=== PATIENT | female | born 1965 | race Caucasian/White ===

== ENCOUNTER 2019-07-31 10:01 | Outpatient (RCR) | payer MEDICARE, MEDICAID, SELFPAY ==
--- NOTE | 2019-08-01 08:09 | ONC FU_ITS ---
Dr. Benavidez Patient Follow-Up Note Patient: Bessy Roy Unit #: [id number]: 1965 Dicatated By: Jeffrey Benavidez M.D.Date of Visit:Jul 31, 2019 Onc Med Follow-up/Prog Note Chief Complaint: Ovarian cancer. History of Present Illness: This is a 54 year-old woman with recurrent ovarian cancer. She had presented in March 2012 with stage IIIC ovarian cancer. She was referred to Dr. Edilson Wahl for [employer] oncology. On 05/17/12 showed underwent exploratory laparotomy. She had bilateral adnexal masses which essentially coalesced to form 1 pelvic tumor which was involving the rectosigmoid colon. There was an omental cake which was densely adherent to the anterior abdominal wall. There were tumor implants ranging from miliary disease up to 2 cm plaques involving the right diaphragm, the peritoneum over Campos pouch and along the right pericolic gutter and similar plaque-type changes along the splenic hilum. The procedure included total abdominal hysterectomy with bilateral salpingo-oophorectomy and en bloc rectosigmoid resection, omentectomy with partial resection of the anterior abdominal wall, splenectomy, bilateral pelvic and periaortic lymph node dissection, appendectomy, liver biopsy, and debulking of right diaphragm and peritoneal implants. The op note indicates a small amount of residual miliary disease present at the end of the procedure. It was estimated to be greater than 99% resected. Pathology showed a high-grade serous carcinoma involving both ovaries, measuring 9 cm on the right and 6 cm on the left. There was involvement in the omentum and multiple serosal surfaces including the appendix, uterus, and colon. There was no diagnostic abnormality in the included portion of rectosigmoid colon and there was no involvement in the skeletal muscle from the abdominal wall. There was involvement in the liver capsule, but not the liver parenchyma. The spleen showed no diagnostic abnormality. There was involvement in 4 of 20 lymph nodes. The ascitic fluid also was positive. Her postoperative course was complicated by development of an abscess in the left lower quadrant, requiring percutaneous drainage and antibiotic therapy. She did have a gradual recovery, and she subsequently was given postoperative chemotherapy with carboplatin/Taxol. During the fifth cycle she had an admission to the hospital with abdominal pain and fever. She was not leukopenic at that time. Abdominal CT scan showed new lymph nodes in the right lower quadrant area and some thickening in the sigmoid colon. Her symptoms improved with empiric antibiotic therapy and as of 11/15/2012 she did complete her sixth cycle of chemotherapy. There were delays during her chemotherapy which were just related to poor compliance. In August 2013 she presented to the emergency room with right lower quadrant abdominal pain. She also reported frequent urination and urgency. She was not having fever, but she had not been feeling good generally for at least a couple of weeks. On evaluation, she did have evidence of urinary tract infection, which has been confirmed with culture. However, it was also noted that her CA 125 level had increased significantly, to 153 units/mL compared to 14.1 U/mL in November 2013. CT abdomen/pelvis showed interval development of a small amount of peritoneal ascites and numerous scattered mesenteric lymph nodes. The appearance was suspicious for metastatic disease. There was, however, no omental caking or GI tract obstruction. At that point she started second line chemotherapy with carboplatin and weekly Taxol in combination with Avastin. As of 02/02/15 she had completed 6 cycles of chemotherapy. She has had significant response by CA 125 level and by followup CT scan. With the fourth cycle of treatment I did opt to change her paclitaxel to a 3-week dosing regimen, as her diabetes was poorly controlled with the extra steroid on the weekly regimen. She did experience an increase in peripheral neuropathy with the 3-week paclitaxel dosing, and I did opt to omit the Taxol with cycles 5 and 6. In February 2015, following completion of 6 cycles of chemotherapy, her treatment was changed to maintenance Avastin. She had continued maintenance Avastin, beginning 03/02/2015. Initially her CA-125 levels remained stable, and she felt much better off the chemotherapy. However, by the end of June her CA-125 level began to increase. As of 08/19/2015 it was back up to 43 U/mL. At that point she restarted chemotherapy with Abraxane/Avastin, and her CA-125 level subsequently declined. She then continued treatment with Abraxane/Avastin, which she tolerates well on a day 1/day 15 schedule. As of 02/03/2016 she completed 6 cycles of treatment. As of December 2015 her CA-125 level had stabilized at 9.9 U/mL. She began her 13th cycle of treatment on 08/24/2016. Restaging CT scans of the chest, abdomen, and pelvis on 09/05/2016 showed non-obstructing right renal calculi and curvilinear mucosal thickening in the right renal pelvis. There was no evidence of neoplastic process in the chest, abdomen, or pelvis. She continued treatment with Abraxane/Avastin, though with some inconsistency, as she typically had not been very compliant with her treatment. Since September 2016 she has basically just been on a monthly treatment schedule. She completed cycle 21 of Abraxane/Avastin on 05/03/2017. Her Avastin had been put on hold as of her cycle 20 treatment on 03/29/2017 due to proteinuria. I had seen her for a follow-up visit on 05/31/2017. At that point her CA-125 level was noted to have increased gradually, up to 14.2 U/mL compared to 9.4 U/mL in September 2016. She continued with cycle 22 of Abraxane. She was able to resume the Avastin. Her CA-125 level continued to increase gradually. Restaging CT scans on 07/12/2017 showed no obvious disease progression. She continued with cycle 24 of Abraxane/Avastin on 08/02/2017. As of her follow-up visit on 08/22/2017 her neuropathy symptoms had worsened significantly, and I did opt to put her treatment on hold. She returned on 09/26/2017 to begin further chemotherapy with carboplatin/gemcitabine on a day 1/day 15 schedule. Her baseline CA-125 level had increased to 15.1 U/mL. She had some fatigue following that treatment. She otherwise seemed to tolerate it pretty well, and she was able to continue treatment on a day 1/day 15 schedule. During her subsequent followup she had not been terribly consistent in keeping her appointments, but that has been a typical pattern for her. However, her CA-125 level had basically remained stable and her restaging CT of the abdomen/pelvis on 05/08/2018 just showed mild progression of soft tissue thickening along the right lateral urinary bladder wall compared to the previous study from October 2017. It had not been present on an earlier study from June 2017. There was no evidence for metastatic disease or ascites in the abdomen/pelvis. She was then referred to Dr. May for urologic care, and she continued chemotherapy with carboplatin/gemcitabine. As of her follow-up visit on 08/08/2018 she completed cycle 10 day 15 carboplatin/gemcitabine. Her CEA 125 level at that point was stable at 15 U/mL. Restaging CT scans of the chest, abdomen, and pelvis showed persistent right lateral bladder wall thickening, unchanged from the April 2018 study. There was no evidence for metastatic disease throughout the chest, abdomen, or pelvis, and there was no evidence of ascites. She continued with cycle 11 of carboplatin/gemcitabine on 08/15/2018. She completed day 15 on 08/29/2018. She remained stable clinically with CA-125 level stable at 14.4 U/mL. Her other medical illnesses include hypertension, type II diabetes, and anxiety/depression. She underwent repair of an incisional hernia which developed subsequent to her abdominal surgery in 2011. She is a nonsmoker. INTERIM HISTORY: In August 2018 she began maintenance therapy with olaparib 300 mg twice a day. As of her follow-up visit on 11/04/2018 she was tolerating the treatment well, and she appeared stable clinically with no evidence of disease progression. As of 12/16/2018 there was a slight increase in her CA-125 level to 21.3 U/mL, but she appeared stable clinically. Restaging CT abdomen/pelvis on 01/16/2019 showed no evidence of disease progression. There was stable appearance to right anterior lower uterine bladder wall thickening. She continued treatment with olaparib 300 mg twice a day. She was seen for a scheduled visit on 04/10/2019. At that time she appeared stable clinically, but there was a significant increase in her CA 125 level to 30.0 U/mL compared to 17.8 U/mL in January. With that change she had restaging CT scans of the chest/abdomen/pelvis on 04/18/2019. It showed new circumferential thickening of the stomach antrum and a small but slightly increase sized gastric lymph node. It was felt to possible represent inflammatory changes from peptic ulcer disease, but very early metastatic disease was not excluded. There was no ascites. There was stable, mild thickening of the right lateral urinary bladder wall. With those findings, I opted to restart her on chemotherapy with carboplatin in combination with liposomal doxorubicin. She began cycle 1 on 05/08/2019. Her baseline CA 125 level was 58.9 U/mL. She tolerated the treatment with acceptable toxicity. She continued with cycle 2 on 06/05/2019 and with cycle 3 on 07/03/2019. At that point the CA 125 level had decreased to 38.9 U/mL. She is seen for a follow-up visit. She has not been feeling is good. She developed left sore throat and cough over the past weekend, for which she was started on amoxicillin. She also had some vomiting. She complains that she developed a rash which started on the bottoms of her feet and extended up both legs. She also reports having bruising around her waistline. Her energy has not been good, and her activity has been limited. ECOG score is 2. She has had some decline in her appetite. She had some fever with her recent illness. She has occasional hot flashes/sweating. Her breathing has been OK. She has not had chest pain. She has had a little bit of nausea and a little bit of heartburn. Bowels have varied between diarrhea and constipation. Bladder function has been OK. She has had a few headaches and a little bit of lightheadedness. She has some stiffness in her hands. She has no numbness/paresthesia or other focal neurologic symptoms. Medications: AmLODIPine Besylate 1 (5 mg) Tablet Oral daily, Amoxicillin 1 Tablet (of 500 mg) Oral b.i.d. for 7 days, CeleXA 1 (40 mg) Tablet Oral daily, Compazine 1 (10 mg) Tablet Oral four times a day PRN, HumuLIN R Injection t.i.d. PRN, Hydrocodone-Acetaminophen 1 (7.5-325 mg) Tablet Oral q 4 hours PRN, Lantus 40 Units (of 100 Units/mL) Subcutaneous at bedtime PRN, Levothyroxine Sodium 1 Tablet (of 125 mcg) Oral daily, Lomotil 1 (2.5-0.025 mg) Tablet Oral q 6 hours PRN, LORazepam 1 Tablet (of 1 mg) Oral four times a day PRN, Magnesium 1 Tablet (of 400 mg) Oral daily, MetFORMIN HCl 1 (500 mg) Tablet Oral b.i.d., Pantoprazole Sodium 1 Tablet (of 40 mg) Tablet, enteric coated Oral daily, Sulfamethoxazole-Trimethoprim 1 Tablet (of 800-160 mg) Oral b.i.d., Voltaren 2 - 4 G (of 1 %) Gel (jelly) Transdermal PRN Allergies: No Known Allergies. Review of Systems: Constitutional - Her energy is low. She does some very light work at home. Her appetite is not very good and her weight is down about 8 pounds. She has had fever, up to around 101. She has hot flashes and sweating. ECOG score is 2, ENMT - She has sinus congestion/drainage. She has sore mouth and sore throat. No difficulty swallowing, Hematologic/Lymphatic - No abnormal bruising or bleeding, Respiratory - No shortness of breath. No cough. No pleuritic pain or hemoptysis, Cardiovascular - No angina pain. No palpitations, Gastrointestinal - She has some nausea with an episode of vomiting. She has had some heartburn and acid reflux. Her bowels fluctuate between diarrhea and constipation. No blood in the stool or black stools, Genitourinary (F) - No dysuria or hematuria. No urinary frequency. No urgency or incontinence, Musculoskeletal - She has some stiffness in her hands, Integumentary - She has a rash on her lower extremities. She has skin discoloration around her abdomen, Neurologic - She has occasional headaches. She occasionally feels light-headed. No numbness/paresthesias or other focal neurologic symptoms, Psychiatric - Her anxiety/depression is adequately managed. No insomnia. Vital Signs: Performed on Jul 31, 2019 10:20 Height - 63.50 in Weight - 200.8 lbs (LOW) BSA - 1.95 sq.m BMI - 35.01 (HIGH) Temperature - 97.5 F (LOW) Pulse - 95 /min Respiration - 20 /min BP - 140/83 mm(hg) O2 Sat - 99 % Pain - 3 Physical Examination: Constitutional - She looks pretty good generally, Eyes - Sclerae nonicteric. Conjunctivae clear, ENMT - There are no lesions noted in the oral cavity, Hematologic/Lymphatic - No cervical, clavicular, or axillary adenopathy, Respiratory - Lungs sound clear, Cardiovascular - Heart rhythm is regular with a mild tachycardia. There is a II/ systolic murmur. There is no gallop or rub noted, Abdomen - Mildly distended and firm. Liver is not enlarged. There is no abdominal mass or ascites noted and there is no inguinal adenopathy, Extremities - No edema. There is mild erythema of the left great toe, and the toenail appears discolored, Integumentary - There is a follicular eruption involving the calves of both legs extending into the popliteal area. There is a narrow band of hyperpigmentation extending around her waistline, Neurologic - No focal neurologic deficits noted. Lab/Imaging: Test performed on Jul 31, 2019 10:37 Creatinine 0.9 mg/dL Cr Clearance (Est) 107.25 mL/min Test performed on Jul 28, 2019 10:52 WBC 6.8 10 3/uL RBC 4.07 10 6/uL HGB 13.1 g/dl HCT 40.0 % MCV 98.4 fl MCH 32.2 pg MCHC 32.7 g/dl RDW 17.8 % Platelet Count 399 10 3/uL MPV 8.4 fl Neutrophils 4.0 10 3/cmm Lymphocytes 1.7 10 3/uL Monocytes 1.0 10 3/uL Neutrophil % 59.3 % Lymphocyte % 25.7 % Monocyte % 15.0 % Test performed on Jul 03, 2019 11:00 Sodium 131 mmol/L Potassium 4.1 mmol/L Chloride 90 mmol/L CO2 25 mmol/L Anion Gap 20.1 BUN 14 mg/dL eGFR 65.2 mL/min Glucose 468 mg/dl Calcium 9.1 mg/dL Protein, Total 6.2 g/dL Albumin 4.5 g/dL Globulin 1.7 gm/dL Bilirubin, Total 0.2 mg/dL ALT (SGPT) 10 U/L AST (SGOT) 14 U/L Alkaline Phosphatase 89 U/L CA-125 38.9 U/mL Test performed on Jun 05, 2019 08:20 Eosinophils 0.0 10 3/uL Basophils 0.1 10 3/uL Eosinophil % 0.5 % Basophils % 1.0 % Test performed on May 22, 2019 09:02 Manual Segs 63.1 % Manual Lymphocytes 2.7 % Manual Monocytes 0.4 % Test performed on Apr 10, 2019 08:10 Polychromasia TRACE [place] Bodies 2+ Ovalocytes TRACE CBC Slide Review SLIDE REVIEW PERFORM Platelets, Giant TRACE Test performed on Feb 19, 2019 08:15 T4, Free 1.36 ng/dL TSH 5.51 uIU/mL Est Avg Glucose (eAG) 266 mg/dL Hemoglobin A1C % 10.9 % Impression: 1. The patient has high-grade serous carcinoma of the ovary, stage IIIC at initial diagnosis. There was a small amount of residual miliary disease present following her initial surgery in April 2012. Her disease was estimated at greater than 99% resected. She was given postoperative chemotherapy with 6 cycles of carboplatin/Taxol, which she completed in October 2012. 2. In August 2014 she had evidence of recurrence by CA [address] scan, and she then initiated second line treatment with carboplatin and weekly Taxol in combination with Avastin. As of February 2015 she had completed 6 cycles of chemotherapy. She had a good response by CEA 125 level and by followup CT scan. With the fourth cycle, I had changed the paclitaxel to 3-week dosing, as her diabetes had been poorly controlled with the extra the steroid required with the weekly dosing. She unfortunately did experience increased neuropathy with the 3-week dosage. With cycles 5 and 6 I did opt to omit the Taxol, and following completion of 6 cycles her treatment was changed to maintenance Avastin. She had significant improvement in her performance status after her treatment was changed to the maintenance Avastin. 3. As of 08/19/2015 she had 2 successive increases in her CA-125 level, and at that point she restarted chemotherapy with Abraxane in combination with Avastin. She has had a very good response by CA-125 level. Beginning with the 5th cycle, her treatment was changed to a day 1/day 15 schedule. Her other medical illnesses include: 4. Hypertension. 5. Type II diabetes. 6. GERD. 7. Anxiety/depression. As of 09/05/[address] scans had shown no evidence of disease progression. At that point she was in her 13th cycle of chemotherapy. She had subsequently continued treatment with Abraxane/Avastin, though not on a consistent schedule. Since October 2016 her treatments have generally been averaging once a month. Her CA-125 level had initially remained stable. As of 03/29/2017 she had completed her 20th cycle treatment. The Avastin was held at that time due to 2+ protein in her urine. On her subsequent 24-hour urine the proteinuria was still in acceptable range to continue treatment with Avastin. She proceeded with her cycle 22 Abraxane on 05/31/2017. She failed to return for her day 15 treatment. She received cycle 23 on 06/28/2017 and with cycle 24 on 08/02/2017. As of her follow-up visit on 08/22/2017 her neuropathy had worsened significantly, and I opted to stop her treatment. On 09/26/2017 she began further chemotherapy with carboplatin/gemcitabine on a day 1/day 15 schedule. Her baseline CA-125 level had increased to 15.1 U/mL. She had no acute toxicity with her day 1 treatment, but her day 8 CBC did show moderately severe neutropenia. She continued with cycle 1 day 15 treatment on 10/10/2017. She was given Neulasta prophylactically. She tolerated the treatment pretty well other than the Neulasta made her feel really awful. She has since then continued treatment on a day 1/day 15 schedule. As of July 2018 she had completed 11 cycles of treatment. She appeared stable clinically, and her restaging CT scans from 08/08/2018 had shown no evidence of disease progression. She had evidence of bladder wall thickening along with symptoms of cystitis, for which she was referred to Dr. May. As of August 2018 she began maintenance therapy with olaparib 300 mg twice a day. During subsequent follow-up she has tolerated the olaparib without significant adverse effects. She has had improvement in her cystitis symptoms, and there has been some improvement in her energy/activity tolerance since stopping the chemotherapy. As of her follow-up visit in November there was some increase in her CA-125 level, and she also had reported pain in her mid to lower abdomen. As of her follow-up visit in December her CA-125 level had remained stable, and her restaging CT abdomen/pelvis showed no obvious disease progression. At her scheduled followup visit on 04/10/2019 there appeared to be no significant change in her clinical status, but there was a significant further increase in the CA-125 level. Her subsequent restaging CT scans showed some new circumferential thickening of the stomach antrum and slight increased size of a gastric lymph node. It is uncertain to what extent those changes may be related to the ovarian cancer. However, in the context of a significantly increasing CA-125 level, it did appear likely that she was showing disease progression, and I did opt to restart her on chemotherapy with carboplatin in combination with liposomal doxorubicin. She began cycle 1 on 05/08/2019. Her baseline CA 125 level was 58.9 U/mL. She tolerated the treatment with acceptable toxicity. She continued with cycle 2 on 06/05/2019 and with cycle 3 on 07/03/2019. At that point the CA 125 level had decreased to 38.9 U/mL. She has had more side effects with her third cycle of treatment, including skin eruption in the lower extremities and hyperpigmentation in the abdominal area. She also has had decline in her performance status. Her CA 125 level appears to have stabilized, and it appears that she is having at best a modest response to the treatment. Plan: I am going to stop her current chemotherapy, as I feel that it is unlikely that she will tolerate a sufficient dosage to have a meaningful clinical response. She will be given a prescription for doxycycline for the skin eruption. I will see her back in 2 weeks. If she is feeling better, I will consider restarting treatment with a gemcitabine based regimen. Signed By: Jeffrey Benavidez M.D. <<Signature on File>>
== END 2019-08-29 23:59 | disposition home or self-care (01) ==
LOC: ONCMED 10:01
PROVIDERS: Family Provider Family Medicine; PCP Family Medicine; Visit Provider Internal Medicine Medical Oncology
DX: C56.2 Malignant neoplasm of left ovary (principal); C56.1 Malignant neoplasm of right ovary; C77.2 Secondary and unspecified malignant neoplasm of intra-abdominal lymph nodes; C78.6 Secondary malignant neoplasm of retroperitoneum and peritoneum; L27.1 Localized skin eruption due to drugs and medicaments taken internally; L81.4 Other melanin hyperpigmentation; T45.1X5A Adverse effect of antineoplastic and immunosuppressive drugs, initial encounter; I10 Essential (primary) hypertension; E11.9 Type 2 diabetes mellitus without complications; Z79.899 Other long term (current) drug therapy; F41.8 Other specified anxiety disorders; Z79.891 Long term (current) use of opiate analgesic; Z79.4 Long term (current) use of insulin; Z90.722 Acquired absence of ovaries, bilateral
CPT/HCPCS: 99214

== ENCOUNTER 2019-08-14 06:32 | Outpatient (RCR) | payer MEDICARE, MEDICAID, SELFPAY ==
[2019-08-14 09:29] LABS: Basophils # 0.1 10^3/uL (0.0-0.1); Basophils % 0.8 %; Eosinophils # 0.1 10^3/uL (0.0-0.8); Eosinophils % 0.4 %; Hematocrit 36.3 % (37.0-47.0); Hemoglobin 11.9 g/dL (11.5-15.3); Lymphocytes % 35.3 %; Mean Corpuscular HGB Conc 32.8 g/dL (30.0-36.0); Mean Corpuscular Hemoglobin 31.4 pg (28.0-34.0); Mean Corpuscular Volume 95.8 fL (81-99); Mean Platelet Volume 9.7 fL (7.4-10.4); Monocytes % 8.8 %; Neutrophils # 6.1 10^3/uL (1.8-7.7); Neutrophils % 54.2 %; Nucleated Red Blood Cells % 0 %; Platelet Count 477 10^3/cmm (130-400); Red Blood Count 3.79 10^6/uL (4.1-5.3); Red Cell Distribution Width 15.4 % (12.1-15.1); White Blood Count 11.2 10^3/uL (4.0-10.0)
[2019-08-14 09:50] LABS: Alanine Aminotransferase 15 U/L (0-33); Albumin Level 4.2 g/dL (3.5-5.2); Alkaline Phosphatase 96 IU/L (35-105); Aspartate Amino Transferase 15 U/L (0-32); Blood Urea Nitrogen 16 mg/dL (6-20); Calcium 9.6 mg/Dl (8.6-10.0); Carbon Dioxide 28 mmol/L (22-29); Chloride 90 mmol/L (98-107); Globulin 2.9 g/dL (1.3-4.6); Glomerular Filtration Rate 74.7 mL/min (90-130); Glucose 275 mg/dL (74-109); Sodium 133 mmol/L (136-145); Total Bilirubin 0.2 mg/dL (0.15-1.2); Total Protein 7.1 g/dL (6.6-8.7)
[2019-08-14 10:06] LABS: Estmated Average Glucose 278; Hemoglobin A1C 11.3 % (4.0-6.0)
--- NOTE | 2019-08-18 11:19 | ONC FU_ITS ---
[facility] Patient Note Patient: Bessy Roy Unit #: [id number]: [id number] Dictated By: Smiley RuizDate of Visit: Aug 14, 2019 Onc MED Follow-Up/Prog Note Chief Complaint: Ovarian cancer. History of Present Illness: Ms Roy is a 54 year-old woman with recurrent ovarian cancer. She had presented in March 2012 with stage IIIC ovarian cancer. She was referred to Dr. Edilson Wahl for CURRICULUM MANAGER oncology. On 05/17/12 showed underwent exploratory laparotomy. She had bilateral adnexal masses which essentially coalesced to form 1 pelvic tumor which was involving the rectosigmoid colon. There was an omental cake which was densely adherent to the anterior abdominal wall. There were tumor implants ranging from miliary disease up to 2 cm plaques involving the right diaphragm, the peritoneum over Campos pouch and along the right pericolic gutter and similar plaque-type changes along the splenic hilum. The procedure included total abdominal hysterectomy with bilateral salpingo-oophorectomy and en bloc rectosigmoid resection, omentectomy with partial resection of the anterior abdominal wall, splenectomy, bilateral pelvic and periaortic lymph node dissection, appendectomy, liver biopsy, and debulking of right diaphragm and peritoneal implants. The op note indicates a small amount of residual miliary disease present at the end of the procedure. It was estimated to be greater than 99% resected. Pathology showed a high-grade serous carcinoma involving both ovaries, measuring 9 cm on the right and 6 cm on the left. There was involvement in the omentum and multiple serosal surfaces including the appendix, uterus, and colon. There was no diagnostic abnormality in the included portion of rectosigmoid colon and there was no involvement in the skeletal muscle from the abdominal wall. There was involvement in the liver capsule, but not the liver parenchyma. The spleen showed no diagnostic abnormality. There was involvement in 4 of 20 lymph nodes. The ascitic fluid also was positive. Her postoperative course was complicated by development of an abscess in the left lower quadrant, requiring percutaneous drainage and antibiotic therapy. She did have a gradual recovery, and she subsequently was given postoperative chemotherapy with carboplatin/Taxol. During the fifth cycle she had an admission to the hospital with abdominal pain and fever. She was not leukopenic at that time. Abdominal CT scan showed new lymph nodes in the right lower quadrant area and some thickening in the sigmoid colon. Her symptoms improved with empiric antibiotic therapy and as of 11/15/2012 she did complete her sixth cycle of chemotherapy. There were delays during her chemotherapy which were just related to poor compliance. In August 2013 she presented to the emergency room with right lower quadrant abdominal pain. She also reported frequent urination and urgency. She was not having fever, but she had not been feeling good generally for at least a couple of weeks. On evaluation, she did have evidence of urinary tract infection, which has been confirmed with culture. However, it was also noted that her CA 125 level had increased significantly, to 153 units/mL compared to 14.1 U/mL in November 2013. CT abdomen/pelvis showed interval development of a small amount of peritoneal ascites and numerous scattered mesenteric lymph nodes. The appearance was suspicious for metastatic disease. There was, however, no omental caking or GI tract obstruction. At that point she started second line chemotherapy with carboplatin and weekly Taxol in combination with Avastin. As of 02/02/15 she had completed 6 cycles of chemotherapy. She has had significant response by CA 125 level and by followup CT scan. With the fourth cycle of treatment Dr Benavidez did opt to change her paclitaxel to a 3-week dosing regimen, as her diabetes was poorly controlled with the extra steroid on the weekly regimen. She did experience an increase in peripheral neuropathy with the 3-week paclitaxel dosing, and it was opted to omit the Taxol with cycles 5 and 6. In February 2015, following completion of 6 cycles of chemotherapy, her treatment was changed to maintenance Avastin. She had continued maintenance Avastin, beginning 03/02/2015. Initially her CA-125 levels remained stable, and she felt much better off the chemotherapy. However, by the end of June her CA-125 level began to increase. As of 08/19/2015 it was back up to 43 U/mL. At that point she restarted chemotherapy with Abraxane/Avastin, and her CA-125 level subsequently declined. She then continued treatment with Abraxane/Avastin, which she tolerates well on a day 1/day 15 schedule. As of 02/03/2016 she completed 6 cycles of treatment. As of December 2015 her CA-125 level had stabilized at 9.9 U/mL. She began her 13th cycle of treatment on 08/24/2016. Restaging CT scans of the chest, abdomen, and pelvis on 09/05/2016 showed non-obstructing right renal calculi and curvilinear mucosal thickening in the right renal pelvis. There was no evidence of neoplastic process in the chest, abdomen, or pelvis. She continued treatment with Abraxane/Avastin, though with some inconsistency, as she typically had not been very compliant with her treatment. Since September 2016 she has basically just been on a monthly treatment schedule. She completed cycle 21 of Abraxane/Avastin on 05/03/2017. Her Avastin had been put on hold as of her cycle 20 treatment on 03/29/[address] Benavidez had seen her for a follow-up visit on 05/31/2017. At that point her CA-125 level was noted to have increased gradually, up to 14.2 U/mL compared to 9.4 U/mL in September 2016. She continued with cycle 22 of Abraxane. She was able to resume the Avastin. Her CA-125 level continued to increase gradually. Restaging CT scans on 07/12/2017 showed no obvious disease progression. She continued with cycle 24 of Abraxane/Avastin on 08/02/2017. As of her follow-up visit on 08/22/2017 her neuropathy symptoms had worsened significantly, and I did opt to put her treatment on hold. She returned on 09/26/2017 to begin further chemotherapy with carboplatin/gemcitabine on a day 1/day 15 schedule. Her baseline CA-125 level had increased to 15.1 U/mL. She had some fatigue following that treatment. She otherwise seemed to tolerate it pretty well, and she was able to continue treatment on a day 1/day 15 schedule. During her subsequent followup she had not been terribly consistent in keeping her appointments, but that has been a typical pattern for her. However, her CA-125 level had basically remained stable and her restaging CT of the abdomen/pelvis on 05/08/2018 just showed mild progression of soft tissue thickening along the right lateral urinary bladder wall compared to the previous study from October 2017. It had not been present on an earlier study from June 2017. There was no evidence for metastatic disease or ascites in the abdomen/pelvis. She was then referred to Dr. May for urologic care, and she continued chemotherapy with carboplatin/gemcitabine. Her other medical illnesses include hypertension, type II diabetes, and anxiety/depression. She underwent repair of an incisional hernia which developed subsequent to her abdominal surgery in 2011. She is a nonsmoker. INTERIM HISTORY: As of her follow-up visit on 08/08/2018 she completed cycle 10 day 15 carboplatin/gemcitabine. Her CEA 125 level at that point was stable at 15 U/mL. Restaging CT scans of the chest, abdomen, and pelvis showed persistent right lateral bladder wall thickening, unchanged from the April 2018 study. There was no evidence for metastatic disease throughout the chest, abdomen, or pelvis, and there was no evidence of ascites. She continued with cycle 11 of carboplatin/gemcitabine on 08/15/2018. She completed day 15 on 08/29/2018. She remained stable clinically with CA-125 level stable at 14.4 U/mL. In August 2018 she began maintenance therapy with olaparib 300 mg twice a day. As of her follow-up visit on 11/04/2018 she was tolerating the treatment well, and she appeared stable clinically with no evidence of disease progression. As of 12/16/2018 there was a slight increase in her CA-125 level to 21.3 U/mL, but she appeared stable clinically. Restaging CT abdomen/pelvis on 01/16/2019 showed no evidence of disease progression. There was stable appearance to right anterior lower uterine bladder wall thickening. She continued treatment with olaparib 300 mg twice a day. She was seen for a scheduled visit on 04/10/2019. At that time she appeared stable clinically, but there was a significant increase in her CA 125 level to 30.0 U/mL compared to 17.8 U/mL in January. With that change she had restaging CT scans of the chest/abdomen/pelvis on 04/18/2019. It showed new circumferential thickening of the stomach antrum and a small but slightly increase sized gastric lymph node. It was felt to possible represent inflammatory changes from peptic ulcer disease, but very early metastatic disease was not excluded. There was no ascites. There was stable, mild thickening of the right lateral urinary bladder wall. With those findings, Dr Benavidez opted to restart her on chemotherapy with carboplatin in combination with liposomal doxorubicin. She began cycle 1 on 05/08/2019. Ms. Cabrera is here today for follow-up. Her chemotherapy with carboplatin and Doxil has been placed on hold as she did have evidence of slight disease progression on a outside CT from 05/01/2019. We have sent off [employer] sequencing attempting to do find new treatment for her. In the meantime she had been recovering from the chemotherapy. She states that she did see Dr. Rocha recently and had a broken toe and lost my toenail . She is tolerating that well. She does have an acid reflux on the Protonix twice daily. She states the heartburn is actually gotten a little bit worse. We will try switching her to Prevacid and see if that is any better. She can do Tums or Rolaids/Pepcid in the interim. We have not been able to send off her [employer] sequencing yet as it is tied up in a lawsuit and waiting for the largest to release that. She is aware this is delaying her care. She has no new concerns. She states she is having some abdominal pain in the left lower quad that comes and goes. She states is not new is been there for some time it just flares now and then for no reason. She denies any fever or chills. She states her bowels and bladder are normal for her. She is had no residual neuropathy. Her ECOG is 2. Past Medical History: Ovarian cancer (Dr. Wahl in [place] performed surgery) in 2011 She has previously been in good health. She has had some depression following the surgery. She has no other medical illnesses. Past Surgical History: Caesarean section Right leg abcess Flu vaccine in 2019 Flu vacc in 2018 - rt deltoid Flucevax in 2017 - left deltoid Pneumovax in 2017 - right deltoid Exploratory lap in 2011 - MEG-BSO,recto-sigmoid resection,omentectomy,splenectomy,bilateral pelvic and periaortic lymph node dissections,appy,liver biopsy, Hysterectomy in 2012 Port placed in 2011 - dr. dela cruz ([facility]) Prior surgeries limited to section in 2001 and a procedure on her right leg for abscess at age 18. EXploratory lap in 2012 resulted in total abdominal hysterectomy with bilateral salpingo-oophorectomy, and en bloc rectosigmoid resctions, omentectomy with partial resection of the anterior abdominal wall, splenectomy, bilateral pelvic and periaortic lymph node dissections, appendectomy, liver biopsy and debulking of right diaphragm and peritoneal implants. Allergies: No Known Allergies. Medications: AmLODIPine Besylate 1 (5 mg) Tablet Oral daily Amoxicillin 1 Tablet (of 500 mg) Oral b.i.d. for 7 days CeleXA 1 (40 mg) Tablet Oral daily Compazine 1 (10 mg) Tablet Oral four times a day PRN HumuLIN R Injection t.i.d. PRN Hydrocodone-Acetaminophen 1 (7.5-325 mg) Tablet Oral q 4 hours PRN Lantus 40 Units (of 100 Units/mL) Subcutaneous at bedtime PRN Levothyroxine Sodium 1 Tablet (of 125 mcg) Oral daily Lomotil 1 (2.5-0.025 mg) Tablet Oral q 6 hours PRN LORazepam 1 Tablet (of 1 mg) Oral four times a day PRN Magnesium 1 Tablet (of 400 mg) Oral daily MetFORMIN HCl 1 (500 mg) Tablet Oral b.i.d. Pantoprazole Sodium 1 Tablet (of 40 mg) Tablet, enteric coated Oral daily Sulfamethoxazole-Trimethoprim 1 Tablet (of 800-160 mg) Oral b.i.d. Voltaren 2 - 4 G (of 1 %) Gel (jelly) Transdermal PRN Family History: Ms. Roy's mother is alive: cancer history consists of Breast cancer while other medical history includes stroke and Alzheimers's disease at age 79. Ms. Roy's father is : cancer history consists of Thyroid Gland cancer while other medical history includes heart disease at age 62 (cause of ). Ms. Roy has 1 brother with an unknown alive status: medical history includes COPD and alcoholism. She has 1 maternal aunt with an unknown alive status: cancer history consists of Breast cancer. Family history significant for father having with heart disease at age 62. He also had thyroid cancer. Her mother is still living at age 79. She has Alzheimer's dementia and a history of strokes. She also has been treated for breast cancer. A maternal aunt also had breast cancer. She has one brother who is 60 years old and has COPD and alcoholism. Social History: Ms. Roy is single and she is a disabled. Ms. Roy has never smoked. She has no history of drinking. Ms. Roy reports the following support systems: lives with spouse, significant other, family, or friends, lives in own house, supportive family/friends willing to assist with needs, and adequate transportation available for expected visits. Her diet consists of regular meals. She indicates her activity level as: daily activities. She was previously and . She is currently unmarried, but she has a significant other. 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 She has never smoked. She has just occasional alcohol use. Review Of Symptoms: Constitutional Denies fevers, chills, night sweats, excessive fatigue or weight loss. Allergic/Immunologic No reactions. Eyes Denies significant visual changes. ENMT Denies sore throat, mouth sores, difficulty or changes in swallowing ability. Sinus drainage/allergies-chronic. Endocrine Hot flashes much better. Hematologic/Lymphatic Denies easy bruising or bleeding. The patient denies any tender or palpable lymph nodes. Breasts no concerns Respiratory Denies dyspnea on exertion, chest pain, cough. Cardiovascular Denies anginal chest pain. Gastrointestinal Denies vomiting. But has had persistent, worsening heartburn, intermittent, chronic diarrhea and constipation-stable and controlled. Had emesis last night with the acid reflux. She states she is taking the Protonix twice daily and still having problems. Genitourinary (F) No hesitancy, incontinence, vaginal bleeding, discharge. UTI symptoms improved currently. Musculoskeletal Denies joint pain or specific bone pain. Integumentary Denies chronic rashes, inflammation. Neurologic Denies headache, blurred vision, and no areas of focal weakness or numbness. Normal gait. No sensory problems. Psychiatric Denies depression, anxiety. Insomnia improved. Vital Signs: Performed on Aug 14, 2019 10:03 Height - 63.50 in Weight - 205.6 lbs (HIGH) BSA - 1.97 sq.m BMI - 35.85 (HIGH) Temperature - 97.7 F (LOW) Pulse - 96 /min Respiration - 16 /min BP - 127/74 mm(hg) O2 Sat - 97 % Pain - 4 Fatigue - 6,1 - No physically strenuous activity, but ambulatory and able to carry out light or sedentary work (e.g. office work, light house work). (ECOG) Physical Examination: Constitutional Alert, oriented, no acute distress. Skin pink, warm and dry. Head Normocephalic; atraumatic. Eyes Conjunctivae and sclerae are clear and without icterus. Pupils are reactive and equal. Neck Supple without masses or thyromegaly. No jugular venous distension. Respiratory Lungs are clear to auscultation without rhonchi or wheezing. Cardiovascular Regular rate and rhythm of heart without murmurs,clicks, gallops or rubs. Chest Chest is symmetric without chest wall deformities. Right venous access device is unremarkable. Abdomen Non-tender, non-distended, no masses noted .Good bowel sounds noted in all quads. No guarding or rebound tenderness. No pulsatile masses. Back/Spine Non-tender to palpation. Extremities No visible deformities, no cyanosis, clubbing or edema. Pulses 4+ and equal bilaterally. Musculoskeletal No tenderness or swelling, normal range of motion without obvious weakness. Integumentary rash on bilateral arms, legs-essentially resolved today. Neurologic No sensory or motor deficits, normal cerebellar function, normal gait. Psychiatric Alert and oriented times three. Coherent speech. Verbalizes understanding of our discussions today. Laboratory:Test performed on Aug 14, 2019 09:53 Glucose 275 mg/dL BUN 16 mg/dL Creatinine 0.8 mg/dL Cr Clearance (Est) 120.66 mL/min Sodium 133 mmol/L Potassium 4.0 mmol/L Chloride 90 mmol/L CO2 28 mmol/L Calcium 9.6 mg/dL Protein, Total 7.1 g/dL Albumin 4.2 g/dL Globulin 2.9 g/dL Bilirubin, Total 0.2 mg/dL Alkaline Phosphatase 96 IU/L AST (SGOT) 15 IU/L ALT (SGPT) 15 IU/L Test performed on Aug 14, 2019 09:41 WBC 11.2 10^9/L RBC 3.79 10^12/L HGB 11.9 g/dL HCT 36.3 % MCV 95.8 fl MCH 31.4 pg MCHC 32.8 g/dL RDW 15.4 % Platelet Count 477 10^9/L MPV 9.7 fL Neutrophils (Gran) 6.1 10^9/L Lymphocytes 4.0 10^9/L Monocytes 1.0 10^9/L Eosinophils 0.1 10^9/L Basophils 0.1 10^9/L Manual Lymphocytes 35.3 % Manual Monocytes 8.8 % Manual Eosinophils 0.4 % Manual Basophils 0.8 % NRBCs 0 /100 WBC Test performed on Aug 14, 2019 09:15 Hemoglobin A1C 11.3 % Test performed on Jul 28, 2019 10:52 Neutrophil % 59.3 % Lymphocyte % 25.7 % Monocyte % 15.0 % Test performed on Jul 03, 2019 11:00 Anion Gap 20.1 eGFR 65.2 mL/min CA-125 38.9 U/mL Test performed on Jun 05, 2019 08:20 Eosinophil % 0.5 % Basophils % 1.0 % Test performed on May 22, 2019 09:02 Manual Segs 63.1 % Test performed on Apr 10, 2019 08:10 Polychromasia TRACE [place] Bodies 2+ Ovalocytes TRACE CBC Slide Review SLIDE REVIEW PERFORM Platelets, Giant TRACE Test performed on Feb 19, 2019 08:15 T4, Free 1.36 ng/dL TSH 5.51 uIU/mL Est Avg Glucose (eAG) 266 mg/dL Impression: 1. The patient has high-grade serous carcinoma of the ovary, stage IIIC at initial diagnosis. There was a small amount of residual miliary disease present following her initial surgery in April 2012. Her disease was estimated at greater than 99% resected. She was given postoperative chemotherapy with 6 cycles of carboplatin/Taxol, which she completed in October 2012. 2. In August 2014 she had evidence of recurrence by CA [address] scan, and she then initiated second line treatment with carboplatin and weekly Taxol in combination with Avastin. As of February 2015 she had completed 6 cycles of chemotherapy. She had a good response by CEA 125 level and by followup CT scan. With the fourth cycle, Dr Benavidez had changed the paclitaxel to 3-week dosing, as her diabetes had been poorly controlled with the extra the steroid required with the weekly dosing. She unfortunately did experience increased neuropathy with the 3-week dosage. With cycles 5 and 6 it was optes to omit the Taxol, and following completion of 6 cycles her treatment was changed to maintenance Avastin. She had significant improvement in her performance status after her treatment was changed to the maintenance Avastin. 3. As of 08/19/2015 she had 2 successive increases in her CA-125 level, and at that point she restarted chemotherapy with Abraxane in combination with Avastin. She has had a very good response by CA-125 level. Beginning with the 5th cycle, her treatment was changed to a day 1/day 15 schedule. Her other medical illnesses include: 4. Hypertension. 5. Type II diabetes. 6. GERD. 7. Anxiety/depression. As of 09/05/[address] scans had shown no evidence of disease progression. At that point she was in her 13th cycle of chemotherapy. She had subsequently continued treatment with Abraxane/Avastin, though not on a consistent schedule. Since October 2016 her treatments have generally been averaging once a month. Her CA-125 level had initially remained stable. As of 03/29/2017 she had completed her 20th cycle treatment. The Avastin was held at that time due to 2+ protein in her urine. On her subsequent 24-hour urine the proteinuria was still in acceptable range to continue treatment with Avastin. She proceeded with her cycle 22 Abraxane on 05/31/2017. She failed to return for her day 15 treatment. She received cycle 23 on 06/28/2017 and with cycle 24 on 08/02/2017. As of her follow-up visit on 08/22/2017 her neuropathy had worsened significantly, and I opted to stop her treatment. On 09/26/2017 she began further chemotherapy with carboplatin/gemcitabine on a day 1/day 15 schedule. Her baseline CA-125 level had increased to 15.1 U/mL. She had no acute toxicity with her day 1 treatment, but her day 8 CBC did show moderately severe neutropenia. She continued with cycle 1 day 15 treatment on 10/10/2017. She was given Neulasta prophylactically. She tolerated the treatment pretty well other than the Neulasta made her feel really awful. She has since then continued treatment on a day 1/day 15 schedule. As of July 2018 she had completed 11 cycles of treatment. She appeared stable clinically, and her restaging CT scans from 08/08/2018 had shown no evidence of disease progression. She had evidence of bladder wall thickening along with symptoms of cystitis, for which she was referred to Dr. May. As of August 2018 she began maintenance therapy with olaparib 300 mg twice a day. During subsequent follow-up she has tolerated the olaparib without significant adverse effects. She has had improvement in her cystitis symptoms, and there has been some improvement in her energy/activity tolerance since stopping the chemotherapy. As of her follow-up visit in November there was some increase in her CA-125 level, and she also had reported pain in her mid to lower abdomen. As of her follow-up visit in December her CA-125 level had remained stable, and her restaging CT abdomen/pelvis showed no obvious disease progression. At her scheduled followup visit on 04/10/2019 there appeared to be no significant change in her clinical status, but there was a significant further increase in the CA-125 level. Her subsequent restaging CT scans showed some new circumferential thickening of the stomach antrum and slight increased size of a gastric lymph node. It is uncertain to what extent those changes may be related to the ovarian cancer. However, in the context of a significantly increasing CA-125 level, it did appear likely that she was showing disease progression, and I did opt to restart her on chemotherapy with carboplatin in combination with liposomal doxorubicin. She began cycle 1 on 05/08/2019. Her baseline CA 125 level was 58.9 U/mL. She tolerated the treatment with acceptable toxicity. She continued with cycle 2 on 06/05/2019 and with cycle 3 on 07/03/2019. At that point the CA 125 level had decreased to 38.9 U/mL. She has had more side effects with her third cycle of treatment, including skin eruption in the lower extremities and hyperpigmentation in the abdominal area. She also has had decline in her performance status. Her CA 125 level appears to have stabilized, and it appears that she is having at best a modest response to the treatment. Dr Benavidez stopped her chemotherapy on 07/31/2019 as it was felt hat it is unlikely that she will tolerate a sufficient dosage to have a meaningful clinical response. She was given a prescription for doxycycline for the skin eruption. Plan: 1. Remain off chemotherapy at present. 2. Restaging imaging with CT of chest/Abdomen/Pelvis with contrast. 3. Annual mammogram due and she wants to do that in August. 4. Awaiting NGS on tumor-Apparently her specimen has to be released by her senior bioinformatics scientist as she does participate in the class action lawsuit against [employer]. She is waiting for a letter from her shank carrier to be able to release the specimen to [facility]. Once we have that we will send the specimen out. If this causes much more delay we may want to do a blood biopsy/liquid biopsy but would prefer the care at this point as it seems to have more information. Bessy is aware that this is part of the delay. 5. We will plan to see her back after we get the [employer] sequencing and her follow-up CTs. She is requested to do them around September 02 or that she will be here to see Dr. Rocha anyway. 6. She is instructed to contact us in the interim should questions or problems arise. Signed By: Smiley Ruiz-, [facility] Jeffrey Benavidez MD <<Signature on File>>
== END 2019-08-29 23:59 | disposition home or self-care (01) ==
LOC: ONCMED 06:32
PROVIDERS: Family Provider Family Medicine; PCP Family Medicine; Visit Provider Nurse Practitioner
DX: C56.1 Malignant neoplasm of right ovary (principal); C56.2 Malignant neoplasm of left ovary; C77.2 Secondary and unspecified malignant neoplasm of intra-abdominal lymph nodes; C78.6 Secondary malignant neoplasm of retroperitoneum and peritoneum; E11.9 Type 2 diabetes mellitus without complications; Z90.710 Acquired absence of both cervix and uterus; I10 Essential (primary) hypertension; F41.8 Other specified anxiety disorders; L08.9 Local infection of the skin and subcutaneous tissue, unspecified; K21.9 Gastro-esophageal reflux disease without esophagitis; Z79.4 Long term (current) use of insulin; Z79.899 Other long term (current) drug therapy; Z92.21 Personal history of antineoplastic chemotherapy
CPT/HCPCS: 36591; 73630; 80053; 83036; 85025; 99214

== ENCOUNTER 2019-09-09 13:10 | Outpatient (CLI) | payer MEDICARE, MEDICAID, SELFPAY ==
--- NOTE | 2019-09-09 13:31 | CT_ITS ---
WS: [id number] CT CHEST, ABDOMEN AND PELVIS WITH CONTRAST HISTORY: OVARIAN CANCER RESTAGING TECHNIQUE: Contiguous 5 mm axial imaging performed through the chest, abdomen and pelvis with IV cont rast, oral contrast has been provided. Coronal and sagittal reformats chest. Coronal and sagittal ref ormats through the abdomen and pelvis. All CT scans at [facility] use at least one of the se dose optimization techniques: automated exposure control; mA and/or kV adjustment per patient size (includes targeted exams where dose is matched to clinical indication); or iterative reconstruction. CONTRAST: Omnipaque 300; 95 mL IV. DLP: 2351.02 mGycm COMPARISON: 05/01/2019 and 04/18/[address]: Benign stable granuloma near the RIGHT middle lobe fissure. There are no suspicious masses or nodules or interval change. Heart size is normal. No pericardial or pleural effusions. Mild thicke gilbert of the esophagus. Small esophageal hiatal hernia. Thoracic aorta and pulmonary artery size is ar e normal. RIGHT subclavian Port-A-Cath. Abdomen CT: Liver is enlarged but similar to prior studies. Long-term stability of a hypodense area s calloping along the RIGHT inferior lobe of the liver. No bile duct dilatation. Spleen is been removed . Gallbladder is slightly contracted. Pancreas and adrenal glands are unchanged. Nonobstructing calci fications lower pole RIGHT kidney. Mild cortical thinning RIGHT kidney with no obstruction. Small ext rarenal pelvis on the LEFT. Again noted is the variable density involving the antrum of the stomach there is an area of stricture with the more proximal dilated. Enlarged lymph nodes at the lesser curvature stomach measures 16 mm. There is an adjacent smaller lymph node posterior to the antrum of the stomach. There are a few magda tional subcentimeter lymph nodes near the antrum of the stomach also. These lymph nodes have increase d in size and number since 04/18/2019. No ascites. Pelvic CT: Mild diffuse fecal retention. No obstructive pattern. There is an additional mesenteric de posit measuring 11 mm in short axis diameter in the central pelvis surrounded by fat. Increased in si ze from 9 mm on the prior study. There are additional smaller subcentimeter mesenteric deposits in th e pelvis which were not present on the prior study. There may be a larger deposit in the LEFT pelvis adjacent to the GI tract. CT/CT chest abd pel w con* IMPRESSION: 1. 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 Suspicious for progression of disease. 2. Soft tissue mass at the antrum of the stomach with slight increase in size and luminal narrowing. 3. No pneumonia. No pulmonary nodules are identified. 4. No metastatic disease to the liver or adrenal glands.
[2019-09-09] MEDS: iohexol 300 mg/mL 50 mL Btl PO (14:36)
[2019-09-09] MEDS: iohexol 300 mg/mL 100 mL Btl IV (15:13)
== END 2019-09-09 13:11 | disposition home or self-care (01) ==
LOC: RADWPI 13:15
PROVIDERS: Family Provider Family Medicine; PCP Family Medicine; Visit Provider Nurse Practitioner
DX: C56.9 Malignant neoplasm of unspecified ovary (principal)
CPT/HCPCS: 71260; 74177; Q9967

== ENCOUNTER 2019-09-09 15:30 | Outpatient (RCR) | payer MEDICARE, MEDICAID, SELFPAY ==
--- NOTE | 2019-09-02 09:03 | MM_ITS ---
WS: [id number] BILATERAL SCREENING DIGITAL MAMMOGRAM WITH CAD HISTORY: SCREENING COMPARISON: 08/15/2018 and 11/09/2016 Bilateral CC and MLO views submitted. Computer aided detection analyzed. Breast composition: The breasts are extremely dense, which lowers the sensitivity of mammography. No suspicious masses, microcalcifications or architectural distortion. Dense asymmetries bilaterally wit h calcifications throughout the breast. No distortion. No new or increasing area of density. MM/[place] [id number] IMPRESSION: BI-RADS: 2-Benign FOLLOW UP: 1 Year Follow-up
== END 2019-09-27 23:59 | disposition home or self-care (01) ==
LOC: RADWPI 15:30
PROVIDERS: Family Provider Family Medicine; PCP Family Medicine; Visit Provider Nurse Practitioner
DX: Z12.31 Encounter for screening mammogram for malignant neoplasm of breast (principal)
CPT/HCPCS: 77067

== ENCOUNTER → 2019-10-14 09:00 | Outpatient (BNVA) | payer MEDICARE, MEDICAID, SELFPAY | PROVIDERS: Family Provider Family Medicine; PCP Family Medicine; Visit Provider Nurse Practitioner | DX: C56.9 Malignant neoplasm of unspecified ovary (principal) | CPT/HCPCS: 80053; 85025 ==

== ENCOUNTER → 2019-10-21 09:13 | Outpatient (BNVA) | payer MEDICARE, MEDICAID, SELFPAY | PROVIDERS: Family Provider Family Medicine; PCP Family Medicine; Visit Provider Nurse Practitioner | DX: C77.2 Secondary and unspecified malignant neoplasm of intra-abdominal lymph nodes (principal) | CPT/HCPCS: 80053; 85025 ==

== ENCOUNTER 2019-10-22 05:43 | Outpatient (RCR) | payer MEDICARE, MEDICAID, SELFPAY ==
[2019-10-08] MEDS: alteplase 1 mg/mL SDV 2 mL 2 MG IV (08:25)
[2019-10-08 08:46] LABS: Basophils # 0.1 10^3/uL (0.0-0.1); Basophils % 0.6 %; Eosinophils # 0.1 10^3/uL (0.0-0.8); Eosinophils % 1.2 %; Hematocrit 38.9 % (37.0-47.0); Hemoglobin 12.4 g/dL (11.5-15.3); Lymphocytes # 3.8 10^3/uL (0.8-4.8); Lymphocytes % 34.7 %; Mean Corpuscular HGB Conc 31.9 g/dL (30.0-36.0); Mean Corpuscular Hemoglobin 29.6 pg (28.0-34.0); Mean Corpuscular Volume 92.8 fL (81-99); Mean Platelet Volume 9.8 fL (7.4-10.4); Monocytes # 0.8 10^3/uL (0.2-0.9); Neutrophils # 6.2 10^3/uL (1.8-7.7); Neutrophils % 56.1 %; Nucleated Red Blood Cells % 0 %; Platelet Count 462 10^3/cmm (130-400); Red Blood Count 4.19 10^6/uL (4.1-5.3)
[2019-10-08 08:58] LABS: Alanine Aminotransferase 10 U/L (0-33); Albumin Level 3.9 g/dL (3.5-5.2); Alkaline Phosphatase 90 IU/L (35-105); Anion Gap 19.1 (5-19); Aspartate Amino Transferase 15 U/L (0-32); Blood Urea Nitrogen 28 mg/dL (6-20); Calcium 9.5 mg/dL (8.5-10.5); Carbon Dioxide 26 mmol/L (22-29); Chloride 90 mmol/L (98-107); Glomerular Filtration Rate 65.2 mL/min (90-130); Glucose 320 mg/dL (65-115); Osmolality Calculated 281 mOsm/kg (285-295); Potassium 4.1 mmol/L (3.5-5.1); Sodium 131 mmol/L (136-145); Total Bilirubin 0.3 mg/dL (0.15-1.2); Total Protein 6.9 g/dL (6.6-8.7)
[2019-10-08 09:21] LABS: CA 125 59.9 U/mL (0-35)
[2019-10-08] MEDS: sodium chloride 0.9% 250 ML 300 ML IV (11:55)
--- NOTE | 2019-10-12 12:29 | ONC FU_ITS ---
[facility] Patient Note Patient: Bessy Roy Unit #: [id number]: 1965 Dictated By: Smiley RuizDate of Visit: Oct 08, 2019 Onc MED Follow-Up/Prog Note Chief Complaint: Ovarian cancer. History of Present Illness: Ms Roy is a 54 year-old woman with recurrent ovarian cancer. She had presented in March 2012 with stage IIIC ovarian cancer. She was referred to Dr. Edilson Wahl for [employer]IST[employer] oncology. On 05/17/12 showed underwent exploratory laparotomy. She had bilateral adnexal masses which essentially coalesced to form 1 pelvic tumor which was involving the rectosigmoid colon. There was an omental cake which was densely adherent to the anterior abdominal wall. There were tumor implants ranging from miliary disease up to 2 cm plaques involving the right diaphragm, the peritoneum over Campos pouch and along the right pericolic gutter and similar plaque-type changes along the splenic hilum. The procedure included total abdominal hysterectomy with bilateral salpingo-oophorectomy and en bloc rectosigmoid resection, omentectomy with partial resection of the anterior abdominal wall, splenectomy, bilateral pelvic and periaortic lymph node dissection, appendectomy, liver biopsy, and debulking of right diaphragm and peritoneal implants. The op note indicates a small amount of residual miliary disease present at the end of the procedure. It was estimated to be greater than 99% resected. Pathology showed a high-grade serous carcinoma involving both ovaries, measuring 9 cm on the right and 6 cm on the left. There was involvement in the omentum and multiple serosal surfaces including the appendix, uterus, and colon. There was no diagnostic abnormality in the included portion of rectosigmoid colon and there was no involvement in the skeletal muscle from the abdominal wall. There was involvement in the liver capsule, but not the liver parenchyma. The spleen showed no diagnostic abnormality. There was involvement in 4 of 20 lymph nodes. The ascitic fluid also was positive. Her postoperative course was complicated by development of an abscess in the left lower quadrant, requiring percutaneous drainage and antibiotic therapy. She did have a gradual recovery, and she subsequently was given postoperative chemotherapy with carboplatin/Taxol. During the fifth cycle she had an admission to the hospital with abdominal pain and fever. She was not leukopenic at that time. Abdominal CT scan showed new lymph nodes in the right lower quadrant area and some thickening in the sigmoid colon. Her symptoms improved with empiric antibiotic therapy and as of 11/15/2012 she did complete her sixth cycle of chemotherapy. There were delays during her chemotherapy which were just related to poor compliance. In August 2013 she presented to the emergency room with right lower quadrant abdominal pain. She also reported frequent urination and urgency. She was not having fever, but she had not been feeling good generally for at least a couple of weeks. On evaluation, she did have evidence of urinary tract infection, which has been confirmed with culture. However, it was also noted that her CA 125 level had increased significantly, to 153 units/mL compared to 14.1 U/mL in November 2013. CT abdomen/pelvis showed interval development of a small amount of peritoneal ascites and numerous scattered mesenteric lymph nodes. The appearance was suspicious for metastatic disease. There was, however, no omental caking or GI tract obstruction. At that point she started second line chemotherapy with carboplatin and weekly Taxol in combination with Avastin. As of 02/02/15 she had completed 6 cycles of chemotherapy. She has had significant response by CA 125 level and by followup CT scan. With the fourth cycle of treatment Dr Benavidez did opt to change her paclitaxel to a 3-week dosing regimen, as her diabetes was poorly controlled with the extra steroid on the weekly regimen. She did experience an increase in peripheral neuropathy with the 3-week paclitaxel dosing, and it was opted to omit the Taxol with cycles 5 and 6. In February 2015, following completion of 6 cycles of chemotherapy, her treatment was changed to maintenance Avastin. She had continued maintenance Avastin, beginning 03/02/2015. Initially her CA-125 levels remained stable, and she felt much better off the chemotherapy. However, by the end of June her CA-125 level began to increase. As of 08/19/2015 it was back up to 43 U/mL. At that point she restarted chemotherapy with Abraxane/Avastin, and her CA-125 level subsequently declined. She then continued treatment with Abraxane/Avastin, which she tolerates well on a day 1/day 15 schedule. As of 02/03/2016 she completed 6 cycles of treatment. As of December 2015 her CA-125 level had stabilized at 9.9 U/mL. She began her 13th cycle of treatment on 08/24/2016. Restaging CT scans of the chest, abdomen, and pelvis on 09/05/2016 showed non-obstructing right renal calculi and curvilinear mucosal thickening in the right renal pelvis. There was no evidence of neoplastic process in the chest, abdomen, or pelvis. She continued treatment with Abraxane/Avastin, though with some inconsistency, as she typically had not been very compliant with her treatment. Since September 2016 she has basically just been on a monthly treatment schedule. She completed cycle 21 of Abraxane/Avastin on 05/03/2017. Her Avastin had been put on hold as of her cycle 20 treatment on 03/29/[address] Benavidez had seen her for a follow-up visit on 05/31/2017. At that point her CA-125 level was noted to have increased gradually, up to 14.2 U/mL compared to 9.4 U/mL in September 2016. She continued with cycle 22 of Abraxane. She was able to resume the Avastin. Her CA-125 level continued to increase gradually. Restaging CT scans on 07/12/2017 showed no obvious disease progression. She continued with cycle 24 of Abraxane/Avastin on 08/02/2017. As of her follow-up visit on 08/22/2017 her neuropathy symptoms had worsened significantly, and Dr Benavidez did opt to put her treatment on hold. She returned on 09/26/2017 to begin further chemotherapy with carboplatin/gemcitabine on a day 1/day 15 schedule. Her baseline CA-125 level had increased to 15.1 U/mL. She had some fatigue following that treatment. She otherwise seemed to tolerate it pretty well, and she was able to continue treatment on a day 1/day 15 schedule. During her subsequent followup she had not been terribly consistent in keeping her appointments, but that has been a typical pattern for her. However, her CA-125 level had basically remained stable and her restaging CT of the abdomen/pelvis on 05/08/2018 just showed mild progression of soft tissue thickening along the right lateral urinary bladder wall compared to the previous study from October 2017. It had not been present on an earlier study from June 2017. There was no evidence for metastatic disease or ascites in the abdomen/pelvis. She was then referred to Dr. May for urologic care, and she continued chemotherapy with carboplatin/gemcitabine. Her other medical illnesses include hypertension, type II diabetes, and anxiety/depression. She underwent repair of an incisional hernia which developed subsequent to her abdominal surgery in 2011. She is a nonsmoker. INTERIM HISTORY: As of her follow-up visit on 08/08/2018 she completed cycle 10 day 15 carboplatin/gemcitabine. Her CEA 125 level at that point was stable at 15 U/mL. Restaging CT scans of the chest, abdomen, and pelvis showed persistent right lateral bladder wall thickening, unchanged from the April 2018 study. There was no evidence for metastatic disease throughout the chest, abdomen, or pelvis, and there was no evidence of ascites. She continued with cycle 11 of carboplatin/gemcitabine on 08/15/2018. She completed day 15 on 08/29/2018. She remained stable clinically with CA-125 level stable at 14.4 U/mL. In August 2018 she began maintenance therapy with olaparib 300 mg twice a day. As of her follow-up visit on 11/04/2018 she was tolerating the treatment well, and she appeared stable clinically with no evidence of disease progression. As of 12/16/2018 there was a slight increase in her CA-125 level to 21.3 U/mL, but she appeared stable clinically. Restaging CT abdomen/pelvis on 01/16/2019 showed no evidence of disease progression. There was stable appearance to right anterior lower uterine bladder wall thickening. She continued treatment with olaparib 300 mg twice a day. She was seen for a scheduled visit on 04/10/2019. At that time she appeared stable clinically, but there was a significant increase in her CA 125 level to 30.0 U/mL compared to 17.8 U/mL in January. With that change she had restaging CT scans of the chest/abdomen/pelvis on 04/18/2019. It showed new circumferential thickening of the stomach antrum and a small but slightly increase sized gastric lymph node. It was felt to possible represent inflammatory changes from peptic ulcer disease, but very early metastatic disease was not excluded. There was no ascites. There was stable, mild thickening of the right lateral urinary bladder wall. With those findings, Dr Benavidez opted to restart her on chemotherapy with carboplatin in combination with liposomal doxorubicin. She began cycle 1 on 05/08/2019. She was here in July 2019 for followup and her chemotherapy with carboplatin and Doxil had been placed on hold as she did have evidence of slight disease progression on a outside CT from 05/01/2019. We did request [employer] sequencing attempting to do find new treatment for her. There was some delay in getting her gene assay done. Her specimen is tied up with a class action lawsuit against [employer]. We eventually had to get the nursing home social worker to release the specimen that was sent to the appropriate lab. Her next gene sequencing reported PD-L1 (SP 142) by IHC was positive at 24.5%; [place] by IHC was positive by 14.1%. BRCA1 BRCA2 were not detected MSI was stable mismatch repair status was proficient. In TRK 1 2 and 3 did not show a fusion. Dr. Benavidez has advised that we could resume chemotherapy she has done well in the past on carboplatin gemcitabine. We have elected to try this again. It will be day 1 and 15 treatment every 28 days. She may require Neulasta support but for now we will watch her counts. She is had extensive chemotherapy in the past. She has no new concerns today. We did review her labs from today as well as her CT of the chest abdomen pelvis from August 09, 2019. It was noted on that exam there are mesenteric deposits throughout the abdomen which have increased in size and number since 05/28/2019. Suspicious for progression of disease . There was a soft tissue mass at the antrum of the stomach with slight increase in size and luminal narrowing; no pneumonia seen. She states overall she feels pretty good. She is tired frequently has to rest often. She does not do her own cooking, her significant other does cook for her. She states she is trying to do better with her diabetic diet but it is very difficult. She states is actually come down over the last 3 to 4 days. But she states she knows she can do better as well. She is somewhat concerned about her blood pressure as the last clinic she was at told her was elevated. So is slightly elevated here but not enough to require any interventions at this time. She denies any mouth sores sore throat or difficulty swallowing. She denies any diarrhea constipation. She states everything is normal for her at this time. She tries remain active around the house but states she does tire easily. She states she recovers well with rest. She has had some slight peripheral neuropathy but is not worsening. Her ECOG is 2. Past Medical History: Ovarian cancer (Dr. Wahl in [place] performed surgery) in 2011 She has previously been in good health. She has had some depression following the surgery. She has no other medical illnesses. Past Surgical History: Caesarean section Right leg abcess Flu vaccine in 2019 Flu vacc in 2017 - rt deltoid Flucevax in 2016 - left deltoid Pneumovax in 2016 - right deltoid Exploratory lap in 2011 - MEG-BSO,recto-sigmoid resection,omentectomy,splenectomy,bilateral pelvic and periaortic lymph node dissections,appy,liver biopsy, Hysterectomy in 2011 Port placed in 2011 - dr. dela cruz ([facility]) Prior surgeries limited to section in 2001 and a procedure on her right leg for abscess at age 18. EXploratory lap in 2011 resulted in total abdominal hysterectomy with bilateral salpingo-oophorectomy, and en bloc rectosigmoid resctions, omentectomy with partial resection of the anterior abdominal wall, splenectomy, bilateral pelvic and periaortic lymph node dissections, appendectomy, liver biopsy and debulking of right diaphragm and peritoneal implants. Allergies: No Known Allergies. Medications: AmLODIPine Besylate 1 (5 mg) Tablet Oral daily CeleXA 1 (40 mg) Tablet Oral daily Compazine 1 (10 mg) Tablet Oral four times a day PRN HumuLIN R Injection t.i.d. PRN Hydrocodone-Acetaminophen 1 (7.5-325 mg) Tablet Oral q 4 hours PRN Lantus 40 Units (of 100 Units/mL) Subcutaneous at bedtime PRN Levothyroxine Sodium 1 Tablet (of 125 mcg) Oral daily Lomotil 1 (2.5-0.025 mg) Tablet Oral q 6 hours PRN LORazepam 1 Tablet (of 1 mg) Oral four times a day PRN Magnesium 1 Tablet (of 400 mg) Oral daily MetFORMIN HCl 1 (500 mg) Tablet Oral b.i.d. Pantoprazole Sodium 1 Tablet (of 40 mg) Tablet, enteric coated Oral daily Sulfamethoxazole-Trimethoprim 1 Tablet (of 800-160 mg) Oral b.i.d. Voltaren 2 - 4 G (of 1 %) Gel (jelly) Transdermal PRN Family History: Ms. Jasons mother is alive: cancer history consists of Breast cancer while other medical history includes stroke and Alzheimers's disease at age 79. Ms. Jasons father is : cancer history consists of Thyroid Gland cancer while other medical history includes heart disease at age 62 (cause of ). Ms. Roy has 1 brother with an unknown alive status: medical history includes COPD and alcoholism. She has 1 maternal aunt with an unknown alive status: cancer history consists of Breast cancer. Family history significant for father having with heart disease at age 62. He also had thyroid cancer. Her mother is still living at age 79. She has Alzheimer's dementia and a history of strokes. She also has been treated for breast cancer. A maternal aunt also had breast cancer. She has one brother who is 60 years old and has COPD and alcoholism. Social History: Ms. Roy is single and she is a disabled. Ms. Roy has never smoked. She has no history of drinking. Ms. Roy reports the following support systems: lives with spouse, significant other, family, or friends, lives in own house, supportive family/friends willing to assist with needs, and adequate transportation available for expected visits. Her diet consists of regular meals. She indicates her activity level as: daily activities. She was previously and . She is currently unmarried, but she has a significant other. 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 She has never smoked. She has just occasional alcohol use. Review Of Symptoms: Constitutional Denies fevers, chills, night sweats, excessive fatigue or weight loss. Allergic/Immunologic No reactions. Eyes Denies significant visual changes. ENMT Denies sore throat, mouth sores, difficulty or changes in swallowing ability. Sinus drainage/allergies-chronic. Endocrine Hot flashes much better. Hematologic/Lymphatic Denies easy bruising or bleeding. The patient denies any tender or palpable lymph nodes. Breasts no concerns Respiratory Denies dyspnea on exertion, chest pain, cough. Cardiovascular Denies anginal chest pain. Gastrointestinal Denies vomiting. But has had persistent, worsening heartburn, intermittent, chronic diarrhea and constipation-stable and controlled. Had emesis last night with the acid reflux. She states she is taking the Protonix twice daily and still having problems. Genitourinary (F) No hesitancy, incontinence, vaginal bleeding, discharge. UTI symptoms improved currently. Musculoskeletal Denies joint pain or specific bone pain. Integumentary Denies chronic rashes, inflammation. Neurologic Denies headache, blurred vision, and no areas of focal weakness or numbness. Normal gait. No sensory problems. Psychiatric Denies depression, anxiety. Insomnia improved. Vital Signs: Performed on Oct 08, 2019 10:46 Height - 63.50 in Weight - 202.8 lbs (LOW) BSA - 1.96 sq.m BMI - 35.36 (HIGH) Temperature - 97.7 F (LOW) Pulse - 92 /min BP - 116/87 mm(hg) O2 Sat - 97 % Pain - 3 Fatigue - 7,2 - Ambulatory/capable of all self-care, unable to perform any work activities. Up and about more than 50% of waking hours. (ECOG) Physical Examination: Constitutional Alert, oriented, no acute distress. Skin pink, warm and dry. Head Normocephalic; atraumatic. Eyes Conjunctivae and sclerae are clear and without icterus. Pupils are reactive and equal. ENMT Sinuses are nontender. No oral exudates, ulcers, masses, thrush or mucositis. Oropharynx clear. Neck Supple without masses or thyromegaly. No jugular venous distension. Respiratory Lungs are clear to auscultation without rhonchi or wheezing. Cardiovascular Regular rate and rhythm of heart without murmurs,clicks, gallops or rubs. Chest Chest is symmetric without chest wall deformities. Right venous access device is unremarkable. Abdomen Non-tender, non-distended, no masses noted .Good bowel sounds noted in all quads. No guarding or rebound tenderness. No pulsatile masses. Back/Spine Non-tender to palpation. Extremities No visible deformities, no cyanosis, clubbing or edema. Pulses 4+ and equal bilaterally. Musculoskeletal No tenderness or swelling, normal range of motion without obvious weakness. Integumentary rash on bilateral arms, legs-essentially resolved today. Neurologic No sensory or motor deficits, normal cerebellar function, normal gait. Psychiatric Alert and oriented times three. Coherent speech. Verbalizes understanding of our discussions today. Laboratory:Test performed on Oct 08, 2019 08:25 Sodium 131 mmol/L Potassium 4.1 mmol/L Chloride 90 mmol/L CO2 26 mmol/L Anion Gap 19.1 BUN 28 mg/dL Creatinine 0.9 mg/dL Cr Clearance (Est) 103.7700 mL/min eGFR 65.2 mL/min Glucose 320 mg/dL Calcium 9.5 mg/dL Protein, Total 6.9 g/dL Albumin 3.9 g/dL Globulin 3.0 g/dL Bilirubin, Total 0.3 mg/dL ALT (SGPT) 10 U/L AST (SGOT) 15 U/L Alkaline Phosphatase 90 IU/L WBC 11.0 10 3/uL RBC 4.19 10 6/uL HGB 12.4 g/dL HCT 38.9 % MCV 92.8 fL MCH 29.6 pg MCHC 31.9 g/dL RDW 14.0 % Platelet Count 462 10 3/cmm MPV 9.8 fL Neutrophils 6.2 10 3/uL Lymphocytes 3.8 10 3/uL Monocytes 0.8 10 3/uL Eosinophils 0.1 10 3/uL Basophils 0.1 10 3/uL Neutrophil % 56.1 % Lymphocyte % 34.7 % Monocyte % 7.0 % Eosinophil % 1.2 % Basophils % 0.6 % CA-125 59.9 U/mL Test performed on Aug 14, 2019 09:41 Manual Lymphocytes 35.3 % Manual Monocytes 8.8 % Manual Eosinophils 0.4 % Manual Basophils 0.8 % NRBCs 0 /100 WBC Test performed on Aug 14, 2019 09:15 Hemoglobin A1C 11.3 % Test performed on May 22, 2019 09:02 Manual Segs 63.1 % Impression: 1. The patient has high-grade serous carcinoma of the ovary, stage IIIC at initial diagnosis. There was a small amount of residual miliary disease present following her initial surgery in April 2012. Her disease was estimated at greater than 99% resected. She was given postoperative chemotherapy with 6 cycles of carboplatin/Taxol, which she completed in October 2012. 2. In August 2014 she had evidence of recurrence by CA [address] scan, and she then initiated second line treatment with carboplatin and weekly Taxol in combination with Avastin. As of February 2015 she had completed 6 cycles of chemotherapy. She had a good response by CEA 125 level and by followup CT scan. With the fourth cycle, Dr Benavidez had changed the paclitaxel to 3-week dosing, as her diabetes had been poorly controlled with the extra the steroid required with the weekly dosing. She unfortunately did experience increased neuropathy with the 3-week dosage. With cycles 5 and 6 it was optes to omit the Taxol, and following completion of 6 cycles her treatment was changed to maintenance Avastin. She had significant improvement in her performance status after her treatment was changed to the maintenance Avastin. 3. As of 08/19/2015 she had 2 successive increases in her CA-125 level, and at that point she restarted chemotherapy with Abraxane in combination with Avastin. She has had a very good response by CA-125 level. Beginning with the 5th cycle, her treatment was changed to a day 1/day 15 schedule. Her other medical illnesses include: 4. Hypertension. 5. Type II diabetes. 6. GERD. 7. Anxiety/depression. As of 09/05/[address] scans had shown no evidence of disease progression. At that point she was in her 13th cycle of chemotherapy. She had subsequently continued treatment with Abraxane/Avastin, though not on a consistent schedule. Since October 2016 her treatments have generally been averaging once a month. Her CA-125 level had initially remained stable. As of 03/29/2017 she had completed her 20th cycle treatment. The Avastin was held at that time due to 2+ protein in her urine. On her subsequent 24-hour urine the proteinuria was still in acceptable range to continue treatment with Avastin. She proceeded with her cycle 22 Abraxane on 05/31/2017. She failed to return for her day 15 treatment. She received cycle 23 on 06/28/2017 and with cycle 24 on 08/02/2017. As of her follow-up visit on 08/22/2017 her neuropathy had worsened significantly, and I opted to stop her treatment. On 09/26/2017 she began further chemotherapy with carboplatin/gemcitabine on a day 1/day 15 schedule. Her baseline CA-125 level had increased to 15.1 U/mL. She had no acute toxicity with her day 1 treatment, but her day 8 CBC did show moderately severe neutropenia. She continued with cycle 1 day 15 treatment on 10/10/2017. She was given Neulasta prophylactically. She tolerated the treatment pretty well other than the Neulasta made her feel really awful. She has since then continued treatment on a day 1/day 15 schedule. As of July 2018 she had completed 11 cycles of treatment. She appeared stable clinically, and her restaging CT scans from 08/08/2018 had shown no evidence of disease progression. She had evidence of bladder wall thickening along with symptoms of cystitis, for which she was referred to Dr. May. As of August 2018 she began maintenance therapy with olaparib 300 mg twice a day. During subsequent follow-up she has tolerated the olaparib without significant adverse effects. She has had improvement in her cystitis symptoms, and there has been some improvement in her energy/activity tolerance since stopping the chemotherapy. As of her follow-up visit in November there was some increase in her CA-125 level, and she also had reported pain in her mid to lower abdomen. As of her follow-up visit in December her CA-125 level had remained stable, and her restaging CT abdomen/pelvis showed no obvious disease progression. At her scheduled followup visit on 04/10/2019 there appeared to be no significant change in her clinical status, but there was a significant further increase in the CA-125 level. Her subsequent restaging CT scans showed some new circumferential thickening of the stomach antrum and slight increased size of a gastric lymph node. It is uncertain to what extent those changes may be related to the ovarian cancer. However, in the context of a significantly increasing CA-125 level, it did appear likely that she was showing disease progression, and Dr Benavidez did opt to restart her on chemotherapy with carboplatin in combination with liposomal doxorubicin. She began cycle 1 on 05/08/2019. Her baseline CA 125 level was 58.9 U/mL. She tolerated the treatment with acceptable toxicity. She continued with cycle 2 on 06/05/2019 and with cycle 3 on 07/03/2019. At that point the CA 125 level had decreased to 38.9 U/mL. She has had more side effects with her third cycle of treatment, including skin eruption in the lower extremities and hyperpigmentation in the abdominal area. She also has had decline in her performance status. Her CA 125 level appears to have stabilized, and it appears that she is having at best a modest response to the treatment. Dr Benavidez stopped her chemotherapy on 07/31/2019 as it was felt that it is unlikely that she will tolerate a sufficient dosage to have a meaningful clinical response. She was given a prescription for doxycycline for the skin eruption. She was seen for a scheduled visit on 04/10/2019. At that time she appeared stable clinically, but there was a significant increase in her CA 125 level to 30.0 U/mL compared to 17.8 U/mL in January. With that change she had restaging CT scans of the chest/abdomen/pelvis on 04/18/2019. It showed new circumferential thickening of the stomach antrum and a small but slightly increase sized gastric lymph node. It was felt to possible represent inflammatory changes from peptic ulcer disease, but very early metastatic disease was not excluded. There was no ascites. There was stable, mild thickening of the right lateral urinary bladder wall. With those findings, Dr Benavidez opted to restart her on chemotherapy with carboplatin in combination with liposomal doxorubicin. She began cycle 1 on 05/08/2019. She was here in July 2019 for followup and her chemotherapy with carboplatin and Doxil had been placed on hold as she did have evidence of slight disease progression on a outside CT from 05/01/2019. We did request [employer] sequencing attempting to do find new treatment for her. There was some delay in getting her gene assay done. Her specimen is tied up with a class action lawsuit against [employer]. We eventually had to get the nursing home social worker to release the specimen that was sent to the appropriate lab. Her next gene sequencing reported PD-L1 (SP 142) by IHC was positive at 24.5%; [place] by IHC was positive by 14.1%. BRCA1 BRCA2 were not detected MSI was stable mismatch repair status was proficient. In TRK 1 2 and 3 did not show a fusion. Dr. Benavidez has advised that we could resume chemotherapy she has done well in the past on carboplatin gemcitabine. We have elected to try this again. It will be day 1 and 15 treatment every 28 days. She may require Neulasta support but for now we will watch her counts. She has had extensive chemotherapy in the past. Plan: 1. Proceed with cycle 1 Carboplatin/gemcitabine. 2. Aggressive antiemetics as she has had treatment related nausea in the past. 3. Refill Compazine so she has it available at home for antiemesis. 4. Plan for CBC, CMP in 1 week which can be done here via her port or per home visit thermal molder. 5. Plan for follow-up here in 2 weeks with CBC CMP and her CA 125. 6. She was instructed to contact us in the interim should questions or problems arise. 7. The patient was informed of chemotherapy plan and specific drugs were discussed. We also discussed how chemotherapy works and identified common side effects including alopecia; myelosuppression-including neutropenia, anemia, thrombocytopenia; peripheral neuropathy; fatigue; nausea; diarrhea; constipation; bleeding or bruising; skin changes; mouth sores; drug hypersensitivity/allergic reactions or anaphylaxis and extravasation. They have also been informed how to contact the clinic with side effects or symptoms, including but not limited to fever greater than 100.4???, chills, sore throat, bleeding or bruising that is not explained or mouth sores, cough, nasal discharge, diarrhea, constipation, nausea and/or vomiting not relieved with medications on hand at home, as well as any other concern or question they may have. Our hours are 8:00 a.m. to 4:30 p.m. on Sunday through and 8-12:00 on Sunday. However, someone is regulatory services consultant 24 hours per day and they have been advised to contact the [facility] at if it is after hours. We have also discussed potential long-term side effects of chemotherapy including secondary cancers, infertility, pulmonary complications, cardiac complications, and again peripheral neuropathy. We have discussed that they certainly need to let us know before taking any antioxidants or herbal or further dietary supplements, as we are unsure of how these agents react with chemotherapy and we request that they avoid these products for now. They were informed that it is okay to take multivitamins at normal doses. They verbally state that they understand to take all medications as directed by their healthcare provider unless otherwise indicated. They also verbalized understanding to leave the pressure dressing on the intravenous administration site for at least two hours after treatment. Instructions for oral care with baking soda and salt water rinses as well as a guide for use of [id number] medication were provided with the treatment plan. They have been given a written patient treatment plan, of which a copy is in the chart, as well as specific drug information. They have no questions and verbalized understanding and are willing to proceed with chemotherapy at this time. The majority of this visit was spent in face to face communication with this patient in regards to the plan of care, side effect identification and management. Signed By: Smiley Ruiz <<Signature on File>>
[2019-10-22] MEDS: alteplase 1 mg/mL SDV 2 mL 2 MG IV (09:35)
[2019-10-22 09:49] LABS: Alanine Aminotransferase 20 U/L (0-33); Albumin Level 3.8 g/dL (3.5-5.2); Alkaline Phosphatase 88 IU/L (35-105); Anion Gap 19.4 (5-19); Aspartate Amino Transferase 23 U/L (0-32); Blood Urea Nitrogen 12 mg/dL (6-20); Calcium 9.6 mg/dL (8.5-10.5); Carbon Dioxide 27 mmol/L (22-29); Chloride 92 mmol/L (98-107); Globulin 2.8 g/dL (1.3-4.6); Glomerular Filtration Rate 74.7 mL/min (90-130); Glucose 318 mg/dL (65-115); Osmolality Calculated 286 mOsm/kg (285-295); Potassium 4.4 mmol/L (3.5-5.1); Sodium 134 mmol/L (136-145); Total Bilirubin 0.2 mg/dL (0.15-1.2); Total Protein 6.6 g/dL (6.6-8.7)
[2019-10-22] MEDS: sodium chloride 0.9% 250 ML 75 ML IV (10:20)
--- NOTE | 2019-10-22 12:01 | ONC FU_ITS ---
Dr. Benavidez Patient Follow-Up Note Patient: Bessy Roy Unit #: [id number]: 1965 Dicatated By: Jeffrey Benavidez M.D.Date of Visit:Oct 22, 2019 Onc Med Follow-up/Prog Note Chief Complaint: Ovarian cancer. History of Present Illness: This is a 54 year-old woman with recurrent ovarian cancer. She had presented in March 2012 with stage IIIC ovarian cancer. She was referred to Dr. Edilson Wahl for [facility]NAGER oncology. On 05/17/12 showed underwent exploratory laparotomy. She had bilateral adnexal masses which essentially coalesced to form 1 pelvic tumor which was involving the rectosigmoid colon. There was an omental cake which was densely adherent to the anterior abdominal wall. There were tumor implants ranging from miliary disease up to 2 cm plaques involving the right diaphragm, the peritoneum over Campos pouch and along the right pericolic gutter and similar plaque-type changes along the splenic hilum. The procedure included total abdominal hysterectomy with bilateral salpingo-oophorectomy and en bloc rectosigmoid resection, omentectomy with partial resection of the anterior abdominal wall, splenectomy, bilateral pelvic and periaortic lymph node dissection, appendectomy, liver biopsy, and debulking of right diaphragm and peritoneal implants. The op note indicates a small amount of residual miliary disease present at the end of the procedure. It was estimated to be greater than 99% resected. Pathology showed a high-grade serous carcinoma involving both ovaries, measuring 9 cm on the right and 6 cm on the left. There was involvement in the omentum and multiple serosal surfaces including the appendix, uterus, and colon. There was no diagnostic abnormality in the included portion of rectosigmoid colon and there was no involvement in the skeletal muscle from the abdominal wall. There was involvement in the liver capsule, but not the liver parenchyma. The spleen showed no diagnostic abnormality. There was involvement in 4 of 20 lymph nodes. The ascitic fluid also was positive. Her postoperative course was complicated by development of an abscess in the left lower quadrant, requiring percutaneous drainage and antibiotic therapy. She did have a gradual recovery, and she subsequently was given postoperative chemotherapy with carboplatin/Taxol. During the fifth cycle she had an admission to the hospital with abdominal pain and fever. She was not leukopenic at that time. Abdominal CT scan showed new lymph nodes in the right lower quadrant area and some thickening in the sigmoid colon. Her symptoms improved with empiric antibiotic therapy and as of 11/15/2012 she did complete her sixth cycle of chemotherapy. There were delays during her chemotherapy which were just related to poor compliance. In August 2013 she presented to the emergency room with right lower quadrant abdominal pain. She also reported frequent urination and urgency. She was not having fever, but she had not been feeling good generally for at least a couple of weeks. On evaluation, she did have evidence of urinary tract infection, which has been confirmed with culture. However, it was also noted that her CA 125 level had increased significantly, to 153 units/mL compared to 14.1 U/mL in November 2013. CT abdomen/pelvis showed interval development of a small amount of peritoneal ascites and numerous scattered mesenteric lymph nodes. The appearance was suspicious for metastatic disease. There was, however, no omental caking or GI tract obstruction. At that point she started second line chemotherapy with carboplatin and weekly Taxol in combination with Avastin. As of 02/02/15 she had completed 6 cycles of chemotherapy. She has had significant response by CA 125 level and by followup CT scan. With the fourth cycle of treatment I did opt to change her paclitaxel to a 3-week dosing regimen, as her diabetes was poorly controlled with the extra steroid on the weekly regimen. She did experience an increase in peripheral neuropathy with the 3-week paclitaxel dosing, and I did opt to omit the Taxol with cycles 5 and 6. In February 2015, following completion of 6 cycles of chemotherapy, her treatment was changed to maintenance Avastin. She had continued maintenance Avastin, beginning 03/02/2015. Initially her CA-125 levels remained stable, and she felt much better off the chemotherapy. However, by the end of June her CA-125 level began to increase. As of 08/19/2015 it was back up to 43 U/mL. At that point she restarted chemotherapy with Abraxane/Avastin, and her CA-125 level subsequently declined. She then continued treatment with Abraxane/Avastin, which she tolerates well on a day 1/day 15 schedule. As of 02/03/2016 she completed 6 cycles of treatment. As of December 2015 her CA-125 level had stabilized at 9.9 U/mL. She began her 13th cycle of treatment on 08/24/2016. Restaging CT scans of the chest, abdomen, and pelvis on 09/05/2016 showed non-obstructing right renal calculi and curvilinear mucosal thickening in the right renal pelvis. There was no evidence of neoplastic process in the chest, abdomen, or pelvis. She continued treatment with Abraxane/Avastin, though with some inconsistency, as she typically had not been very compliant with her treatment. Since September 2016 she has basically just been on a monthly treatment schedule. She completed cycle 21 of Abraxane/Avastin on 05/03/2017. Her Avastin had been put on hold as of her cycle 20 treatment on 03/29/2017 due to proteinuria. I had seen her for a follow-up visit on 05/31/2017. At that point her CA-125 level was noted to have increased gradually, up to 14.2 U/mL compared to 9.4 U/mL in September 2016. She continued with cycle 22 of Abraxane. She was able to resume the Avastin. Her CA-125 level continued to increase gradually. Restaging CT scans on 07/12/2017 showed no obvious disease progression. She continued with cycle 24 of Abraxane/Avastin on 08/02/2017. As of her follow-up visit on 08/22/2017 her neuropathy symptoms had worsened significantly, and I did opt to put her treatment on hold. She returned on 09/26/2017 to begin further chemotherapy with carboplatin/gemcitabine on a day 1/day 15 schedule. Her baseline CA-125 level had increased to 15.1 U/mL. She had some fatigue following that treatment. She otherwise seemed to tolerate it pretty well, and she was able to continue treatment on a day 1/day 15 schedule. During her subsequent followup she had not been terribly consistent in keeping her appointments, but that has been a typical pattern for her. However, her CA-125 level had basically remained stable and her restaging CT of the abdomen/pelvis on 05/08/2018 just showed mild progression of soft tissue thickening along the right lateral urinary bladder wall compared to the previous study from October 2017. It had not been present on an earlier study from June 2017. There was no evidence for metastatic disease or ascites in the abdomen/pelvis. She was then referred to Dr. May for urologic care, and she continued chemotherapy with carboplatin/gemcitabine. As of her follow-up visit on 08/08/2018 she completed cycle 10 day 15 carboplatin/gemcitabine. Her CEA 125 level at that point was stable at 15 U/mL. Restaging CT scans of the chest, abdomen, and pelvis showed persistent right lateral bladder wall thickening, unchanged from the April 2018 study. There was no evidence for metastatic disease throughout the chest, abdomen, or pelvis, and there was no evidence of ascites. She continued with cycle 11 of carboplatin/gemcitabine on 08/15/2018. She completed day 15 on 08/29/2018. She remained stable clinically with CA-125 level stable at 14.4 U/mL. Her other medical illnesses include hypertension, type II diabetes, and anxiety/depression. She underwent repair of an incisional hernia which developed subsequent to her abdominal surgery in 2011. She is a nonsmoker. INTERIM HISTORY: In August 2018 she began maintenance therapy with olaparib 300 mg twice a day. As of her follow-up visit on 11/04/2018 she was tolerating the treatment well, and she appeared stable clinically with no evidence of disease progression. As of 12/16/2018 there was a slight increase in her CA-125 level to 21.3 U/mL, but she appeared stable clinically. Restaging CT abdomen/pelvis on 01/16/2019 showed no evidence of disease progression. There was stable appearance to right anterior lower uterine bladder wall thickening. She continued treatment with olaparib 300 mg twice a day. She was seen for a scheduled visit on 04/10/2019. At that time she appeared stable clinically, but there was a significant increase in her CA 125 level to 30.0 U/mL compared to 17.8 U/mL in January. With that change she had restaging CT scans of the chest/abdomen/pelvis on 04/18/2019. It showed new circumferential thickening of the stomach antrum and a small but slightly increase sized gastric lymph node. It was felt to possible represent inflammatory changes from peptic ulcer disease, but very early metastatic disease was not excluded. There was no ascites. There was stable, mild thickening of the right lateral urinary bladder wall. With those findings, I opted to restart her on chemotherapy with carboplatin in combination with liposomal doxorubicin. She began cycle 1 on 05/08/2019. Her baseline CA 125 level was 58.9 U/mL. She tolerated the treatment with acceptable toxicity. She continued with cycle 2 on 06/05/2019 and with cycle 3 on 07/03/2019. At that point the CA 125 level had decreased slightly, to 38.9 U/mL. She was seen for a follow-up visit on 07/31/2019. At that point she had developed a significant skin eruption as well as other side effects with the chemotherapy. As there has been no further decline in the Ca1 25 level, I opted to stop that treatment. Restaging CT of the abdomen/pelvis on 09/09/2019 showed mesenteric deposits throughout the abdomen and pelvis, increased in size and number compared to the study from April 2019. Also noted was a soft tissue mass at the antrum of the stomach with slight increase in size and luminal narrowing. With those findings, I opted to restart chemotherapy with carboplatin/gemcitabine. She began her 1st cycle on 10/08/2019 on a day 1/day 15 schedule. She is seen for a scheduled visit. She tolerated her day 1 carboplatin/gemcitabine without acute toxicity. She says she has been feeling pretty good. However, she has been having more pain in the lower abdominal area, and it is not being relieved adequately with the hydrocodone/APAP. She has some nausea, but no vomiting. She does have some constipation. She complains that it is sometimes hard for her to catch her breath. She also is having a lot of anxiety. She does get relief with lorazepam, but she generally is taking it just once a day. She says her energy has been pretty good. ECOG score is 1. She does not eat as much. Her weight is up a few pounds. She has not had fever. She does report having a lot of hot flashes and sweating. She had a sore on her tongue, but it is getting better. She does not have cough, and she does not complain of chest pain. She has no complaints. She also has some pain in her lower back and knees, and she has stiffness in her hands. She has had a couple of headaches. She occasionally has lightheadedness. She has a little tingling in her right little toe. She has no other focal neurologic symptoms. Medications: AmLODIPine Besylate 1 (5 mg) Tablet Oral daily, CeleXA 1 (40 mg) Tablet Oral daily, Compazine 1 (10 mg) Tablet Oral four times a day PRN, HumuLIN R Injection t.i.d. PRN, Hydrocodone-Acetaminophen 1 - 2 Tablet (of 7.5-325 mg) Oral q 4 hours PRN, Lantus 40 Units (of 100 Units/mL) Subcutaneous at bedtime PRN, Levothyroxine Sodium 1 Tablet (of 125 mcg) Oral daily, Lomotil 1 (2.5-0.025 mg) Tablet Oral q 6 hours PRN, LORazepam 1 Tablet (of 1 mg) Oral four times a day PRN, Magnesium 1 Tablet (of 400 mg) Oral daily, MetFORMIN HCl 1 (500 mg) Tablet Oral b.i.d., Pantoprazole Sodium 1 Tablet (of 40 mg) Tablet, enteric coated Oral daily, Sulfamethoxazole-Trimethoprim 1 Tablet (of 800-160 mg) Oral b.i.d., Voltaren 2 - 4 G (of 1 %) Gel (jelly) Transdermal PRN Allergies: No Known Allergies. Review of Systems: Constitutional - Her energy level has been pretty good. She is able to do light house work at home. Her appetite is good and weight is up a few pounds. No fever or chills. She is having frequent hot flashes with sweating. ECOG score is 1, ENMT - She has sinus congestion/drainage. She has a sore on her tongue. No sore throat or difficulty swallowing, Hematologic/Lymphatic - No abnormal bruising or bleeding, Respiratory - She has been having shortness of breath. No cough. No pleuritic pain or hemoptysis, Cardiovascular - No angina pain. No palpitations, Gastrointestinal - She has been having pain in the lower abdominal area. She has had nausea, but no vomiting. She has heartburn that is adequately managed with Protonix. No diarrhea. She has had some constipation. No blood in the stool or black stools, Genitourinary (F) - No dysuria or hematuria. No urinary frequency. No urgency or incontinence, Musculoskeletal - She has some stiffness in her hands. She has some pain in her lower back and in her knees, Integumentary - No skin complications, Neurologic - She has had a few headaches. She has occasional lightheadedness. She has numbness in her right little toe, Psychiatric - She is having a lot of anxiety and she has some depression. No insomnia. Vital Signs: Performed on Oct 22, 2019 08:32 Height - 63.50 in Weight - 207.4 lbs (HIGH) BSA - 1.98 sq.m BMI - 36.16 (HIGH) Temperature - 98.0 F (LOW) Pulse - 106 /min (HIGH) Respiration - 20 /min BP - 123/80 mm(hg) O2 Sat - 100 % Pain - 4 Physical Examination: Constitutional - She looks pretty good generally, Eyes - Sclerae nonicteric. Conjunctivae clear, ENMT - There are no lesions noted in the oral cavity, Hematologic/Lymphatic - No cervical, clavicular, or axillary adenopathy, Respiratory - Lungs sound clear, Cardiovascular - Heart rhythm is regular. There is a II/ systolic murmur. There is no gallop or rub noted, Abdomen - Mildly distended and tympanic. There is generalized abdominal tenderness. Liver is not enlarged. There is no abdominal mass or ascites noted and there is no inguinal adenopathy, Extremities - No edema, Integumentary - No skin eruption, Neurologic - No focal neurologic deficits noted. Lab/Imaging: Test performed on Oct 22, 2019 09:28 Sodium 134 mmol/L Potassium 4.4 mmol/L Chloride 92 mmol/L CO2 27 mmol/L Anion Gap 19.4 BUN 12 mg/dL Creatinine 0.8 mg/dL Cr Clearance (Est) 116.7400 mL/min eGFR 74.7 mL/min Glucose 318 mg/dL Calcium 9.6 mg/dL Protein, Total 6.6 g/dL Albumin 3.8 g/dL Globulin 2.8 g/dL Bilirubin, Total 0.2 mg/dL ALT (SGPT) 20 U/L AST (SGOT) 23 U/L Alkaline Phosphatase 88 IU/L Test performed on Oct 22, 2019 08:34 WBC 10.6 10^9/L RBC 3.56 10^12/L HGB 11.3 g/dL HCT 33.0 % MCV 92.6 fl MCH 31.7 pg MCHC 34.2 g/dL RDW 15.2 % Platelet Count 352 10^9/L MPV 8.2 fL Neutrophils (Gran) 62 10^9/L Lymphocytes 3.9 10^9/L Monocytes 0.5 10^9/L Manual Lymphocytes 37.0 % Manual Monocytes 4.9 % Impression: 1. The patient has high-grade serous carcinoma of the ovary, stage IIIC at initial diagnosis. There was a small amount of residual miliary disease present following her initial surgery in April 2012. Her disease was estimated at greater than 99% resected. She was given postoperative chemotherapy with 6 cycles of carboplatin/Taxol, which she completed in October 2012. 2. In August 2014 she had evidence of recurrence by CA [address] scan, and she then initiated second line treatment with carboplatin and weekly Taxol in combination with Avastin. As of February 2015 she had completed 6 cycles of chemotherapy. She had a good response by CEA 125 level and by followup CT scan. With the fourth cycle, I had changed the paclitaxel to 3-week dosing, as her diabetes had been poorly controlled with the extra the steroid required with the weekly dosing. She unfortunately did experience increased neuropathy with the 3-week dosage. With cycles 5 and 6 I did opt to omit the Taxol, and following completion of 6 cycles her treatment was changed to maintenance Avastin. She had significant improvement in her performance status after her treatment was changed to the maintenance Avastin. 3. As of 08/19/2015 she had 2 successive increases in her CA-125 level, and at that point she restarted chemotherapy with Abraxane in combination with Avastin. She has had a very good response by CA-125 level. Beginning with the 5th cycle, her treatment was changed to a day 1/day 15 schedule. Her other medical illnesses include: 4. Hypertension. 5. Type II diabetes. 6. GERD. 7. Anxiety/depression. As of 09/05/[address] scans had shown no evidence of disease progression. At that point she was in her 13th cycle of chemotherapy. She had subsequently continued treatment with Abraxane/Avastin, though not on a consistent schedule. Since October 2016 her treatments have generally been averaging once a month. Her CA-125 level had initially remained stable. As of 03/29/2017 she had completed her 20th cycle treatment. The Avastin was held at that time due to 2+ protein in her urine. On her subsequent 24-hour urine the proteinuria was still in acceptable range to continue treatment with Avastin. She proceeded with her cycle 22 Abraxane on 05/31/2017. She failed to return for her day 15 treatment. She received cycle 23 on 06/28/2017 and with cycle 24 on 08/02/2017. As of her follow-up visit on 08/22/2017 her neuropathy had worsened significantly, and I opted to stop her treatment. On 09/26/2017 she began further chemotherapy with carboplatin/gemcitabine on a day 1/day 15 schedule. Her baseline CA-125 level had increased to 15.1 U/mL. She had no acute toxicity with her day 1 treatment, but her day 8 CBC did show moderately severe neutropenia. She continued with cycle 1 day 15 treatment on 10/10/2017. She was given Neulasta prophylactically. She tolerated the treatment pretty well other than the Neulasta made her feel really awful. She has since then continued treatment on a day 1/day 15 schedule. As of July 2018 she had completed 11 cycles of treatment. She appeared stable clinically, and her restaging CT scans from 08/08/2018 had shown no evidence of disease progression. She had evidence of bladder wall thickening along with symptoms of cystitis, for which she was referred to Dr. May. As of August 2018 she began maintenance therapy with olaparib 300 mg twice a day. During subsequent follow-up she has tolerated the olaparib without significant adverse effects. She has had improvement in her cystitis symptoms, and there has been some improvement in her energy/activity tolerance since stopping the chemotherapy. As of her follow-up visit in November there was some increase in her CA-125 level, and she also had reported pain in her mid to lower abdomen. As of her follow-up visit in December her CA-125 level had remained stable, and her restaging CT abdomen/pelvis showed no obvious disease progression. At her scheduled followup visit on 04/10/2019 there appeared to be no significant change in her clinical status, but there was a significant further increase in the CA-125 level. Her subsequent restaging CT scans showed some new circumferential thickening of the stomach antrum and slight increased size of a gastric lymph node. It is uncertain to what extent those changes may be related to the ovarian cancer. However, in the context of a significantly increasing CA-125 level, it did appear likely that she was showing disease progression, and I did opt to restart her on chemotherapy with carboplatin in combination with liposomal doxorubicin. She began cycle 1 on 05/08/2019. Her baseline CA 125 level was 58.9 U/mL. She tolerated the treatment with acceptable toxicity. She continued with cycle 2 on 06/05/2019 and with cycle 3 on 07/03/2019. At that point the CA 125 level had decreased to 38.9 U/mL. She had significant side effects with her 3rd cycle of treatment, including skin eruption in the lower extremities and hyperpigmentation in the abdominal area. She also has had decline in her performance status. At that point her CA 125 level had stabilized. As it appeared that she was not having any further response, I had recommended that she stop treatment. Her restaging CT scans on 09/09/2019 showed evidence of disease progression with increase in size and number of mesenteric deposits throughout the abdomen and pelvis, including a soft tissue mass at the antrum of the stomach with slight increase in size and luminal narrowing. With limited treatment options available, I opted to have her restart chemotherapy with carboplatin/gemcitabine. She began cycle 1 on 10/08/2019 on a day 1/day 15 schedule. She tolerated the 1st cycle with acceptable toxicity. The main concern is that she is having more pain in the lower abdominal area. At this point it is uncertain to what extent that may be related to disease progression or to constipation. Plan: She will continue with her cycle 1 day 15, carboplatin/gemcitabine. Dosages will remain the same. She returns in 2 weeks. In the meantime, she will start immediate release oxycodone for the pain and she will start senna/docusate on a regular schedule for constipation. She is advised to report to the emergency room if she develops vomiting or other worsening of her GI symptoms. Signed By: Jeffrey Benavidez M.D. <<Signature on File>>
== END 2019-10-28 23:59 | disposition home or self-care (01) ==
LOC: ONCMED 05:43
PROVIDERS: Nurse Practitioner; Family Provider Family Medicine; PCP Family Medicine; Visit Provider Internal Medicine Medical Oncology
DX: Z51.11 Encounter for antineoplastic chemotherapy (principal); C56.1 Malignant neoplasm of right ovary; C56.2 Malignant neoplasm of left ovary; C77.2 Secondary and unspecified malignant neoplasm of intra-abdominal lymph nodes; C78.6 Secondary malignant neoplasm of retroperitoneum and peritoneum; T82.594A Other mechanical complication of infusion catheter, initial encounter; Y80.1 Therapeutic (nonsurgical) and rehabilitative physical medicine devices associated with adverse incidents; E11.42 Type 2 diabetes mellitus with diabetic polyneuropathy; I10 Essential (primary) hypertension; F41.8 Other specified anxiety disorders; Z79.899 Other long term (current) drug therapy; Z79.4 Long term (current) use of insulin; Z79.891 Long term (current) use of opiate analgesic
CPT/HCPCS: 36593; 80053; 85025; 86304; 96367; 96375; 96413; 96417; 99214; J1100; J1453; J2469; J2997; J3490; J7050; J9045; J9201

== ENCOUNTER 2019-11-05 06:58 | Outpatient (RCR) | payer MEDICARE, MEDICAID, SELFPAY ==
[2019-11-05] MEDS: alteplase 1 mg/mL SDV 2 mL 2 MG IV (09:15)
[2019-11-05 09:21] LABS: Basophils # 0.1 10^3/uL (0.0-0.1); Basophils % 0.8 %; Eosinophils # 0.1 10^3/uL (0.0-0.8); Eosinophils % 1.1 %; Hematocrit 33.7 % (37.0-47.0); Hemoglobin 10.7 g/dL (11.5-15.3); Lymphocytes # 3.5 10^3/uL (0.8-4.8); Lymphocytes % 46.4 %; Mean Corpuscular HGB Conc 31.8 g/dL (30.0-36.0); Mean Corpuscular Hemoglobin 29.7 pg (28.0-34.0); Mean Corpuscular Volume 93.6 fL (81-99); Mean Platelet Volume 9.6 fL (7.4-10.4); Monocytes # 0.8 10^3/uL (0.2-0.9); Monocytes % 10.6 %; Nucleated Red Blood Cells # 0.1 /100WBC; Nucleated Red Blood Cells % 0.9 %; Platelet Count 286 10^3/cmm (130-400); Red Cell Distribution Width 15.3 % (12.1-15.1); White Blood Count 7.6 10^3/uL (4.0-10.0)
[2019-11-05 09:27] LABS: Alanine Aminotransferase 18 U/L (0-33); Albumin Level 3.8 g/dL (3.5-5.2); Alkaline Phosphatase 89 IU/L (35-105); Anion Gap 19.1 (5-19); Aspartate Amino Transferase 17 U/L (0-32); Blood Urea Nitrogen 14 mg/dL (6-20); Calcium 9.1 mg/dL (8.5-10.5); Carbon Dioxide 25 mmol/L (22-29); Chloride 95 mmol/L (98-107); Glomerular Filtration Rate 74.7 mL/min (90-130); Glucose 307 mg/dL (65-115); Osmolality Calculated 288 mOsm/kg (285-295); Potassium 4.1 mmol/L (3.5-5.1); Sodium 135 mmol/L (136-145); Total Bilirubin 0.2 mg/dL (0.15-1.2); Total Protein 6.8 g/dL (6.6-8.7)
[2019-11-05 09:37] LABS: CA 125 100.7 U/mL (0-35)
--- NOTE | 2019-11-05 20:16 | ONC FU_ITS ---
Dr. Benavidez Patient Follow-Up Note Patient: Bessy Roy Unit #: [id number]: 1965 Dicatated By: Jeffrey Benavidez M.D.Date of Visit:Nov 05, 2019 Onc Med Follow-up/Prog Note Chief Complaint: Ovarian cancer. History of Present Illness: This is a 54 year-old woman with recurrent ovarian cancer. She had presented in March 2012 with stage IIIC ovarian cancer. She was referred to Dr. Edilson Wahl for [facility] oncology. On 05/17/12 showed underwent exploratory laparotomy. The op note indicated a small amount of residual miliary disease present at the end of the procedure. It was estimated to be greater than 99% resected. Pathology showed a high-grade serous carcinoma involving both ovaries, measuring 9 cm on the right and 6 cm on the left. There was involvement in the omentum and multiple serosal surfaces including the appendix, uterus, and colon. There was no diagnostic abnormality in the included portion of rectosigmoid colon and there was no involvement in the skeletal muscle from the abdominal wall. There was involvement in the liver capsule, but not the liver parenchyma. The spleen showed no diagnostic abnormality. There was involvement in 4 of 20 lymph nodes. The ascitic fluid also was positive. Her postoperative course was complicated by development of an abscess in the left lower quadrant, requiring percutaneous drainage and antibiotic therapy. She did have a gradual recovery, and she subsequently was given postoperative chemotherapy with 6 cycles of carboplatin/Taxol, completed on 11/15/2012. There were delays during her chemotherapy related to poor compliance. In August 2013 she had recurrence and she began second line chemotherapy with carboplatin and weekly Taxol in combination with Avastin . As of 02/02/15 she had completed 6 cycles of chemotherapy. She had significant response by CA 125 level and by followup CT scan. Taxol was omitted with cycles 5 and 6 due to neuropathy. Her treatment was changed to maintenance Avastin. By June her CA-125 level began to increase. As of 08/19/2015 it was back up to 43 U/mL. At that point she restarted chemotherapy with Abraxane/Avastin, and her CA-125 level subsequently declined. She then continued treatment with Abraxane/Avastin, though not on a very consistent schedule due in part to toxicities and in part to compliance issues. As of her follow-up visit on 08/22/2017 her neuropathy symptoms had worsened significantly, and I did opt to put her treatment on hold. She returned on 09/26/2017 to begin further chemotherapy with carboplatin/gemcitabine on a day 1/day 15 schedule. Her baseline CA-125 level had increased to 15.1 U/mL. She had some fatigue following that treatment. She otherwise seemed to tolerate it pretty well, and she was able to continue treatment on a day 1/day 15 schedule. As of July 2018 she had completed 11 cycles of carboplatin/gemcitabine. She remained stable clinically with CA-125 level stable at 14.4 U/mL. In August 2018 she began maintenance therapy with olaparib 300 mg twice a day. At her scheduled visit on 04/10/2019 she appeared stable clinically, but there was a significant increase in her CA 125 level to 30.0 U/mL compared to 17.8 U/mL in January. With that change she had restaging CT scans of the chest/abdomen/pelvis on 04/18/2019. It showed new circumferential thickening of the stomach antrum and a small but slightly increase sized gastric lymph node. It was felt to possible represent inflammatory changes from peptic ulcer disease, but very early metastatic disease was not excluded. There was no ascites. There was stable, mild thickening of the right lateral urinary bladder wall. With those findings, I opted to restart her on chemotherapy with carboplatin in combination with liposomal doxorubicin. She began cycle 1 on 05/08/2019. Her baseline CA 125 level was 58.9 U/mL. She tolerated the treatment with acceptable toxicity. She continued with cycle 2 on 06/05/2019 and with cycle 3 on 07/03/2019. At that point the CA 125 level had decreased just slightly, to 38.9 U/mL. At her followup visit visit on 07/31/2019 she had developed a significant skin eruption as well as other side effects with the chemotherapy. As there has been no further decline in the CA-125 level, I opted to stop that treatment. Restaging CT of the abdomen/pelvis on 09/09/2019 showed mesenteric deposits throughout the abdomen and pelvis, increased in size and number compared to the study from April 2019. Also noted was a soft tissue mass at the antrum of the stomach with slight increase in size and luminal narrowing. With those findings, I opted to restart chemotherapy with carboplatin/gemcitabine. She began her 1st cycle on 10/08/2019 on a day 1/day 15 schedule. Her other medical illnesses include hypertension, type II diabetes, and anxiety/depression. She underwent repair of an incisional hernia which developed subsequent to her abdominal surgery in 2011. She is a nonsmoker. INTERIM HISTORY: She has completed 1 full cycle of treatment with carboplatin/gemcitabine. She has tolerated the chemotherapy pretty well. She says she felt like crap for the first few days after treatment, mainly just being tired and achy. She had a low-grade fever on the third day, but then she woke up feeling much better. Since then her energy and activity tolerance have been variable, but she is able to do light work. ECOG score is 1. Her appetite overall has changed, so that she has not been eating as much. Her weight basically appears stable. She has not had any other fever. She does have hot flashes. She does not complain of shortness of breath. She reports having occasional cough and she occasionally has chest pain. She has a little bit of nausea, which she manages adequately with Compazine. Her bowel function has improved. She continues to have pain in her lower abdominal area. Bladder function has been okay. She complains of being generally achy and she also has some lower back pain. She has occasional headache. She does report having difficulty with balance. She has some burning pain in her feet. Medications: ALPRAZolam 1 Tablet (of 0.5 mg) Oral t.i.d. PRN, AmLODIPine Besylate 1 (5 mg) Tablet Oral daily, CeleXA 1 (40 mg) Tablet Oral daily, Compazine 1 (10 mg) Tablet Oral four times a day PRN, HumuLIN R Injection t.i.d. PRN, Hydrocodone-Acetaminophen 1 - 2 Tablet (of 7.5-325 mg) Oral q 4 hours PRN, Lantus 40 Units (of 100 Units/mL) Subcutaneous at bedtime PRN, Levothyroxine Sodium 1 Tablet (of 125 mcg) Oral daily, Lomotil 1 (2.5-0.025 mg) Tablet Oral q 6 hours PRN, LORazepam 1 Tablet (of 1 mg) Oral four times a day PRN, Magnesium 1 Tablet (of 400 mg) Oral daily, MetFORMIN HCl 1 (500 mg) Tablet Oral b.i.d., oxyCODONE HCl 1 Tablet (of 15 mg) Oral q 4 hours PRN, Pantoprazole Sodium 1 Tablet (of 40 mg) Tablet, enteric coated Oral daily, Sulfamethoxazole-Trimethoprim 1 Tablet (of 800-160 mg) Oral b.i.d., Voltaren 2 - 4 G (of 1 %) Gel (jelly) Transdermal PRN Allergies: No Known Allergies. Review of Systems: Constitutional - Her energy level is up and down. Her appetite has changed. Her weight is up 5 pounds from last visit. No fever, chills, She has hot flashes. No night sweats. ECOG score is 1, ENMT - She has seaonal allergies. No mouth sores. No sore throat or difficulty swallowing, Hematologic/Lymphatic - No abnormal bruising or bleeding, Respiratory - No shortness of breath. She has an intermittent cough related to sinus drainage. No pleuritic pain or hemoptysis, Cardiovascular - No angina pain. No palpitations, Gastrointestinal - She has occasional nausea that is well mangaged with Compazine. No heartburn or acid reflux. No diarrhea or constipation. No blood in the stool or black stools. She continues to have pain in her lower abdomen, Genitourinary (F) - No dysuria or hematuria. No urinary frequency. No urgency or incontinence, Musculoskeletal - She has generalized body aches, Integumentary - No skin complications, Neurologic - She has occasional headaches. She has some balance alteration. She has some burning in her feet, Psychiatric - She has some mild anxiety and depression. No insomnia. Vital Signs: Her weight is 205 pounds. Blood pressure 108/71, pulse 84, respirations 20, temp 98.0 degrees, oxygen saturation 94%. Physical Examination: Constitutional - She looks pretty good generally, Eyes - Sclerae nonicteric. Conjunctivae clear, ENMT - There are no lesions noted in the oral cavity, Hematologic/Lymphatic - No cervical, clavicular, or axillary adenopathy, Respiratory - Lungs sound clear, Cardiovascular - Heart rhythm is regular. There is a II/ systolic murmur. There is no gallop or rub noted, Abdomen - Mildly distended and somwhat firm. Liver is not enlarged. There is no abdominal mass or noted and there is no obvious ascites. There is no inguinal adenopathy, Extremities - Trace edema, Integumentary - No skin eruption, Neurologic - No focal neurologic deficits noted. Lab/Imaging: Test performed on Nov 05, 2019 08:55 Sodium 135 mmol/L Potassium 4.1 mmol/L Chloride 95 mmol/L CO2 25 mmol/L Anion Gap 19.1 BUN 14 mg/dL Creatinine 0.8 mg/dL Cr Clearance (Est) 116.7400 mL/min eGFR 74.7 mL/min Glucose 307 mg/dL Calcium 9.1 mg/dL Protein, Total 6.8 g/dL Albumin 3.8 g/dL Globulin 3.0 g/dL Bilirubin, Total 0.2 mg/dL ALT (SGPT) 18 U/L AST (SGOT) 17 U/L Alkaline Phosphatase 89 IU/L WBC 7.6 10 3/uL RBC 3.60 10 6/uL HGB 10.7 g/dL HCT 33.7 % MCV 93.6 fL MCH 29.7 pg MCHC 31.8 g/dL RDW 15.3 % Platelet Count 286 10 3/cmm MPV 9.6 fL Neutrophils 3.0 10 3/uL Lymphocytes 3.5 10 3/uL Monocytes 0.8 10 3/uL Eosinophils 0.1 10 3/uL Basophils 0.1 10 3/uL Neutrophil % 40.0 % Lymphocyte % 46.4 % Monocyte % 10.6 % Eosinophil % 1.1 % Basophils % 0.8 % CA-125 100.7 U/mL Impression: 1. The patient has high-grade serous carcinoma of the ovary, stage IIIC at initial diagnosis. There was a small amount of residual miliary disease present following her initial surgery in April 2012. Her disease was estimated at greater than 99% resected. She was given postoperative chemotherapy with 6 cycles of carboplatin/Taxol, which she completed in October 2012. 2. In August 2014 she had evidence of recurrence by CA [address] scan, and she then initiated second line treatment with carboplatin and weekly Taxol in combination with Avastin. As of February 2015 she had completed 6 cycles of chemotherapy. 3. Her treatment was changed to maintenance Avastin. 4. As of 08/19/2015 she had 2 successive increases in her CA-125 level, and at that point she restarted chemotherapy with Abraxane in combination with Avastin. She had a very good response by CA-125 level. 5. As of her follow-up visit on 08/22/2017 her neuropathy had worsened significantly, and I opted to stop her treatment. On 09/26/2017 she began further chemotherapy with carboplatin/gemcitabine on a day 1/day 15 schedule. 6. As of July 2018 she had completed 11 cycles of treatment. She appeared stable clinically, and her restaging CT scans from 08/08/2018 had shown no evidence of disease progression. In August 2018 her treatment was changed to maintenance olaparib 300 mg twice daily. Her other medical illnesses include: 7. Hypertension. 8. Type II diabetes. 9. GERD. 10. Anxiety/depression. As of March 2019 there was evidence of disease progression with rising CA-[address] evidence of new circumferential thickening of the stomach antrum and slight increase in size of a gastric lymph node. She then restarted chemotherapy with carboplatin/liposomal doxorubicin. After 3 cycles of treatment, she had developed a significant skin eruption and other side effects. She had only a slight decrease in her CA-125 level. Given the side effects she was experiencing, I recommended that she stop treatment. Her restaging CT scans on 09/09/2019 showed evidence of disease progression with increase in size and number of mesenteric deposits throughout the abdomen and pelvis, including a soft tissue mass at the antrum of the stomach with slight increase in size and luminal narrowing. With limited treatment options available, I opted to have her restart chemotherapy with carboplatin/gemcitabine. She began cycle 1 on 10/08/2019 on a day 1/day 15 schedule. She has now completed 1 cycle of treatment with the carboplatin/gemcitabine. She has tolerated the chemotherapy with acceptable toxicity, and her clinical status appears stable. However, there has been progressive increase in the CA-125 level, so that she clearly is not benefiting with the treatment. Plan: Her chemotherapy will be put on hold while I explore options for further treatment. I will contact Dr. Acuna's office to see whether any clinical trials may be available. Signed By: Jeffrey Benavidez M.D. <<Signature on File>>
== END 2019-11-27 23:59 | disposition home or self-care (01) ==
LOC: ONCMED 06:58
PROVIDERS: Family Provider Family Medicine; PCP Family Medicine; Visit Provider Internal Medicine Medical Oncology
DX: C56.1 Malignant neoplasm of right ovary (principal); C56.2 Malignant neoplasm of left ovary; C77.2 Secondary and unspecified malignant neoplasm of intra-abdominal lymph nodes; E11.42 Type 2 diabetes mellitus with diabetic polyneuropathy; I10 Essential (primary) hypertension; K21.9 Gastro-esophageal reflux disease without esophagitis; T45.1X5A Adverse effect of antineoplastic and immunosuppressive drugs, initial encounter; Z92.21 Personal history of antineoplastic chemotherapy; Z79.899 Other long term (current) drug therapy
CPT/HCPCS: 36415; 36593; 80053; 85025; 86304; 96374; 99214; J2997

== ENCOUNTER → 2019-12-23 09:11 | Outpatient (BNVA) | payer MEDICARE, MEDICAID, SELFPAY | PROVIDERS: PCP Family Medicine; Visit Provider Internal Medicine Medical Oncology | DX: C77.2 Secondary and unspecified malignant neoplasm of intra-abdominal lymph nodes (principal); C56.2 Malignant neoplasm of left ovary; C56.1 Malignant neoplasm of right ovary | CPT/HCPCS: 80053; 85025; 86304 ==

== ENCOUNTER 2019-12-25 06:44 | Outpatient (RCR) | payer MEDICARE, MEDICAID, SELFPAY ==
[2019-12-03 17:35] LABS: Basophils # 0.1 10^3/uL (0.0-0.1); Basophils % 1.2 %; Eosinophils # 0.2 10^3/uL (0.0-0.8); Eosinophils % 2.2 %; Hematocrit 38.9 % (37.0-47.0); Lymphocytes # 2.7 10^3/uL (0.8-4.8); Lymphocytes % 24.6 %; Mean Corpuscular HGB Conc 30.8 g/dL (30.0-36.0); Mean Corpuscular Hemoglobin 29.6 pg (28.0-34.0); Mean Corpuscular Volume 95.8 fL (81-99); Mean Platelet Volume 10.1 fL (7.4-10.4); Monocytes # 0.8 10^3/uL (0.2-0.9); Monocytes % 6.8 %; Neutrophils # 7.1 10^3/uL (1.8-7.7); Neutrophils % 64.5 %; Nucleated Red Blood Cells % 0 %; Platelet Count 411 10^3/cmm (130-400); Red Blood Count 4.06 10^6/uL (4.1-5.3); Red Cell Distribution Width 16.3 % (12.1-15.1)
[2019-12-03 20:11] LABS: Alanine Aminotransferase 9 U/L (0-33); Alkaline Phosphatase 78 IU/L (35-105); Aspartate Amino Transferase 14 U/L (0-32); Blood Urea Nitrogen 15 mg/dL (6-20); Calcium 9.2 mg/dL (8.5-10.5); Carbon Dioxide 29 mmol/L (22-29); Chloride 93 mmol/L (98-107); Globulin 3.2 g/dL (1.3-4.6); Glomerular Filtration Rate 65.2 mL/min (90-130); Glucose 245 mg/dL (65-115); Osmolality Calculated 290 mOsm/kg (285-295); Sodium 138 mmol/L (136-145); Thyroid Stimulating Hormone 1.45 uIU/mL (0.27-4.20); Total Bilirubin 0.2 mg/dL (0.15-1.2); Total Protein 7.2 g/dL (6.6-8.7)
[2019-12-04] MEDS: sodium chloride 0.9% 250 ML 75 ML IV (13:00)
[2019-12-04 13:42] LABS: Estmated Average Glucose 295; Hemoglobin A1C 11.9 % (4.0-6.0)
--- NOTE | 2019-12-07 13:32 | ONC FU_ITS ---
Dr. Benavidez Patient Follow-Up Note Patient: Bessy Roy Unit #: [id number]: 1965 Dicatated By: Jeffrey Benavidez M.D.Date of Visit:December 04, 2019 Onc Med Follow-up/Prog Note Chief Complaint: Ovarian cancer. History of Present Illness: This is a 54 year-old woman with recurrent ovarian cancer. She had presented in March 2012 with stage IIIC ovarian cancer. She was referred to Dr. Edilson Wahl for DISPOSITION CLERK oncology. On 05/17/12 showed underwent exploratory laparotomy. The op note indicated a small amount of residual miliary disease present at the end of the procedure. It was estimated to be greater than 99% resected. Pathology showed a high-grade serous carcinoma involving both ovaries, measuring 9 cm on the right and 6 cm on the left. There was involvement in the omentum and multiple serosal surfaces including the appendix, uterus, and colon. There was no diagnostic abnormality in the included portion of rectosigmoid colon and there was no involvement in the skeletal muscle from the abdominal wall. There was involvement in the liver capsule, but not the liver parenchyma. The spleen showed no diagnostic abnormality. There was involvement in 4 of 20 lymph nodes. The ascitic fluid also was positive. Her postoperative course was complicated by development of an abscess in the left lower quadrant, requiring percutaneous drainage and antibiotic therapy. She did have a gradual recovery, and she subsequently was given postoperative chemotherapy with 6 cycles of carboplatin/Taxol, completed on 11/15/2012. There were delays during her chemotherapy related to poor compliance. In August 2013 she had recurrence and she began second line chemotherapy with carboplatin and weekly Taxol in combination with Avastin . As of 02/02/15 she had completed 6 cycles of chemotherapy. She had significant response by CA 125 level and by followup CT scan. Taxol was omitted with cycles 5 and 6 due to neuropathy. Her treatment was changed to maintenance Avastin. By June her CA-125 level began to increase. As of 08/19/2015 it was back up to 43 U/mL. At that point she restarted chemotherapy with Abraxane/Avastin, and her CA-125 level subsequently declined. She then continued treatment with Abraxane/Avastin, though not on a very consistent schedule due in part to toxicities and in part to compliance issues. As of her follow-up visit on 08/22/2017 her neuropathy symptoms had worsened significantly, and I did opt to put her treatment on hold. She returned on 09/26/2017 to begin further chemotherapy with carboplatin/gemcitabine on a day 1/day 15 schedule. Her baseline CA-125 level had increased to 15.1 U/mL. She had some fatigue following that treatment. She otherwise seemed to tolerate it pretty well, and she was able to continue treatment on a day 1/day 15 schedule. As of July 2018 she had completed 11 cycles of carboplatin/gemcitabine. She remained stable clinically with CA-125 level stable at 14.4 U/mL. In August 2018 she began maintenance therapy with olaparib 300 mg twice a day. At her scheduled visit on 04/10/2019 she appeared stable clinically, but there was a significant increase in her CA 125 level to 30.0 U/mL compared to 17.8 U/mL in January. With that change she had restaging CT scans of the chest/abdomen/pelvis on 04/18/2019. It showed new circumferential thickening of the stomach antrum and a small but slightly increase sized gastric lymph node. It was felt to possible represent inflammatory changes from peptic ulcer disease, but very early metastatic disease was not excluded. There was no ascites. There was stable, mild thickening of the right lateral urinary bladder wall. With those findings, I opted to restart her on chemotherapy with carboplatin in combination with liposomal doxorubicin. She began cycle 1 on 05/08/2019. Her baseline CA 125 level was 58.9 U/mL. She tolerated the treatment with acceptable toxicity. She continued with cycle 2 on 06/05/2019 and with cycle 3 on 07/03/2019. At that point the CA 125 level had decreased just slightly, to 38.9 U/mL. At her followup visit visit on 07/31/2019 she had developed a significant skin eruption as well as other side effects with the chemotherapy. As there has been no further decline in the CA-125 level, I opted to stop that treatment. Restaging CT of the abdomen/pelvis on 09/09/2019 showed mesenteric deposits throughout the abdomen and pelvis, increased in size and number compared to the study from April 2019. Also noted was a soft tissue mass at the antrum of the stomach with slight increase in size and luminal narrowing. With those findings, I opted to restart chemotherapy with carboplatin/gemcitabine. She began her 1st cycle on 10/08/2019 on a day 1/day 15 schedule. Her other medical illnesses include hypertension, type II diabetes, and anxiety/depression. She underwent repair of an incisional hernia which developed subsequent to her abdominal surgery in 2011. She is a nonsmoker. INTERIM HISTORY: She completed 1 full cycle of treatment with carboplatin/gemcitabine. At her follow-up visit on 11/05/2019 her CA 125 level had increased significantly, to 100.7 U/mL and I opted not to attempt any further treatment with that regimen. After conferring with Dr. Acuna, she was offered the option of a trial of therapy with pembrolizumab in combination with bevacizumab. She is feeling okay. She does have fatigue, but she is able to do light work. Her appetite comes and goes. She has not had fever or night sweats. She says she does get hot flashes. She has been having more abdominal pain for couple of weeks, but that seems to have eased up now. She says her nerves have been bad. She has occasional cough, which she attributes to allergies. She does not complain of shortness of breath. She occasionally has chest pain. She has ongoing problems with constipation, but her bowel function has been better with senna. She has no complaints. She has some lower back pain and she also has pain in her knees, but that is not new. She has numbness/tingling in her feet and toes. She is sometimes off balance. Medications: ALPRAZolam 1 Tablet (of 0.5 mg) Oral t.i.d. PRN, AmLODIPine Besylate 1 (5 mg) Tablet Oral daily, CeleXA 1 (40 mg) Tablet Oral daily, Compazine 1 (10 mg) Tablet Oral four times a day PRN, HumuLIN R Injection t.i.d. PRN, Hydrocodone-Acetaminophen 1 - 2 Tablet (of 7.5-325 mg) Oral q 4 hours PRN, Lantus 40 Units (of 100 Units/mL) Subcutaneous at bedtime PRN, Levothyroxine Sodium 1 Tablet (of 125 mcg) Oral daily, Lomotil 1 (2.5-0.025 mg) Tablet Oral q 6 hours PRN, LORazepam 1 Tablet (of 1 mg) Oral four times a day PRN, Magnesium 1 Tablet (of 400 mg) Oral daily, MetFORMIN HCl 1 (500 mg) Tablet Oral b.i.d., oxyCODONE HCl 1 Tablet (of 15 mg) Oral q 4 hours PRN, Pantoprazole Sodium 1 Tablet (of 40 mg) Tablet, enteric coated Oral daily, Sulfamethoxazole-Trimethoprim 1 Tablet (of 800-160 mg) Oral b.i.d., Voltaren 2 - 4 G (of 1 %) Gel (jelly) Transdermal PRN Allergies: Morphine Sulfate Review of Systems: Constitutional - She is feeling good. Her energy level is good. She is doing light work in and around the house. Her appetite varies day to day. Her weight is stable. No fever or chills. She has hot flashes. No night sweats. ECOG score is 1, ENMT - No sinus congestion/drainage. No mouth sores. No sore throat or difficulty swallowing, Hematologic/Lymphatic - No abnormal bruising or bleeding, Respiratory - No shortness of breath. No cough. No pleuritic pain or hemoptysis, Cardiovascular - No angina pain. No palpitations, Gastrointestinal - No nausea or vomiting. Her heartburn is well managed with Protonix. No diarrhea. Her constipation is well managed with talking the Senna-S daily. No blood in the stool or black stools, Genitourinary (F) - No dysuria or hematuria. No urinary frequency. No urgency or incontinence, Musculoskeletal - She is having some pain in her lower back and in her knees, Integumentary - No skin complications, Neurologic - She has occasional headaches. She gets an occasional off balance sensation. She has some neuropathy in her feet, Psychiatric - She has been having increased anxiety but it is well managed with lorazepam. No depression. No insomnia. Vital Signs: Performed on December 04, 2019 11:56 Height - 63.50 in Weight - 203.0 lbs (LOW) BSA - 1.96 sq.m BMI - 35.40 (HIGH) Temperature - 98.3 F (LOW) Pulse - 95 /min Respiration - 24 /min BP - 126/77 mm(hg) O2 Sat - 98 % Pain - 0 Physical Examination: Constitutional - She looks pretty good generally, Eyes - Sclerae nonicteric. Conjunctivae clear, ENMT - There are no lesions noted in the oral cavity, Hematologic/Lymphatic - No cervical, clavicular, or axillary adenopathy, Respiratory - Lungs sound clear, Cardiovascular - Heart rhythm is regular. There is a II/ systolic murmur. There is no gallop or rub noted, Abdomen - Mildly distended. There is mild abdominal tenderness. Liver is not enlarged. There is no abdominal mass or noted and there is no obvious ascites. There is no inguinal adenopathy, Extremities - No edema, Integumentary - No skin eruption, Neurologic - No focal neurologic deficits noted. Lab/Imaging: Test performed on December 03, 2019 07:25 Sodium 138 mmol/L TSH 1.45 uIU/mL Potassium 5.0 mmol/L Chloride 93 mmol/L CO2 29 mmol/L Anion Gap 21.0 BUN 15 mg/dL Creatinine 0.9 mg/dL Cr Clearance (Est) 103.88 mL/min eGFR 65.2 mL/min Glucose 245 mg/dL Calcium 9.2 mg/dL Protein, Total 7.2 g/dL Albumin 4.0 g/dL Globulin 3.2 g/dL Bilirubin, Total 0.2 mg/dL ALT (SGPT) 9 U/L AST (SGOT) 14 U/L Alkaline Phosphatase 78 IU/L Hemoglobin A1C % 11.9 % WBC 11.0 10 3/uL RBC 4.06 10 6/uL HGB 12.0 g/dL HCT 38.9 % MCV 95.8 fL MCH 29.6 pg MCHC 30.8 g/dL RDW 16.3 % Platelet Count 411 10 3/cmm MPV 10.1 fL Neutrophils 7.1 10 3/uL Lymphocytes 2.7 10 3/uL Monocytes 0.8 10 3/uL Eosinophils 0.2 10 3/uL Basophils 0.1 10 3/uL Neutrophil % 64.5 % Lymphocyte % 24.6 % Monocyte % 6.8 % Eosinophil % 2.2 % Basophils % 1.2 % CA-125 47.0 U/mL Impression: 1. The patient has high-grade serous carcinoma of the ovary, stage IIIC at initial diagnosis. There was a small amount of residual miliary disease present following her initial surgery in April 2012. Her disease was estimated at greater than 99% resected. She was given postoperative chemotherapy with 6 cycles of carboplatin/Taxol, which she completed in October 2012. 2. In August 2014 she had evidence of recurrence by CA [address] scan, and she then initiated second line treatment with carboplatin and weekly Taxol in combination with Avastin. As of February 2015 she had completed 6 cycles of chemotherapy. 3. Her treatment was changed to maintenance Avastin. 4. As of 08/19/2015 she had 2 successive increases in her CA-125 level, and at that point she restarted chemotherapy with Abraxane in combination with Avastin. She had a very good response by CA-125 level. 5. As of her follow-up visit on 08/22/2017 her neuropathy had worsened significantly, and I opted to stop her treatment. On 09/26/2017 she began further chemotherapy with carboplatin/gemcitabine on a day 1/day 15 schedule. 6. As of July 2018 she had completed 11 cycles of treatment. She appeared stable clinically, and her restaging CT scans from 08/08/2018 had shown no evidence of disease progression. In August 2018 her treatment was changed to maintenance olaparib 300 mg twice daily. Her other medical illnesses include: 7. Hypertension. 8. Type II diabetes. 9. GERD. 10. Anxiety/depression. As of March 2019 there was evidence of disease progression with rising CA-[address] evidence of new circumferential thickening of the stomach antrum and slight increase in size of a gastric lymph node. She then restarted chemotherapy with carboplatin/liposomal doxorubicin. After 3 cycles of treatment, she had developed a significant skin eruption and other side effects. She had only a slight decrease in her CA-125 level. Given the side effects she was experiencing, I recommended that she stop treatment. Her restaging CT scans on 09/09/2019 showed evidence of disease progression with increase in size and number of mesenteric deposits throughout the abdomen and pelvis, including a soft tissue mass at the antrum of the stomach with slight increase in size and luminal narrowing. With limited treatment options available, I opted to have her restart chemotherapy with carboplatin/gemcitabine. She began cycle 1 on 10/08/2019 on a day 1/day 15 schedule. She has now completed 1 cycle of treatment with the carboplatin/gemcitabine. She has tolerated the chemotherapy with acceptable toxicity, and her clinical status appears stable. However, there was a progressive increase in the CA-125 level, so that she clearly was not benefiting with the treatment. Plan: She will now begin a trial of therapy with pembrolizumab in combination with bevacizumab. This will be administered at a 3-week dosing interval. Signed By: Jeffrey Benavidez M.D. <<Signature on File>>
[2019-12-25] MEDS: sodium chloride 0.9% 250 ML 75 ML IV (09:50)
--- NOTE | 2019-12-25 09:53 | ONC FU_ITS ---
[facility] Patient Note Patient: Bessy Roy Unit #: [id number]: [id number] Dictated By: Smiley RuizDate of Visit: December 25, 2019 Onc MED Follow-Up/Prog Note Chief Complaint: Ovarian cancer. History of Present Illness: Ms Roy is a 54 year-old woman with recurrent ovarian cancer. She had presented in March 2012 with stage IIIC ovarian cancer. She was referred to Dr. Edilson Wahl for [facility] [facility] oncology. On 05/17/12 showed underwent exploratory laparotomy. The op note indicated a small amount of residual miliary disease present at the end of the procedure. It was estimated to be greater than 99% resected. Pathology showed a high-grade serous carcinoma involving both ovaries, measuring 9 cm on the right and 6 cm on the left. There was involvement in the omentum and multiple serosal surfaces including the appendix, uterus, and colon. There was no diagnostic abnormality in the included portion of rectosigmoid colon and there was no involvement in the skeletal muscle from the abdominal wall. There was involvement in the liver capsule, but not the liver parenchyma. The spleen showed no diagnostic abnormality. There was involvement in 4 of 20 lymph nodes. The ascitic fluid also was positive. Her postoperative course was complicated by development of an abscess in the left lower quadrant, requiring percutaneous drainage and antibiotic therapy. She did have a gradual recovery, and she subsequently was given postoperative chemotherapy with 6 cycles of carboplatin/Taxol, completed on 11/15/2012. There were delays during her chemotherapy related to poor compliance. In August 2013 she had recurrence and she began second line chemotherapy with carboplatin and weekly Taxol in combination with Avastin . As of 02/02/15 she had completed 6 cycles of chemotherapy. She had significant response by CA 125 level and by followup CT scan. Taxol was omitted with cycles 5 and 6 due to neuropathy. Her treatment was changed to maintenance Avastin. By June her CA-125 level began to increase. As of 08/19/2015 it was back up to 43 U/mL. At that point she restarted chemotherapy with Abraxane/Avastin, and her CA-125 level subsequently declined. She then continued treatment with Abraxane/Avastin, though not on a very consistent schedule due in part to toxicities and in part to compliance issues. As of her follow-up visit on 08/22/2017 her neuropathy symptoms had worsened significantly, and I did opt to put her treatment on hold. She returned on 09/26/2017 to begin further chemotherapy with carboplatin/gemcitabine on a day 1/day 15 schedule. Her baseline CA-125 level had increased to 15.1 U/mL. She had some fatigue following that treatment. She otherwise seemed to tolerate it pretty well, and she was able to continue treatment on a day 1/day 15 schedule. As of July 2018 she had completed 11 cycles of carboplatin/gemcitabine. She remained stable clinically with CA-125 level stable at 14.4 U/mL. In August 2018 she began maintenance therapy with olaparib 300 mg twice a day. At her scheduled visit on 04/10/2019 she appeared stable clinically, but there was a significant increase in her CA 125 level to 30.0 U/mL compared to 17.8 U/mL in January. With that change she had restaging CT scans of the chest/abdomen/pelvis on 04/18/2019. It showed new circumferential thickening of the stomach antrum and a small but slightly increase sized gastric lymph node. It was felt to possible represent inflammatory changes from peptic ulcer disease, but very early metastatic disease was not excluded. There was no ascites. There was stable, mild thickening of the right lateral urinary bladder wall. With those findings, it was opted to restart her on chemotherapy with carboplatin in combination with liposomal doxorubicin. She began cycle 1 on 05/08/2019. Her baseline CA 125 level was 58.9 U/mL. She tolerated the treatment with acceptable toxicity. She continued with cycle 2 on 06/05/2019 and with cycle 3 on 07/03/2019. At that point the CA 125 level had decreased just slightly, to 38.9 U/mL. At her followup visit visit on 07/31/2019 she had developed a significant skin eruption as well as other side effects with the chemotherapy. As there has been no further decline in the CA-125 level, Dr Benavidez opted to stop that treatment. Restaging CT of the abdomen/pelvis on 09/09/2019 showed mesenteric deposits throughout the abdomen and pelvis, increased in size and number compared to the study from April 2019. Also noted was a soft tissue mass at the antrum of the stomach with slight increase in size and luminal narrowing. With those findings, it was opted to restart chemotherapy with carboplatin/gemcitabine. She began her 1st cycle on 10/08/2019 on a day 1/day 15 schedule. Her other medical illnesses include hypertension, type II diabetes, and anxiety/depression. She underwent repair of an incisional hernia which developed subsequent to her abdominal surgery in 2011. She is a nonsmoker. INTERIM HISTORY: She completed 1 full cycle of treatment with carboplatin/gemcitabine. At her follow-up visit on 11/05/2019 her CA 125 level had increased significantly, to 100.7 U/mL and Dr Benavidez opted not to attempt any further treatment with that regimen. After conferring with Dr. Acuna, she was offered the option of a trial of therapy with pembrolizumab in combination with bevacizumab. Ms. Cabrera is here today for follow-up. She has tolerated her first cycle of Avastin Keytruda extremely well. She states she did have a little diarrhea but no abdominal cramping. She was able to control her diarrhea with [id number] antidiarrheal medicines. She denies any new shortness of breath or orthopnea. She is had no cough. She denies any fever or chills. She states her appetite is good. Her energy is fair. She states overall she feels really good. She has had no UTI symptoms. She is had no vaginal discharge or bleeding. She denies any pain today. We did discuss her elevated glucose from her labs on the but she states that she has not been watching her diet very closely and could watch my diet better . She has had some additional stress due to the COVID-19 just worried about the economy and life in general . She states that that stress is resolved and she is just going with the flow . Her ECOG is 1. Past Medical History: Ovarian cancer (Dr. Wahl in [place] performed surgery) in 2012 She has previously been in good health. She has had some depression following the surgery. She has no other medical illnesses. Past Surgical History: Caesarean section Right leg abcess Flu vaccine in 2019 Flu vacc in 2018 - rt deltoid Flucevax in 2017 - left deltoid Pneumovax in 2017 - right deltoid Exploratory lap in 2011 - MEG-BSO,recto-sigmoid resection,omentectomy,splenectomy,bilateral pelvic and periaortic lymph node dissections,appy,liver biopsy, Hysterectomy in 2011 Port placed in 2011 - dr. dela cruz ([facility]) Prior surgeries limited to section in 2001 and a procedure on her right leg for abscess at age 18. EXploratory lap in 2011 resulted in total abdominal hysterectomy with bilateral salpingo-oophorectomy, and en bloc rectosigmoid resctions, omentectomy with partial resection of the anterior abdominal wall, splenectomy, bilateral pelvic and periaortic lymph node dissections, appendectomy, liver biopsy and debulking of right diaphragm and peritoneal implants. Allergies: Morphine Sulfate Medications: ALPRAZolam 1 Tablet (of 0.5 mg) Oral t.i.d. PRN AmLODIPine Besylate 1 (5 mg) Tablet Oral daily CeleXA 1 (40 mg) Tablet Oral daily Compazine 1 (10 mg) Tablet Oral four times a day PRN HumuLIN R Injection t.i.d. PRN Hydrocodone-Acetaminophen 1 - 2 Tablet (of 7.5-325 mg) Oral q 4 hours PRN Lantus 40 Units (of 100 Units/mL) Subcutaneous at bedtime PRN Levothyroxine Sodium 1 Tablet (of 125 mcg) Oral daily Lomotil 1 (2.5-0.025 mg) Tablet Oral q 6 hours PRN Magnesium 1 Tablet (of 400 mg) Oral daily MetFORMIN HCl 1 (500 mg) Tablet Oral b.i.d. oxyCODONE HCl 1 Tablet (of 15 mg) Oral q 4 hours PRN Pantoprazole Sodium 1 Tablet (of 40 mg) Tablet, enteric coated Oral daily Sulfamethoxazole-Trimethoprim 1 Tablet (of 800-160 mg) Oral b.i.d. Voltaren 2 - 4 G (of 1 %) Gel (jelly) Transdermal PRN Family History: Ms. Roy's mother is alive: cancer history consists of Breast cancer while other medical history includes stroke and Alzheimers's disease at age 79. Ms. Roy's father is : cancer history consists of Thyroid Gland cancer while other medical history includes heart disease at age 62 (cause of ). Ms. Roy has 1 brother with an unknown alive status: medical history includes COPD and alcoholism. She has 1 maternal aunt with an unknown alive status: cancer history consists of Breast cancer. Family history significant for father having with heart disease at age 62. He also had thyroid cancer. Her mother is still living at age 79. She has Alzheimer's dementia and a history of strokes. She also has been treated for breast cancer. A maternal aunt also had breast cancer. She has one brother who is 60 years old and has COPD and alcoholism. Social History: Ms. Roy is single and she is a disabled. Ms. Roy has never smoked. She has no history of drinking. Ms. Roy reports the following support systems: lives with spouse, significant other, family, or friends, lives in own house, supportive family/friends willing to assist with needs, and adequate transportation available for expected visits. Her diet consists of regular meals. She indicates her activity level as: daily activities. She was previously and . She is currently unmarried, but she has a significant other. She is a [employer] and works in a [employer]. She has never smoked. Review Of Symptoms: Constitutional Denies fevers, chills, night sweats, excessive fatigue or weight loss. Allergic/Immunologic No reactions. Eyes Denies significant visual changes. ENMT Denies sore throat, mouth sores, difficulty or changes in swallowing ability. Sinus drainage/allergies-chronic. Endocrine Sugar still up and down... could do alot better with diet Hematologic/Lymphatic Denies easy bruising or bleeding. The patient denies any tender or palpable lymph nodes. Breasts no concerns Respiratory Denies dyspnea on exertion, chest pain, cough. Cardiovascular Denies anginal chest pain. Gastrointestinal Denies nausea, vomiting, diarrhea, GI bleeding, or constipation. Denies change in bowel habits and/or stool color, no heartburn or early satiety. Genitourinary (F) No hesitancy, incontinence, vaginal bleeding, discharge. UTI symptoms improved currently. Musculoskeletal Denies joint pain or specific bone pain. Integumentary Denies chronic rashes, inflammation. Neurologic Denies headache, blurred vision, and no areas of focal weakness or numbness. Normal gait. No sensory problems. Psychiatric Denies depression, anxiety. Vital Signs: Performed on December 25, 2019 09:08 Height - 63.50 in Weight - 200.2 lbs (LOW) BSA - 1.95 sq.m BMI - 34.91 (HIGH) Temperature - 97.3 F (LOW) Pulse - 89 /min Respiration - 18 /min BP - 146/95 mm(hg) (HIGH) O2 Sat - 97 % Pain - 0,1 - No physically strenuous activity, but ambulatory and able to carry out light or sedentary work (e.g. office work, light house work). (ECOG) Physical Examination: Constitutional Alert, oriented, no acute distress. Skin pink, warm and dry. Head Normocephalic; atraumatic. Eyes Conjunctivae and sclerae are clear and without icterus. Pupils are reactive and equal. ENMT Sinuses are nontender. No oral exudates, ulcers, masses, thrush or mucositis. Oropharynx clear. Poor dentation noted. Neck Supple without masses or thyromegaly. No jugular venous distension. Hematologic/Lymphatic No petechiae or purpura. No tender or palpable lymph nodes in the cervical, supraclavicular. Respiratory Lungs are clear to auscultation without rhonchi or wheezing. Cardiovascular Regular rate and rhythm of heart without murmurs,clicks, gallops or rubs. Abdomen Non-tender, non-distended, no masses noted .Good bowel sounds noted in all quads. No guarding or rebound tenderness. No pulsatile masses. Back/Spine Non-tender to palpation. Extremities No visible deformities, no cyanosis, clubbing or edema. Musculoskeletal No tenderness or swelling, normal range of motion without obvious weakness. Integumentary No rashes or lesions. Neurologic No sensory or motor deficits, normal cerebellar function, normal gait. Psychiatric Alert and oriented times three. Coherent speech. Verbalizes understanding of our discussions today. Laboratory:Test performed on December 23, 2019 09:10 Sodium 134 mmol/L Potassium 4.4 mmol/L Chloride 91 mmol/L CO2 25 mmol/L Anion Gap 22.4 BUN 17 mg/dL Creatinine 1.0 mg/dL Cr Clearance (Est) 93.49 mL/min eGFR 57.8 mL/min Glucose 263 mg/dL Calcium 10.5 mg/dL Protein, Total 7.4 g/dL Albumin 4.3 g/dL Globulin 3.1 g/dL Bilirubin, Total 0.2 mg/dL ALT (SGPT) 10 Units/L AST (SGOT) 13 Units/L Alkaline Phosphatase 86 IU/L WBC 10.3 10^3/uL RBC 4.69 10^6/uL HGB 13.4 g/dL HCT 41.2 % MCV 87.8 fl MCH 28.5 pg MCHC 32.2 g/dL RDW 16.6 % Platelet Count 470 10^3/uL MPV 7.7 fl Test performed on December 23, 2019 08:38 Neutrophils (Gran) 5.6 10^9/L Lymphocytes 4.0 10^9/L Monocytes 0.7 10^9/L Manual Lymphocytes 38.8 % Manual Monocytes 7.0 % CA 125 36.1 Units/mL Impression: 1. The patient has high-grade serous carcinoma of the ovary, stage IIIC at initial diagnosis. There was a small amount of residual miliary disease present following her initial surgery in April 2012. Her disease was estimated at greater than 99% resected. She was given postoperative chemotherapy with 6 cycles of carboplatin/Taxol, which she completed in October 2012. 2. In August 2014 she had evidence of recurrence by CA [address] scan, and she then initiated second line treatment with carboplatin and weekly Taxol in combination with Avastin. As of February 2015 she had completed 6 cycles of chemotherapy. 3. Her treatment was changed to maintenance Avastin. 4. As of 08/19/2015 she had 2 successive increases in her CA-125 level, and at that point she restarted chemotherapy with Abraxane in combination with Avastin. She had a very good response by CA-125 level. 5. As of her follow-up visit on 08/22/2017 her neuropathy had worsened significantly, and it was opted to stop her treatment. On 09/26/2017 she began further chemotherapy with carboplatin/gemcitabine on a day 1/day 15 schedule. 6. As of July 2018 she had completed 11 cycles of treatment. She appeared stable clinically, and her restaging CT scans from 08/08/2018 had shown no evidence of disease progression. In August 2018 her treatment was changed to maintenance olaparib 300 mg twice daily. Her other medical illnesses include: 7. Hypertension. 8. Type II diabetes. 9. GERD. 10. Anxiety/depression. As of March 2019 there was evidence of disease progression with rising CA-[address] evidence of new circumferential thickening of the stomach antrum and slight increase in size of a gastric lymph node. She then restarted chemotherapy with carboplatin/liposomal doxorubicin. After 3 cycles of treatment, she had developed a significant skin eruption and other side effects. She had only a slight decrease in her CA-125 level. Given the side effects she was experiencing, Dr Benavidez recommended that she stop treatment. Her restaging CT scans on 09/09/2019 showed evidence of disease progression with increase in size and number of mesenteric deposits throughout the abdomen and pelvis, including a soft tissue mass at the antrum of the stomach with slight increase in size and luminal narrowing. With limited treatment options available, it was opted to have her restart chemotherapy with carboplatin/gemcitabine. She began cycle 1 on 10/08/2019 on a day 1/day 15 schedule. She has now completed 1 cycle of treatment with the carboplatin/gemcitabine. She has tolerated the chemotherapy with acceptable toxicity, and her clinical status appears stable. However, there was a progressive increase in the CA-125 level, so that she clearly was not benefiting with the treatment. Ms Roy was offered a trial of pembrolizumab in combination with bevacizumab. She began her first cycle on December 04, 2019. She has tolerated it well thus far. Plan: 1. Proceed with cycle pembrolizumab in combination with bevacizumab. 2. Continue same premeds as this working well for her. 3. Labs from December 23, 2019 were reviewed in detail and discussed with Ms. Roy and a copy was given to her. WBC 10.3, hemoglobin 13.4, platelets 470,000 ANC is 5600. Creatinine is 1.0 random glucose was 263 LFTs were normal and her potassium was normal at 4.4. Her Ca1 25 was 36.1 today compared to 47 at her last visit. 4. She did have bilateral mammogram screening in August 2019. It was reported as BI RADS 2-benign recheck in 1 year. 5. We will plan to see her back in 3 weeks for cycle 3 pembrolizumab and bevacizumab. 6. She is instructed to call us if she has trouble with the diarrhea is not controlled with what she is doing at home. We did discuss side effects of the immunotherapy including pneumonitis, colitis, nephritis, skin reactions and joint/muscle pain. She denies any of these symptoms. 7. Ms. Roy was instructed to contact us in the interim should questions or problems arise. Signed By: Smiley Ruiz-, [facility] Jeffrey Benavidez MD <<Signature on File>>
[2019-12-25] MEDS: alteplase 1 mg/mL SDV 2 mL 2 MG INTRACATH (10:04)
== END 2019-12-28 23:59 | disposition home or self-care (01) ==
LOC: ONCMED 06:44
PROVIDERS: Internal Medicine Medical Oncology; PCP Family Medicine; Visit Provider Nurse Practitioner
DX: Z51.12 Encounter for antineoplastic immunotherapy (principal); Z51.11 Encounter for antineoplastic chemotherapy; C56.1 Malignant neoplasm of right ovary; C56.2 Malignant neoplasm of left ovary; C77.2 Secondary and unspecified malignant neoplasm of intra-abdominal lymph nodes; E11.9 Type 2 diabetes mellitus without complications; I10 Essential (primary) hypertension; K21.9 Gastro-esophageal reflux disease without esophagitis; F41.9 Anxiety disorder, unspecified; F32.9 Major depressive disorder, single episode, unspecified; Z79.818 Long term (current) use of other agents affecting estrogen receptors and estrogen levels; Z79.899 Other long term (current) drug therapy
CPT/HCPCS: 36593; 80053; 83036; 84443; 85025; 86304; 96375; 96413; 96415; 96417; 99214; J2997; J7050; J9035; J9271

== ENCOUNTER → 2020-01-12 14:00 | Outpatient (BNVA) | payer MEDICARE, MEDICAID, SELFPAY | PROVIDERS: PCP Family Medicine; Visit Provider Internal Medicine Medical Oncology | DX: C77.2 Secondary and unspecified malignant neoplasm of intra-abdominal lymph nodes (principal); Z79.899 Other long term (current) drug therapy | CPT/HCPCS: 80053; 84443; 85025 ==

== ENCOUNTER → 2020-01-13 14:00 | Outpatient (BNVA) | payer MEDICARE, MEDICAID, SELFPAY | PROVIDERS: PCP Family Medicine; Visit Provider Internal Medicine Medical Oncology | DX: C77.2 Secondary and unspecified malignant neoplasm of intra-abdominal lymph nodes (principal); C56.2 Malignant neoplasm of left ovary; C56.1 Malignant neoplasm of right ovary | CPT/HCPCS: 86304 ==

== ENCOUNTER 2020-01-15 07:18 | Outpatient (RCR) | payer MEDICARE, MEDICAID, SELFPAY ==
[2020-01-15] MEDS: alteplase 1 mg/mL SDV 2 mL 2 MG INTRACATH (10:15)
[2020-01-15] MEDS: sodium chloride 0.9% (100 ml) 100 ML 45 ML (10:35)
--- NOTE | 2020-01-18 15:09 | ONC FU_ITS ---
Dr. Benavidez Patient Follow-Up Note Patient: Bessy Roy Unit #: [id number]: 1965 Dicatated By: Jeffrey Benavidez M.D.Date of Visit:Jan 15, 2020 Onc Med Follow-up/Prog Note Chief Complaint: Ovarian cancer. History of Present Illness: This is a 54 year-old woman with recurrent ovarian cancer. She had presented in March 2012 with stage IIIC ovarian cancer. She was referred to Dr. Edilson Wahl for [facility] oncology. On 05/17/12 showed underwent exploratory laparotomy. The op note indicated a small amount of residual miliary disease present at the end of the procedure. It was estimated to be greater than 99% resected. Pathology showed a high-grade serous carcinoma involving both ovaries, measuring 9 cm on the right and 6 cm on the left. There was involvement in the omentum and multiple serosal surfaces including the appendix, uterus, and colon. There was no diagnostic abnormality in the included portion of rectosigmoid colon and there was no involvement in the skeletal muscle from the abdominal wall. There was involvement in the liver capsule, but not the liver parenchyma. The spleen showed no diagnostic abnormality. There was involvement in 4 of 20 lymph nodes. The ascitic fluid also was positive. Her postoperative course was complicated by development of an abscess in the left lower quadrant, requiring percutaneous drainage and antibiotic therapy. She did have a gradual recovery, and she subsequently was given postoperative chemotherapy with 6 cycles of carboplatin/Taxol, completed on 11/15/2012. There were delays during her chemotherapy related to poor compliance. In August 2013 she had recurrence and she began second line chemotherapy with carboplatin and weekly Taxol in combination with Avastin . As of 02/02/15 she had completed 6 cycles of chemotherapy. She had significant response by CA 125 level and by followup CT scan. Taxol was omitted with cycles 5 and 6 due to neuropathy. Her treatment was changed to maintenance Avastin. By June her CA-125 level began to increase. As of 08/19/2015 it was back up to 43 U/mL. At that point she restarted chemotherapy with Abraxane/Avastin, and her CA-125 level subsequently declined. She then continued treatment with Abraxane/Avastin, though not on a very consistent schedule due in part to toxicities and in part to compliance issues. As of her follow-up visit on 08/22/2017 her neuropathy symptoms had worsened significantly, and I did opt to put her treatment on hold. She returned on 09/26/2017 to begin further chemotherapy with carboplatin/gemcitabine on a day 1/day 15 schedule. Her baseline CA-125 level had increased to 15.1 U/mL. She had some fatigue following that treatment. She otherwise seemed to tolerate it pretty well, and she was able to continue treatment on a day 1/day 15 schedule. As of July 2018 she had completed 11 cycles of carboplatin/gemcitabine. She remained stable clinically with CA-125 level stable at 14.4 U/mL. In August 2018 she began maintenance therapy with olaparib 300 mg twice a day. At her scheduled visit on 04/10/2019 she appeared stable clinically, but there was a significant increase in her CA 125 level to 30.0 U/mL compared to 17.8 U/mL in January. With that change she had restaging CT scans of the chest/abdomen/pelvis on 04/18/2019. It showed new circumferential thickening of the stomach antrum and a small but slightly increase sized gastric lymph node. It was felt to possible represent inflammatory changes from peptic ulcer disease, but very early metastatic disease was not excluded. There was no ascites. There was stable, mild thickening of the right lateral urinary bladder wall. With those findings, I opted to restart her on chemotherapy with carboplatin in combination with liposomal doxorubicin. She began cycle 1 on 05/08/2019. Her baseline CA 125 level was 58.9 U/mL. She tolerated the treatment with acceptable toxicity. She continued with cycle 2 on 06/05/2019 and with cycle 3 on 07/03/2019. At that point the CA 125 level had decreased just slightly, to 38.9 U/mL. At her followup visit visit on 07/31/2019 she had developed a significant skin eruption as well as other side effects with the chemotherapy. As there has been no further decline in the CA-125 level, I opted to stop that treatment. Restaging CT of the abdomen/pelvis on 09/09/2019 showed mesenteric deposits throughout the abdomen and pelvis, increased in size and number compared to the study from April 2019. Also noted was a soft tissue mass at the antrum of the stomach with slight increase in size and luminal narrowing. With those findings, I opted to restart chemotherapy with carboplatin/gemcitabine. She began her 1st cycle on 10/08/2019 on a day 1/day 15 schedule. Her other medical illnesses include hypertension, type II diabetes, and anxiety/depression. She underwent repair of an incisional hernia which developed subsequent to her abdominal surgery in 2011. She is a nonsmoker. INTERIM HISTORY: She has completed 1 full cycle of treatment with carboplatin/gemcitabine. She tolerated the chemotherapy pretty well, but after 1 cycle there was a significant increase in the CA-125 level. With that finding, she then began a trial of salvage therapy with pembrolizumab in combination with bevacizumab. She began cycle 1 on 12/04/2019. She tolerated it without any adverse effects. She is seen for a follow-up visit. Since she has been off the chemotherapy there has been improvement in her energy and activity tolerance. Her ECOG score is 1. Her appetite has not been as good lately. She has not had fever or night sweats. She does complain that she is cold a lot. She has had no mouth sores. She has had no shortness of breath or cough. She has a little bit of chest pain. She has had only a little bit of abdominal pain lately. Her bowel function has been better. She has no complaints. She does complain of having increased pain in her legs and feet for the first 5 days after her treatment, and she also reports having significant problems with her balance. She has had occasional sharp pain in her left ear. She developed a severe headache after she took oxycodone. Medications: ALPRAZolam 1 Tablet (of 0.5 mg) Oral t.i.d. PRN, AmLODIPine Besylate 1 (5 mg) Tablet Oral daily, CeleXA 1 (40 mg) Tablet Oral daily, Compazine 1 (10 mg) Tablet Oral four times a day PRN, HumuLIN R Injection t.i.d. PRN, Hydrocodone-Acetaminophen 1 - 2 Tablet (of 7.5-325 mg) Oral q 4 hours PRN, Lantus 40 Units (of 100 Units/mL) Subcutaneous at bedtime PRN, Levothyroxine Sodium 1 Tablet (of 125 mcg) Oral daily, Lomotil 1 (2.5-0.025 mg) Tablet Oral q 6 hours PRN, Magnesium 1 Tablet (of 400 mg) Oral daily, MetFORMIN HCl 1 (500 mg) Tablet Oral b.i.d., oxyCODONE HCl 1 Tablet (of 15 mg) Oral q 4 hours PRN, Pantoprazole Sodium 1 Tablet (of 40 mg) Tablet, enteric coated Oral daily, Voltaren 2 - 4 G (of 1 %) Gel (jelly) Transdermal PRN Allergies: Morphine Sulfate Review of Systems: Constitutional - She is feeling pretty good. Her energy is better. She has been doing alot of outside work. Her appetite has decreased. Her weight is up a few pounds. No fevers. She has been having chills. No night sweats or hot flashes. ECOG score is 1, ENMT - She has noticed a decrease in her hearing and she occasionally has sharp pain in her left ear. No sinus congestion/drainage. No mouth sores. No sore throat or difficulty swallowing, Hematologic/Lymphatic - No abnormal bruising or bleeding, Respiratory - No shortness of breath. No cough. No pleuritic pain or hemoptysis, Cardiovascular - Shes had some mild chest pain. No palpitations, Gastrointestinal - No nausea or vomiting. No heartburn or acid reflux. No diarrhea or constipation. No blood in the stool or black stools. She has some mild epigastric pain, Genitourinary (F) - No dysuria or hematuria. No urinary frequency. No urgency or incontinence, Musculoskeletal - No joint or bone pain, Integumentary - No skin complications, Neurologic - No headache. She is have trouble with balance. She has pain in her legs and feet which gets worse for about 5 days after her treatment. No other focal neurologic symptoms, Psychiatric - She has anxiety/depression. It is adequately managed. She is sleeping okay with trazodone. Vital Signs: Performed on Jan 15, 2020 09:19 Height - 63.50 in Weight - 202.2 lbs (HIGH) BSA - 1.95 sq.m BMI - 35.26 (HIGH) Temperature - 97.6 F (LOW) Pulse - 82 /min Respiration - 20 /min BP - 136/90 mm(hg) O2 Sat - 98 % Pain - 0 Physical Examination: Constitutional - She looks pretty good generally, Eyes - Sclerae nonicteric. Conjunctivae clear, ENMT - There are no lesions noted in the oral cavity. TMs appear unremarkable, Hematologic/Lymphatic - No cervical, clavicular, or axillary adenopathy, Respiratory - Lungs sound clear, Cardiovascular - Heart rhythm is regular. There is a II/ systolic murmur. There is no gallop or rub noted, Abdomen - Mildly distended but soft. Liver is not enlarged. There is no abdominal mass or noted and there is no obvious ascites. There is no inguinal adenopathy, Extremities - Slight edema, Integumentary - No skin eruption, Neurologic - No focal neurologic deficits noted. Lab/Imaging: Test performed on Jan 12, 2020 13:02 WBC 10.7 10^9/L RBC 4.69 10^12/L HGB 13.2 g/dL HCT 41.2 % MCV 87.8 fl MCH 28.1 pg MCHC 32.0 g/dL RDW 16.6 % Platelet Count 644 10^9/L MPV 7.6 fL Neutrophils (Gran) 6.3 10^9/L Lymphocytes 3.6 10^9/L Monocytes 0.7 10^9/L Manual Lymphocytes 33.8 % Manual Monocytes 6.9 % Test performed on December 23, 2019 09:10 Sodium 134 mmol/L Potassium 4.4 mmol/L Chloride 91 mmol/L CO2 25 mmol/L Anion Gap 22.4 BUN 17 mg/dL Creatinine 1.0 mg/dL Cr Clearance (Est) 93.49 mL/min eGFR 57.8 mL/min Glucose 263 mg/dL Calcium 10.5 mg/dL Protein, Total 7.4 g/dL Albumin 4.3 g/dL Globulin 3.1 g/dL Bilirubin, Total 0.2 mg/dL ALT (SGPT) 10 Units/L AST (SGOT) 13 Units/L Alkaline Phosphatase 86 IU/L Impression: 1. The patient has high-grade serous carcinoma of the ovary, stage IIIC at initial diagnosis. There was a small amount of residual miliary disease present following her initial surgery in April 2012. Her disease was estimated at greater than 99% resected. She was given postoperative chemotherapy with 6 cycles of carboplatin/Taxol, which she completed in October 2012. 2. In August 2014 she had evidence of recurrence by CA [address] scan, and she then initiated second line treatment with carboplatin and weekly Taxol in combination with Avastin. As of February 2015 she had completed 6 cycles of chemotherapy. 3. Her treatment was changed to maintenance Avastin. 4. As of 08/19/2015 she had 2 successive increases in her CA-125 level, and at that point she restarted chemotherapy with Abraxane in combination with Avastin. She had a very good response by CA-125 level. 5. As of her follow-up visit on 08/22/2017 her neuropathy had worsened significantly, and I opted to stop her treatment. On 09/26/2017 she began further chemotherapy with carboplatin/gemcitabine on a day 1/day 15 schedule. 6. As of July 2018 she had completed 11 cycles of treatment. She appeared stable clinically, and her restaging CT scans from 08/08/2018 had shown no evidence of disease progression. In August 2018 her treatment was changed to maintenance olaparib 300 mg twice daily. Her other medical illnesses include: 7. Hypertension. 8. Type II diabetes. 9. GERD. 10. Anxiety/depression. As of March 2019 there was evidence of disease progression with rising CA-[address] evidence of new circumferential thickening of the stomach antrum and slight increase in size of a gastric lymph node. She then restarted chemotherapy with carboplatin/liposomal doxorubicin. After 3 cycles of treatment, she had developed a significant skin eruption and other side effects. She had only a slight decrease in her CA-125 level. Given the side effects she was experiencing, I recommended that she stop treatment. Her restaging CT scans on 09/09/2019 showed evidence of disease progression with increase in size and number of mesenteric deposits throughout the abdomen and pelvis, including a soft tissue mass at the antrum of the stomach with slight increase in size and luminal narrowing. With limited treatment options available, I opted to have her restart chemotherapy with carboplatin/gemcitabine. She began cycle 1 on 10/08/2019 on a day 1/day 15 schedule. She has now completed 1 cycle of treatment with the carboplatin/gemcitabine. She has tolerated the chemotherapy with acceptable toxicity, and her clinical status appears stable. However, there was a progressive increase in the CA-125 level, so that she clearly was not benefiting with the treatment. As of 12/04/2019 she began a trial of salvage therapy with pembrolizumab in combination with bevacizumab. She has completed 2 cycles of treatment, administered at 3-week intervals. She has had some complaints of surgery with the treatment, including pain in her legs and feet, which are not typical or expected with this treatment. She otherwise appears to be doing well clinically. Plan: She will continue with cycle 3 of pembrolizumab in combination with bevacizumab. The dosages will remain the same. She returns in 3 weeks. In the meantime, she will start lisinopril 5 mg daily for the hypertension. Signed By: Jeffrey Benavidez M.D. <<Signature on File>>
== END 2020-01-27 23:59 | disposition home or self-care (01) ==
LOC: ONCMED 07:18
PROVIDERS: PCP Family Medicine; Visit Provider Internal Medicine Medical Oncology
DX: Z51.12 Encounter for antineoplastic immunotherapy (principal); Z51.11 Encounter for antineoplastic chemotherapy; C56.1 Malignant neoplasm of right ovary; C56.2 Malignant neoplasm of left ovary; C77.2 Secondary and unspecified malignant neoplasm of intra-abdominal lymph nodes; E11.9 Type 2 diabetes mellitus without complications; I10 Essential (primary) hypertension; K21.9 Gastro-esophageal reflux disease without esophagitis; F41.9 Anxiety disorder, unspecified; F32.9 Major depressive disorder, single episode, unspecified; Z79.899 Other long term (current) drug therapy
CPT/HCPCS: 36593; 96375; 96413; 96417; 99214; J2997; J7050; J9035; J9271

== ENCOUNTER → 2020-02-24 09:00 | Outpatient (BNVA) | payer MEDICARE, MEDICAID, SELFPAY | PROVIDERS: PCP Family Medicine; Visit Provider Nurse Practitioner Family | DX: E10.65 Type 1 diabetes mellitus with hyperglycemia (principal); F33.1 Major depressive disorder, recurrent, moderate; I10 Essential (primary) hypertension; Z76.89 Persons encountering health services in other specified circumstances; C56.1 Malignant neoplasm of right ovary; C56.2 Malignant neoplasm of left ovary; C77.2 Secondary and unspecified malignant neoplasm of intra-abdominal lymph nodes | CPT/HCPCS: 80053; 83036; 84439; 84443; 85025; 86304 ==

== ENCOUNTER 2020-02-26 06:01 | Outpatient (RCR) | payer MEDICARE, MEDICAID, SELFPAY ==
[2020-02-05] MEDS: sodium chloride 0.9% 250 ML 50 ML IV (09:40)
--- NOTE | 2020-03-01 21:53 | ONC FU_ITS ---
[facility] Patient Note Patient: Bessy Roy Unit #: [id number]: 1965 Dictated By: Smiley RuizDate of Visit: Feb 26, 2020 Onc MED Follow-Up/Prog Note Chief Complaint: Ovarian cancer. History of Present Illness: Ms Roy is a 54 year-old woman with recurrent ovarian cancer. She had presented in March 2012 with stage IIIC ovarian cancer. She was referred to Dr. Edilson Wahl for [employer] oncology. On 05/17/12 showed underwent exploratory laparotomy. The op note indicated a small amount of residual miliary disease present at the end of the procedure. It was estimated to be greater than 99% resected. Pathology showed a high-grade serous carcinoma involving both ovaries, measuring 9 cm on the right and 6 cm on the left. There was involvement in the omentum and multiple serosal surfaces including the appendix, uterus, and colon. There was no diagnostic abnormality in the included portion of rectosigmoid colon and there was no involvement in the skeletal muscle from the abdominal wall. There was involvement in the liver capsule, but not the liver parenchyma. The spleen showed no diagnostic abnormality. There was involvement in 4 of 20 lymph nodes. The ascitic fluid also was positive. Her postoperative course was complicated by development of an abscess in the left lower quadrant, requiring percutaneous drainage and antibiotic therapy. She did have a gradual recovery, and she subsequently was given postoperative chemotherapy with 6 cycles of carboplatin/Taxol, completed on 11/15/2012. There were delays during her chemotherapy related to poor compliance. In August 2013 she had recurrence and she began second line chemotherapy with carboplatin and weekly Taxol in combination with Avastin . As of 02/02/15 she had completed 6 cycles of chemotherapy. She had significant response by CA 125 level and by followup CT scan. Taxol was omitted with cycles 5 and 6 due to neuropathy. Her treatment was changed to maintenance Avastin. By June her CA-125 level began to increase. As of 08/19/2015 it was back up to 43 U/mL. At that point she restarted chemotherapy with Abraxane/Avastin, and her CA-125 level subsequently declined. She then continued treatment with Abraxane/Avastin, though not on a very consistent schedule due in part to toxicities and in part to compliance issues. As of her follow-up visit on 08/22/2017 her neuropathy symptoms had worsened significantly, and Dr Benavidez did opt to put her treatment on hold. She returned on 09/26/2017 to begin further chemotherapy with carboplatin/gemcitabine on a day 1/day 15 schedule. Her baseline CA-125 level had increased to 15.1 U/mL. She had some fatigue following that treatment. She otherwise seemed to tolerate it pretty well, and she was able to continue treatment on a day 1/day 15 schedule. As of July 2018 she had completed 11 cycles of carboplatin/gemcitabine. She remained stable clinically with CA-125 level stable at 14.4 U/mL. In August 2018 she began maintenance therapy with olaparib 300 mg twice a day. At her scheduled visit on 04/10/2019 she appeared stable clinically, but there was a significant increase in her CA 125 level to 30.0 U/mL compared to 17.8 U/mL in January. With that change she had restaging CT scans of the chest/abdomen/pelvis on 04/18/2019. It showed new circumferential thickening of the stomach antrum and a small but slightly increase sized gastric lymph node. It was felt to possible represent inflammatory changes from peptic ulcer disease, but very early metastatic disease was not excluded. There was no ascites. There was stable, mild thickening of the right lateral urinary bladder wall. With those findings, it was opted to restart her on chemotherapy with carboplatin in combination with liposomal doxorubicin. She began cycle 1 on 05/08/2019. Her baseline CA 125 level was 58.9 U/mL. She tolerated the treatment with acceptable toxicity. She continued with cycle 2 on 06/05/2019 and with cycle 3 on 07/03/2019. At that point the CA 125 level had decreased just slightly, to 38.9 U/mL. At her followup visit visit on 07/31/2019 she had developed a significant skin eruption as well as other side effects with the chemotherapy. As there has been no further decline in the CA-125 level, Dr Benavidez opted to stop that treatment. Restaging CT of the abdomen/pelvis on 09/09/2019 showed mesenteric deposits throughout the abdomen and pelvis, increased in size and number compared to the study from April 2019. Also noted was a soft tissue mass at the antrum of the stomach with slight increase in size and luminal narrowing. With those findings, it was opted to restart chemotherapy with carboplatin/gemcitabine. She began her 1st cycle on 10/08/2019 on a day 1/day 15 schedule. Her other medical illnesses include hypertension, type II diabetes, and anxiety/depression. She underwent repair of an incisional hernia which developed subsequent to her abdominal surgery in 2011. She is a nonsmoker. INTERIM HISTORY: She has completed 1 full cycle of treatment with carboplatin/gemcitabine. She tolerated the chemotherapy pretty well, but after 1 cycle there was a significant increase in the CA-125 level. With that finding, she then began a trial of salvage therapy with pembrolizumab in combination with bevacizumab. She began cycle 1 on 12/04/2019. She tolerated it without any adverse effects. She has completed 3 full cycles of Pembrolizumab in combination with bevacizumab. The bevacizumab was held on her last treatment on February 05, 2020 due to perpherial edema and persistent hypertension. She was also having burning and swelling in her feet. She had also been having severe headache. Ms Roy is here today for followup. She states overall she is feeling much better. She states that the burning in her feet and swelling is much better off the Avastin. It is noted that she is been off the Norvasc for about 6 weeks also. She states that she feels good. She states she really does feel better off the bevacizumab/Avastin. She has been started on metformin 1000 mg twice daily and states her blood sugars have been doing well. Reports her blood pressures are running a little bit better at home they are little higher here in the clinic today which is been her normal. She states that been running in the mid 80s at home as the high but for the most part of been in the lower 80s and even in the 70s some. She states that headaches are better as well. She denies any new concerns. She states she feels good. She states she does not have any shortness of breath orthopnea. She has had no fever or chills. She denies any mouth sores, sore throat or difficulty swallowing. She denies any diarrhea or constipation. She has had no increase in any muscle or joint pain. She denies any lower extremity edema. Her ECOG is 1. Past Medical History: Ovarian cancer (Dr. Wahl in [place] performed surgery) in 2011 She has previously been in good health. She has had some depression following the surgery. She has no other medical illnesses. Past Surgical History: Caesarean section Right leg abcess Flu vaccine in 2019 Flu vacc in 2018 - rt deltoid Flucevax in 2016 - left deltoid Pneumovax in 2016 - right deltoid Exploratory lap in 2011 - MEG-BSO,recto-sigmoid resection,omentectomy,splenectomy,bilateral pelvic and periaortic lymph node dissections,appy,liver biopsy, Hysterectomy in 2011 Port placed in 2011 - dr. dela cruz ([facility]) Prior surgeries limited to section in 2001 and a procedure on her right leg for abscess at age 18. EXploratory lap in 2011 resulted in total abdominal hysterectomy with bilateral salpingo-oophorectomy, and en bloc rectosigmoid resctions, omentectomy with partial resection of the anterior abdominal wall, splenectomy, bilateral pelvic and periaortic lymph node dissections, appendectomy, liver biopsy and debulking of right diaphragm and peritoneal implants. Allergies: Morphine Sulfate Medications: ALPRAZolam 1 Tablet (of 0.5 mg) Oral t.i.d. PRN AmLODIPine Besylate 1 (5 mg) Tablet Oral daily CeleXA 1 (40 mg) Tablet Oral daily Compazine 1 (10 mg) Tablet Oral four times a day PRN HumuLIN R Injection t.i.d. PRN Hydrocodone-Acetaminophen 1 - 2 Tablet (of 7.5-325 mg) Oral q 4 hours PRN Lantus 40 Units (of 100 Units/mL) Subcutaneous at bedtime PRN Levothyroxine Sodium 1 Tablet (of 125 mcg) Oral daily Lomotil 1 (2.5-0.025 mg) Tablet Oral q 6 hours PRN Magnesium 1 Tablet (of 400 mg) Oral daily MetFORMIN HCl 2 Tablet (of 500 mg) Oral b.i.d. Metoprolol Tartrate 1 Tablet (of 25 mg) Oral daily oxyCODONE HCl 1 Tablet (of 15 mg) Oral q 4 hours PRN Pantoprazole Sodium 1 Tablet (of 40 mg) Tablet, enteric coated Oral daily Voltaren 2 - 4 G (of 1 %) Gel (jelly) Transdermal PRN Family History: Ms. Roy's mother is alive: cancer history consists of Breast cancer while other medical history includes stroke and Alzheimers's disease at age 79. Ms. Jasons father is : cancer history consists of Thyroid Gland cancer while other medical history includes heart disease at age 62 (cause of ). Ms. Roy has 1 brother with an unknown alive status: medical history includes COPD and alcoholism. She has 1 maternal aunt with an unknown alive status: cancer history consists of Breast cancer. Family history significant for father having with heart disease at age 62. He also had thyroid cancer. Her mother is still living at age 79. She has Alzheimer's dementia and a history of strokes. She also has been treated for breast cancer. A maternal aunt also had breast cancer. She has one brother who is 60 years old and has COPD and alcoholism. Social History: Ms. Roy is single and she is a disabled. Ms. Roy has never smoked. She has no history of drinking. Ms. Roy reports the following support systems: lives with spouse, significant other, family, or friends, lives in own house, supportive family/friends willing to assist with needs, and adequate transportation available for expected visits. Her diet consists of regular meals. She indicates her activity level as: daily activities. She was previously and . She is currently unmarried, but she has a significant other. 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 She has never smoked. Review Of Symptoms: Constitutional Denies fevers, chills, night sweats, excessive fatigue or weight loss. Allergic/Immunologic No reactions. Eyes Denies significant visual changes. ENMT Denies sore throat, mouth sores, difficulty or changes in swallowing ability. Sinus drainage/allergies-chronic. Endocrine Recent increase in metformin to thousand twice daily which is tolerating well and her blood sugars have improved. Hematologic/Lymphatic Denies easy bruising or bleeding. The patient denies any tender or palpable lymph nodes. Breasts no concerns Respiratory Denies dyspnea on exertion, chest pain, cough. Cardiovascular Denies anginal chest pain. Gastrointestinal Denies nausea, vomiting, diarrhea, GI bleeding, or constipation. Denies change in bowel habits and/or stool color, no heartburn or early satiety. Genitourinary (F) No hesitancy, incontinence, vaginal bleeding, discharge. UTI symptoms improved currently. Musculoskeletal Denies joint pain or specific bone pain. Integumentary Denies chronic rashes, inflammation. Neurologic Denies headache, blurred vision, and no areas of focal weakness or numbness. Normal gait. No sensory problems. Psychiatric Denies depression, anxiety. Vital Signs: Performed on Feb 26, 2020 09:05 Height - 63.50 in Weight - 200.0 lbs (LOW) BSA - 1.94 sq.m BMI - 34.87 (HIGH) Temperature - 97.5 F (LOW) Pulse - 63 /min Respiration - 22 /min BP - 143/75 mm(hg) (HIGH) O2 Sat - 97 % Pain - 1,1 - No physically strenuous activity, but ambulatory and able to carry out light or sedentary work (e.g. office work, light house work). (ECOG) Physical Examination: Constitutional Alert, oriented, no acute distress. Skin pink, warm and dry. Head Normocephalic; atraumatic. Eyes Conjunctivae and sclerae are clear and without icterus. Pupils are reactive and equal. Neck Supple without masses or thyromegaly. No jugular venous distension. Hematologic/Lymphatic No petechiae or purpura. No tender or palpable lymph nodes in the cervical, supraclavicular. Respiratory Lungs are clear to auscultation without rhonchi or wheezing. Cardiovascular Regular rate and rhythm of heart without murmurs,clicks, gallops or rubs. Chest Chest is symmetric without chest wall deformities. Right venous access device is unremarkable. Back/Spine Non-tender to palpation. Extremities No visible deformities, no cyanosis, clubbing or edema. Musculoskeletal No tenderness or swelling, normal range of motion without obvious weakness. Integumentary No rashes or lesions. Neurologic No sensory or motor deficits, normal cerebellar function, normal gait. Psychiatric Alert and oriented times three. Coherent speech. Verbalizes understanding of our discussions today. Laboratory:Test performed on Feb 24, 2020 09:12 WBC 10.0 10^9/L RBC 4.94 10^12/L HGB 14.0 g/dL HCT 43.1 % MCV 87.3 fl MCH 28.4 pg MCHC 32.5 g/dL RDW 15.9 % Platelet Count 435 10^9/L MPV 7.9 fL Neutrophils (Gran) 5.5 10^9/L Lymphocytes 3.7 10^9/L Monocytes 0.8 10^9/L Manual Lymphocytes 55.1 % Manual Monocytes 37.4 % Manual Eosinophils 7.5 % Impression: 1. The patient has high-grade serous carcinoma of the ovary, stage IIIC at initial diagnosis. There was a small amount of residual miliary disease present following her initial surgery in April 2012. Her disease was estimated at greater than 99% resected. She was given postoperative chemotherapy with 6 cycles of carboplatin/Taxol, which she completed in October 2012. 2. In August 2014 she had evidence of recurrence by CA [address] scan, and she then initiated second line treatment with carboplatin and weekly Taxol in combination with Avastin. As of February 2015 she had completed 6 cycles of chemotherapy. 3. Her treatment was changed to maintenance Avastin. 4. As of 08/19/2015 she had 2 successive increases in her CA-125 level, and at that point she restarted chemotherapy with Abraxane in combination with Avastin. She had a very good response by CA-125 level. 5. As of her follow-up visit on 08/22/2017 her neuropathy had worsened significantly, and it was opted to stop her treatment. On 09/26/2017 she began further chemotherapy with carboplatin/gemcitabine on a day 1/day 15 schedule. 6. As of July 2018 she had completed 11 cycles of treatment. She appeared stable clinically, and her restaging CT scans from 08/08/2018 had shown no evidence of disease progression. In August 2018 her treatment was changed to maintenance olaparib 300 mg twice daily. Her other medical illnesses include: 7. Hypertension. 8. Type II diabetes. 9. GERD. 10. Anxiety/depression. As of March 2019 there was evidence of disease progression with rising CA-[address] evidence of new circumferential thickening of the stomach antrum and slight increase in size of a gastric lymph node. She then restarted chemotherapy with carboplatin/liposomal doxorubicin. After 3 cycles of treatment, she had developed a significant skin eruption and other side effects. She had only a slight decrease in her CA-125 level. Given the side effects she was experiencing, Dr Benavidez recommended that she stop treatment. Her restaging CT scans on 09/09/2019 showed evidence of disease progression with increase in size and number of mesenteric deposits throughout the abdomen and pelvis, including a soft tissue mass at the antrum of the stomach with slight increase in size and luminal narrowing. With limited treatment options available, it was opted to have her restart chemotherapy with carboplatin/gemcitabine. She began cycle 1 on 10/08/2019 on a day 1/day 15 schedule. She completed 1 cycle of treatment with the carboplatin/gemcitabine. Sh tolerated the chemotherapy with acceptable toxicity, and her clinical status appears stable. However, there was a progressive increase in the CA-125 level, so that she clearly was not benefiting with the treatment. As of 12/04/2019 she began a trial of salvage therapy with pembrolizumab in combination with bevacizumab. She has completed 2 cycles of treatment, administered at 3-week intervals. She has had some complaints of swelling with the treatment, including pain in her legs and feet, which are not typical or expected with this treatment. She otherwise appears to be doing well clinically. She also had diastolic hypertension with readings in the 90's. Her bevacizumab was placed on hold with her fourth cycle and she proceeded with Keytruda only. She was given a change in her antihypertensives and is here today for follow-up. Her diastolic blood pressure has improved. And she states she feels much better off the Avastin. The swelling has greatly improved???it has resolved. It should also be noted that she stopped Norvasc approximately 6 weeks ago by her report. Plan: 1. Proceed with pembrolizumab today we will continue to hold the Avastin as she does feel significantly better off of it. Her diastolic blood pressure is improved at 75 today. 2. Labs from 02/24/2020 were reviewed in detail and discussed with Ms. Cabrera and a copy was given to her. Her random glucose was 158 which is significantly lower than normal for her. White count was 10.0, hemoglobin 14.0, platelets 435,000 ANC is 5500. Her potassium was 4.3 creatinine 0.9 LFTs were normal TSH was 5.41. Her CA-125 is 51.2 from 02/24/2020. Her blood pressure was reported at 143/75. She states she is taking metformin 1 g twice daily and her sugars have responded well to this. 3. She reports her blood pressure medicine is metoprolol 25 mg twice daily. She remains off the Norvasc and has been off for at least 6 weeks per her report. She remains on lisinopril 5 mg daily. 4. TSH is 5.41. Her current dose of Synthroid is 125 mcg daily by our chart and her report. We will plan to increase her Synthroid to 150 mcg request with daily and plan to recheck her thyroid profile in about 6 weeks. 5. We will plan to have her return in 3 weeks for Keytruda without labs that we will have her return in 6 weeks with CBC CMP TSH and Ca1 25 I have also requested CT of the chest with contrast CT of the abdomen pelvis with contrast for restaging and compared to August 2019 scans. With the follow-up scans hopefully this will help us determine whether she can stay on single agent can treat her or we need to resume the Avastin. A lot of the decision most likely depend on her performance status once this is a salvage treatment plan. 6. Ms. Roy was instructed to contact us in the interim should questions or problems arise. Signed By: Say RuizNMagui <<Signature on File>>
== END 2020-02-27 23:59 | disposition home or self-care (01) ==
LOC: ONCMED 06:01
PROVIDERS: PCP Family Medicine; Visit Provider Nurse Practitioner
DX: Z51.12 Encounter for antineoplastic immunotherapy (principal); C56.2 Malignant neoplasm of left ovary; C56.1 Malignant neoplasm of right ovary; C77.2 Secondary and unspecified malignant neoplasm of intra-abdominal lymph nodes; I10 Essential (primary) hypertension; E11.9 Type 2 diabetes mellitus without complications; F41.8 Other specified anxiety disorders; Z90.81 Acquired absence of spleen; Z79.891 Long term (current) use of opiate analgesic; Z79.4 Long term (current) use of insulin; Z79.899 Other long term (current) drug therapy; Z92.21 Personal history of antineoplastic chemotherapy
CPT/HCPCS: 96413; 99214; J7050; J9271

== ENCOUNTER 2020-03-18 05:55 | Outpatient (RCR) | payer MEDICARE, MEDICAID, SELFPAY ==
[2020-03-18] MEDS: alteplase 1 mg/mL SDV 2 mL 2 MG INTRACATH (08:50)
[2020-03-18] MEDS: sodium chloride 0.9% 250 ML 75 ML IV (09:25)
== END 2020-03-29 23:59 | disposition home or self-care (01) ==
LOC: ONCMED 05:55
PROVIDERS: PCP Family Medicine; Visit Provider Nurse Practitioner
DX: Z51.12 Encounter for antineoplastic immunotherapy (principal); C56.1 Malignant neoplasm of right ovary; C56.2 Malignant neoplasm of left ovary; C77.2 Secondary and unspecified malignant neoplasm of intra-abdominal lymph nodes; I10 Essential (primary) hypertension; E11.9 Type 2 diabetes mellitus without complications; K21.9 Gastro-esophageal reflux disease without esophagitis; F41.9 Anxiety disorder, unspecified; F32.9 Major depressive disorder, single episode, unspecified; Z79.899 Other long term (current) drug therapy
CPT/HCPCS: 36593; 96375; 96413; J2997; J7050; J9271

== ENCOUNTER → 2020-04-06 13:22 | Outpatient (BNVA) | payer MEDICARE, MEDICAID, SELFPAY | PROVIDERS: PCP Family Medicine; Visit Provider Internal Medicine Medical Oncology | DX: C77.2 Secondary and unspecified malignant neoplasm of intra-abdominal lymph nodes (principal); C56.2 Malignant neoplasm of left ovary; C56.1 Malignant neoplasm of right ovary; Z45.2 Encounter for adjustment and management of vascular access device; E11.49 Type 2 diabetes mellitus with other diabetic neurological complication | CPT/HCPCS: 36415; 80053; 84443; 85025; 86304 ==

== ENCOUNTER 2020-04-15 05:36 | Outpatient (RCR) | payer MEDICARE, MEDICAID, SELFPAY ==
--- NOTE | 2020-04-07 10:00 | CT_ITS ---
WS: [id number] CT CHEST, ABDOMEN AND PELVIS WITH CONTRAST HISTORY: OVARIAN CANCER RESTAGING TECHNIQUE: Contiguous 5 mm axial imaging performed through the chest, abdomen and pelvis with IV cont rast, oral contrast has been provided. Coronal and sagittal reformats chest. Coronal and sagittal ref ormats through the abdomen and pelvis. All CT scans at [facility] use at least one of the se dose optimization techniques: automated exposure control; mA and/or kV adjustment per patient size (includes targeted exams where dose is matched to clinical indication); or iterative reconstruction. CONTRAST: Omnipaque 300; 95 mL IV. DLP: 2371.51 mGycm COMPARISON: 09/09/2019 and 05/01/[address]: No pulmonary nodules. Benign granuloma RIGHT middle lobe. No pleural effusion. There is mil d pleural thickening and pleural fat in the posterior LEFT upper thorax which is stable. Mild atheros clerosis aorta. Normal size pulmonary artery. No mediastinal or hilar adenopathy. RIGHT subclavian Po rt-A-Cath with tip in the distal SVC. There is dense fibroglandular tissue within each breast as seen on prior exams. Heart size is normal. Small hiatal hernia. Abdomen CT: Liver is enlarged hepatic steatosis. There is a rounded area of decreased attenuation daren ng the falciform ligament measuring 1.9 cm. Stable since 04/18/2019. Due to stability this may be hepa tic steatosis. The scalloping along the inferior margin the RIGHT lobe of liver is stable. Gallbladde r pancreas are negative. Prior splenectomy. Nonobstructing calcifications lower pole RIGHT kidney. Th ere are a few small hypodensities scattered within each kidney. No solid mass. No adrenal mass. Mesenteric deposits described on the prior examination are again identified. The largest deposit jimenez uring 1.9 cm along the lesser curvature the stomach has slightly increased in size from 1.6 cm. These metastatic deposits have been present on multiple several prior examinations but continues to slowly increase in size. There are additional smaller celiac axis lymph nodes that were not seen on prior s tudies. Soft tissue involvement of the stomach antrum is unchanged. Focal area of tethering in the central mesentery with adjacent lymph nodes. Additional mesenteric dep osits and tethering in the mid pelvis. There is soft tissue thickening involving the small bowel and the colon in the RIGHT abdomen. Highly suspicious for metastatic deposits. There are numerous small l ymph nodes also evident. At this time there is no obstruction. There is additional thickening along the omentum of the anterior abdominal wall contiguous with the m etastatic deposits along the serosal surface of the small bowel and colon. Pelvic CT: Minimally distended urinary bladder. No free fluid in the pelvis. Rectosigmoid sutures wit h no adjacent soft tissue. CT/CT chest abd pel w con* IMPRESSION: 1. Continued progression of metastatic implants within the abdomen and pelvis since 09/09/2019. Mesenteric metastatic deposits have increased in size and numb er and there is additional central mesenteric and pelvic mesenteric stranding a nd highly suspicious for mesenteric deposits involving the small bowel and colo n in the RIGHT lower quadrant. No obstruction of the GI tract. 2. Suspect omental metastatic involvement. 3. No ascites. 4. Indeterminate but stable 1.9 cm low-attenuation area in the falciform ligam ent. Stable metastatic deposit versus hepatic steatosis. 5. No pulmonary metastasis.
[2020-04-07] MEDS: iohexol 300 mg/mL 50 mL Btl PO (10:13)
[2020-04-07] MEDS: iohexol 300 mg/mL 100 mL Btl IV (11:22)
--- NOTE | 2020-04-12 11:43 | ONC FU_ITS ---
Dr. Benavidez Patient Follow-Up Note Patient: Bessy Roy Unit #: [id number]: 1965 Dicatated By: Jeffrey Benavidez M.D.Date of Visit:Apr 08, 2020 Onc Med Follow-up/Prog Note Chief Complaint: Ovarian cancer. History of Present Illness: This is a 55 year-old woman with recurrent ovarian cancer. She had presented in March 2012 with stage IIIC ovarian cancer. She was referred to Dr. Edilson Wahl for [employer] oncology. On 05/17/12 showed underwent exploratory laparotomy. The op note indicated a small amount of residual miliary disease present at the end of the procedure. It was estimated to be greater than 99% resected. Pathology showed a high-grade serous carcinoma involving both ovaries, measuring 9 cm on the right and 6 cm on the left. There was involvement in the omentum and multiple serosal surfaces including the appendix, uterus, and colon. There was no diagnostic abnormality in the included portion of rectosigmoid colon and there was no involvement in the skeletal muscle from the abdominal wall. There was involvement in the liver capsule, but not the liver parenchyma. The spleen showed no diagnostic abnormality. There was involvement in 4 of 20 lymph nodes. The ascitic fluid also was positive. Her postoperative course was complicated by development of an abscess in the left lower quadrant, requiring percutaneous drainage and antibiotic therapy. She did have a gradual recovery, and she subsequently was given postoperative chemotherapy with 6 cycles of carboplatin/Taxol, completed on 11/15/2012. There were delays during her chemotherapy related to poor compliance. In August 2013 she had recurrence and she began second line chemotherapy with carboplatin and weekly Taxol in combination with Avastin . As of 02/02/15 she had completed 6 cycles of chemotherapy. She had significant response by CA 125 level and by followup CT scan. Taxol was omitted with cycles 5 and 6 due to neuropathy. Her treatment was changed to maintenance Avastin. By June her CA-125 level began to increase. As of 08/19/2015 it was back up to 43 U/mL. At that point she restarted chemotherapy with Abraxane/Avastin, and her CA-125 level subsequently declined. She then continued treatment with Abraxane/Avastin, though not on a very consistent schedule due in part to toxicities and in part to compliance issues. As of her follow-up visit on 08/22/2017 her neuropathy symptoms had worsened significantly, and I did opt to put her treatment on hold. She returned on 09/26/2017 to begin further chemotherapy with carboplatin/gemcitabine on a day 1/day 15 schedule. Her baseline CA-125 level had increased to 15.1 U/mL. She had some fatigue following that treatment. She otherwise seemed to tolerate it pretty well, and she was able to continue treatment on a day 1/day 15 schedule. As of July 2018 she had completed 11 cycles of carboplatin/gemcitabine. She remained stable clinically with CA-125 level stable at 14.4 U/mL. In August 2018 she began maintenance therapy with olaparib 300 mg twice a day. At her scheduled visit on 04/10/2019 she appeared stable clinically, but there was a significant increase in her CA 125 level to 30.0 U/mL compared to 17.8 U/mL in January. With that change she had restaging CT scans of the chest/abdomen/pelvis on 04/18/2019. It showed new circumferential thickening of the stomach antrum and a small but slightly increase sized gastric lymph node. It was felt to possible represent inflammatory changes from peptic ulcer disease, but very early metastatic disease was not excluded. There was no ascites. There was stable, mild thickening of the right lateral urinary bladder wall. With those findings, I opted to restart her on chemotherapy with carboplatin in combination with liposomal doxorubicin. She began cycle 1 on 05/08/2019. Her baseline CA 125 level was 58.9 U/mL. She tolerated the treatment with acceptable toxicity. She continued with cycle 2 on 06/05/2019 and with cycle 3 on 07/03/2019. At that point the CA 125 level had decreased just slightly, to 38.9 U/mL. At her followup visit visit on 07/31/2019 she had developed a significant skin eruption as well as other side effects with the chemotherapy. As there has been no further decline in the CA-125 level, I opted to stop that treatment. Restaging CT of the abdomen/pelvis on 09/09/2019 showed mesenteric deposits throughout the abdomen and pelvis, increased in size and number compared to the study from April 2019. Also noted was a soft tissue mass at the antrum of the stomach with slight increase in size and luminal narrowing. With those findings, I opted to restart chemotherapy with carboplatin/gemcitabine. She began her 1st cycle on 10/08/2019 on a day 1/day 15 schedule. Her other medical illnesses include hypertension, type II diabetes, and anxiety/depression. She underwent repair of an incisional hernia which developed subsequent to her abdominal surgery in 2011. She is a nonsmoker. INTERIM HISTORY: She completed 1 full cycle of treatment with carboplatin/gemcitabine. She tolerated the chemotherapy pretty well, but after 1 cycle there was a significant increase in the CA-125 level. With that finding, she then began a trial of salvage therapy with pembrolizumab in combination with bevacizumab. She began cycle 1 on 12/04/2019. She tolerated it without any adverse effects. She continued with cycle 2 on 12/25/2019 and with cycle 3 on 01/15/2020. As of cycle 4 the bevacizumab was put on hold due to hypertension, but she did continue the pembrolizumab at 3-week intervals. Restaging CT scans of the chest, abdomen, and pelvis on 04/07/2020 showed continued progression of metastatic implants within the abdomen and pelvis compared to the August 2019 CT. There was increase in both size and number of mesenteric metastatic deposits and additional central mesenteric and pelvic mesenteric stranding which was highly suspicious for metastatic deposits involving the small bowel and colon in the right lower quadrant. There is no evidence of GI obstruction. There was suspected omental metastatic involvement. There was no ascites. There was no evidence of pulmonary metastatic disease. She is seen for a follow-up visit. She is still feeling pretty good generally. She is up and around at home and doing light work. She says her appetite has changed a lot, but she is eating. Her weight is up a few pounds. She does not have fever or night sweats, but she does report having chills. She does not complain of shortness of breath or cough. She occasionally has chest pain. She has nausea occasionally. She continues to have some heartburn despite taking lansoprazole daily. She has constipation, but bowel function has been adequate with senna/docusate. She has no complaints. She does have back pain and she also has pain in her knees. She occasionally has headache. She has had occasional episodes of lightheadedness or dizziness. She has neuropathy in her feet. Medications: ALPRAZolam 1 Tablet (of 0.5 mg) Oral t.i.d. PRN, AmLODIPine Besylate 1 (5 mg) Tablet Oral daily, CeleXA 1 (40 mg) Tablet Oral daily, Compazine 1 (10 mg) Tablet Oral four times a day PRN, HumuLIN R Injection t.i.d. PRN, Hydrocodone-Acetaminophen 1 - 2 Tablet (of 7.5-325 mg) Oral q 4 hours PRN, Lantus 40 Units (of 100 Units/mL) Subcutaneous at bedtime PRN, Levothyroxine Sodium 1 Tablet (of 125 mcg) Oral daily, Magnesium 1 Tablet (of 400 mg) Oral daily, MetFORMIN HCl 2 Tablet (of 500 mg) Oral b.i.d., Metoprolol Tartrate 1 Tablet (of 25 mg) Oral daily, oxyCODONE HCl 1 Tablet (of 15 mg) Oral q 4 hours PRN, Pantoprazole Sodium 1 Tablet (of 40 mg) Tablet, enteric coated Oral daily, Voltaren 2 - 4 G (of 1 %) Gel (jelly) Transdermal PRN Allergies: Morphine Sulfate Review of Systems: Constitutional - She has been feeling pretty good. She is up and around at home and doing light work. She feels like her appetite has changed, but she is able to eat and her weight is up 5 pounds from last visit. No fever, night sweats, or hot flashes. ECOG score is 1, ENMT - No sinus congestion/drainage. No mouth sores. No sore throat or difficulty swallowing, Hematologic/Lymphatic - No abnormal bruising or bleeding, Respiratory - No shortness of breath. No cough. No pleuritic pain or hemoptysis, Cardiovascular - No angina pain. No palpitations, Gastrointestinal - No nausea or vomiting. She is still having some heartburn despite taking lansoprazole daily. No diarrhea. She has been taking Senna-S for constipation but has been out for a few days. No blood in the stool or black stools. She has some pain in the mid abdominal area, Genitourinary (F) - No dysuria or hematuria. No urinary frequency. No urgency or incontinence, Musculoskeletal - She has pain in her lower back and knees, Integumentary - No skin complications, Neurologic - She has occasional headache. She has a recent episodes of room spinning dizziness. She has neuropathy in her feet. No other focal neurologic symptoms, Psychiatric - She has been having more anxiety. She has depression. She is sleeping well with trazodone. Vital Signs: Performed on Apr 08, 2020 09:05 Height - 63.50 in Weight - 205.2 lbs (HIGH) BSA - 1.97 sq.m BMI - 35.78 (HIGH) Temperature - 98.6 F Pulse - 68 /min Respiration - 18 /min BP - 148/98 mm(hg) (HIGH) O2 Sat - 98 % Pain - 3 Physical Examination: Constitutional - She still looks pretty good generally, Eyes - Sclerae nonicteric. Conjunctivae clear, ENMT - No lesions noted in the oral cavity, Hematologic/Lymphatic - No cervical, clavicular, or axillary adenopathy, Respiratory - Lungs sound clear, Cardiovascular - Heart rhythm is regular. There is a II/ systolic murmur. There is no gallop or rub noted, Abdomen - Moderately distended and somewhat firm. There is mild abdominal tenderness. Liver is not enlarged. There is no abdominal mass or noted and there is no obvious ascites. There is no inguinal adenopathy, Extremities - Slight edema, Integumentary - No skin eruption, Neurologic - No focal neurologic deficits noted. Lab/Imaging: CBC shows hemoglobin 12.7 g, white blood cell count 10,800, and platelet count 413,000. Comprehensive metabolic profile is unremarkable except for elevated nonfasting blood sugar. The CA-125 level has increased to 102.3 U/mL. Impression: 1. The patient with high-grade serous carcinoma of the ovary, stage IIIC at initial diagnosis. There was a small amount of residual miliary disease present following her initial surgery in April 2012. Her disease was estimated at greater than 99% resected. She was given postoperative chemotherapy with 6 cycles of carboplatin/Taxol, which she completed in October 2012. 2. In August 2014 she had evidence of recurrence by CA [address] scan, and she then initiated second line treatment with carboplatin and weekly Taxol in combination with Avastin. As of February 2015 she had completed 6 cycles of chemotherapy. 3. Her treatment was changed to maintenance Avastin. 4. As of 08/19/2015 she had 2 successive increases in her CA-125 level, and at that point she restarted chemotherapy with Abraxane in combination with Avastin. She had a very good response by CA-125 level. 5. As of her follow-up visit on 08/22/2017 her neuropathy had worsened significantly, and I opted to stop her treatment. On 09/26/2017 she began further chemotherapy with carboplatin/gemcitabine on a day 1/day 15 schedule. 6. As of July 2018 she had completed 11 cycles of treatment. She appeared stable clinically, and her restaging CT scans from 08/08/2018 had shown no evidence of disease progression. In August 2018 her treatment was changed to maintenance olaparib 300 mg twice daily. Her other medical illnesses include: 7. Hypertension. 8. Type II diabetes. 9. GERD. 10. Anxiety/depression. As of March 2019 there was evidence of disease progression with rising CA-[address] evidence of new circumferential thickening of the stomach antrum and slight increase in size of a gastric lymph node. She then restarted chemotherapy with carboplatin/liposomal doxorubicin. After 3 cycles of treatment, she had developed a significant skin eruption and other side effects. She had only a slight decrease in her CA-125 level. Given the side effects she was experiencing, I recommended that she stop treatment. Her restaging CT scans on 09/09/2019 showed evidence of disease progression with increase in size and number of mesenteric deposits throughout the abdomen and pelvis, including a soft tissue mass at the antrum of the stomach with slight increase in size and luminal narrowing. With limited treatment options available, I opted to have her restart chemotherapy with carboplatin/gemcitabine. She began cycle 1 on 10/08/2019 on a day 1/day 15 schedule. She has now completed 1 cycle of treatment with the carboplatin/gemcitabine. She has tolerated the chemotherapy with acceptable toxicity, and her clinical status appears stable. However, there was a progressive increase in the CA-125 level, so that she clearly was not benefiting with the treatment. As of 12/04/2019 she began a trial of salvage therapy with pembrolizumab in combination with bevacizumab. She initially tolerated the treatment well, but beginning with the fourth cycle the bevacizumab was put on hold due to hypertension. She continued pembrolizumab by 3-week intervals. She has now completed 6 cycles of treatment. She is still doing pretty well clinically, but there has been further increase in her CA-125 level as well as evidence of disease progression by restaging CT scans. Plan: With clear evidence of disease progression, she will have to stop her current regimen. She is highly motivated to continue some form of therapy. In reviewing her record, it does appear that her previous Abraxane treatment was put on hold more because of neuropathy then disease progression, and one option now is to restart the Abraxane in combination with the pembrolizumab. The other option would be to try another salvage chemotherapy, the best choices for which would be vinorelbine, pemetrexed, or capecitabine. I will first try the Abraxane/pembrolizumab combination on a 3-week dosing schedule pending verification of insurance coverage or availability of the medications. Signed By: Jeffrey Benavidez M.D. <<Signature on File>>
[2020-04-15] MEDS: alteplase 1 mg/mL SDV 2 mL 2 MG INTRACATH (08:50)
[2020-04-15 09:06] LABS: Basophils # 0.1 10^3/uL (0.0-0.1); Eosinophils # 0.3 10^3/uL (0.0-0.8); Hematocrit 40.5 % (37.0-47.0); Hemoglobin 12.8 g/dL (11.5-15.3); Lymphocytes # 2.7 10^3/uL (0.8-4.8); Lymphocytes % 23.7 %; Mean Corpuscular HGB Conc 31.6 g/dL (30.0-36.0); Mean Corpuscular Hemoglobin 28.4 pg (28.0-34.0); Mean Corpuscular Volume 89.8 fL (81-99); Mean Platelet Volume 9.8 fL (7.4-10.4); Monocytes # 0.8 10^3/uL (0.2-0.9); Neutrophils # 7.35 10^3/uL (1.8-7.7); Neutrophils % 64.8 %; Nucleated Red Blood Cells % 0.2 %; Platelet Count 457 10^3/cmm (130-400); Red Blood Count 4.51 10^6/uL (4.1-5.3); Red Cell Distribution Width 14.8 % (12.1-15.1); White Blood Count 11.3 10^3/uL (4.0-10.0)
[2020-04-15 09:21] LABS: Alanine Aminotransferase 15 U/L (0-33); Albumin Level 3.8 g/dL (3.5-5.2); Alkaline Phosphatase 69 IU/L (35-105); Aspartate Amino Transferase 25 U/L (0-32); Blood Urea Nitrogen 16 mg/dL (6-20); Calcium 8.5 mg/dL (8.5-10.5); Carbon Dioxide 28 mmol/L (22-29); Chloride 93 mmol/L (98-107); Glucose 205 mg/dL (65-115); Osmolality Calculated 283 mOsm/kg (285-295); Sodium 133 mmol/L (136-145); Total Bilirubin 0.2 mg/dL (0.15-1.2); Total Protein 6.8 g/dL (6.6-8.7)
[2020-04-15 09:23] LABS: Anion Gap 16.7 (5-19); Potassium 4.7 mmol/L (3.5-5.1)
[2020-04-15] MEDS: sodium chloride 0.9% 250 ML 75 ML IV (11:15)
--- NOTE | 2020-04-26 19:20 | ONC FU_ITS ---
[facility] Patient Note Patient: Bessy Roy Unit #: [id number]: [id number] Dictated By: Smiley RuizDate of Visit: Apr 15, 2020 Onc MED Follow-Up/Prog Note Chief Complaint: Ovarian cancer. History of Present Illness: Ms Roy is a 55 year-old woman with recurrent ovarian cancer. She had presented in March 2012 with stage IIIC ovarian cancer. She was referred to Dr. Edilson Wahl for [employer] oncology. On 05/17/12 showed underwent exploratory laparotomy. The op note indicated a small amount of residual miliary disease present at the end of the procedure. It was estimated to be greater than 99% resected. Pathology showed a high-grade serous carcinoma involving both ovaries, measuring 9 cm on the right and 6 cm on the left. There was involvement in the omentum and multiple serosal surfaces including the appendix, uterus, and colon. There was no diagnostic abnormality in the included portion of rectosigmoid colon and there was no involvement in the skeletal muscle from the abdominal wall. There was involvement in the liver capsule, but not the liver parenchyma. The spleen showed no diagnostic abnormality. There was involvement in 4 of 20 lymph nodes. The ascitic fluid also was positive. Her postoperative course was complicated by development of an abscess in the left lower quadrant, requiring percutaneous drainage and antibiotic therapy. She did have a gradual recovery, and she subsequently was given postoperative chemotherapy with 6 cycles of carboplatin/Taxol, completed on 11/15/2012. There were delays during her chemotherapy related to poor compliance. In August 2013 she had recurrence and she began second line chemotherapy with carboplatin and weekly Taxol in combination with Avastin . As of 02/02/15 she had completed 6 cycles of chemotherapy. She had significant response by CA 125 level and by followup CT scan. Taxol was omitted with cycles 5 and 6 due to neuropathy. Her treatment was changed to maintenance Avastin. By June her CA-125 level began to increase. As of 08/19/2015 it was back up to 43 U/mL. At that point she restarted chemotherapy with Abraxane/Avastin, and her CA-125 level subsequently declined. She then continued treatment with Abraxane/Avastin, though not on a very consistent schedule due in part to toxicities and in part to compliance issues. As of her follow-up visit on 08/22/2017 her neuropathy symptoms had worsened significantly, and it was opted to put her treatment on hold. She returned on 09/26/2017 to begin further chemotherapy with carboplatin/gemcitabine on a day 1/day 15 schedule. Her baseline CA-125 level had increased to 15.1 U/mL. She had some fatigue following that treatment. She otherwise seemed to tolerate it pretty well, and she was able to continue treatment on a day 1/day 15 schedule. As of July 2018 she had completed 11 cycles of carboplatin/gemcitabine. She remained stable clinically with CA-125 level stable at 14.4 U/mL. In August 2018 she began maintenance therapy with olaparib 300 mg twice a day. At her scheduled visit on 04/10/2019 she appeared stable clinically, but there was a significant increase in her CA 125 level to 30.0 U/mL compared to 17.8 U/mL in January. With that change she had restaging CT scans of the chest/abdomen/pelvis on 04/18/2019. It showed new circumferential thickening of the stomach antrum and a small but slightly increase sized gastric lymph node. It was felt to possible represent inflammatory changes from peptic ulcer disease, but very early metastatic disease was not excluded. There was no ascites. There was stable, mild thickening of the right lateral urinary bladder wall. With those findings, Dr Benavidez opted to restart her on chemotherapy with carboplatin in combination with liposomal doxorubicin. She began cycle 1 on 05/08/2019. Her baseline CA 125 level was 58.9 U/mL. She tolerated the treatment with acceptable toxicity. She continued with cycle 2 on 06/05/2019 and with cycle 3 on 07/03/2019. At that point the CA 125 level had decreased just slightly, to 38.9 U/mL. At her followup visit visit on 07/31/2019 she had developed a significant skin eruption as well as other side effects with the chemotherapy. As there has been no further decline in the CA-125 level, Dr Benavidez opted to stop that treatment. Restaging CT of the abdomen/pelvis on 09/09/2019 showed mesenteric deposits throughout the abdomen and pelvis, increased in size and number compared to the study from April 2019. Also noted was a soft tissue mass at the antrum of the stomach with slight increase in size and luminal narrowing. With those findings, it was opted to restart chemotherapy with carboplatin/gemcitabine. She began her 1st cycle on 10/08/2019 on a day 1/day 15 schedule. Her other medical illnesses include hypertension, type II diabetes, and anxiety/depression. She underwent repair of an incisional hernia which developed subsequent to her abdominal surgery in 2011. She is a nonsmoker. INTERIM HISTORY: She completed 1 full cycle of treatment with carboplatin/gemcitabine. She tolerated the chemotherapy pretty well, but after 1 cycle there was a significant increase in the CA-125 level. With that finding, she then began a trial of salvage therapy with pembrolizumab in combination with bevacizumab. She began cycle 1 on 12/04/2019. She tolerated it without any adverse effects. She continued with cycle 2 on 12/25/2019 and with cycle 3 on 01/15/2020. As of cycle 4 the bevacizumab was put on hold due to hypertension, but she did continue the pembrolizumab at 3-week intervals. Restaging CT scans of the chest, abdomen, and pelvis on 04/07/2020 showed continued progression of metastatic implants within the abdomen and pelvis compared to the August 2019 CT. There was increase in both size and number of mesenteric metastatic deposits and additional central mesenteric and pelvic mesenteric stranding which was highly suspicious for metastatic deposits involving the small bowel and colon in the right lower quadrant. There is no evidence of GI obstruction. There was suspected omental metastatic involvement. There was no ascites. There was no evidence of pulmonary metastatic disease. With the evidence of disease progression is recommended that she pursue treatment with Abraxane and pembrolizumab. She is here today for her first cycle. She denies any new concerns. She continues to have some intermittent abdominal pain but states is no worse than what it has been. She denies any fever or chills. She denies any symptoms of infection for at least the last 72 hours. She has had no known exposure or any COVID symptoms. She denies any COVID testing. She states her bowels and bladder are normal for her. She denies any new pain. Her ECOG is 1. Past Medical History: Ovarian cancer (Dr. Wahl in [place] performed surgery) in 2011 She has previously been in good health. She has had some depression following the surgery. She has no other medical illnesses. Past Surgical History: Caesarean section Right leg abcess Flu vaccine in 2019 Flu vacc in 2018 - rt deltoid Flucevax in 2016 - left deltoid Pneumovax in 2016 - right deltoid Exploratory lap in 2011 - MEG-BSO,recto-sigmoid resection,omentectomy,splenectomy,bilateral pelvic and periaortic lymph node dissections,appy,liver biopsy, Hysterectomy in 2011 Port placed in 2011 - [facility] Prior surgeries limited to section in 2001 and a procedure on her right leg for abscess at age 18. EXploratory lap in 2011 resulted in total abdominal hysterectomy with bilateral salpingo-oophorectomy, and en bloc rectosigmoid resctions, omentectomy with partial resection of the anterior abdominal wall, splenectomy, bilateral pelvic and periaortic lymph node dissections, appendectomy, liver biopsy and debulking of right diaphragm and peritoneal implants. Allergies: Morphine Sulfate Medications: ALPRAZolam 1 Tablet (of 0.5 mg) Oral t.i.d. PRN AmLODIPine Besylate 1 (5 mg) Tablet Oral daily CeleXA 1 (40 mg) Tablet Oral daily Compazine 1 (10 mg) Tablet Oral four times a day PRN HumuLIN R Injection t.i.d. PRN Hydrocodone-Acetaminophen 1 - 2 Tablet (of 7.5-325 mg) Oral q 4 hours PRN Lantus 40 Units (of 100 Units/mL) Subcutaneous at bedtime PRN Levothyroxine Sodium 1 Tablet (of 125 mcg) Oral daily Magnesium 1 Tablet (of 400 mg) Oral daily MetFORMIN HCl 2 Tablet (of 500 mg) Oral b.i.d. Metoprolol Tartrate 1 Tablet (of 25 mg) Oral daily oxyCODONE HCl 1 Tablet (of 15 mg) Oral q 4 hours PRN Pantoprazole Sodium 1 Tablet (of 40 mg) Tablet, enteric coated Oral daily Voltaren 2 - 4 G (of 1 %) Gel (jelly) Transdermal PRN Family History: Ms. Roy's mother is alive: cancer history consists of Breast cancer while other medical history includes stroke and Alzheimers's disease at age 79. Ms. Roy's father is : cancer history consists of Thyroid Gland cancer while other medical history includes heart disease at age 62 (cause of ). Ms. Roy has 1 brother with an unknown alive status: medical history includes COPD and alcoholism. She has 1 maternal aunt with an unknown alive status: cancer history consists of Breast cancer. Family history significant for father having with heart disease at age 62. He also had thyroid cancer. Her mother is still living at age 79. She has Alzheimer's dementia and a history of strokes. She also has been treated for breast cancer. A maternal aunt also had breast cancer. She has one brother who is 60 years old and has COPD and alcoholism. Social History: Ms. Roy is single and she is a disabled. Ms. Roy has never smoked. She has no history of drinking. Ms. Roy reports the following support systems: lives with spouse, significant other, family, or friends, lives in own house, supportive family/friends willing to assist with needs, and adequate transportation available for expected visits. Her diet consists of regular meals. She indicates her activity level as: daily activities. She was previously and . She is currently unmarried, but she has a significant other. 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 She has never smoked. Review Of Symptoms: Constitutional Denies fevers, chills, night sweats, excessive fatigue or weight loss. Allergic/Immunologic No reactions. Eyes Denies significant visual changes. ENMT Denies sore throat, mouth sores, difficulty or changes in swallowing ability. Sinus drainage/allergies-chronic. Endocrine Recent increase in metformin to thousand twice daily which is tolerating well and her blood sugars have improved. Hematologic/Lymphatic Denies easy bruising or bleeding. The patient denies any tender or palpable lymph nodes. Breasts no concerns Respiratory Denies dyspnea on exertion, chest pain, cough. Cardiovascular Denies anginal chest pain. Gastrointestinal Denies nausea, vomiting, diarrhea, GI bleeding, or constipation. Denies change in bowel habits and/or stool color, no heartburn or early satiety. Genitourinary (F) No hesitancy, incontinence, vaginal bleeding, discharge. UTI symptoms improved currently. Musculoskeletal Denies joint pain or specific bone pain. Integumentary Denies chronic rashes, inflammation. Neurologic Denies headache, blurred vision, and no areas of focal weakness or numbness. Normal gait. No sensory problems. Psychiatric Denies depression, anxiety. Vital Signs: Performed on Apr 15, 2020 13:00 Height - 63.50 in Temperature - 97.5 F (LOW) Pulse - 77 /min Respiration - 18 /min BP - 150/89 mm(hg) (HIGH) O2 Sat - 95 % (LOW) Pain - 0 Fatigue - 0 Performed on Apr 15, 2020 10:53 Height - 63.50 in Weight - 206.2 lbs (HIGH) BSA - 1.97 sq.m BMI - 35.95 (HIGH) Temperature - 96.8 F (LOW) Pulse - 84 /min Respiration - 16 /min BP - 157/89 mm(hg) (HIGH) O2 Sat - 96 % Pain - 0,1 - No physically strenuous activity, but ambulatory and able to carry out light or sedentary work (e.g. office work, light house work). (ECOG) Physical Examination: Constitutional Alert, oriented, no acute distress. Skin pink, warm and dry. Head Normocephalic; atraumatic. Eyes Conjunctivae and sclerae are clear and without icterus. Pupils are reactive and equal. ENMT Sinuses are nontender. No oral exudates, ulcers, masses, thrush or mucositis. Oropharynx clear. Poor dentation noted. Neck Supple without masses or thyromegaly. No jugular venous distension. Hematologic/Lymphatic No petechiae or purpura. No tender or palpable lymph nodes in the cervical, supraclavicular. Respiratory Lungs are clear to auscultation without rhonchi or wheezing. Cardiovascular Regular rate and rhythm of heart without murmurs,clicks, gallops or rubs. Chest Chest is symmetric without chest wall deformities. Right venous access device is unremarkable. Abdomen Non-tender, non-distended, no masses noted .Good bowel sounds noted in all quads. No guarding or rebound tenderness. No pulsatile masses. Back/Spine Non-tender to palpation. Extremities No visible deformities, no cyanosis, clubbing or edema. Musculoskeletal No tenderness or swelling, normal range of motion without obvious weakness. Integumentary No rashes or lesions. Neurologic No sensory or motor deficits, normal cerebellar function, normal gait. Psychiatric Alert and oriented times three. Coherent speech. Verbalizes understanding of our discussions today. Laboratory:Test performed on Apr 15, 2020 08:46 Sodium 133 mmol/L Potassium 4.7 mmol/L Chloride 93 mmol/L CO2 28 mmol/L Anion Gap 16.7 BUN 16 mg/dL Creatinine 0.9 mg/dL Cr Clearance (Est) 103.7800 mL/min eGFR 65.0 mL/min Glucose 205 mg/dL Osmolality - Calculated 283 mOsm/kg Calcium 8.5 mg/dL Protein, Total 6.8 g/dL Albumin 3.8 g/dL Globulin 3.0 g/dL Bilirubin, Total 0.2 mg/dL ALT (SGPT) 15 U/L AST (SGOT) 25 U/L Alkaline Phosphatase 69 IU/L WBC 11.3 10 3/uL RBC 4.51 10 6/uL HGB 12.8 g/dL HCT 40.5 % MCV 89.8 fL MCH 28.4 pg MCHC 31.6 g/dL RDW 14.8 % Platelet Count 457 10 3/cmm MPV 9.8 fL Neutrophils 7.35 10 3/uL Lymphocytes 2.7 10 3/uL Monocytes 0.8 10 3/uL Eosinophils 0.3 10 3/uL Basophils 0.1 10 3/uL Neutrophil % 64.8 % Lymphocyte % 23.7 % Monocyte % 7.0 % Eosinophil % 3.0 % Basophils % 1.0 % NRBC % 0.2 % Test performed on Feb 24, 2020 09:12 Manual Lymphocytes 55.1 % Manual Monocytes 37.4 % Manual Eosinophils 7.5 % Test performed on December 23, 2019 08:38 CA 125 36.1 Units/mL Test performed on December 03, 2019 07:25 TSH 1.45 uIU/mL Hemoglobin A1C % 11.9 % Impression: 1. The patient with high-grade serous carcinoma of the ovary, stage IIIC at initial diagnosis. There was a small amount of residual miliary disease present following her initial surgery in April 2012. Her disease was estimated at greater than 99% resected. She was given postoperative chemotherapy with 6 cycles of carboplatin/Taxol, which she completed in October 2012. 2. In August 2014 she had evidence of recurrence by CA [address] scan, and she then initiated second line treatment with carboplatin and weekly Taxol in combination with Avastin. As of February 2015 she had completed 6 cycles of chemotherapy. 3. Her treatment was changed to maintenance Avastin. 4. As of 08/19/2015 she had 2 successive increases in her CA-125 level, and at that point she restarted chemotherapy with Abraxane in combination with Avastin. She had a very good response by CA-125 level. 5. As of her follow-up visit on 08/22/2017 her neuropathy had worsened significantly, and it was opted to stop her treatment. On 09/26/2017 she began further chemotherapy with carboplatin/gemcitabine on a day 1/day 15 schedule. 6. As of July 2018 she had completed 11 cycles of treatment. She appeared stable clinically, and her restaging CT scans from 08/08/2018 had shown no evidence of disease progression. In August 2018 her treatment was changed to maintenance olaparib 300 mg twice daily. Her other medical illnesses include: 7. Hypertension. 8. Type II diabetes. 9. GERD. 10. Anxiety/depression. As of March 2019 there was evidence of disease progression with rising CA-[address] evidence of new circumferential thickening of the stomach antrum and slight increase in size of a gastric lymph node. She then restarted chemotherapy with carboplatin/liposomal doxorubicin. After 3 cycles of treatment, she had developed a significant skin eruption and other side effects. She had only a slight decrease in her CA-125 level. Given the side effects she was experiencing, Dr Benavidez recommended that she stop treatment. Her restaging CT scans on 09/09/2019 showed evidence of disease progression with increase in size and number of mesenteric deposits throughout the abdomen and pelvis, including a soft tissue mass at the antrum of the stomach with slight increase in size and luminal narrowing. With limited treatment options available, Dr Benavidez opted to have her restart chemotherapy with carboplatin/gemcitabine. She began cycle 1 on 10/08/2019 on a day 1/day 15 schedule. She has now completed 1 cycle of treatment with the carboplatin/gemcitabine. She has tolerated the chemotherapy with acceptable toxicity, and her clinical status appears stable. However, there was a progressive increase in the CA-125 level, so that she clearly was not benefiting with the treatment. As of 12/04/2019 she began a trial of salvage therapy with pembrolizumab in combination with bevacizumab. She initially tolerated the treatment well, but beginning with the fourth cycle the bevacizumab was put on hold due to hypertension. She continued pembrolizumab by 3-week intervals. She has now completed 6 cycles of treatment. She is still doing pretty well clinically, but there has been further increase in her CA-125 level as well as evidence of disease progression by restaging CT scans. With clear evidence of disease progression, she was advised to stop her current regimen. She is highly motivated to continue some form of therapy. In reviewing her record, it does appear that her previous Abraxane treatment was put on hold more because of neuropathy then disease progression, and one option now is to restart the Abraxane in combination with the pembrolizumab. The other option would be to try another salvage chemotherapy, the best choices for which would be vinorelbine, pemetrexed, or capecitabine. The current recommendation is to try the Abraxane/pembrolizumab combination on a 3-week dosing schedule. Plan: 1. Proceed with cycle 1 Abraxane/pembrolizumab. 2. She may use Compazine and Ativan as needed at home for antiemetics. 3. Labs from today were reviewed in detail and discussed with Ms. Cabrera and a copy was given to her. WBC 11.3, hemoglobin 12.8, platelets 4 and 57,000 creatinine 0.9 LFTs are normal random glucose is improved at 205. 4. We will plan to see her back in 3 weeks with CBC CMP, TSH and CEA 125. 5. We did review side effects of the Abraxane to include low blood counts, neuropathy, nausea, fatigue, amongst others. 6. Specific side effects of immunotherapy discussed included but not limited to: ??? pneumonitis: new or worsening cough; chest pain; and shortness of breath. ??? Colitis: diarrhea or more bowel movements than usual; blood in stools or dark, tarry, sticky stools; and severe stomach area (abdomen) pain or tenderness. ??? hepatitis: jaundice; severe nausea or vomiting; pain on the right side of the abdomen; drowsiness; dark urine; bleeding or bruise more easily than normal. ??? nephritis and kidney failure: including decrease in the amount of urine; hematuria; lower extremity edema; and loss of appetite. ??? thyroid and pituitary changes that may include: headaches that will not go away or unusual headaches; extreme tiredness, weight gain or weight loss; changes in mood or behavior, such as decreased sex drive, irritability, or forgetfulness; dizziness or fainting; hair loss; feeling cold; constipation; and voice gets deeper. ???rash; changes in eyesight; severe or persistent muscle or joint pains; and severe muscle weakness. The majority of this visit was time spent face to face in review of plan of care, side effect identification and where to call for questions or concerns. 7. Ms Roy was encouraged to call us in the interim if questions or problems arise. Signed By: Smiley Ruiz-, AOCNP Jeffrey Benavidez MD <<Signature on File>>
== END 2020-04-28 23:59 | disposition home or self-care (01) ==
LOC: ONCMED 05:36
PROVIDERS: PCP Family Medicine; Visit Provider Nurse Practitioner
DX: Z51.12 Encounter for antineoplastic immunotherapy (principal); C56.1 Malignant neoplasm of right ovary; C56.2 Malignant neoplasm of left ovary; C77.2 Secondary and unspecified malignant neoplasm of intra-abdominal lymph nodes; R97.0 Elevated carcinoembryonic antigen [CEA]; G62.0 Drug-induced polyneuropathy; T45.1X5D Adverse effect of antineoplastic and immunosuppressive drugs, subsequent encounter; I10 Essential (primary) hypertension; E11.9 Type 2 diabetes mellitus without complications; K21.9 Gastro-esophageal reflux disease without esophagitis; F41.8 Other specified anxiety disorders; Z79.899 Other long term (current) drug therapy
CPT/HCPCS: 36593; 71260; 74177; 80053; 85025; 96367; 96375; 96413; 96417; 99214; J1100; J2469; J2997; J3490; J7050; J9264; J9271; Q9967

== ENCOUNTER 2020-04-21 07:29 | Inpatient (IN) | payer MEDICARE, MEDICAID, SELFPAY ==
[2020-04-21] VITALS (9 sets, daily range): BP systolic 113–165; BP diastolic 63–87; PULSE 74–125; RESP 16–18; TEMP 36.6–37.9; O2SAT 95–99; BMI 35.3
--- NOTE | 2020-04-21 07:49 | W.ED.FEMALGU ---
Documented by User: BRYON Mccullough 04/21/20 14:51 HPI - Female Genitourinary General: Chief complaint: Urogenital-Female Stated complaint: ABDOMEN PAIN, BACK PAIN Time Seen by Provider: 04/21/20 07:39 History of Present Illness: HPI Narrative: Patient currently being treated for ovarian stomach cancer. She has had a hysterectomy. Patient started with symptoms last night with the bilateral flank pain increased urinary frequency oliguria fever and nauseated. Patient denies any COVID symptoms. Patient says her sugar has been running high it has been 2 or 3 days since she is checked it. Last chemo was on MD elicited complaint: dysuria and flank pain Pertinent past history: other (Ovarian and stomach cancer) Onset (ago): hour(s) Severity: similar to previous episodes Severity scale (1-10): 3 Quality of pain: aching Consistency: constant Vaginal discharge: none Vaginal bleeding: none Urinary symptoms: Flank Pain, Foul Smelling Urine, Frequency and Urgency Exacerbating factors: none Relieving factors: none Associated symptoms: Reports fevers/chills and nausea; Deny headache(s) Treatment prior to arrival: none Sexual activity: No Patient : No Review of Systems Const: Denies: fever(s), chills or body aches Eyes: Denies: change in vision or blurry vision ENMT: Denies: throat pain or nasal congestion Card: Denies: chest pain or dyspnea on exertion Resp: Denies: dyspnea, productive cough or non-productive cough GI: Reports: nausea : Reports: flank pain, urinary frequency and urinary urgency Musc: Denies: extremity pain Skin/Breast: Denies: rash Neuro: Denies: headache(s) Psych: Denies: anxiety or depression Miguel/Lymph: Denies: easy bruising PFSH ED PFSH: Medical History (Updated 04/24/20 @ 17:26 by Giorgi Zhang DO) Anxiety Diabetes mellitus Diabetes mellitus type 2, insulin dependent GERD (gastroesophageal reflux disease) History of drainage of abscess history of intra-abdominal abscess requiring drainage Hypertension Ovarian cancer Surgical History (Updated 04/21/20 @ 11:52 by Franchesca Gilbert DO) History of section, low transverse History of hysterectomy History of incisional hernia repair Hx of exploratory laparotomy Family History (Updated 04/21/20 @ 11:31 by Franchesca Gilbert DO) Mother Cancer Breast Cancer Father Cancer Thyroid cancer Other CAD (coronary artery disease) Dementia Diabetes Hyperlipidemia Hypertension Stroke Denies family history of Clotting disorder Psychiatric illness Chronic kidney disease (CKD) Suicide Anesthesia complication Bleeding disorder Family history of premature coronary artery disease Lung disease Social History Smoking and tobacco status: never smoked Second hand smoke exposure: No Smoking risk assessment/counseling performed?: Yes Alcohol intake: never Desire information about alcohol rehabilitation?: No Counseling given: No Desire information about substance/drug rehabilitation?: No Counseling given: No Physical Exam Const: COMMON NORMALS: no acute distress, average body habitus and patient oriented x3 HENMT: COMMON NORMALS: normocephalic HEAD & SCALP: normal to inspection and normocephalic FACE & SINUS: normal facial exam Eye: COMMON NORMALS: conjunctivae normal GENERAL EYE: appearance normal, both eyes and all related structures CONJUNCTIVA: Yes conjunctivae normal Neck/C-Spine: COMMON NORMALS: no JVD Chest: COMMONS NORMALS: normal inspection of the chest Resp: COMMON NORMALS: normal respiratory effort and clear to auscultation bilaterally AUSCULTATION: clear to auscultation bilaterally Cardio: COMMON NORMALS: no JVD, regular rate and regular rhythm RATE: regular rate RHYTHM: regular rhythm GI: COMMON NORMALS: Normal to inspection, nondistended, normoactive bowel sounds present Extremity: COMMON NORMALS: normal to inspection and full ROM Neuro: COMMON NORMALS: patient oriented x3 Course Vital Signs: Vital signs: Vital Signs Temperature 98.4 F 04/23/20 11:23 Pulse Rate 67 04/23/20 11:50 Respiratory Rate 18 04/23/20 11:23 Blood Pressure 130/80 04/23/20 11:23 Pulse Oximetry 95 04/23/20 11:50 MDM - Female Lab Data: Labs: Lab Results 04/21/20 04/21/20 04/21/20 Range/Units 07:40 08:15 08:15 WBC 5.3 (4.0-10.0) 10^3/ uL RBC 4.61 (4.1-5.3) 10^6/u L Hgb 13.2 (11.5-15.3) g/dL Hct 40.5 (37.0-47.0) % MCV 87.9 (81-99) fL MCH 28.6 (28.0-34.0) pg MCHC 32.6 (30.0-36.0) g/dL RDW 15.2 H (12.1-15.1) % Plt Count 444 H (130-400) 10^3/c mm MPV 11.0 H (7.4-10.4) fL Lymph % (Auto) Not Reportable [place] % (Auto) Not Reportable Lymph # (Auto) Not Reportable [place] # (Auto) Not Reportable Total Counted 100 (0-100) Absolute Neutrophi ls 3.6 (1.4-6.5) 10^3/c mm Segmented Neutroph ils 21 % Abs Segm Neuts (Ma n) 1.1 L (1.6-7.1) 10/cmm Band Neutrophils 47.0 % Abs Band Neuts (Ma n) 2.5 H (0.0-1.2) 10^3/c mm Lymphocytes (Manua l) 29 % Monocytes (Manual) 1.0 % Absolute Monocytes 0.1 (0.1-0.6) 10^3/c mm Metamyelocytes 2.0 % Nucleated RBCs 2.0 H (0-1) /100WBC Platelet Estimate Normal (Normal) Giant Platelets Trace Sodium 131 L (136-145) mmol/L Potassium 4.3 (3.5-5.1) mmol/L Chloride 89 L (98-107) mmol/L Carbon Dioxide 26 (22-29) mmol/L Anion Gap 20.3 H (5-19) BUN 27 H (6-20) mg/dL Creatinine 1.1 H (0.5-0.9) mg/dL GFR Calculation 51.6 L (90-130) mL/min Glucose 319 H (65-115) mg/dL Estimat Average Gl ucose Hemoglobin A1c (4.0-6.0) % Calculated Osmolal ity 289 (285-295) mOsm/k g Lactate (0.5-2.2) mmol/L Calcium 7.4 L (8.5-10.5) mg/dL Total Bilirubin 0.7 (0.15-1.2) mg/dL AST 12 (0-32) U/L ALT 21 (0-33) U/L Alkaline Phosphata se 60 (35-105) IU/L Total Protein 7.1 (6.6-8.7) g/dL Albumin 4.0 (3.5-5.2) g/dL Globulin 3.1 (1.3-4.6) g/dL TSH (0.27-4.20) uIU/ mL Urine Color Yellow (Yellow) Urine Appearance Clear (CLEAR) Urine pH 5.0 (5-7) Ur Specific Gravit y 1.020 (1.005-1.030) Urine Protein Neg (Negative) Urine Glucose (UA) 4+ H (Normal) Urine Ketones 1+ H (Negative) Urine Blood Neg (Negative) Urine Nitrate Negative (Negative) Urine Bilirubin 1+ H (Negative) Urine Urobilinogen Norm (Negative) mg/dL Ur Leukocyte Itzel ase Negative (Negative) SARS-CoV-2 Ag (Rap id) (Negative) 04/21/20 04/21/20 04/21/20 Range/Units 08:15 08:15 08:15 WBC (4.0-10.0) 10^3/ uL RBC (4.1-5.3) 10^6/u L Hgb (11.5-15.3) g/dL Hct (37.0-47.0) % MCV (81-99) fL MCH (28.0-34.0) pg MCHC (30.0-36.0) g/dL RDW (12.1-15.1) % Plt Count (130-400) 10^3/c mm MPV (7.4-10.4) fL Lymph % (Auto) [place] % (Auto) Lymph # (Auto) [place] # (Auto) Total Counted (0-100) Absolute Neutrophi ls (1.4-6.5) 10^3/c mm Segmented Neutroph ils % Abs Segm Neuts (Ma n) (1.6-7.1) 10/cmm Band Neutrophils % Abs Band Neuts (Ma n) (0.0-1.2) 10^3/c mm Lymphocytes (Manua l) % Monocytes (Manual) % Absolute Monocytes (0.1-0.6) 10^3/c mm Metamyelocytes % Nucleated RBCs (0-1) /100WBC Platelet Estimate (Normal) Giant Platelets Sodium (136-145) mmol/L Potassium (3.5-5.1) mmol/L Chloride (98-107) mmol/L Carbon Dioxide (22-29) mmol/L Anion Gap (5-19) BUN (6-20) mg/dL Creatinine (0.5-0.9) mg/dL GFR Calculation (90-130) mL/min Glucose (65-115) mg/dL Estimat Average Gl ucose 246 Hemoglobin A1c 10.2 H (4.0-6.0) % Calculated Osmolal ity (285-295) mOsm/k g Lactate 3.7 H (0.5-2.2) mmol/L Calcium (8.5-10.5) mg/dL Total Bilirubin (0.15-1.2) mg/dL AST (0-32) U/L ALT (0-33) U/L Alkaline Phosphata se (35-105) IU/L Total Protein (6.6-8.7) g/dL Albumin (3.5-5.2) g/dL Globulin (1.3-4.6) g/dL TSH 2.38 (0.27-4.20) uIU/ mL Urine Color (Yellow) Urine Appearance (CLEAR) Urine pH (5-7) Ur Specific Gravit y (1.005-1.030) Urine Protein (Negative) Urine Glucose (UA) (Normal) Urine Ketones (Negative) Urine Blood (Negative) Urine Nitrate (Negative) Urine Bilirubin (Negative) Urine Urobilinogen (Negative) mg/dL Ur Leukocyte Itzel ase (Negative) SARS-CoV-2 Ag (Rap id) (Negative) 04/21/20 Range/Units 09:26 WBC (4.0-10.0) 10^3/ uL RBC (4.1-5.3) 10^6/u L Hgb (11.5-15.3) g/dL Hct (37.0-47.0) % MCV (81-99) fL MCH (28.0-34.0) pg MCHC (30.0-36.0) g/dL RDW (12.1-15.1) % Plt Count (130-400) 10^3/c mm MPV (7.4-10.4) fL Lymph % (Auto) [place] % (Auto) Lymph # (Auto) [place] # (Auto) Total Counted (0-100) Absolute Neutrophi ls (1.4-6.5) 10^3/c mm Segmented Neutroph ils % Abs Segm Neuts (Ma n) (1.6-7.1) 10/cmm Band Neutrophils % Abs Band Neuts (Ma n) (0.0-1.2) 10^3/c mm Lymphocytes (Manua l) % Monocytes (Manual) % Absolute Monocytes (0.1-0.6) 10^3/c mm Metamyelocytes % Nucleated RBCs (0-1) /100WBC Platelet Estimate (Normal) Giant Platelets Sodium (136-145) mmol/L Potassium (3.5-5.1) mmol/L Chloride (98-107) mmol/L Carbon Dioxide (22-29) mmol/L Anion Gap (5-19) BUN (6-20) mg/dL Creatinine (0.5-0.9) mg/dL GFR Calculation (90-130) mL/min Glucose (65-115) mg/dL Estimat Average Gl ucose Hemoglobin A1c (4.0-6.0) % Calculated Osmolal ity (285-295) mOsm/k g Lactate (0.5-2.2) mmol/L Calcium (8.5-10.5) mg/dL Total Bilirubin (0.15-1.2) mg/dL AST (0-32) U/L ALT (0-33) U/L Alkaline Phosphata se (35-105) IU/L Total Protein (6.6-8.7) g/dL Albumin (3.5-5.2) g/dL Globulin (1.3-4.6) g/dL TSH (0.27-4.20) uIU/ mL Urine Color (Yellow) Urine Appearance (CLEAR) Urine pH (5-7) Ur Specific Gravit y (1.005-1.030) Urine Protein (Negative) Urine Glucose (UA) (Normal) Urine Ketones (Negative) Urine Blood (Negative) Urine Nitrate (Negative) Urine Bilirubin (Negative) Urine Urobilinogen (Negative) mg/dL Ur Leukocyte Itzel ase (Negative) SARS-CoV-2 Ag (Rap id) Negative (Negative) EKG Data: EKG 1: EKG Data: 04/21/20 EKG interpretation time: 09:08 Interpretation: Patient with ventricularly 110 bpm NM interval 150 ms QRS duration 95 ms EKG shows sinus tach possible left atrial enlargement borderline left axis deviation nonspecific T wave abnormality Discharge Plan Discharge Patient Disposition: Admitted As Inpatient Admit Provider: Franchesca Gilbert Clinical Impression: Ovarian cancer, Diabetes mellitus type 2, insulin dependent, Hypertension Condition: Stable Discharge Diet: Diabetic Discharge Activity: Increase activity as tolerated Interventions: ED Discharge Assessment Last Done: 04/21/20 11:22 ED Charges Last Done: 04/21/20 11:22 Discharge Date/Time: 04/21/20 11:37 Sign Out Sign Out Data: Patient Sign Out occurred on 04/21/20 at 10:13. Patient's care was discussed, and care was transferred from to Giorgi Zhang DO. Coding Level of Care Code ED Aircraft Layout Worker for Chg Fwd Exam Comprehensive Documented by User: Giorgi Zhang DO 04/24/20 17:26 HPI - Female Genitourinary General: Chief complaint: Urogenital-Female Stated complaint: ABDOMEN PAIN, BACK PAIN Time Seen by Provider: 04/21/20 07:39 [facility] ED PFSH: Medical History (Updated 04/24/20 @ 17:26 by Giorgi Zhang DO) Anxiety Diabetes mellitus Diabetes mellitus type 2, insulin dependent GERD (gastroesophageal reflux disease) History of drainage of abscess history of intra-abdominal abscess requiring drainage Hypertension Ovarian cancer Surgical History (Updated 04/21/20 @ 11:52 by Franchesca Gilbert DO) History of section, low transverse History of hysterectomy History of incisional hernia repair Hx of exploratory laparotomy Family History (Updated 04/21/20 @ 11:31 by Franchesca Gilbert DO) Mother Cancer Breast Cancer Father Cancer Thyroid cancer Other CAD (coronary artery disease) Dementia Diabetes Hyperlipidemia Hypertension Stroke Denies family history of Clotting disorder Psychiatric illness Chronic kidney disease (CKD) Suicide Anesthesia complication Bleeding disorder Family history of premature coronary artery disease Lung disease Social History Smoking and tobacco status: never smoked Second hand smoke exposure: No Smoking risk assessment/counseling performed?: Yes Alcohol intake: never Desire information about alcohol rehabilitation?: No Counseling given: No Desire information about substance/drug rehabilitation?: No Counseling given: No Course Vital Signs: Vital signs: Vital Signs Temperature 98.4 F 04/23/20 11:23 Pulse Rate 67 04/23/20 11:50 Respiratory Rate 18 04/23/20 11:23 Blood Pressure 130/80 04/23/20 11:23 Pulse Oximetry 95 04/23/20 11:50 MDM - Female MDM Narrative: Medical decision making narrative: Fever of unknown origin with patient currently immunosuppressed due to chemotherapy. She has been cultured will start on Vanco and Zosyn discussed with Dr. Gilbert her COVID swab is negative she also has some mild renal insufficiency. Her absolute neutrophil count is normal but she does have bandemia. Lab Data: Labs: Lab Results 04/21/20 04/21/20 04/21/20 Range/Units 07:40 08:15 08:15 WBC 5.3 (4.0-10.0) 10^3/ uL RBC 4.61 (4.1-5.3) 10^6/u L Hgb 13.2 (11.5-15.3) g/dL Hct 40.5 (37.0-47.0) % MCV 87.9 (81-99) fL MCH 28.6 (28.0-34.0) pg MCHC 32.6 (30.0-36.0) g/dL RDW 15.2 H (12.1-15.1) % Plt Count 444 H (130-400) 10^3/c mm MPV 11.0 H (7.4-10.4) fL Lymph % (Auto) Not Reportable [place] % (Auto) Not Reportable Lymph # (Auto) Not Reportable [place] # (Auto) Not Reportable Total Counted 100 (0-100) Absolute Neutrophi ls 3.6 (1.4-6.5) 10^3/c mm Segmented Neutroph ils 21 % Abs Segm Neuts (Ma n) 1.1 L (1.6-7.1) 10/cmm Band Neutrophils 47.0 % Abs Band Neuts (Ma n) 2.5 H (0.0-1.2) 10^3/c mm Lymphocytes (Manua l) 29 % Monocytes (Manual) 1.0 % Absolute Monocytes 0.1 (0.1-0.6) 10^3/c mm Metamyelocytes 2.0 % Nucleated RBCs 2.0 H (0-1) /100WBC Platelet Estimate Normal (Normal) Giant Platelets Trace Sodium 131 L (136-145) mmol/L Potassium 4.3 (3.5-5.1) mmol/L Chloride 89 L (98-107) mmol/L Carbon Dioxide 26 (22-29) mmol/L Anion Gap 20.3 H (5-19) BUN 27 H (6-20) mg/dL Creatinine 1.1 H (0.5-0.9) mg/dL GFR Calculation 51.6 L (90-130) mL/min Glucose 319 H (65-115) mg/dL Estimat Average Gl ucose Hemoglobin A1c (4.0-6.0) % Calculated Osmolal ity 289 (285-295) mOsm/k g Lactate (0.5-2.2) mmol/L Calcium 7.4 L (8.5-10.5) mg/dL Total Bilirubin 0.7 (0.15-1.2) mg/dL AST 12 (0-32) U/L ALT 21 (0-33) U/L Alkaline Phosphata se 60 (35-105) IU/L Total Protein 7.1 (6.6-8.7) g/dL Albumin 4.0 (3.5-5.2) g/dL Globulin 3.1 (1.3-4.6) g/dL TSH (0.27-4.20) uIU/ mL Urine Color Yellow (Yellow) Urine Appearance Clear (CLEAR) Urine pH 5.0 (5-7) Ur Specific Gravit y 1.020 (1.005-1.030) Urine Protein Neg (Negative) Urine Glucose (UA) 4+ H (Normal) Urine Ketones 1+ H (Negative) Urine Blood Neg (Negative) Urine Nitrate Negative (Negative) Urine Bilirubin 1+ H (Negative) Urine Urobilinogen Norm (Negative) mg/dL Ur Leukocyte Itzel ase Negative (Negative) SARS-CoV-2 Ag (Rap id) (Negative) 04/21/20 04/21/20 04/21/20 Range/Units 08:15 08:15 08:15 WBC (4.0-10.0) 10^3/ uL RBC (4.1-5.3) 10^6/u L Hgb (11.5-15.3) g/dL Hct (37.0-47.0) % MCV (81-99) fL MCH (28.0-34.0) pg MCHC (30.0-36.0) g/dL RDW (12.1-15.1) % Plt Count (130-400) 10^3/c mm MPV (7.4-10.4) fL Lymph % (Auto) [place] % (Auto) Lymph # (Auto) [place] # (Auto) Total Counted (0-100) Absolute Neutrophi ls (1.4-6.5) 10^3/c mm Segmented Neutroph ils % Abs Segm Neuts (Ma n) (1.6-7.1) 10/cmm Band Neutrophils % Abs Band Neuts (Ma n) (0.0-1.2) 10^3/c mm Lymphocytes (Manua l) % Monocytes (Manual) % Absolute Monocytes (0.1-0.6) 10^3/c mm Metamyelocytes % Nucleated RBCs (0-1) /100WBC Platelet Estimate (Normal) Giant Platelets Sodium (136-145) mmol/L Potassium (3.5-5.1) mmol/L Chloride (98-107) mmol/L Carbon Dioxide (22-29) mmol/L Anion Gap (5-19) BUN (6-20) mg/dL Creatinine (0.5-0.9) mg/dL GFR Calculation (90-130) mL/min Glucose (65-115) mg/dL Estimat Average Gl ucose 246 Hemoglobin A1c 10.2 H (4.0-6.0) % Calculated Osmolal ity (285-295) mOsm/k g Lactate 3.7 H (0.5-2.2) mmol/L Calcium (8.5-10.5) mg/dL Total Bilirubin (0.15-1.2) mg/dL AST (0-32) U/L ALT (0-33) U/L Alkaline Phosphata se (35-105) IU/L Total Protein (6.6-8.7) g/dL Albumin (3.5-5.2) g/dL Globulin (1.3-4.6) g/dL TSH 2.38 (0.27-4.20) uIU/ mL Urine Color (Yellow) Urine Appearance (CLEAR) Urine pH (5-7) Ur Specific Gravit y (1.005-1.030) Urine Protein (Negative) Urine Glucose (UA) (Normal) Urine Ketones (Negative) Urine Blood (Negative) Urine Nitrate (Negative) Urine Bilirubin (Negative) Urine Urobilinogen (Negative) mg/dL Ur Leukocyte Itzel ase (Negative) SARS-CoV-2 Ag (Rap id) (Negative) 04/21/20 Range/Units 09:26 WBC (4.0-10.0) 10^3/ uL RBC (4.1-5.3) 10^6/u L Hgb (11.5-15.3) g/dL Hct (37.0-47.0) % MCV (81-99) fL MCH (28.0-34.0) pg MCHC (30.0-36.0) g/dL RDW (12.1-15.1) % Plt Count (130-400) 10^3/c mm MPV (7.4-10.4) fL Lymph % (Auto) [place] % (Auto) Lymph # (Auto) [place] # (Auto) Total Counted (0-100) Absolute Neutrophi ls (1.4-6.5) 10^3/c mm Segmented Neutroph ils % Abs Segm Neuts (Ma n) (1.6-7.1) 10/cmm Band Neutrophils % Abs Band Neuts (Ma n) (0.0-1.2) 10^3/c mm Lymphocytes (Manua l) % Monocytes (Manual) % Absolute Monocytes (0.1-0.6) 10^3/c mm Metamyelocytes % Nucleated RBCs (0-1) /100WBC Platelet Estimate (Normal) Giant Platelets Sodium (136-145) mmol/L Potassium (3.5-5.1) mmol/L Chloride (98-107) mmol/L Carbon Dioxide (22-29) mmol/L Anion Gap (5-19) BUN (6-20) mg/dL Creatinine (0.5-0.9) mg/dL GFR Calculation (90-130) mL/min Glucose (65-115) mg/dL Estimat Average Gl ucose Hemoglobin A1c (4.0-6.0) % Calculated Osmolal ity (285-295) mOsm/k g Lactate (0.5-2.2) mmol/L Calcium (8.5-10.5) mg/dL Total Bilirubin (0.15-1.2) mg/dL AST (0-32) U/L ALT (0-33) U/L Alkaline Phosphata se (35-105) IU/L Total Protein (6.6-8.7) g/dL Albumin (3.5-5.2) g/dL Globulin (1.3-4.6) g/dL TSH (0.27-4.20) uIU/ mL Urine Color (Yellow) Urine Appearance (CLEAR) Urine pH (5-7) Ur Specific Gravit y (1.005-1.030) Urine Protein (Negative) Urine Glucose (UA) (Normal) Urine Ketones (Negative) Urine Blood (Negative) Urine Nitrate (Negative) Urine Bilirubin (Negative) Urine Urobilinogen (Negative) mg/dL Ur Leukocyte Itzel ase (Negative) SARS-CoV-2 Ag (Rap id) Negative (Negative) Discharge Plan Discharge Patient Disposition: Admitted As Inpatient Admit Provider: Franchesca Gilbert Clinical Impression: Ovarian cancer, Diabetes mellitus type 2, insulin dependent, Hypertension Condition: Stable Discharge Diet: Diabetic Discharge Activity: Increase activity as tolerated Interventions: ED Discharge Assessment Last Done: 04/21/20 11:22 ED Charges Last Done: 04/21/20 11:22 Discharge Date/Time: 04/21/20 11:37 Sign Out Sign Out Data: Patient Sign Out occurred on 04/21/20 at 10:13. Patient's care was discussed, and care was transferred from to Giorgi Zhang DO. Coding Level of Care Code ED Aircraft Layout Worker for Sharyn Fwd Exam Comprehensive
[2020-04-21] MEDS: cefTRIAXone 1,000 MG in sodium chloride 0.9% (plus) 50 ML 100 MG IV (08:06)
[2020-04-21] MEDS: ondansetron 2 mg/ML SDV 2 mL 4 MG IVP (08:06)
[2020-04-21] MEDS: sodium chloride 0.9% 1,000 ML 999 ML IV (08:07)
[2020-04-21 08:24] LABS: Hematocrit 40.5 % (37.0-47.0); Hemoglobin 13.2 g/dL (11.5-15.3); Mean Corpuscular HGB Conc 32.6 g/dL (30.0-36.0); Mean Corpuscular Hemoglobin 28.6 pg (28.0-34.0); Mean Corpuscular Volume 87.9 fL (81-99); Platelet Count 444 10^3/cmm (130-400); Red Blood Count 4.61 10^6/uL (4.1-5.3); Red Cell Distribution Width 15.2 % (12.1-15.1); White Blood Count 5.3 10^3/uL (4.0-10.0)
[2020-04-21 08:30] LABS: Add Urine Microscopic? NO
[2020-04-21 08:37] LABS: Bilirubin Urine 1+ (Negative); Blood Urine Neg (Negative); Glucose Urine UA 4+ (Normal); Ketones Urine 1+ (Negative); Leukocyte Esterase Urine Negative (Negative); Nitrate Urine Negative (Negative); Protein Urine Neg (Negative); Urine Appearance Clear (CLEAR); Urine Color Yellow (Yellow); Urobilinogen Urine Norm (Negative)
[2020-04-21 08:39] LABS: Lactate (Lactic Acid level) 3.7 mmol/L (0.5-2.2)
[2020-04-21 08:40] LABS: Alanine Aminotransferase 21 U/L (0-33); Alkaline Phosphatase 60 IU/L (35-105); Anion Gap 20.3 (5-19); Aspartate Amino Transferase 12 U/L (0-32); Blood Urea Nitrogen 27 mg/dL (6-20); Calcium 7.4 mg/dL (8.5-10.5); Carbon Dioxide 26 mmol/L (22-29); Chloride 89 mmol/L (98-107); Globulin 3.1 g/dL (1.3-4.6); Glomerular Filtration Rate 51.6 mL/min (90-130); Glucose 319 mg/dL (65-115); Osmolality Calculated 289 mOsm/kg (285-295); Potassium 4.3 mmol/L (3.5-5.1); Sodium 131 mmol/L (136-145); Total Bilirubin 0.7 mg/dL (0.15-1.2); Total Protein 7.1 g/dL (6.6-8.7)
--- NOTE | 2020-04-21 08:53 | ECG_ITS ---
[facility] Test Date: 2020-04-21 Pat Name: Bessy Roy Department: Room: Gender: Female Visiting Nurse: : 1965 Requested By: Duane Brito Order Number: [id number] Shani MD: Caitlyn Oliver M.D. Measurements Intervals [place] Rate: 110 P: 38 LA: 150 QRS: -24 QRSD: 95 T: -27 QT: 331 QTc: 449 Interpretive Statements SINUS TACHYCARDIA POSSIBLE LEFT ATRIAL ENLARGEMENT [-0.1mV P WAVE IN V1/V2] BORDERLINE LEFT AXIS DEVIATION [QRS AXIS < -20] NONSPECIFIC T-WAVE ABNORMALITY Compared to ECG 05/01/2019 13:54:16 T-wave abnormality now present Electronically Signed On 04-21-2020 13:54:09 CDT by Caitlyn Oliver M.D. [id number] f
--- NOTE | 2020-04-21 08:53 | XRR_ITS ---
PROCEDURE INFORMATION: Exam: XR Chest, 1 View Exam date and time: 04/21/2020 9:08 AM Age: 55 years old Clinical indication: Fever; Prior surgery; Surgery type: Port TECHNIQUE: Imaging protocol: XR of the chest Views: 1 view. COMPARISON: CT chest abd pel w con* 04/07/2020 11:19 AM FINDINGS: Tubes, catheters and devices: Right subclavian port present with the catheter tip in the superior vena cava. Lungs: No focal peripheral lung consolidation, air bronchogram formation, or silhouette sign. Calcified right mid lung zone pulmonary granuloma. Pleural space: No pleural effusion or pneumothorax. Heart/Mediastinum: The cardiac silhouette is not enlarged. The mediastinal contours are normal. Bones/joints: There are multilevel bridging osteophytes in the spine. XR/XR chest 1V portable [id number] IMPRESSION: No pneumonia.
[2020-04-21 08:55] LABS: Slide Review Slide Review Perform
[2020-04-21 08:57] LABS: Absolute Segmented Neutrophil 1.1 10/cmm (1.6-7.1); Band Neutrophils Absolute 2.5 10^3/cmm (0.0-1.2); Lymphocytes 29 %; Monocytes Absolute 0.1 10^3/cmm (0.1-0.6); Segmented Neutrophils 21 %; Total Cells Counted 100 (0-100)
[2020-04-21 08:58] LABS: Absolute Neutrophil 3.6 10^3/cmm (1.4-6.5); Giant Platelets Trace; Platelet Estimate Normal (Normal)
[2020-04-21] MEDS: acetaminophen 500 mg Tablet 1000 MG PO (09:17)
[2020-04-21] MEDS: vancomycin 1,000 MG in sodium chloride 0.9% 250 ML 250 MG IV (09:18)
[2020-04-21] MEDS: piperacillin-tazobactam 3.375 GM in sodium chloride 0.9% (plus) 50 ML IV ×2 (09:18→15:48)
[2020-04-21 10:03] LABS: SARS Covid-2 Antigen Negative (Negative)
--- NOTE | 2020-04-21 10:32 | CT_ITS ---
WS: [id number] CT ABDOMEN PELVIS TECHNIQUE: Contrast-enhanced CT of the abdomen and pelvis with coronal and sagittal reformatted image s. CLINICAL INFORMATION: abd pain COMPARISON: Multiple prior CTs including April 07, 2020, September 09, 2019, May 01, 2019. DLP: 1038.[address] scans at [facility] use at least one of these dose optimization techniques: automat ed exposure control; mA and/or kV adjustment per patient size (includes targeted exams where dose is matched to clinical indication); or iterative reconstruction. FINDINGS: Prior postoperative changes hysterectomy. Diffuse fatty infiltration the liver. Normal portal vein an d splenic vein. Hepatomegaly. Fluid distended gallbladder. 2.0 cm low-attenuation lesion left hepatic lobe near the falciform ligament is unchanged. Metastatic implant at the lesser curvature the stomac h measuring 1.8 cm unchanged. Multiple metastatic implants involving the omentum and central mesenter y. Diffuse thickening and enhancement involving the omentum consistent with peritoneal carcinomatosis. T ethering in the central mesentery with metastatic deposits and prominent lymph nodes. This is similar to the prior examination. Omental and serosal metastatic deposits along the right lower quadrant abo ut the cecum and ascending colon unchanged in appearance. A few air-fluid levels in the small bowel in the midabdomen with slightly distended small bowel measu ring 2.8 cm. This appears progressed since April 07, 2020. Persistent air within the colon. Findi ngs likely due to mild partial small bowel obstruction. Postoperative changes involving the rectosigm oid. Fluid within the colon. No free air. Prior splenectomy. Stable soft tissue metastatic deposit involving the antrum of the stomach. Measuri ng 2.0 cm. No evidence of gastric outlet obstruction. Adrenal glands are normal. No hydronephrosis. Fatty atrophy of the pancreas. Lung bases are well aera michael. Normal caliber abdominal aorta. Prominent lymph nodes along the celiac axis and zohreh hepatis. CT/CT abdomen pelvis w con* [id number] IMPRESSION: 1. Peritoneal carcinomatosis with numerous metastatic deposits and omental cak ing. This is unchanged in appearance from the recent examination. 2. Mild small bowel dilatation in the mid abdomen with air-fluid levels. Persi stent air within the colon. Findings likely due to mild developing partial smal l bowel obstruction. 3. Stable metastatic deposits in the mid mesentery with central tethering maritza lar to the prior examination. 4. Stable metastatic nodes in the right lower quadrant about the cecum. 5. Prior hysterectomy and splenectomy. 6. Rectosigmoid anastomosis. 7. Stable low-attenuation lesion at the falciform ligament measuring 2.0 CM.
[2020-04-21] MEDS: iohexol 300 mg/mL 100 mL Btl IV (10:55)
--- NOTE | 2020-04-21 11:23 | PM.HP ---
Providers/Chief Complaint Admitting Physician: Franchesca Gilbert DO Primary Care Provider: Mainor Lieberman DO Chief Complaint: ABDOMEN PAIN, BACK PAIN History of Present Illness Bessy Roy is a 55 year old female with ovarian cancer currently undergoing chemotherapy that presented to the emergency department not feeling well. She stated that she had a new chemotherapy on of last week not been feeling well since that time. Initially had lots of nausea and vomiting but reported that that resolved. Now she is having lower abdominal pain. Her biggest concern is that last night she began having generalized malaise and fatigue and had a temperature at home of 101.2 ?F. She was brought into the ER for further evaluation and treatment. She reports that she has had some loose stools today, on well water but nobody else at home is been sick. She reports pain in the lower abdomen worse on the right. Patient denies any cough or sputum production, no hemoptysis, no chest pain or shortness of breath. She did report an increased frequency of urination and some lower back pain, no hematuria, no pain with urination. Review of Systems Const: Reports: fever(s); Denies: chills Eyes: Denies: change in vision ENMT: Denies: nasal congestion Card: Denies: chest pain, palpitations or edema Resp: Denies: dyspnea, productive cough or hemoptysis GI: Reports: abdominal pain; Denies: nausea, vomiting, diarrhea, constipation, hematochezia or melena : Denies: dysuria or hematuria Musc: Denies: extremity pain or muscle cramps Skin/Breast: Denies: rash or new lesions Neuro: Denies: headache(s) or dizziness Psych: Denies: anxiety or depression Endo: Denies: polyuria or hot flashes Miguel/Lymph: Denies: easy bruising or easy bleeding Medications/Allergies Home Medications Medication Instructions Recorded Confirmed Last Taken Type insulin lispro 100 unit/mL 5 unit SUBCUT TID PRN 08/14/19 04/21/20 Unknown History subcutaneous solution mupirocin 2 % topical ointment 1 applic TOPICAL BID #30 gm 08/14/19 04/21/20 Unknown Rx alprazolam 0.5 mg tablet 0.5 mg PO QID PRN 02/12/20 04/21/20 04/20/20 History citalopram 40 mg tablet 40 mg PO DAILY 02/12/20 04/21/20 04/20/20 History lansoprazole 30 mg capsule,delayed 30 mg PO DAILY 02/12/20 04/21/20 04/20/20 History release metformin 500 mg tablet 1,000 mg PO DAILY tab 02/12/20 04/21/20 04/20/20 History metoprolol tartrate 25 mg tablet 25 mg PO BID 02/12/20 04/21/20 04/20/20 History pantoprazole 40 mg tablet,delayed 40 mg PO DAILY 02/12/20 04/21/20 04/20/20 History release prochlorperazine maleate 10 mg 10 mg PO Q4H PRN tab 02/12/20 04/21/20 Unknown History tablet sennosides 8.6 mg-docusate sodium 2 tab-cap PO DAILY tab 02/12/20 04/21/20 04/20/20 History 50 mg tablet trazodone 50 mg tablet 50 mg PO BEDTIME 02/12/20 04/21/20 04/20/20 History hydromorphone [Dilaudid] 2 mg PO Q6H PRN 04/21/20 04/21/20 04/20/20 History levothyroxine 150 mcg PO DAILY 04/21/20 04/21/20 04/20/20 History Allergies Allergy/AdvReac Type Severity Reaction Status Date / Time morphine Allergy Unknown Verified 02/12/20 13:32 PFSH Acute PFSH: Medical History (Updated 04/21/20 @ 11:34 by Franchesca Gilbert DO) Anxiety Diabetes mellitus Diabetes mellitus type 2, insulin dependent GERD (gastroesophageal reflux disease) History of drainage of abscess history of intra-abdominal abscess requiring drainage Hypertension Ovarian cancer Surgical History (Updated 04/21/20 @ 11:52 by Franchesca Gilbert DO) History of section, low transverse History of hysterectomy History of incisional hernia repair Hx of exploratory laparotomy Family History (Updated 04/21/20 @ 11:31 by Franchesca Gilbert DO) Mother Cancer Breast Cancer Father Cancer Thyroid cancer Other CAD (coronary artery disease) Dementia Diabetes Hyperlipidemia Hypertension Stroke Denies family history of Clotting disorder Psychiatric illness Chronic kidney disease (CKD) Suicide Anesthesia complication Bleeding disorder Family history of premature coronary artery disease Lung disease Social History (Reviewed 02/12/20 @ 13:40 by LUPILLO Sinha Smoking and tobacco status: never smoked Second hand smoke exposure: No Smoking risk assessment/counseling performed?: Yes Alcohol intake: never Desire information about alcohol rehabilitation?: No Counseling given: No Desire information about substance/drug rehabilitation?: No Counseling given: No Vitals/I&O/Wt Last Vital Signs Temp 100.2 F H 04/21/20 07:33 Pulse 106 H 04/21/20 10:14 Resp 18 04/21/20 10:14 BP 140/84 04/21/20 10:14 Pulse Ox 96 04/21/20 10:14 Weight last 48 hrs Weight 93.44 kg Physical Exam Const: COMMON NORMALS: patient oriented x3 and alert GENERAL APPEARANCE: cooperative ORIENTATION/CONSCIOUSNESS: Yes awake, Yes oriented to person, Yes oriented to place and Yes oriented to time HENMT: COMMON NORMALS: normocephalic and atraumatic HEAD & SCALP: normocephalic and atraumatic Eye: COMMON NORMALS: Equal, round and reactive pupils present PUPIL: Yes Equal, round and reactive pupils present Neck/C-Spine: COMMON NORMALS: supple GENERAL: Yes normal visual inspection Resp: COMMON NORMALS: normal respiratory effort and clear to auscultation bilaterally EFFORT & INSPECTION: Yes able to speak in complete sentences AUSCULTATION: clear to auscultation bilaterally, no rhonchi and no wheezes Cardio: COMMON NORMALS: regular rate, regular rhythm and No murmurs present (Cardio) RATE: regular rate RHYTHM: regular rhythm GI: COMMON NORMALS: Soft to palpation PALPATION: Yes Soft to palpation OTHER: tender to palpation in the R lower quadrant, normal bowel sounds, mild tenderness to palpation in the L LQ : COMMON NORMALS: Yes no CVA tenderness BLADDER/KIDNEY EXAM: Yes no CVA tenderness Back/Pelvis: COMMON NORMALS: no CVA tenderness Extremity: COMMON NORMALS: no clubbing, cyanosis or edema and no calf tenderness Neuro: COMMON NORMALS: patient oriented x3, CN's II-XII intact bilaterally, moves all extremities and no focal motor deficits SENSORIUM/ORIENTATION: Yes alert, Yes oriented to person, Yes oriented to place and Yes oriented to time SPEECH: speech normal Psych: COMMON NORMALS: mental status grossly normal and cooperative Skin: COMMON NORMALS: no rashes or lesions noted GENERAL SKIN EXAM: no rashes or lesions noted Data : 04/21/20 08:15 04/21/20 08:15 Micro: Microbiology 04/21/20 08:51 Blood Culture - Preliminary Blood SPECIMEN COLLECTED 04/21/20 08:15 Blood Culture - Preliminary Blood SPECIMEN COLLECTED CXR: I personally reviewed and interpreted this imaging study as follows: Radiologist's impression: FINDINGS: Tubes, catheters and devices: Right subclavian port present with the catheter tip in the superior vena cava. Lungs: No focal peripheral lung consolidation, air bronchogram formation, or silhouette sign. Calcified right mid lung zone pulmonary granuloma. Pleural space: No pleural effusion or pneumothorax. Heart/Mediastinum: The cardiac silhouette is not enlarged. The mediastinal contours are normal. Bones/joints: There are multilevel bridging osteophytes in the spine. XR/XR chest 1V portable [id number] IMPRESSION: No pneumonia. A&P Assessment and plan (1) Fever: Fever of unknown origin Patient reports some abdominal pain in the R LQ UA without evidence of cystitis, CXR without concern for pneumonia and she denies any respiratory symptoms Will further evaluate with CT Abdomen and pelvis recently started on new chemo agent on , will discuss with her oncologist Blood cultures ordered, she was started on broad spectrum antibiotics in the ED No ends, no concern for meningitis, therefore will hold off on lumbar puncture. Status: Acute (2) Ovarian cancer: Followed closely by Dr. Benavidez, will make him aware of admission Repeat CT scan of the abdomen and pelvis ordered for further evaluation, her recent CT scan from April 07, 2020 showed progression of metastatic disease Status: Acute (3) Hypertension: Continue on home metoprolol Status: Acute (4) Diabetes mellitus type 2, insulin dependent: Hold metformin due to contrast Continue with moderate dose sliding scale insulin as needed We will check hemoglobin A1c as blood sugars are significantly elevated in the ED. Status: Acute Additional A&P Information Acute kidney injury: Appears to be prerenal, will give gentle IV fluids and continue with close monitoring Pseudohyponatremia: Corrects to 135 with glucose Hyperglycemia in the setting of known diabetes, will check hemoglobin A1c DVT prophylaxis: Lovenox Diet: Clear liquids CODE STATUS: Do Not Resuscitate/DNI, this was discussed with patient on admission Attestations Medical Necessity Statement*: Patient requires inpatient admission due to concern for metastatic cancer, abdominal pain, fever and immunocompromise state Coding Level of Care Code Acute School Manager for Chg Fwd Exam Comprehensive Diagnoses Fever R50.9 Ovarian cancer C56.9 Hypertension I10 Diabetes mellitus type 2, insulin dependent E11.9; Z79.4
[2020-04-21 12:34] LABS: Estmated Average Glucose 246; Hemoglobin A1C 10.2 % (4.0-6.0)
[2020-04-21 13:57] LABS: Thyroid Stimulating Hormone 2.38 uIU/mL (0.27-4.20)
[2020-04-21] MEDS: sodium chloride 0.9% 1,000 ML 50 ML IV (15:48)
[2020-04-21] MEDS: enoxaparin 40 mg/0.4 mL Syringe SUBCUT (15:49)
[2020-04-21] MEDS: levothyroxine 150 mcg Tablet PO (15:49)
--- NOTE | 2020-04-21 15:57 | PC.NURSE ---
rcvd verbal order from Dr Gilbert for cl liq diet and stop Const Carb diet.
[2020-04-21] MEDS: metoprolol tartrate 25 mg Tablet PO (18:17)
--- NOTE | 2020-04-21 18:24 | PC.NURSE ---
sent stool sample to lab for processing
[2020-04-21 22:01] LABS: Glucose Point of Care 170 mg/dL (70-110)
[2020-04-21] MEDS: trazodone 50 mg Tablet PO (22:59)
[2020-04-21] MEDS: insulin glargine 100 units/1 mL 10 UNIT SUBCUT (22:59)
[2020-04-22] VITALS: BP 111/72; PULSE 87; RESP 18; TEMP 37.4; O2SAT 95
[2020-04-22] MEDS: piperacillin-tazobactam 3.375 GM in sodium chloride 0.9% (plus) 50 ML IV ×3 (01:17→16:01)
[2020-04-22] MEDS: acetaminophen 325 mg Tablet 650 MG PO (01:34)
[2020-04-22 04:00] VITALS: BP 131/85; PULSE 95; RESP 18; TEMP 37; O2SAT 93
[2020-04-22 06:02] LABS: Basophils # 0.1 10^3/uL (0.0-0.1); Basophils % 0.9 %; Eosinophils # 0.3 10^3/uL (0.0-0.8); Eosinophils % 5.8 %; Hemoglobin 11.5 g/dL (11.5-15.3); Lymphocytes # 2.3 10^3/uL (0.8-4.8); Mean Corpuscular HGB Conc 31.9 g/dL (30.0-36.0); Mean Corpuscular Hemoglobin 28.3 pg (28.0-34.0); Mean Corpuscular Volume 88.7 fL (81-99); Mean Platelet Volume 11.3 fL (7.4-10.4); Monocytes # 0.2 10^3/uL (0.2-0.9); Neutrophils # 2.72 10^3/uL (1.8-7.7); Neutrophils % 47.9 %; Nucleated Red Blood Cells % 0.4 %; Platelet Count 435 10^3/cmm (130-400); Red Blood Count 4.06 10^6/uL (4.1-5.3); Red Cell Distribution Width 15.5 % (12.1-15.1); White Blood Count 5.7 10^3/uL (4.0-10.0)
[2020-04-22 06:30] LABS: Alanine Aminotransferase 13 U/L (0-33); Albumin Level 3.6 g/dL (3.5-5.2); Alkaline Phosphatase 55 IU/L (35-105); Anion Gap 15.4 (5-19); Aspartate Amino Transferase 11 U/L (0-32); Blood Urea Nitrogen 11 mg/dL (6-20); Calcium 7.6 mg/dL (8.5-10.5); Carbon Dioxide 28 mmol/L (22-29); Chloride 101 mmol/L (98-107); Globulin 2.8 g/dL (1.3-4.6); Glomerular Filtration Rate 57.6 mL/min (90-130); Glucose 126 mg/dL (65-115); Osmolality Calculated 293 mOsm/kg (285-295); Potassium 3.4 mmol/L (3.5-5.1); Sodium 141 mmol/L (136-145); Total Bilirubin 0.5 mg/dL (0.15-1.2); Total Protein 6.4 g/dL (6.6-8.7)
[2020-04-22 07:39] LABS: Glucose Point of Care 136 mg/dL (70-110)
[2020-04-22 07:58] VITALS: BP 122/85; PULSE 82; RESP 16; TEMP 36.8; O2SAT 97
[2020-04-22] MEDS: pantoprazole DR 40 mg Tablet PO (08:44)
[2020-04-22] MEDS: citalopram 20 mg Tablet 40 MG PO (08:44)
[2020-04-22] MEDS: metoprolol tartrate 25 mg Tablet PO ×2 (08:44→18:26)
[2020-04-22] MEDS: levothyroxine 150 mcg Tablet PO (08:44)
[2020-04-22] MEDS: sodium chloride 0.9% 1,000 ML 50 ML IV (10:41)
--- NOTE | 2020-04-22 10:58 | PC.CHAP ---
Pastoral Care Encounter/Spiritual Assessment Type of Contact [] Declined network project manager visit [] Patient/Family/Request visit [] Outpatient visit [] Follow-up visit [] Physician referral [] Code/Alert [] Routine visit [] Staff referral [] Actively dying [] Patient sleeping [] Family support [] [] Out of room [] Palliative care [] [] Receiving care in room [] Pre-surgical visit [] Trauma [] Long length of stay [] ICU visit [x] Other: In isolation Relational/Emotional Strength [] Patient feels connected with others/family/visitors/staff [] Distress [] Loneliness/isolation [] Abandonment Spirituality of Patient [] Person of Shayna [] Attends Scientology of their Shayna [] Believes in Prayer [] Reads Bible or Yazdanism materials [] There are Spiritual issues to be addressed Asbestos Cement Sheet Supervisor Interventions [] Prayer [] Active listening [] Non-anxious presence [] Spiritual/emotional support [] Crisis/trauma care [] Spiritual counseling [] Bereavement support [] Provided bereavement packet [] Provided Bible/devotional materials [] Provided toy/stuffed animal, coloring book to patient or family member [] Provided Communion [] Anointing/[place] [] Salvation [] Completed spiritual assessment [] Other: Impact on Illness or Injury [] Angry [] Fearful [] Anxious [] Often cries [] Exhaustion [] Unable to work [] Unable to attend orthodox [] Unable to walk/stand [] Unable to read [] Unable to drive [] Unable to eat/drink [] Unable to sleep [] Unable to be with family [] Patient intubated [] Other: Summary In isolation Time spent with patient 5 mins
--- NOTE | 2020-04-22 10:59 | PM.PN ---
Subjective Subjective: Interval history: Patient awake in bed at time of exam. She reported that her abdomen is feeling somewhat better today. She denied any chest pain or shortness of breath. Discussed with her again CT findings, she questioned if her cancer was getting worse then verbalized that she was unable to tolerate the chemotherapy last week and stated that she is not certain if she wants to continue with chemotherapy at this time. Vitals/I&O/Wt Last Vital Signs Temp 98.2 F 04/22/20 07:58 Pulse 82 04/22/20 07:58 Resp 16 04/22/20 07:58 BP 122/85 04/22/20 07:58 Pulse Ox 97 04/22/20 07:58 04/21/20 04/22/20 04/22/20 22:59 06:59 14:59 Intake Total 530 / 530 50 / 580 1544.167 / 1544.167 Balance 530 / 530 50 / 580 1544.167 / 1544.167 Weight last 48 hrs Weight 93.44 kg Physical Exam Const: COMMON NORMALS: patient oriented x3 and alert GENERAL APPEARANCE: cooperative ORIENTATION/CONSCIOUSNESS: Yes awake, Yes oriented to person, Yes oriented to place and Yes oriented to time HENMT: COMMON NORMALS: normocephalic and atraumatic HEAD & SCALP: normocephalic and atraumatic Eye: COMMON NORMALS: Equal, round and reactive pupils present PUPIL: Yes Equal, round and reactive pupils present Neck/C-Spine: COMMON NORMALS: supple GENERAL: Yes normal visual inspection Resp: COMMON NORMALS: normal respiratory effort and clear to auscultation bilaterally EFFORT & INSPECTION: Yes able to speak in complete sentences AUSCULTATION: clear to auscultation bilaterally, no rhonchi and no wheezes Cardio: COMMON NORMALS: regular rate, regular rhythm and No murmurs present (Cardio) RATE: regular rate RHYTHM: regular rhythm GI: COMMON NORMALS: Soft to palpation PALPATION: Yes Soft to palpation OTHER: Improved tenderness to palpation in the right lower quadrant, mild tenderness, no guarding or rigidity, normal bowel sounds Extremity: COMMON NORMALS: no clubbing, cyanosis or edema and no calf tenderness Neuro: COMMON NORMALS: patient oriented x3, CN's II-XII intact bilaterally, moves all extremities and no focal motor deficits SENSORIUM/ORIENTATION: Yes alert, Yes oriented to person, Yes oriented to place and Yes oriented to time SPEECH: speech normal Psych: COMMON NORMALS: mental status grossly normal and cooperative Skin: COMMON NORMALS: no rashes or lesions noted GENERAL SKIN EXAM: no rashes or lesions noted Data : 04/22/20 04:53 04/22/20 04:53 Micro: Microbiology 04/21/20 08:51 Blood Culture - Preliminary Blood NEGATIVE TO DATE 04/21/20 08:15 Blood Culture - Preliminary Blood NEGATIVE TO DATE 04/21/20 18:25 Stool Lactoferrin - Final Stool C.difficile Toxin B Gene (PCR) - Final Occult Blood (FIT) - Final CT Abd/Pel: I personally reviewed and interpreted this imaging study as follows: Radiologist's impression: IMPRESSION: 1. Peritoneal carcinomatosis with numerous metastatic deposits and omental caking. This is unchanged in appearance from the recent examination. 2. Mild small bowel dilatation in the mid abdomen with air-fluid levels. Persistent air within the colon. Findings likely due to mild developing partial small bowel obstruction. 3. Stable metastatic deposits in the mid mesentery with central tethering similar to the prior examination. 4. Stable metastatic nodes in the right lower quadrant about the cecum. 5. Prior hysterectomy and splenectomy. 6. Rectosigmoid anastomosis. 7. Stable low-attenuation lesion at the falciform ligament measuring 2.0 CM. A&P Assessment and plan (1) Fever: Fever of unknown origin Presented with abdominal pain therefore repeat CT scan the abdomen and pelvis was performed which showed peritoneal carcinomatosis with numerous metastatic deposits and omental caking. Unchanged from previous CT scan in the beginning of this month. Did show some mild small bowel dilatation with concern for partial small bowel obstruction. Continue on broad-spectrum antibiotics C. difficile toxin is negative, further stool studies pending Blood cultures ordered and remain pending due to patient have a Port-A-Cath in place Patient has been afebrile and reports that she is feeling much better today Status: Acute (2) Ovarian cancer: Followed closely by Dr. Benavidez, will make him aware of admission Repeat CT scan of the abdomen and pelvis ordered for further evaluation, her recent CT scan from April 07, 2020 showed progression of metastatic disease, findings as noted above Status: Acute (3) Hypertension: Continue on home metoprolol Status: Acute (4) Diabetes mellitus type 2, insulin dependent: Hold home metformin due to patient receiving contrast yesterday Hemoglobin A1c greater than 10, started on Lantus 10 units at bedtime, continue with sliding scale insulin as needed Status: Acute Additional A&P Information Acute kidney injury: Improving with IV fluids Pseudohyponatremia: Improved Hyperglycemia in the setting of known diabetes, will check hemoglobin A1c, plan as above Abdominal pain and diarrhea secondary to above. Patient reports significant improvement of symptoms today. Will increase diet to bland diet, she is reporting flatus. We will follow-up with further stool studies Immunocompromise state on chemotherapy, last infusion of chemo was on of last week, continue on isolation precautions DVT prophylaxis: Lovenox Diet: [place] diet CODE STATUS: Do Not Resuscitate/DNI, this was discussed with patient on admission Attestations Medical Necessity Statement*: Patient requires hospitalization due to metastatic ovarian cancer with abdominal pain with concern for partial small bowel obstruction and fever on chemotherapy. Coding Level of Care Code Acute Utility Bill Complaints Investigator for Sharyn Melendez Diagnoses Fever R50.9 Ovarian cancer C56.9 Hypertension I10 Diabetes mellitus type 2, insulin dependent E11.9; Z79.4
[2020-04-22 11:30] VITALS: BP 138/94; PULSE 79; RESP 16; TEMP 37.2; O2SAT 96
[2020-04-22 11:56] LABS: Glucose Point of Care 177 mg/dL (70-110)
[2020-04-22 16:00] VITALS: BP 134/74; PULSE 74; RESP 22; TEMP 37.3; O2SAT 95
[2020-04-22] MEDS: enoxaparin 40 mg/0.4 mL Syringe SUBCUT (16:01)
[2020-04-22 18:38] LABS: Glucose Point of Care 194 mg/dL (70-110)
[2020-04-22 20:00] VITALS: BP 125/77; PULSE 73; RESP 18; TEMP 37.1; O2SAT 98
[2020-04-22] MEDS: trazodone 50 mg Tablet PO (22:10)
[2020-04-22] MEDS: insulin glargine 100 units/1 mL 10 UNIT SUBCUT (22:40)
[2020-04-23] VITALS (7 sets, daily range): BP systolic 126–161; BP diastolic 80–94; PULSE 61–86; RESP 16–18; TEMP 36.7–36.9; O2SAT 95–99
[2020-04-23] MEDS: piperacillin-tazobactam 3.375 GM in sodium chloride 0.9% (plus) 50 ML IV ×2 (00:49→07:52)
[2020-04-23] MEDS: ALPRAZolam 0.5 mg Tablet PO (03:11)
[2020-04-23 06:04] LABS: Basophils # 0.1 10^3/uL (0.0-0.1); Basophils % 0.9 %; Eosinophils # 0.2 10^3/uL (0.0-0.8); Eosinophils % 3.5 %; Hematocrit 33.5 % (37.0-47.0); Hemoglobin 10.7 g/dL (11.5-15.3); Lymphocytes # 2.9 10^3/uL (0.8-4.8); Lymphocytes % 43.7 %; Mean Corpuscular HGB Conc 31.9 g/dL (30.0-36.0); Mean Corpuscular Hemoglobin 28.5 pg (28.0-34.0); Mean Corpuscular Volume 89.3 fL (81-99); Mean Platelet Volume 11.1 fL (7.4-10.4); Monocytes # 0.5 10^3/uL (0.2-0.9); Monocytes % 7.5 %; Neutrophils # 2.87 10^3/uL (1.8-7.7); Neutrophils % 43.8 %; Nucleated Red Blood Cells # 0.1 /100WBC; Nucleated Red Blood Cells % 0.9 %; Platelet Count 465 10^3/cmm (130-400); Red Blood Count 3.75 10^6/uL (4.1-5.3); Red Cell Distribution Width 15.7 % (12.1-15.1); White Blood Count 6.6 10^3/uL (4.0-10.0)
[2020-04-23 06:33] LABS: Alanine Aminotransferase 12 U/L (0-33); Albumin Level 3.4 g/dL (3.5-5.2); Alkaline Phosphatase 47 IU/L (35-105); Anion Gap 14.3 (5-19); Aspartate Amino Transferase 13 U/L (0-32); Blood Urea Nitrogen 9 mg/dL (6-20); Calcium 7.4 mg/dL (8.5-10.5); Carbon Dioxide 26 mmol/L (22-29); Chloride 102 mmol/L (98-107); Globulin 2.8 g/dL (1.3-4.6); Glomerular Filtration Rate 57.6 mL/min (90-130); Glucose 192 mg/dL (65-115); Osmolality Calculated 292 mOsm/kg (285-295); Potassium 3.3 mmol/L (3.5-5.1); Sodium 139 mmol/L (136-145); Total Bilirubin 0.2 mg/dL (0.15-1.2); Total Protein 6.2 g/dL (6.6-8.7)
[2020-04-23] MEDS: sodium chloride 0.9% 1,000 ML 50 ML IV (07:59)
[2020-04-23] MEDS: potassium chloride ER 10 mEq Tablet 40 MEQ PO (07:59)
[2020-04-23] MEDS: metoprolol tartrate 25 mg Tablet PO (08:00)
[2020-04-23] MEDS: levothyroxine 150 mcg Tablet PO (08:00)
[2020-04-23] MEDS: citalopram 20 mg Tablet 40 MG PO (08:00)
[2020-04-23] MEDS: pantoprazole DR 40 mg Tablet PO (08:00)
--- NOTE | 2020-04-23 10:16 | P.DS_ITS ---
Discharge Providers Date of Admission: 04/21/20 10:14 Date of Discharge: April 23, 2020 Attending Provider at Admission: Franchesca Gilbert DO Attending Provider at Discharge: Franchesca Gilbert DO Primary Care Provider: Mainor Lieberman DO Diagnoses at Discharge Discharge Diagnosis (1) Fever: Status: Acute (2) Ovarian cancer: Status: Acute (3) Hypertension: Status: Acute (4) Diabetes mellitus type 2, insulin dependent: Status: Acute Reason for Visit Reason for Visit: ABDOMEN PAIN, BACK PAIN Hospital Course Hospital Course: Patient was seen and evaluated in the emergency department admitted to concern for patient being on chemotherapy with fever. Patient was noted to have increasing abdominal pain therefore repeat CT scan was performed showed omental caking and increased in metastatic spread of ovarian cancer. Patient was also noted to have a partial small bowel obstruction. She was kept n.p.o. for a period of time then gradually increase to clear liquid diet. Her abdominal pain continued to improve. She was placed on broad-spectrum antibiotics with blood cultures ordered due to concern for her being immunocompromised with fever and recent chemotherapy last week. Her neutrophil count remained stable. Patient continued to improve diarrhea was monitored and stool studies were checked. Patient C. difficile and other stool studies were negative. She did have positive occult blood on stool check however no evidence of any GI bleed and her hemoglobin remained stable. Patient's abdominal pain resolved and she was able to have 2 formed bowel movements on date of discharge. Patient was afebrile for 48 hours and had negative blood cultures x48 hours. Discussed with her plan for close follow-up with oncology office, she reported that she was feeling well and back to her baseline and wanting to go home. Plan for discharge to home with oral antibiotics and close oncology follow-up, p atient verbalized understanding and agreed with plan. Physical Exam Const: COMMON NORMALS: patient oriented x3 and alert GENERAL APPEARANCE: cooperative ORIENTATION/CONSCIOUSNESS: Yes awake, Yes oriented to person, Yes oriented to place and Yes oriented to time HENMT: COMMON NORMALS: normocephalic and atraumatic HEAD & SCALP: normocephalic and atraumatic Eye: COMMON NORMALS: Equal, round and reactive pupils present PUPIL: Yes Equal, round and reactive pupils present Neck/C-Spine: COMMON NORMALS: supple GENERAL: Yes normal visual inspection Resp: COMMON NORMALS: normal respiratory effort and clear to auscultation bilaterally EFFORT & INSPECTION: Yes able to speak in complete sentences AUSCULTATION: clear to auscultation bilaterally, no rhonchi and no wheezes Cardio: COMMON NORMALS: regular rate, regular rhythm and No murmurs present (Cardio) RATE: regular rate RHYTHM: regular rhythm GI: COMMON NORMALS: Soft to palpation PALPATION: Yes Soft to palpation OTHER: Normal bowel sounds, no tenderness to palpation, no guarding or rigidity Extremity: COMMON NORMALS: no clubbing, cyanosis or edema and no calf tenderness Neuro: COMMON NORMALS: patient oriented x3, CN's II-XII intact bilaterally, moves all extremities and no focal motor deficits SENSORIUM/ORIENTATION: Yes alert, Yes oriented to person, Yes oriented to place and Yes oriented to time SPEECH: speech normal Psych: COMMON NORMALS: mental status grossly normal and cooperative Skin: COMMON NORMALS: no rashes or lesions noted GENERAL SKIN EXAM: no rashes or lesions noted Discharge Data Data Completed and Pending: Completed Studies During Hospitalization Category Date Time Status CT abdomen pelvis w con* [id number] Stat Cat Scan 04/21/20 10:32 Completed XR chest 1V zohreh ble [id number] Stat Exams 04/21/20 08:53 Completed Pending at discharge Category Date Time Status Blood Culture Sta t Lab 04/21/20 08:51 Results Complete Blood Co unt w/Auto AM LABS Lab 04/24/20 04:00 Ordered Comprehensive Met abolic Panel AM LA BS Lab 04/24/20 04:00 Ordered Vancomycin Trough Timed Lab 04/23/20 09:53 Received Labs from last 24 hours 04/23/20 04/23/20 04/23/20 09:53 04:25 04:25 WBC 6.6 RBC 3.75 L Hgb 10.7 L Hct 33.5 L MCV 89.3 MCH 28.5 MCHC 31.9 RDW 15.7 H Plt Count 465 H MPV 11.1 H Neut % (Auto) 43.8 Lymph % (Auto) 43.7 [place] % (Auto) 7.5 Eos % (Auto) 3.5 Baso % (Auto) 0.9 Neut # (Auto) 2.87 Lymph # (Auto) 2.9 [place] # (Auto) 0.5 Eos # (Auto) 0.2 Baso # (Auto) 0.1 Nucleated RBC % (a uto) 0.9 Nucleated RBCs # 0.1 Sodium 139 Potassium 3.3 L Chloride 102 Carbon Dioxide 26 Anion Gap 14.3 BUN 9 Creatinine 1.0 H GFR Calculation 57.6 L Glucose 192 H POC Glucose Calculated Osmolal ity 292 Calcium 7.4 L Total Bilirubin 0.2 AST 13 ALT 12 Alkaline Phosphata se 47 Total Protein 6.2 L Albumin 3.4 L Globulin 2.8 Vancomycin Trough Pending 04/22/20 04/22/20 16:20 11:28 WBC RBC Hgb Hct MCV MCH MCHC RDW Plt Count MPV Neut % (Auto) Lymph % (Auto) [place] % (Auto) Eos % (Auto) Baso % (Auto) Neut # (Auto) Lymph # (Auto) [place] # (Auto) Eos # (Auto) Baso # (Auto) Nucleated RBC % (a uto) Nucleated RBCs # Sodium Potassium Chloride Carbon Dioxide Anion Gap BUN Creatinine GFR Calculation Glucose POC Glucose 194 177 Calculated Osmolal ity Calcium Total Bilirubin AST ALT Alkaline Phosphata se Total Protein Albumin Globulin Vancomycin Trough Vitals: Last Vital Signs Temp 98.0 F 04/23/20 07:34 Pulse 81 04/23/20 07:34 Resp 18 04/23/20 07:34 BP 161/94 04/23/20 07:34 Pulse Ox 97 04/23/20 07:34 Discharge Plan Discharge Patient Disposition: Home Condition: Stable Prescriptions: New amoxicillin-pot clavulanate [Augmentin] 500-125 mg tablet 1 tab PO Q8H 5 Days Qty: 15 RF: 0 ciprofloxacin HCl 500 mg tablet 500 mg PO BID 5 Days Qty: 10 RF: 0 Continued insulin lispro [Humalog U-100 Insulin] 100 unit/mL solution 5 unit SUBCUT TID PRN (Reason: blood sugar) RF: 0 mupirocin 2 % ointment 1 applic TOPICAL BID Qty: 30 RF: 0 metoprolol tartrate 25 mg tablet 25 mg PO BID RF: 0 citalopram 40 mg tablet 40 mg PO DAILY RF: 0 pantoprazole 40 mg tablet,delayed release (DR/EC) 40 mg PO DAILY RF: 0 prochlorperazine maleate 10 mg tablet 10 mg PO Q4H PRN (Reason: Nausea) RF: 0 alprazolam 0.5 mg tablet 0.5 mg PO QID PRN (Reason: Anxiety) RF: 0 lansoprazole 30 mg capsule,delayed release(DR/EC) 30 mg PO DAILY RF: 0 sennosides-docusate sodium [Senna with Docusate Sodium] 8.6-50 mg tablet 2 tab-cap PO DAILY RF: 0 trazodone 50 mg tablet 50 mg PO BEDTIME RF: 0 metformin 500 mg tablet 1,000 mg PO DAILY RF: 0 Dilaudid 2 mg Tablet 2 mg PO Q6H PRN (Reason: Pain) RF: 0 levothyroxine 150 mcg Tablet 150 mcg PO DAILY RF: 0 Discharge Orders: Discharge Order (Routine); Ordered 04/23/20 Ordered By: Franchesca Gilbert Referrals: Jeffrey Benavidez MD [Hospitalist] - 4-7 days Discharge Diet: Diabetic Discharge Activity: Increase activity as tolerated Activity Restrictions/Additional Instructions: Plan for follow-up with oncology early next week, continue with further discussions with Dr. Benavidez about future plans for chemotherapy. Discharge to home with ciprofloxacin and Augmentin for 5 days. For any return of abdominal pain or fever call your physician or present to the ED. Increase diet as tolerated, continue with a low-fat bland diet, carbohydrate consistent. Please continue to monitor your blood sugars and present a blood sugar log to your provider for further adjustment of insulin as indicated Discharge Attestations Time Spent in Discharge Care*: greater than 30 min Specific Discharge Activities: Specific discharge activities: educating patient, discussing with geriatric case manager/social workers/dc planners and documenting/other paperwork Quality Metrics Clinical Quality Measures During this hospital stay, did patient experience: None Coding Level of Care Code Acute Magician/Illusionist for g Fwd Diagnoses Fever R50.9 Ovarian cancer C56.9 Hypertension I10 Diabetes mellitus type 2, insulin dependent E11.9; Z79.4
[2020-04-23 10:21] LABS: Vancomycin Trough 11.4 ug/mL (10-15)
[2020-04-23 10:58] LABS: Glucose Point of Care 247 mg/dL (70-110)
== END 2020-04-23 11:48 | disposition home or self-care (01) | DRG 389 ==
LOC: ER 10:13 → MEDSURG 11:09
PROVIDERS: Family Medicine; Nurse Practitioner Family; Admitting Provider Family Medicine; PCP Family Medicine; Visit Provider Family Medicine
DX: K56.600 Partial intestinal obstruction, unspecified as to cause (principal); C56.9 Malignant neoplasm of unspecified ovary; C78.6 Secondary malignant neoplasm of retroperitoneum and peritoneum; E87.1 Hypo-osmolality and hyponatremia; R50.9 Fever, unspecified; Z79.899 Other long term (current) drug therapy; F41.9 Anxiety disorder, unspecified; E11.9 Type 2 diabetes mellitus without complications; Z79.4 Long term (current) use of insulin; K21.9 Gastro-esophageal reflux disease without esophagitis; I10 Essential (primary) hypertension; Z95.828 Presence of other vascular implants and grafts; Z66 Do not resuscitate; D89.9 Disorder involving the immune mechanism, unspecified
CPT/HCPCS: 12345; 36415; 36416; 71045; 74177; 80053; 80202; 81003; 82274; 82962; 83036; 83605; 83630; 84443; 85007; 85025; 87040; 87426; 87493; 87506; 93005; 96372; 96375; 99283; J0696; J1650; J1815; J2405; J2543; J3370; J7030; J7050; Q9967

== ENCOUNTER → 2020-04-28 09:04 | Outpatient (BNVA) | payer MEDICARE, MEDICAID, SELFPAY | PROVIDERS: PCP Family Medicine; Visit Provider Nurse Practitioner Family | DX: C56.9 Malignant neoplasm of unspecified ovary (principal) | CPT/HCPCS: 36415; 80053; 85025; 86304 ==

== ENCOUNTER → 2020-05-05 08:37 | Outpatient (BNVA) | payer MEDICARE, MEDICAID, SELFPAY | PROVIDERS: PCP Family Medicine; Visit Provider Dermatology | DX: C77.2 Secondary and unspecified malignant neoplasm of intra-abdominal lymph nodes (principal); C56.2 Malignant neoplasm of left ovary; C56.1 Malignant neoplasm of right ovary; Z45.2 Encounter for adjustment and management of vascular access device; E11.9 Type 2 diabetes mellitus without complications | CPT/HCPCS: 80053; 85025; 86304 ==

== ENCOUNTER 2020-05-06 12:58 | Outpatient (RCR) | payer MEDICARE, MEDICAID, SELFPAY ==
[2020-05-06] MEDS: sodium chloride 0.9% 250 ML 75 ML IV (10:05)
--- NOTE | 2020-05-11 18:07 | ONC FU_ITS ---
[facility] Patient Note Patient: Bessy Roy Unit #: [id number]: [id number] Dictated By: Smiley RuizDate of Visit: May 06, 2020 Onc MED Follow-Up/Prog Note Chief Complaint: Ovarian cancer. History of Present Illness: Ms Roy is a 55 year-old woman with recurrent ovarian cancer. She had presented in March 2012 with stage IIIC ovarian cancer. She was referred to Dr. Edilson Wahl for [employer] oncology. On 05/17/12 showed underwent exploratory laparotomy. The op note indicated a small amount of residual miliary disease present at the end of the procedure. It was estimated to be greater than 99% resected. Pathology showed a high-grade serous carcinoma involving both ovaries, measuring 9 cm on the right and 6 cm on the left. There was involvement in the omentum and multiple serosal surfaces including the appendix, uterus, and colon. There was no diagnostic abnormality in the included portion of rectosigmoid colon and there was no involvement in the skeletal muscle from the abdominal wall. There was involvement in the liver capsule, but not the liver parenchyma. The spleen showed no diagnostic abnormality. There was involvement in 4 of 20 lymph nodes. The ascitic fluid also was positive. Her postoperative course was complicated by development of an abscess in the left lower quadrant, requiring percutaneous drainage and antibiotic therapy. She did have a gradual recovery, and she subsequently was given postoperative chemotherapy with 6 cycles of carboplatin/Taxol, completed on 11/15/2012. There were delays during her chemotherapy related to poor compliance. In August 2013 she had recurrence and she began second line chemotherapy with carboplatin and weekly Taxol in combination with Avastin . As of 02/02/15 she had completed 6 cycles of chemotherapy. She had significant response by CA 125 level and by followup CT scan. Taxol was omitted with cycles 5 and 6 due to neuropathy. Her treatment was changed to maintenance Avastin. By June her CA-125 level began to increase. As of 08/19/2015 it was back up to 43 U/mL. At that point she restarted chemotherapy with Abraxane/Avastin, and her CA-125 level subsequently declined. She then continued treatment with Abraxane/Avastin, though not on a very consistent schedule due in part to toxicities and in part to compliance issues. As of her follow-up visit on 08/22/2017 her neuropathy symptoms had worsened significantly, and it was opted to put her treatment on hold. She returned on 09/26/2017 to begin further chemotherapy with carboplatin/gemcitabine on a day 1/day 15 schedule. Her baseline CA-125 level had increased to 15.1 U/mL. She had some fatigue following that treatment. She otherwise seemed to tolerate it pretty well, and she was able to continue treatment on a day 1/day 15 schedule. As of July 2018 she had completed 11 cycles of carboplatin/gemcitabine. She remained stable clinically with CA-125 level stable at 14.4 U/mL. In August 2018 she began maintenance therapy with olaparib 300 mg twice a day. At her scheduled visit on 04/10/2019 she appeared stable clinically, but there was a significant increase in her CA 125 level to 30.0 U/mL compared to 17.8 U/mL in January. With that change she had restaging CT scans of the chest/abdomen/pelvis on 04/18/2019. It showed new circumferential thickening of the stomach antrum and a small but slightly increase sized gastric lymph node. It was felt to possible represent inflammatory changes from peptic ulcer disease, but very early metastatic disease was not excluded. There was no ascites. There was stable, mild thickening of the right lateral urinary bladder wall. With those findings, Dr Benavidez opted to restart her on chemotherapy with carboplatin in combination with liposomal doxorubicin. She began cycle 1 on 05/08/2019. Her baseline CA 125 level was 58.9 U/mL. She tolerated the treatment with acceptable toxicity. She continued with cycle 2 on 06/05/2019 and with cycle 3 on 07/03/2019. At that point the CA 125 level had decreased just slightly, to 38.9 U/mL. At her followup visit visit on 07/31/2019 she had developed a significant skin eruption as well as other side effects with the chemotherapy. As there has been no further decline in the CA-125 level, Dr Benavidez opted to stop that treatment. Restaging CT of the abdomen/pelvis on 09/09/2019 showed mesenteric deposits throughout the abdomen and pelvis, increased in size and number compared to the study from April 2019. Also noted was a soft tissue mass at the antrum of the stomach with slight increase in size and luminal narrowing. With those findings, it was opted to restart chemotherapy with carboplatin/gemcitabine. She began her 1st cycle on 10/08/2019 on a day 1/day 15 schedule. Her other medical illnesses include hypertension, type II diabetes, and anxiety/depression. She underwent repair of an incisional hernia which developed subsequent to her abdominal surgery in 2011. She is a nonsmoker. INTERIM HISTORY: She completed 1 full cycle of treatment with carboplatin/gemcitabine. She tolerated the chemotherapy pretty well, but after 1 cycle there was a significant increase in the CA-125 level. With that finding, she then began a trial of salvage therapy with pembrolizumab in combination with bevacizumab. She began cycle 1 on 12/04/2019. She tolerated it without any adverse effects. She continued with cycle 2 on 12/25/2019 and with cycle 3 on 01/15/2020. As of cycle 4 the bevacizumab was put on hold due to hypertension, but she did continue the pembrolizumab at 3-week intervals. Restaging CT scans of the chest, abdomen, and pelvis on 04/07/2020 showed continued progression of metastatic implants within the abdomen and pelvis compared to the August 2019 CT. There was increase in both size and number of mesenteric metastatic deposits and additional central mesenteric and pelvic mesenteric stranding which was highly suspicious for metastatic deposits involving the small bowel and colon in the right lower quadrant. There is no evidence of GI obstruction. There was suspected omental metastatic involvement. There was no ascites. There was no evidence of pulmonary metastatic disease. With the evidence of disease progression is recommended that she pursue treatment with Abraxane and pembrolizumab. She began her first cycle on 04/15/2020. She was admitted to [facility] with fever abdominal pain and back pain on 04/21/2020. She had repeat CTA scan of the abdomen which showed omental caking and increased metastatic spread of ovarian cancer. She is also noted to have partial small bowel obstruction. She was kept n.p.o. and gradually increased to a clear liquid diet. Her abdominal pain continued to improve. She was placed on Maria Isabel Bactrim antibiotics with blood cultures ordered due to concern of being immunocompromised with fever and recurrent chemotherapy. Her neutrophil count remained stable. She did have diarrhea and stools were negative for C. difficile. She did have positive occult blood on stool check however no evidence of GI bleeding and hemoglobin remained stable. Her abdominal pain resolved and she was able to have 2 formed bowel movements on the date of discharge and she was febrile for 48 hours with negative blood cultures for 48 hours. She presents today for follow-up. She is due for cycle 2 Abraxane pembrolizumab. She states she is feeling better. She is had no recurrent fever. She is had no recurrent abdominal pain but states her stools have been black. She denies taking any iron supplements. She states she did have little nausea after last treatment prior to her hospitalization but has had none since her discharge. It is noted that her right arm is significantly swollen compared to the left. She denies any pain or discomfort per se other than it feels a little tight. She states that she had not noticed this prior to her visit today. She denies any new shortness of breath or orthopnea. She has had no changes around her right-sided venous access device. She denies any new concerns. She denies any fever or chills. She denies any symptoms of infection for at least the last 72 hours. She has had no known exposure or any COVID symptoms. She denies any COVID testing. She states her bowels and bladder are normal for her. She denies any new pain. Her ECOG is 1. Past Medical History: Ovarian cancer (Dr. Wahl in [place] performed surgery) in 2011 She has previously been in good health. She has had some depression following the surgery. She has no other medical illnesses. Past Surgical History: Caesarean section Right leg abcess Flu vaccine in 2019 Flu vacc in 2018 - rt deltoid Flucevax in 2016 - left deltoid Pneumovax in 2016 - right deltoid Exploratory lap in 2011 - MEG-BSO,recto-sigmoid resection,omentectomy,splenectomy,bilateral pelvic and periaortic lymph node dissections,appy,liver biopsy, Hysterectomy in 2011 Port placed in 2011 - dr. dela cruz ([facility]) Prior surgeries limited to section in 2002 and a procedure on her right leg for abscess at age 18. EXploratory lap in 2012 resulted in total abdominal hysterectomy with bilateral salpingo-oophorectomy, and en bloc rectosigmoid resctions, omentectomy with partial resection of the anterior abdominal wall, splenectomy, bilateral pelvic and periaortic lymph node dissections, appendectomy, liver biopsy and debulking of right diaphragm and peritoneal implants. Allergies: Morphine Sulfate Medications: ALPRAZolam 1 Tablet (of 0.5 mg) Oral t.i.d. PRN AmLODIPine Besylate 1 (5 mg) Tablet Oral daily CeleXA 1 (40 mg) Tablet Oral daily Compazine 1 (10 mg) Tablet Oral four times a day PRN HumuLIN R Injection t.i.d. PRN Hydrocodone-Acetaminophen 1 - 2 Tablet (of 7.5-325 mg) Oral q 4 hours PRN Lantus 40 Units (of 100 Units/mL) Subcutaneous at bedtime PRN Levothyroxine Sodium 1 Tablet (of 125 mcg) Oral daily Magnesium 1 Tablet (of 400 mg) Oral daily MetFORMIN HCl 2 Tablet (of 500 mg) Oral b.i.d. Metoprolol Tartrate 1 Tablet (of 25 mg) Oral daily oxyCODONE HCl 1 Tablet (of 15 mg) Oral q 4 hours PRN Pantoprazole Sodium 1 Tablet (of 40 mg) Tablet, enteric coated Oral daily Voltaren 2 - 4 G (of 1 %) Gel (jelly) Transdermal PRN Family History: Ms. Roy's mother is alive: cancer history consists of Breast cancer while other medical history includes stroke and Alzheimers's disease at age 79. Ms. Roy's father is : cancer history consists of Thyroid Gland cancer while other medical history includes heart disease at age 62 (cause of ). Ms. Roy has 1 brother with an unknown alive status: medical history includes COPD and alcoholism. She has 1 maternal aunt with an unknown alive status: cancer history consists of Breast cancer. Family history significant for father having with heart disease at age 62. He also had thyroid cancer. Her mother is still living at age 79. She has Alzheimer's dementia and a history of strokes. She also has been treated for breast cancer. A maternal aunt also had breast cancer. She has one brother who is 60 years old and has COPD and alcoholism. Social History: Ms. Roy is single and she is a disabled. Ms. Roy has never smoked. She has no history of drinking. Ms. Roy reports the following support systems: lives with spouse, significant other, family, or friends, lives in own house, supportive family/friends willing to assist with needs, and adequate transportation available for expected visits. Her diet consists of regular meals. She indicates her activity level as: daily activities. She was previously and . She is currently unmarried, but she has a significant other. 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 She has never smoked. Review Of Symptoms: Constitutional Denies fevers, chills, night sweats, excessive fatigue or weight loss. Allergic/Immunologic No reactions. Eyes Denies significant visual changes. ENMT Denies sore throat, mouth sores, difficulty or changes in swallowing ability. Sinus drainage/allergies-chronic. Endocrine Recent increase in metformin to thousand twice daily which is tolerating well and her blood sugars have improved. Hematologic/Lymphatic Denies easy bruising or bleeding. The patient denies any tender or palpable lymph nodes. Respiratory Denies dyspnea on exertion, chest pain, cough. Cardiovascular Denies anginal chest pain. Gastrointestinal Denies nausea, vomiting, diarrhea, GI bleeding, or constipation. Denies change in bowel habits and/or stool color, no heartburn or early satiety. Nausea after cycle 1-resolved currently. Genitourinary (F) No hesitancy, incontinence, vaginal bleeding, discharge. UTI symptoms improved currently. Musculoskeletal Denies joint pain or specific bone pain. Integumentary Denies chronic rashes, inflammation. Neurologic Denies headache, blurred vision, and no areas of focal weakness or numbness. Normal gait. No sensory problems. Psychiatric Denies depression, anxiety. Vital Signs: Performed on May 06, 2020 08:34 Height - 63.50 in Weight - 201.6 lbs (LOW) BSA - 1.95 sq.m BMI - 35.15 (HIGH) Temperature - 96.3 F (LOW) Pulse - 72 /min Respiration - 16 /min BP - 149/88 mm(hg) (HIGH) O2 Sat - 98 % Pain - 4,1 - No physically strenuous activity, but ambulatory and able to carry out light or sedentary work (e.g. office work, light house work). (ECOG) Physical Examination: Constitutional Alert, oriented, no acute distress. Skin pink, warm and dry. Head Normocephalic; atraumatic. Eyes Conjunctivae and sclerae are clear and without icterus. Pupils are reactive and equal. Neck Supple without masses or thyromegaly. No jugular venous distension. Hematologic/Lymphatic No petechiae or purpura. No tender or palpable lymph nodes in the cervical, supraclavicular. Respiratory Lungs are clear to auscultation without rhonchi or wheezing. Cardiovascular Regular rate and rhythm of heart without murmurs,clicks, gallops or rubs. Chest Chest is symmetric without chest wall deformities. Right venous access device is unremarkable. Abdomen Non-tender, non-distended, no masses noted .Good bowel sounds noted in all quads. No guarding or rebound tenderness. No pulsatile masses. Back/Spine Non-tender to palpation. Extremities No visible deformities, no cyanosis, clubbing or edema. Musculoskeletal No tenderness or swelling, normal range of motion without obvious weakness. Integumentary No rashes or lesions. Neurologic No sensory or motor deficits, normal cerebellar function, normal gait. Psychiatric Alert and oriented times three. Coherent speech. Verbalizes understanding of our discussions today. Laboratory:Test performed on Apr 15, 2020 08:46 Sodium 133 mmol/L Potassium 4.7 mmol/L Chloride 93 mmol/L CO2 28 mmol/L Anion Gap 16.7 BUN 16 mg/dL Creatinine 0.9 mg/dL Cr Clearance (Est) 103.7800 mL/min eGFR 65.0 mL/min Glucose 205 mg/dL Osmolality - Calculated 283 mOsm/kg Calcium 8.5 mg/dL Protein, Total 6.8 g/dL Albumin 3.8 g/dL Globulin 3.0 g/dL Bilirubin, Total 0.2 mg/dL ALT (SGPT) 15 U/L AST (SGOT) 25 U/L Alkaline Phosphatase 69 IU/L WBC 11.3 10 3/uL RBC 4.51 10 6/uL HGB 12.8 g/dL HCT 40.5 % MCV 89.8 fL MCH 28.4 pg MCHC 31.6 g/dL RDW 14.8 % Platelet Count 457 10 3/cmm MPV 9.8 fL Neutrophils 7.35 10 3/uL Lymphocytes 2.7 10 3/uL Monocytes 0.8 10 3/uL Eosinophils 0.3 10 3/uL Basophils 0.1 10 3/uL Neutrophil % 64.8 % Lymphocyte % 23.7 % Monocyte % 7.0 % Eosinophil % 3.0 % Basophils % 1.0 % NRBC % 0.2 % Impression: 1. The patient with high-grade serous carcinoma of the ovary, stage IIIC at initial diagnosis. There was a small amount of residual miliary disease present following her initial surgery in April 2012. Her disease was estimated at greater than 99% resected. She was given postoperative chemotherapy with 6 cycles of carboplatin/Taxol, which she completed in October 2012. 2. In August 2014 she had evidence of recurrence by CA [address] scan, and she then initiated second line treatment with carboplatin and weekly Taxol in combination with Avastin. As of February 2015 she had completed 6 cycles of chemotherapy. 3. Her treatment was changed to maintenance Avastin. 4. As of 08/19/2015 she had 2 successive increases in her CA-125 level, and at that point she restarted chemotherapy with Abraxane in combination with Avastin. She had a very good response by CA-125 level. 5. As of her follow-up visit on 08/22/2017 her neuropathy had worsened significantly, and it was opted to stop her treatment. On 09/26/2017 she began further chemotherapy with carboplatin/gemcitabine on a day 1/day 15 schedule. 6. As of July 2018 she had completed 11 cycles of treatment. She appeared stable clinically, and her restaging CT scans from 08/08/2018 had shown no evidence of disease progression. In August 2018 her treatment was changed to maintenance olaparib 300 mg twice daily. Her other medical illnesses include: 7. Hypertension. 8. Type II diabetes. 9. GERD. 10. Anxiety/depression. As of March 2019 there was evidence of disease progression with rising CA-[address] evidence of new circumferential thickening of the stomach antrum and slight increase in size of a gastric lymph node. She then restarted chemotherapy with carboplatin/liposomal doxorubicin. After 3 cycles of treatment, she had developed a significant skin eruption and other side effects. She had only a slight decrease in her CA-125 level. Given the side effects she was experiencing, Dr Benavidez recommended that she stop treatment. Her restaging CT scans on 09/09/2019 showed evidence of disease progression with increase in size and number of mesenteric deposits throughout the abdomen and pelvis, including a soft tissue mass at the antrum of the stomach with slight increase in size and luminal narrowing. With limited treatment options available, Dr Benavidez opted to have her restart chemotherapy with carboplatin/gemcitabine. She began cycle 1 on 10/08/2019 on a day 1/day 15 schedule. She has now completed 1 cycle of treatment with the carboplatin/gemcitabine. She has tolerated the chemotherapy with acceptable toxicity, and her clinical status appears stable. However, there was a progressive increase in the CA-125 level, so that she clearly was not benefiting with the treatment. As of 12/04/2019 she began a trial of salvage therapy with pembrolizumab in combination with bevacizumab. She initially tolerated the treatment well, but beginning with the fourth cycle the bevacizumab was put on hold due to hypertension. She continued pembrolizumab by 3-week intervals. She has now completed 6 cycles of treatment. She is still doing pretty well clinically, but there has been further increase in her CA-125 level as well as evidence of disease progression by restaging CT scans. With clear evidence of disease progression, she was advised to stop her current regimen. She is highly motivated to continue some form of therapy. In reviewing her record, it does appear that her previous Abraxane treatment was put on hold more because of neuropathy then disease progression, and one option now is to restart the Abraxane in combination with the pembrolizumab. The other option would be to try another salvage chemotherapy, the best choices for which would be vinorelbine, pemetrexed, or capecitabine. The current recommendation is to try the Abraxane/pembrolizumab combination on a 3-week dosing schedule. She began her first cycle on 04/15/2020. Plan: 1. Proceed with cycle 2 Abraxane/pembrolizumab. Dose reduce Abraxane due to fever and decreased performance status after cycle 1. 2. She may use Compazine and Ativan as needed at home for antiemetics. Will add Emend and dexamethasone taper to treatment regimen today for chemo induced nausea after cycle 1. 3. Labs from 05/05/2020 were reviewed in detail and discussed with Ms. Cabrera and a copy was given to her. WBC 12.1, hemoglobin 12.6, platelets 621,000 creatinine 0.9 LFTs are normal random glucose is improved at 208. CA 125 = 82.8. 4. We will plan to see her back in 3 weeks with CBC CMP, TSH and CEA 125. 5. We did review side effects of the Abraxane to include low blood counts, neuropathy, nausea, fatigue, amongst others. 6. Specific side effects of immunotherapy discussed included but not limited to: ??? pneumonitis: new or worsening cough; chest pain; and shortness of breath. ??? Colitis: diarrhea or more bowel movements than usual; blood in stools or dark, tarry, sticky stools; and severe stomach area (abdomen) pain or tenderness. ??? hepatitis: jaundice; severe nausea or vomiting; pain on the right side of the abdomen; drowsiness; dark urine; bleeding or bruise more easily than normal. ??? nephritis and kidney failure: including decrease in the amount of urine; hematuria; lower extremity edema; and loss of appetite. ??? thyroid and pituitary changes that may include: headaches that will not go away or unusual headaches; extreme tiredness, weight gain or weight loss; changes in mood or behavior, such as decreased sex drive, irritability, or forgetfulness; dizziness or fainting; hair loss; feeling cold; constipation; and voice gets deeper. ???rash; changes in eyesight; severe or persistent muscle or joint pains; and severe muscle weakness. The majority of this visit was time spent face to face in review of plan of care, side effect identification and where to call for questions or concerns. 7. Ms Roy was encouraged to call us in the interim if questions or problems arise. Signed By: Smiley Ruiz-, CNP Jeffrey Benavdiez MD <<Signature on File>>
--- NOTE | 2020-05-11 18:22 | ONC FU_ITS ---
[facility] Patient Note Patient: Bessy Roy Unit #: [id number]: [id number] Dictated By: Sneha YepezDate of Visit: May 06, 2020 Onc MED Follow-Up/Prog Note ADDENDUM A venous Doppler was ordered on Ms. Cabrera's right upper extremity. She was found to have clot reported in the internal jugular. Her port was not utilized today for chemotherapy. She was placed on Eliquis starter pack which starts with 2 mg twice daily for 7 days then 5 mg twice daily. She is advised to watch for further swelling, shortness of breath or adverse reactions from the Eliquis including rash, nausea vomiting, bruising, shortness of breath amongst others. She was encouraged to call us if any questions or problems arise. She has been given referral to [facility] surgical services for possible removal of the port along with a consultation for possible colonoscopy for dark stools. Pamella Jay, NUCLEAR WASTE PROCESS OPERATOR-BC, AOCNP <<Signature on File>>
== END 2020-05-26 07:30 | disposition home or self-care (01) ==
LOC: ONCMED 12:58
PROVIDERS: PCP Family Medicine; Visit Provider Nurse Practitioner
DX: Z51.12 Encounter for antineoplastic immunotherapy (principal); Z51.11 Encounter for antineoplastic chemotherapy; C56.1 Malignant neoplasm of right ovary; C56.2 Malignant neoplasm of left ovary; C77.2 Secondary and unspecified malignant neoplasm of intra-abdominal lymph nodes; I10 Essential (primary) hypertension; E11.9 Type 2 diabetes mellitus without complications; K21.9 Gastro-esophageal reflux disease without esophagitis; F41.9 Anxiety disorder, unspecified; F32.9 Major depressive disorder, single episode, unspecified; Z79.899 Other long term (current) drug therapy
CPT/HCPCS: 93971; 96367; 96413; 96417; 99214; J1100; J1453; J2469; J3490; J7050; J9264; J9271

== ENCOUNTER → 2020-05-12 09:00 | Outpatient (BNVA) | payer MEDICARE, MEDICAID, SELFPAY | PROVIDERS: PCP Family Medicine; Visit Provider Nurse Practitioner | DX: C56.9 Malignant neoplasm of unspecified ovary (principal) | CPT/HCPCS: 80053; 85025 ==

== ENCOUNTER → 2020-05-19 09:34 | Outpatient (BNVA) | payer MEDICARE, MEDICAID, SELFPAY | PROVIDERS: PCP Family Medicine; Visit Provider Nurse Practitioner | DX: C56.1 Malignant neoplasm of right ovary (principal); Z45.2 Encounter for adjustment and management of vascular access device; E11.9 Type 2 diabetes mellitus without complications; C77.2 Secondary and unspecified malignant neoplasm of intra-abdominal lymph nodes; C56.2 Malignant neoplasm of left ovary | CPT/HCPCS: 80053; 85025 ==

== ENCOUNTER → 2020-05-22 14:32 | Outpatient (BNVA) | payer MEDICARE, MEDICAID, SELFPAY | PROVIDERS: PCP Family Medicine; Visit Provider Surgery | DX: Z11.59 Encounter for screening for other viral diseases (principal) | CPT/HCPCS: 87635 ==

== ENCOUNTER → 2020-05-25 09:00 | Outpatient (BNVA) | payer MEDICARE, MEDICAID, SELFPAY | PROVIDERS: PCP Family Medicine; Visit Provider Nurse Practitioner | DX: C77.2 Secondary and unspecified malignant neoplasm of intra-abdominal lymph nodes (principal) | CPT/HCPCS: 80053; 85025 ==

== ENCOUNTER 2020-05-26 08:00 | Day surgery (SDC) | payer MEDICARE, MEDICAID, SELFPAY ==
[2020-05-25 09:15] VITALS: BMI 34.3
[2020-05-26 08:19] VITALS: BP 157/108; PULSE 85; RESP 18; TEMP 36.3; O2SAT 96
[2020-05-26 08:33] LABS: Glucose Point of Care 190 mg/dL (70-110)
[2020-05-26] MEDS: sodium chloride 0.9% 1,000 ML 30 ML IV (08:50)
--- NOTE | 2020-05-26 08:54 | P.HPUD_ITS ---
Surgery/Procedure H&P Update DATE OF PROCEDURE: May 26, 2020 DATE H&P PERFORMED: 05/13/20 H&P UPDATE INFORMATION: I have reviewed H&P completed within last 30 days, I have examined patient prior to procedure and Changes to prior documentation as noted here CHANGES TO PREVIOUS DOCUMENTATION: Further evaluating the patient and looking into different reports of imaging studies as the patient does have DVT of the right IJ, will plan to explant the right upper chest Port-A-Cath today and will hold off on placement of a new port with the concern passing the wires on a recent diagnosis of DVT can dislodge an underlying clot and cause PE. Did discuss in length and in depth with the patient and her spouse and I did offer them different options understanding the potential risk if we get to put a new port today. And both agreed to hold off on any port placement today we will just proceed with explantation of the right upper chest Port-A-Cath. With the plan to repeat images in 2 weeks to reevaluate the patient with the plan to plac e a new port down the road. PREOP DIAGNOSIS: Ovarian cancer PRIMARY INDICATION FOR PROCEDURE: The same PLANNED PROCEDURE: Operation Date: 05/26/20 09:30 Proposed Procedures p Portacath Removal [id number] C56.9(Not Applicable) - Alex Degroot MD
--- NOTE | 2020-05-26 10:26 | ANES.PREANE2 ---
Pre-Anesthetic Assessment Pre-Anesthetic Assessment: Height/Weight: Height 1.63 m Weight 90.718 kg Temp Pulse Resp BP Pulse Ox 97.4 F L 85 18 157/108 96 05/26/20 08:19 05/26/20 08:19 05/26/20 08:19 05/26/20 08:19 05/26/20 08:19 Preop Diagnosis: Ovarian cancer Proposed Procedure: Operation Date: 05/26/20 09:30 Proposed Procedures p Portacath Removal [id number] C56.9(Not Applicable) - Alex Degroot MD Last intake: Intake Last Liquid Date 05/25/20 Last Liquid Time 23:30 Last Solid Date 05/25/20 Last Solid Time 20:30 Social: Social History: No alcohol and No tobacco Exam: Pre-Anes Outpt Exam: alert, oriented x 3, clear to auscultation bilaterally and regular rate & rhythm Airway: MP: 2 Dentition: Loose Additional comments: bottom front tooth extremely loose Pulmonary: Pulmonary: None reported CV/HEM: CV/HEM: HTN Hepatic: Hepatic: None reported GI: GI: GERD Comments: occasional reflux none today Metabolic: Metabolic: DM, Morbid obesity and Thyroid Musc/skel: Musc/skel: None reported Neuropsych: Neuropsych: Anxiety and Depression Anesthetic Plan: ASA status: 3 Anesthesia: Anesthesia Evaluation and MAC Risk of > 500 ml blood loss (7ml/kg in children): No Meds/Allergies Current Medications: Current Medications Generic Name Dose Route Start Last Admin Trade Name Freq PRN Reason Stop Dose Admin Sodium Chloride 1,000 mls @ 30 ml s/hr 05/26/20 08:00 05/26/20 08:50 Sodium Chloride 0.9% IV 05/27/20 07:59 30 mls/hr .Q24H ALISIA Administration PFSH Anesthesia PFSH: Medical History Anxiety Diabetes mellitus Diabetes mellitus type 2, insulin dependent GERD (gastroesophageal reflux disease) History of drainage of abscess history of intra-abdominal abscess requiring drainage Hypertension Ovarian cancer Surgical History History of section, low transverse History of hysterectomy History of incisional hernia repair Hx of exploratory laparotomy Family History Mother Cancer Breast Cancer Father Cancer Thyroid cancer Other CAD (coronary artery disease) Dementia Diabetes Hyperlipidemia Hypertension Stroke Denies family history of Clotting disorder Psychiatric illness Chronic kidney disease (CKD) Suicide Anesthesia complication Bleeding disorder Family history of premature coronary artery disease Lung disease Social History Smoking and tobacco status: never smoked Second hand smoke exposure: No Smoking risk assessment/counseling performed?: Yes Alcohol intake: never Desire information about alcohol rehabilitation?: No Counseling given: No Desire information about substance/drug rehabilitation?: No Counseling given: No Marital status: Single Current occupational status: disabled History of recent travel: No Data Anesthesia Other Labs: Laboratory Results - last 48 hr 05/26/20 08:29 POC Glucose 190 Cardiac Studies: No Data to Display
[2020-05-26] MEDS: lidocaine 2% INJ 20 mL INJECTION (11:02)
--- NOTE | 2020-05-26 11:23 | PM.OP ---
Operative Report Date of procedure: May 26, 2020 Pre-op Diagnosis: Ovarian cancer with right upper chest Port-A-Cath in place Post-op diagnosis: other (The same and the tip of the catheter fibrosed and scarred down under the right clavicle) Procedure Done: Explantation of right upper Port-A-Cath with residual catheter distal port in place Specimens removed/disposition: Swabs for cultures and sensitivity Part of the catheter was sent for cultures and sensitivities Remaining of the port and the catheter was sent for gross pathology Surgeon: Alex Degroot Molecular Biology Director: client technologies analyst Charbel Anesthesia: MAC (weight loss physician Jennifer) Estimated blood loss (mL): 10 Condition: stable Disposition: same day Brief History: This is a pleasant 55 years old female patient had a Port-A-Cath placed a while ago at an outside facility and patient later on developed DVT of the right IJ vein, patient is well-known with ovarian malignancy that is requiring further chemotherapy. Was referred to me for further evaluation for explantation of right upper chest Port-A-Cath and placement of a new 1. Patient is currently on Eliquis for DVT. . Plan of care; After thorough history physical examination and reviewing the chart, I counseled the patient for Port-A-Cath explantation and placement, indications, risks including pneumothorax and injury of major vascular structures, benefits,indications and alternatives were all discussed with the patient, patient understands and is interested to proceed. Prior to surgery I did rehabilitation services counselor the patient and her spouse for potential explantation without placing anyone at this point due to the underlying DVT and potential migration of recently diagnosed clot. Patient and her spouse agreed to proceed only today with explantation and defer in 2 weeks with repeated images for further evaluation for potential placement of new port. Rationale was carefully and clearly discussed with the patient.Appropriate informed consent have been reviewed and signed. Procedure: Patient was identified in the holding area and the right upper chest was marked by me in the presence of female biztalk developer nursing staff and patient was then taken to the operative room and placed in supine position IV propofol was given by the anesthesia provider ,both arms were tucked,Time-out was done verifying the patient's name/date of /planned procedure and destination after the procedure, all were in agreement.SCDs confirmed to be functioning, preoperative antibiotics administered per protocol, and beta girma protocol was confirmed, appropriate positioning of the patient was done by me. Prep and drape of the upper chest was done under the usual sterile technique,injection of lidocaine 2% at the site of the planned incision started by an transverse incision including the previous scar of the Port-A-Cath placement of the right upper chest, the port was then explanted after dissection from the surrounding pseudocapsule and adhesions, at this point the catheter was dissected all the way to the insertion site underneath the right clavicle yet the distal part of the catheter was scarred down and further dissection did not facilitate removal of that part of the catheter. I decided at this point to apply multiple medium size clips to secure the catheter in place x4 and a figure of 8 Prolene 3/0 x2 to encircle the catheter to the bed of the wound.The remaining of the proximal part of the catheter and the port were removed, the tip of the catheter was sent for cultures and sensitivities and the port was sent for gross pathology. Swabs were obtained from the wound bed as well. Copious and thorough irrigation was done using warm saline to the wound bed and appropriate hemostasis was achieved. Closure in layers using 2-0 Vicryl followed by 3-0 Vicryl then 4-0 Monocryl and then surgical glue followed by pressure dressing. Patient tolerated the procedure well and was taken to the recovery area in stable condition. I was present for the whole entire procedure Postoperative chest x-ray was done showed no pneumothorax and the distal part of the catheter stays in place.
--- NOTE | 2020-05-26 11:28 | XR_ITS ---
WS: [id number] Exam: XR chest 1V portable [id number] Date/Time of Exam: 05/26/2020 11:28 AM Reason For Exam: Status post explantation of right upper chest Port-A-Cath distal part of the cathete r remains in place Comparison 04/21/2020. The lungs are clear and fully expanded. Normal cardiomediastinal structures and regional bony element s. A right subclavian port catheter is noted and appears to end in the midportion of the SVC. XR/XR chest 1V portable [id number] IMPRESSION: 1. Right subclavian catheter in place as noted above. 2. The chest is otherwise unremarkable.
[2020-05-26 11:35] VITALS: BP 147/98; PULSE 82; RESP 15; TEMP 36.3; O2SAT 93
[2020-05-26 12:05] VITALS: BP 135/91; PULSE 85; RESP 18; O2SAT 94
[2020-05-26] MEDS: HYDROcodone-acetaminophen 5-325 mg Tablet 1 TAB PO (12:15)
--- NOTE | 2020-05-26 12:25 | ANE.PACU2 ---
Inpatient post-anesthesia follow up: Airway intact: Yes Vital signs: Temperature 97.3 F Pulse Rate 85 Respiratory Rate 18 Blood Pressure 135/91 Pulse Oximetry 94 Oxygen Delivery Me thod Room Air Oxygen Flow Rate Fraction of Inspir ed Oxygen Hydration adequate: Yes Nausea and vomiting: No Pain level: 1 Mental status: Baseline
== END 2020-05-26 12:19 | disposition home or self-care (01) ==
PROVIDERS: PCP Family Medicine; Visit Provider Surgery
PROC: (CPT 36589; principal; 2020-05-26 09:30)
DX: Z45.2 Encounter for adjustment and management of vascular access device (principal); C56.9 Malignant neoplasm of unspecified ovary; I10 Essential (primary) hypertension; K21.9 Gastro-esophageal reflux disease without esophagitis; E11.9 Type 2 diabetes mellitus without complications; E66.01 Morbid (severe) obesity due to excess calories; Z68.34 Body mass index [BMI] 34.0-34.9, adult; Z79.4 Long term (current) use of insulin
CPT/HCPCS: 36590; 12345; 36416; 71045; 82962; 87070; 87075; 87205; 88300; 96365; J0131; J0690; J2250; J2405; J2704; J3010; J7030

== ENCOUNTER 2020-05-27 05:46 | Outpatient (RCR) | payer MEDICARE, MEDICAID, SELFPAY | END 2020-05-29 23:59 | disposition home or self-care (01) | LOC: ONCMED 05:46 | PROVIDERS: PCP Family Medicine; Visit Provider Internal Medicine Medical Oncology | DX: Z53.9 Procedure and treatment not carried out, unspecified reason (principal) ==

== ENCOUNTER → 2020-05-28 09:33 | Outpatient (BNVA) | payer MEDICARE, MEDICAID, SELFPAY | PROVIDERS: PCP Family Medicine; Visit Provider Nurse Practitioner | DX: C56.1 Malignant neoplasm of right ovary (principal); C77.2 Secondary and unspecified malignant neoplasm of intra-abdominal lymph nodes | CPT/HCPCS: 36415; 80053; 85025; 86304 ==

== ENCOUNTER 2020-05-31 05:59 | Outpatient (RCR) | payer MEDICARE, MEDICAID, SELFPAY ==
--- NOTE | 2020-05-31 09:14 | ONC FU_ITS ---
Dr. Benavidez Patient Follow-Up Note Patient: Bessy Roy Unit #: [id number]: 1965 Dicatated By: Jeffrey Benavidez M.D.Date of Visit:May 31, 2020 Onc Med Follow-up/Prog Note Chief Complaint: Ovarian cancer. History of Present Illness: This is a 55 year-old woman with recurrent ovarian cancer. She had presented in March 2012 with stage IIIC ovarian cancer. She was referred to Dr. Edilson Wahl for ROOMS DIRECTOR oncology. On 05/17/12 showed underwent exploratory laparotomy. The op note indicated a small amount of residual miliary disease present at the end of the procedure. It was estimated to be greater than 99% resected. Pathology showed a high-grade serous carcinoma involving both ovaries, measuring 9 cm on the right and 6 cm on the left. There was involvement in the omentum and multiple serosal surfaces including the appendix, uterus, and colon. There was no diagnostic abnormality in the included portion of rectosigmoid colon and there was no involvement in the skeletal muscle from the abdominal wall. There was involvement in the liver capsule, but not the liver parenchyma. The spleen showed no diagnostic abnormality. There was involvement in 4 of 20 lymph nodes. The ascitic fluid also was positive. Her postoperative course was complicated by development of an abscess in the left lower quadrant, requiring percutaneous drainage and antibiotic therapy. She did have a gradual recovery, and she subsequently was given postoperative chemotherapy with 6 cycles of carboplatin/Taxol, completed on 11/15/2012. There were delays during her chemotherapy related to poor compliance. In August 2013 she had recurrence and she began second line chemotherapy with carboplatin and weekly Taxol in combination with Avastin . As of 02/02/15 she had completed 6 cycles of chemotherapy. She had significant response by CA 125 level and by followup CT scan. Taxol was omitted with cycles 5 and 6 due to neuropathy. Her treatment was changed to maintenance Avastin. By June her CA-125 level began to increase. As of 08/19/2015 it was back up to 43 U/mL. At that point she restarted chemotherapy with Abraxane/Avastin, and her CA-125 level subsequently declined. She then continued treatment with Abraxane/Avastin, though not on a very consistent schedule due in part to toxicities and in part to compliance issues. As of her follow-up visit on 08/22/2017 her neuropathy symptoms had worsened significantly, and I did opt to put her treatment on hold. She returned on 09/26/2017 to begin further chemotherapy with carboplatin/gemcitabine on a day 1/day 15 schedule. Her baseline CA-125 level had increased to 15.1 U/mL. She had some fatigue following that treatment. She otherwise seemed to tolerate it pretty well, and she was able to continue treatment on a day 1/day 15 schedule. As of July 2018 she had completed 11 cycles of carboplatin/gemcitabine. She remained stable clinically with CA-125 level stable at 14.4 U/mL. In August 2018 she began maintenance therapy with olaparib 300 mg twice a day. At her scheduled visit on 04/10/2019 she appeared stable clinically, but there was a significant increase in her CA 125 level to 30.0 U/mL compared to 17.8 U/mL in January. With that change she had restaging CT scans of the chest/abdomen/pelvis on 04/18/2019. It showed new circumferential thickening of the stomach antrum and a small but slightly increase sized gastric lymph node. It was felt to possible represent inflammatory changes from peptic ulcer disease, but very early metastatic disease was not excluded. There was no ascites. There was stable, mild thickening of the right lateral urinary bladder wall. With those findings, I opted to restart her on chemotherapy with carboplatin in combination with liposomal doxorubicin. She began cycle 1 on 05/08/2019. Her baseline CA 125 level was 58.9 U/mL. She tolerated the treatment with acceptable toxicity. She continued with cycle 2 on 06/05/2019 and with cycle 3 on 07/03/2019. At that point the CA 125 level had decreased just slightly, to 38.9 U/mL. At her followup visit visit on 07/31/2019 she had developed a significant skin eruption as well as other side effects with the chemotherapy. As there has been no further decline in the CA-125 level, I opted to stop that treatment. Restaging CT of the abdomen/pelvis on 09/09/2019 showed mesenteric deposits throughout the abdomen and pelvis, increased in size and number compared to the study from April 2019. Also noted was a soft tissue mass at the antrum of the stomach with slight increase in size and luminal narrowing. With those findings, I opted to restart chemotherapy with carboplatin/gemcitabine. She began her 1st cycle on 10/08/2019 on a day 1/day 15 schedule. Her other medical illnesses include hypertension, type II diabetes, and anxiety/depression. She underwent repair of an incisional hernia which developed subsequent to her abdominal surgery in 2011. She is a nonsmoker. INTERIM HISTORY: She completed 1 full cycle of treatment with carboplatin/gemcitabine. She tolerated the chemotherapy pretty well, but after 1 cycle there was a significant increase in the CA-125 level. With that finding, she then began a trial of salvage therapy with pembrolizumab in combination with bevacizumab. She began cycle 1 on 12/04/2019. She tolerated it without any adverse effects. She continued with cycle 2 on 12/25/2019 and with cycle 3 on 01/15/2020. As of cycle 4 the bevacizumab was put on hold due to hypertension, but she did continue the pembrolizumab at 3-week intervals. Restaging CT scans of the chest, abdomen, and pelvis on 04/07/2020 showed continued progression of metastatic implants within the abdomen and pelvis compared to the August 2019 CT. There was increase in both size and number of mesenteric metastatic deposits and additional central mesenteric and pelvic mesenteric stranding which was highly suspicious for metastatic deposits involving the small bowel and colon in the right lower quadrant. There is no evidence of GI obstruction. There was suspected omental metastatic involvement. There was no ascites. There was no evidence of pulmonary metastatic disease. With those findings, she was given the option to go back on treatment with Abraxane in combination with pembrolizumab, as she was very motivated to continue with some form of treatment. She began cycle 1 on 04/15/2020. She tolerated it well, she continue with cycle 2 on 05/06/2020. 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 She began anticoagulation with apixaban. On 05/26/2020 she underwent removal of the Port-A-Cath. Her further treatment thus far has remained on hold. She is seen for a follow-up visit. She says she has not felt good for least a month or more. Her energy is not been good, though she is still able to do light work. ECOG score is 1. Appetite also has been poor, but her weight is stable. She has been having intermittent fever, as high as 103 degrees. She has had no fever, though, for the past 2 weeks. She still has some sweating. She reports having a sore in the roof of the mouth and a fever blister. She has no shortness of breath, cough, or chest pain. She has a little bit of nausea. She has constipation, but her bowel function has been pretty good with senna. She still has pain in the lower abdominal area. She has no complaints. She has no significant joint or bone pain. She has been having headaches and she also has dizziness. She has no numbness/paresthesia or other focal neurologic symptoms. Medications: ALPRAZolam 1 Tablet (of 0.5 mg) Oral t.i.d. PRN, AmLODIPine Besylate 1 (5 mg) Tablet Oral daily, CeleXA 1 (40 mg) Tablet Oral daily, Compazine 1 (10 mg) Tablet Oral four times a day PRN, Eliquis 1 Tablet (of 5 mg) Oral b.i.d., HumuLIN R Injection t.i.d. PRN, Hydrocodone-Acetaminophen 1 - 2 Tablet (of 7.5-325 mg) Oral q 4 hours PRN, Lantus 40 Units (of 100 Units/mL) Subcutaneous at bedtime PRN, Levothyroxine Sodium 1 Tablet (of 125 mcg) Oral daily, Magnesium 1 Tablet (of 400 mg) Oral daily, MetFORMIN HCl 2 Tablet (of 500 mg) Oral b.i.d., Metoprolol Tartrate 1 Tablet (of 25 mg) Oral daily, oxyCODONE HCl 1 Tablet (of 15 mg) Oral q 4 hours PRN, Pantoprazole Sodium 1 Tablet (of 40 mg) Tablet, enteric coated Oral daily, Voltaren 2 - 4 G (of 1 %) Gel (jelly) Transdermal PRN Allergies: Morphine Sulfate Review of Systems: Constitutional - She has not been feeling good for over a month. Her energy is poor. Her appetite is poor but her weight is stable. She recently ran fevers, as high as 103, but was relieved with Tylenol. She has not had fever in the last 2 weeks, she still has some sweating. ECOG score is 1, ENMT - No sinus congestion/drainage. She has a sore in her mouth and a fever blister. No sore throat or difficulty swallowing, Hematologic/Lymphatic - She bruises easily, Respiratory - No shortness of breath. No cough. No pleuritic pain or hemoptysis, Cardiovascular - No angina pain. No palpitations, Gastrointestinal - She has nausea. No vomiting. No heartburn or acid reflux. No diarrhea or constipation. No blood in the stool or black stools. She continues to have lower abdominal pain, Genitourinary (F) - No dysuria or hematuria. No urinary frequency. No urgency or incontinence, Musculoskeletal - No joint or bone pain, Integumentary - She has a dressing to her port removal site, Neurologic - She has headaches and she has dizziness. No numbness or tingling. No other focal neurologic symptoms, Psychiatric - Her anxiety and depression have worsened. She has been sleeping better. Vital Signs: Performed on May 31, 2020 08:40 Height - 63.50 in Weight - 202 lbs (LOW) BSA - 1.95 sq.m BMI - 35.22 (HIGH) Temperature - 97.6 F (LOW) Pulse - 78 /min Respiration - 16 /min BP - 176/90 mm(hg) (HIGH) O2 Sat - 96 % Pain - 4 Physical Examination: Constitutional - She still looks pretty good generally, Eyes - Sclerae nonicteric. Conjunctivae clear, ENMT - No lesions noted in the oral cavity, Hematologic/Lymphatic - No cervical, clavicular, or axillary adenopathy, Respiratory - Lungs sound clear, Cardiovascular - Heart rhythm is regular. There is a II/ systolic murmur. There is no gallop or rub noted, Abdomen - Mildly distended and firm. There is mild abdominal tenderness. Liver is not enlarged. There is no abdominal mass or noted and there is no obvious ascites. There is no inguinal adenopathy, Extremities - Slight edema, Integumentary - No skin eruption, Neurologic - No focal neurologic deficits noted. Lab/Imaging: CBC shows hemoglobin 11.3 g, white blood cell count 9600, and platelet count 584,000. Comprehensive metabolic profile is unremarkable. There has been some decline in her CA-125 level, now to 73.8 U/mL. Impression: 1. The patient with high-grade serous carcinoma of the ovary, stage IIIC at initial diagnosis. There was a small amount of residual miliary disease present following her initial surgery in April 2012. Her disease was estimated at greater than 99% resected. She was given postoperative chemotherapy with 6 cycles of carboplatin/Taxol, which she completed in October 2012. 2. In August 2014 she had evidence of recurrence by CA [address] scan, and she then initiated second line treatment with carboplatin and weekly Taxol in combination with Avastin. As of February 2015 she had completed 6 cycles of chemotherapy. 3. Her treatment was changed to maintenance Avastin. 4. As of 08/19/2015 she had 2 successive increases in her CA-125 level, and at that point she restarted chemotherapy with Abraxane in combination with Avastin. She had a very good response by CA-125 level. 5. As of her follow-up visit on 08/22/2017 her neuropathy had worsened significantly, and I opted to stop her treatment. On 09/26/2017 she began further chemotherapy with carboplatin/gemcitabine on a day 1/day 15 schedule. 6. As of July 2018 she had completed 11 cycles of treatment. She appeared stable clinically, and her restaging CT scans from 08/08/2018 had shown no evidence of disease progression. In August 2018 her treatment was changed to maintenance olaparib 300 mg twice daily. Her other medical illnesses include: 7. Hypertension. 8. Type II diabetes. 9. GERD. 10. Anxiety/depression. As of March 2019 there was evidence of disease progression with rising CA-[address] evidence of new circumferential thickening of the stomach antrum and slight increase in size of a gastric lymph node. She then restarted chemotherapy with carboplatin/liposomal doxorubicin. After 3 cycles of treatment, she had developed a significant skin eruption and other side effects. She had only a slight decrease in her CA-125 level. Given the side effects she was experiencing, I recommended that she stop treatment. Her restaging CT scans on 09/09/2019 showed evidence of disease progression with increase in size and number of mesenteric deposits throughout the abdomen and pelvis, including a soft tissue mass at the antrum of the stomach with slight increase in size and luminal narrowing. With limited treatment options available, I opted to have her restart chemotherapy with carboplatin/gemcitabine. She began cycle 1 on 10/08/2019 on a day 1/day 15 schedule. She has now completed 1 cycle of treatment with the carboplatin/gemcitabine. She has tolerated the chemotherapy with acceptable toxicity, and her clinical status appears stable. However, there was a progressive increase in the CA-125 level, so that she clearly was not benefiting with the treatment. As of 12/04/2019 she began a trial of salvage therapy with pembrolizumab in combination with bevacizumab. She initially tolerated the treatment well, but beginning with the fourth cycle the bevacizumab was put on hold due to hypertension. She continued pembrolizumab by 3-week intervals. Following completion of 6 cycles of treatment there was further increase in her CA-125 level as well as evidence of disease progression by restaging CT scans. She has began further treatment with Abraxane a combination with pembrolizumab, cycle 1 on 04/15/2020. She tolerated it well and continued with cycle 2 on 05/06/2020. Her further treatment has been on hold due to Port-A-Cath related right internal jugular vein thrombosis, for which she began anticoagulation with apixaban and subsequently underwent removal of the Port-A-Cath. Plan: She will continue treatment with Abraxane/pembrolizumab, but her cycle 3 will be deferred until she has a new Port-A-Cath in place. This will be scheduled with Dr. Degroot. In the meantime, she will be given a prescription for Magic mouthwash for acyclovir for 5 days. Signed By: Jeffrey Benavidez M.D. <<Signature on File>>
== END 2020-06-15 11:00 | disposition home or self-care (01) ==
LOC: ONCMED 05:59
PROVIDERS: PCP Family Medicine; Visit Provider Internal Medicine Medical Oncology
DX: C56.1 Malignant neoplasm of right ovary (principal); C56.2 Malignant neoplasm of left ovary; C77.2 Secondary and unspecified malignant neoplasm of intra-abdominal lymph nodes; I10 Essential (primary) hypertension; E11.9 Type 2 diabetes mellitus without complications; K21.9 Gastro-esophageal reflux disease without esophagitis; F41.9 Anxiety disorder, unspecified; F32.9 Major depressive disorder, single episode, unspecified; Z92.21 Personal history of antineoplastic chemotherapy; Z79.899 Other long term (current) drug therapy
CPT/HCPCS: 99214

== ENCOUNTER → 2020-06-11 08:27 | Outpatient (BNVA) | payer MEDICARE, MEDICAID, SELFPAY | PROVIDERS: PCP Family Medicine; Visit Provider Nurse Practitioner Family | DX: C56.9 Malignant neoplasm of unspecified ovary (principal) | CPT/HCPCS: 87635 ==

== ENCOUNTER 2020-06-15 09:47 | Day surgery (SDC) | payer MEDICARE, MEDICAID, SELFPAY ==
[2020-06-14 14:10] VITALS: BMI 34.5
--- NOTE | 2020-06-15 | SCC_ITS ---
Procedure Done: Left internal jugular vein Port-A-Cath placement under ultrasound and fluoroscopic guidance. Interpretation of imaging studies was done by me through the whole entire procedure 51.9 seconds of fluoroscopic guidance, for a cumulative dose of 7.79 mGy, was provided to Dr. Degroot by the radiology department. C-arm images of the chest were saved for the patient's permanent record. [facility] CENTERPao
--- NOTE | 2020-06-15 09:58 | SC_ITS ---
WS: [id number] C-ARM RADIOGRAPHS CHEST; 4 IMAGES HISTORY: Port-A-Cath placement COMPARISON: None available. Port-A-Cath placement with intraoperative imaging. Tip of the Port-A-Cath appears to be within the di stal SVC. SC/C-arm FL for CVA [id number] IMPRESSION: Intraoperative imaging during Port-A-Cath placement.
[2020-06-15 10:15] VITALS: BP 149/90; PULSE 73; RESP 18; TEMP 36.5; O2SAT 99
[2020-06-15 10:41] LABS: Glucose Point of Care 138 mg/dL (70-110)
--- NOTE | 2020-06-15 10:53 | ANES.PREANE2 ---
Pre-Anesthetic Assessment Pre-Anesthetic Assessment: Height/Weight: Height 1.6 m Weight 88.451 kg Temp Pulse Resp BP Pulse Ox 97.7 F 73 18 149/90 99 06/15/20 10:15 06/15/20 10:15 06/15/20 10:15 06/15/20 10:15 06/15/20 10:15 Preop Diagnosis: Ovarian cancer Proposed Procedure: Operation Date: 06/15/20 11:55 Proposed Procedures p Portacath Placement 46586 C56.9(Not Applicable) - Alex Degroot MD s Portacath Removal(Not Applicable) - Alex Degroot MD Familial anesthetic complications: None Was Beta Elham taken within 24 hours: Yes Last intake: Intake Last Liquid Date 06/15/20 Last Liquid Time 08:00 Last Solid Date 06/14/20 Last Solid Time 20:00 Social: Social History: No alcohol and No tobacco Exam: Pre-Anes Outpt Exam: alert, oriented x 3, clear to auscultation bilaterally and regular rate & rhythm Airway: Cervical ROM: WNL MP: 3 Dentition: Chipped, Loose and Other (missing, poor dentition) CV/HEM: CV/HEM: DVT (in arms (off eliquis since sunday)) GI: GI: GERD Metabolic: Metabolic: DM and Morbid obesity Musc/skel: Comments: ovarian ca Anesthetic Plan: ASA status: 4 Anesthesia: MAC Risk of > 500 ml blood loss (7ml/kg in children): No PFSH Anesthesia PFSH: Medical History Anxiety Diabetes mellitus Diabetes mellitus type 2, insulin dependent GERD (gastroesophageal reflux disease) History of drainage of abscess history of intra-abdominal abscess requiring drainage Hypertension Ovarian cancer Surgical History History of section, low transverse History of hysterectomy History of incisional hernia repair Hx of exploratory laparotomy Family History Mother Cancer Breast Cancer Father Cancer Thyroid cancer Other CAD (coronary artery disease) Dementia Diabetes Hyperlipidemia Hypertension Stroke Denies family history of Clotting disorder Psychiatric illness Chronic kidney disease (CKD) Suicide Anesthesia complication Bleeding disorder Family history of premature coronary artery disease Lung disease Social History Smoking and tobacco status: never smoked Second hand smoke exposure: No Smoking risk assessment/counseling performed?: Yes Alcohol intake: never Desire information about alcohol rehabilitation?: No Counseling given: No Desire information about substance/drug rehabilitation?: No Counseling given: No Marital status: Single Current occupational status: disabled History of recent travel: No Data Anesthesia Other Labs: Laboratory Results - last 48 hr 06/15/20 10:39 POC Glucose 138 Cardiac Studies: No Data to Display
[2020-06-15] MEDS: sodium chloride 0.9% 1,000 ML 30 ML IV (10:59)
--- NOTE | 2020-06-15 11:22 | W.PM.OPSUD ---
Surgery/Procedure H&P Update DATE OF PROCEDURE: June 15, 2020 DATE H&P PERFORMED: 06/07/20 H&P UPDATE INFORMATION: I have reviewed H&P completed within last 30 days, I have examined patient prior to procedure and No changes to prior documentation PREOP DIAGNOSIS: Ovarian cancer PRIMARY INDICATION FOR PROCEDURE: The same PLANNED PROCEDURE: Operation Date: 06/15/20 11:55 Proposed Procedures p Portacath Placement 50472 C56.9(Not Applicable) - Alex Degroot MD s Portacath Removal(Not Applicable) - Alex Degroot MD
[2020-06-15] MEDS: heparin, porcine 1,000 unit/mL INJ 10 mL 10000 UNIT INJECTION (13:09)
[2020-06-15] MEDS: lidocaine 2% INJ 20 mL INJECTION (13:30)
--- NOTE | 2020-06-15 13:44 | P.OP_ITS ---
Operative Report Date of procedure: June 15, 2020 Pre-op Diagnosis: Ovarian cancer Post-op diagnosis: same Procedure Done: Left internal jugular vein Port-A-Cath placement under ultrasound and fluoroscopic guidance. Interpretation of imaging studies was done by me through the whole entire procedure Implants: Left internal jugular vein PowerPort placement Surgeon: Alex Degroot Rubber Goods Assembler: structured cabling technician Tiera Circulating nurse Ronda Anesthesia: MAC (Sourav Lovelace) Estimated blood loss (mL): 10 Condition: stable Disposition: same day Brief History: This is a pleasant 55 years old female patient with history of ovarian cancer requiring Port-A-Cath placement. Plan of care; After thorough history physical examination and reviewing the chart, I counseled the patient for Port-A-Cath placement, indications, risks including pneumothorax and injury of major vascular structures, benefits,indications and alternatives were all discussed with the patient, patient understands and is interested to proceed. Rationale was carefully and clearly discussed with the patient.Appropriate informed consent have been reviewed and signed. Procedure: Patient was identified in the holding area and taken to the operative room and placed in supine position IV propofol was given by the anesthesia provider ,both arms were tucked,Time-out was done verifying the patient's name/date of /planned procedure and destination after the procedure, all were in agreement. SCDs confirmed to be functioning, preoperative antibiotics adminis tered per protocol, and beta girma protocol was confirmed, appropriate positioning of the patient was done by me. Medications were reviewed to assess for anticoagulant usage. Risks and benefits and prevention of central line associated blood stream infection (CLABSI) were discussed with the patient/CPOA, and a consent was obtained. Monitors were in place and monitored throughout the procedure. All necessary supplies were available prior to start. Hand hygiene was completed prior to starting. Maximum barrier technique was utilized including a sterile gown, sterile gloves with a hat and mask. Site was was prepped with [chlorhexidine] and a full body drape was placed. 5 mL of 2% lidocaine was injected into the skin with a 25 gauge needle. Prep& drape was done under the usual sterile technique, lidocaine 2% was injected at the site of the stick, started by left subclavian vein but arterial blood was retrieved another attempt was done in the venous blood was retrieved but the guidewire wound passed with ease so I decided at this point to abort and repeated my attention to the left internal jugular vein under ultrasound guidance,a stick that retrieved venous blood was obtained from the first stick under ultrasound guidance and there was no evidence of intraluminal thrombosis, interpretation was done by me through the whole entire procedure, a guidewire was then threaded and under the guidance of fluoroscopy position was confirmed to be in the IVC and my interpretation, there was no PVC changes, at that point the guidewire was secured to the drapes with a hemostat and the needle was taken out. Attention was then deviated towards creation of a pocket for the port were lidocaine 2% was injected using an 15 blade knife skin incision was created at the right upper Chest ,dissection using the Bovie to create a pocket for the PowerPort to be accommodated, hemostasis was secured, after the port being appropriately flushed it was inserted into the pocket and a tunneler was used to accommodate the catheter of the port cath to be delivered through the incision first created at the site of the stick, and then I was able to retrieve the catheter at the index site of the stick. At that point under fluoroscopy an estimated length was measured for the catheter and was cut at the designed level, followed by that a dilator with the sheath introduced onto the guidewire the dilator and the wire were retrieved and the catheter of the port was introduced via the sheath where it was peeled off and the catheter maintained to be in the SVC that was confirmed with fluorosc opy, and the fluoroscopy interpretation was done by me throughout the entire procedure. Multiple flushes of the port was done by diluted heparin and I was able to retrieve without difficulty venous blood as well as appropriate flushing was achieved. The port was kept in its pocket,3-0 Vicryl deep subdermal interrupted sutures, skin was then closed by 4-0 Monocryl as subcuticular closure. The stick site was closed by 4-0 Monocryl and surgical glue was used followed by dressing. Patient tolerated the procedure well was taken to the recovery area Count was correct at the end of the procedure I was present for the whole entire procedure Postoperative chest x-ray showed the catheter in good position without complications.
[2020-06-15 13:49] VITALS: BP 142/96; PULSE 78; RESP 18; TEMP 36.2; O2SAT 95
--- NOTE | 2020-06-15 13:50 | XRR_ITS ---
PROCEDURE INFORMATION: Exam: XR Chest, 1 View Exam date and time: 06/15/2020 2:02 PM Age: 55 years old Clinical indication: Device placement; Other: Left internal jugular vein powerport placement; Additional info: Status post left internal jugular vein powerport placement TECHNIQUE: Imaging protocol: XR of the chest Views: 1 view. COMPARISON: CR XR chest 1V portable [id number] 05/26/2020 11:43 AM FINDINGS: Tubes, catheters and devices: There is a left IJ catheter whose tip is in the superior vena cava. There is a right subclavian catheter as before. Lungs: Unremarkable. No consolidation. Pleural space: Unremarkable. No pleural effusion. No pneumothorax. Heart/Mediastinum: Unremarkable. No cardiomegaly. Bones/joints: Unremarkable. XR/XR chest 1V portable [id number] IMPRESSION: There is a left IJ catheter whose tip is in the superior vena cava.
[2020-06-15 14:13] VITALS: BP 143/96; PULSE 75; RESP 18; O2SAT 99
--- NOTE | 2020-06-15 14:34 | ANE.PACU2 ---
Inpatient post-anesthesia follow up: Airway intact: Yes Vital signs: Temperature 97.2 F Pulse Rate 75 Respiratory Rate 18 Blood Pressure 143/96 Pulse Oximetry 99 Oxygen Delivery Me thod Room Air Oxygen Flow Rate Fraction of Inspir ed Oxygen Hydration adequate: Yes Nausea and vomiting: No Pain level: 2 Mental status: Baseline
== END 2020-06-15 14:40 | disposition home or self-care (01) ==
PROVIDERS: PCP Family Medicine; Visit Provider Surgery
PROC: (CPT 36561; principal; 2020-06-15 11:55)
DX: C56.9 Malignant neoplasm of unspecified ovary (principal); F41.9 Anxiety disorder, unspecified; E11.9 Type 2 diabetes mellitus without complications; K21.9 Gastro-esophageal reflux disease without esophagitis; I10 Essential (primary) hypertension; Z80.3 Family history of malignant neoplasm of breast; Z80.8 Family history of malignant neoplasm of other organs or systems; Z82.49 Family history of ischemic heart disease and other diseases of the circulatory system; Z83.3 Family history of diabetes mellitus; Z79.4 Long term (current) use of insulin
CPT/HCPCS: 36561; 12345; 36416; 71045; 76000; 77001; 82962; C1788; J0690; J1644; J2250; J2704; J3010; J7030

== ENCOUNTER 2020-06-28 10:35 | Outpatient (CLI) | payer MEDICARE, MEDICAID, SELFPAY ==
--- NOTE | 2020-06-28 11:00 | USCV_ITS ---
Bessy Roy Age: 55 Gender: F : 1965 Exam Date: 06/28/2020 10:58 Ordering Phys: Alex Degroot MD Technologist: Jose Rafael Miller Exam Location: [facility] [place]_ Indication: acute embolism and thrombus PROCEDURES: Venous duplex imaging was performed in only the right upper extremity. The following venous structures were evaluated: internal jugular vein, subclavian vein, axillary vein, and brachial veins. In addition, the basilic vein, cephalic vein, radial vein, and ulnar vein. Serial compression, augmentation maneuvers, and spectral Doppler flow evaluation were performed. FINDINGS: There appears to be residual thrombus in the innominate (jugular dump site) and the distal jugal vein. All other veins examined appear free of thrombus at this time. CONCLUSIONS Residual thrombus in the innominate and distal jugular vein. Remainder of RUE veins are patent. Ketan Cerda MD (Electronically Signed) Final Date: 28 June 2020 17:36 S
== END 2020-06-28 10:36 | disposition home or self-care (01) ==
LOC: RAD 10:43
PROVIDERS: PCP Family Medicine; Visit Provider Surgery
DX: I82.621 Acute embolism and thrombosis of deep veins of right upper extremity (principal); I82.C11 Acute embolism and thrombosis of right internal jugular vein
CPT/HCPCS: 93971

== ENCOUNTER → 2020-07-06 09:07 | Outpatient (BNVA) | payer MEDICARE, MEDICAID, SELFPAY | PROVIDERS: PCP Family Medicine; Visit Provider Nurse Practitioner | DX: C56.9 Malignant neoplasm of unspecified ovary (principal) | CPT/HCPCS: 36415; 80053; 85025 ==

== ENCOUNTER → 2020-07-19 08:42 | Outpatient (BNVA) | payer MEDICARE, MEDICAID, SELFPAY | PROVIDERS: PCP Family Medicine; Visit Provider Internal Medicine Medical Oncology | DX: C77.2 Secondary and unspecified malignant neoplasm of intra-abdominal lymph nodes (principal) | CPT/HCPCS: 80053; 85025 ==

== ENCOUNTER 2020-07-20 05:41 | Outpatient (RCR) | payer MEDICARE, MEDICAID, SELFPAY ==
[2020-06-29] MEDS: sodium chloride 0.9% 250 ML 75 ML IV (09:40)
[2020-06-29] MEDS: palonosetron 0.25 mg/5 mL SDV IV (09:43)
[2020-06-29] MEDS: famotidine 20 mg/2 mL INJ IVP (09:45)
--- NOTE | 2020-06-29 09:48 | ONC FU_ITS ---
[facility] Patient Note Patient: Bessy Roy Unit #: [id number]: 1965 Dictated By: Smiley RuizDate of Visit: Jun 29, 2020 Onc MED Follow-Up/Prog Note Chief Complaint: Ovarian cancer. History of Present Illness: Ms Roy is a 55 year-old woman with recurrent ovarian cancer. She had presented in March 2012 with stage IIIC ovarian cancer. She was referred to Dr. Edilson Wahl for [employer] oncology. On 05/17/12 showed underwent exploratory laparotomy. The op note indicated a small amount of residual miliary disease present at the end of the procedure. It was estimated to be greater than 99% resected. Pathology showed a high-grade serous carcinoma involving both ovaries, measuring 9 cm on the right and 6 cm on the left. There was involvement in the omentum and multiple serosal surfaces including the appendix, uterus, and colon. There was no diagnostic abnormality in the included portion of rectosigmoid colon and there was no involvement in the skeletal muscle from the abdominal wall. There was involvement in the liver capsule, but not the liver parenchyma. The spleen showed no diagnostic abnormality. There was involvement in 4 of 20 lymph nodes. The ascitic fluid also was positive. Her postoperative course was complicated by development of an abscess in the left lower quadrant, requiring percutaneous drainage and antibiotic therapy. She did have a gradual recovery, and she subsequently was given postoperative chemotherapy with 6 cycles of carboplatin/Taxol, completed on 11/15/2012. There were delays during her chemotherapy related to poor compliance. In August 2013 she had recurrence and she began second line chemotherapy with carboplatin and weekly Taxol in combination with Avastin . As of 02/02/15 she had completed 6 cycles of chemotherapy. She had significant response by CA 125 level and by followup CT scan. Taxol was omitted with cycles 5 and 6 due to neuropathy. Her treatment was changed to maintenance Avastin. By June her CA-125 level began to increase. As of 08/19/2015 it was back up to 43 U/mL. At that point she restarted chemotherapy with Abraxane/Avastin, and her CA-125 level subsequently declined. She then continued treatment with Abraxane/Avastin, though not on a very consistent schedule due in part to toxicities and in part to compliance issues. As of her follow-up visit on 08/22/2017 her neuropathy symptoms had worsened significantly, and it was opted to put her treatment on hold. She returned on 09/26/2017 to begin further chemotherapy with carboplatin/gemcitabine on a day 1/day 15 schedule. Her baseline CA-125 level had increased to 15.1 U/mL. She had some fatigue following that treatment. She otherwise seemed to tolerate it pretty well, and she was able to continue treatment on a day 1/day 15 schedule. As of July 2018 she had completed 11 cycles of carboplatin/gemcitabine. She remained stable clinically with CA-125 level stable at 14.4 U/mL. In August 2018 she began maintenance therapy with olaparib 300 mg twice a day. At her scheduled visit on 04/10/2019 she appeared stable clinically, but there was a significant increase in her CA 125 level to 30.0 U/mL compared to 17.8 U/mL in January. With that change she had restaging CT scans of the chest/abdomen/pelvis on 04/18/2019. It showed new circumferential thickening of the stomach antrum and a small but slightly increase sized gastric lymph node. It was felt to possible represent inflammatory changes from peptic ulcer disease, but very early metastatic disease was not excluded. There was no ascites. There was stable, mild thickening of the right lateral urinary bladder wall. With those findings, Dr Benavidez opted to restart her on chemotherapy with carboplatin in combination with liposomal doxorubicin. She began cycle 1 on 05/08/2019. Her baseline CA 125 level was 58.9 U/mL. She tolerated the treatment with acceptable toxicity. She continued with cycle 2 on 06/05/2019 and with cycle 3 on 07/03/2019. At that point the CA 125 level had decreased just slightly, to 38.9 U/mL. At her followup visit visit on 07/31/2019 she had developed a significant skin eruption as well as other side effects with the chemotherapy. As there has been no further decline in the CA-125 level, I opted to stop that treatment. Restaging CT of the abdomen/pelvis on 09/09/2019 showed mesenteric deposits throughout the abdomen and pelvis, increased in size and number compared to the study from April 2019. Also noted was a soft tissue mass at the antrum of the stomach with slight increase in size and luminal narrowing. With those findings, it was opted to restart chemotherapy with carboplatin/gemcitabine. She began her 1st cycle on 10/08/2019 on a day 1/day 15 schedule. Her other medical illnesses include hypertension, type II diabetes, and anxiety/depression. She underwent repair of an incisional hernia which developed subsequent to her abdominal surgery in 2011. She is a nonsmoker. INTERIM HISTORY: She completed 1 full cycle of treatment with carboplatin/gemcitabine. She tolerated the chemotherapy pretty well, but after 1 cycle there was a significant increase in the CA-125 level. With that finding, she then began a trial of salvage therapy with pembrolizumab in combination with bevacizumab. She began cycle 1 on 12/04/2019. She tolerated it without any adverse effects. She continued with cycle 2 on 12/25/2019 and with cycle 3 on 01/15/2020. As of cycle 4 the bevacizumab was put on hold due to hypertension, but she did continue the pembrolizumab at 3-week intervals. Restaging CT scans of the chest, abdomen, and pelvis on 04/07/2020 showed continued progression of metastatic implants within the abdomen and pelvis compared to the August 2019 CT. There was increase in both size and number of mesenteric metastatic deposits and additional central mesenteric and pelvic mesenteric stranding which was highly suspicious for metastatic deposits involving the small bowel and colon in the right lower quadrant. There is no evidence of GI obstruction. There was suspected omental metastatic involvement. There was no ascites. There was no evidence of pulmonary metastatic disease. With those findings, she was given the option to go back on treatment with Abraxane in combination with pembrolizumab, as she was very motivated to continue with some form of treatment. She began cycle 1 on 04/15/2020. She tolerated it well, she continue with cycle 2 on 05/06/2020. 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 She began anticoagulation with apixaban. On 05/26/2020 she underwent removal of the Port-A-Cath. Her further treatment thus far has remained on hold. Her treatment has been delayed due to poor performance status and she had thrombus with her Port-A-Cath. It was removed. She did have recent replacement of the Port-A-Cath on the other side by Dr. Epstein. Ms. vasquez is here today for follow-up. She is due to resume her Abraxane Keytruda. She states overall she is feeling okay . She states she was sick over just queasy and yet. She is had more abdominal pain which she states is a lower abdomen. Her's CA 125 is also elevated to 153.4 it was 82.8 on May 05, 2020. We discussed that she really needs to resume treatment. She is in agreement. She denies any fever or chills. She states her mouth has healed. She denies nausea or vomiting. She states her bowels are normal for her. She denies any new neuropathy. Her performance status is marginal she is able to take care of her ADLs without assistance. She states that she does have to rest frequently but recovers well. She has no new concerns today. Her ECOG is 1. Past Medical History: Ovarian cancer (Dr. Wahl in [place] performed surgery) in 2011 She has previously been in good health. She has had some depression following the surgery. She has no other medical illnesses. Past Surgical History: Caesarean section Portacatheter placement PORTHACATHER PLACEMENT DR. LARRY Right leg abcess Portacatheter removal in 2019 Flu vaccine in 2019 Flu vacc in 2018 - rt deltoid Flucevax in 2017 - left deltoid Pneumovax in 2017 - right deltoid Exploratory lap in 2011 - MEG-BSO,recto-sigmoid resection,omentectomy,splenectomy,bilateral pelvic and periaortic lymph node dissections,appy,liver biopsy, Hysterectomy in 2012 Port placed in 2011 - dr. dela cruz ([facility]) Prior surgeries limited to section in 2001 and a procedure on her right leg for abscess at age 18. EXploratory lap in 2011 resulted in total abdominal hysterectomy with bilateral salpingo-oophorectomy, and en bloc rectosigmoid resctions, omentectomy with partial resection of the anterior abdominal wall, splenectomy, bilateral pelvic and periaortic lymph node dissections, appendectomy, liver biopsy and debulking of right diaphragm and peritoneal implants. Allergies: Morphine Sulfate Medications: ALPRAZolam 1 Tablet (of 0.5 mg) Oral t.i.d. PRN AmLODIPine Besylate 1 (5 mg) Tablet Oral daily CeleXA 1 (40 mg) Tablet Oral daily Compazine 1 (10 mg) Tablet Oral four times a day PRN Eliquis 1 Tablet (of 5 mg) Oral b.i.d. HumuLIN R Injection t.i.d. PRN Hydrocodone-Acetaminophen 1 - 2 Tablet (of 7.5-325 mg) Oral q 4 hours PRN Lantus 40 Units (of 100 Units/mL) Subcutaneous at bedtime PRN Levothyroxine Sodium 1 Tablet (of 125 mcg) Oral daily Magnesium 1 Tablet (of 400 mg) Oral daily MetFORMIN HCl 2 Tablet (of 500 mg) Oral b.i.d. Metoprolol Tartrate 1 Tablet (of 25 mg) Oral daily oxyCODONE HCl 1 Tablet (of 15 mg) Oral q 4 hours PRN Pantoprazole Sodium 1 Tablet (of 40 mg) Tablet, enteric coated Oral daily Voltaren 2 - 4 G (of 1 %) Gel (jelly) Transdermal PRN Family History: Ms. Roy's mother is alive: cancer history consists of Breast cancer while other medical history includes stroke and Alzheimers's disease at age 79. Ms. Jasons father is : cancer history consists of Thyroid Gland cancer while other medical history includes heart disease at age 62 (cause of ). Ms. Roy has 1 brother with an unknown alive status: medical history includes COPD and alcoholism. She has 1 maternal aunt with an unknown alive status: cancer history consists of Breast cancer. Family history significant for father having with heart disease at age 62. He also had thyroid cancer. Her mother is still living at age 79. She has Alzheimer's dementia and a history of strokes. She also has been treated for breast cancer. A maternal aunt also had breast cancer. She has one brother who is 60 years old and has COPD and alcoholism. Social History: Ms. Roy is single and she is a disabled. Ms. Roy has never smoked. She has no history of drinking. Ms. Roy reports the following support systems: lives with spouse, significant other, family, or friends, lives in own house, supportive family/friends willing to assist with needs, and adequate transportation available for expected visits. Her diet consists of regular meals. She indicates her activity level as: daily activities. She was previously and . She is currently unmarried, but she has a significant other. 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 She has never smoked. Review Of Symptoms: Constitutional Denies fevers, chills, night sweats, excessive fatigue or weight loss. Allergic/Immunologic No reactions. Eyes Denies significant visual changes. ENMT Denies sore throat, mouth sores, difficulty or changes in swallowing ability. Sinus drainage/allergies-chronic. Hematologic/Lymphatic Denies easy bruising or bleeding. The patient denies any tender or palpable lymph nodes. Breasts no concerns Respiratory Denies dyspnea on exertion, chest pain, cough. Cardiovascular Denies anginal chest pain. Gastrointestinal Denies current nausea, vomiting, diarrhea, GI bleeding, or constipation. Denies change in bowel habits and/or stool color, no heartburn or early satiety. Genitourinary (F) No hesitancy, incontinence, vaginal bleeding, discharge. UTI symptoms improved currently. Musculoskeletal Denies joint pain or specific bone pain. Integumentary Denies chronic rashes, inflammation. Neurologic Denies headache, blurred vision, and no areas of focal weakness or numbness. Normal gait. No sensory problems. Psychiatric Denies depression, anxiety. Vital Signs: Performed on Jun 29, 2020 09:01 Height - 63.50 in Weight - 202.0 lbs BSA - 1.95 sq.m BMI - 35.22 (HIGH) Temperature - 98.5 F Pulse - 75 /min Respiration - 24 /min BP - 149/83 mm(hg) (HIGH) O2 Sat - 97 % Pain - 4,1 - No physically strenuous activity, but ambulatory and able to carry out light or sedentary work (e.g. office work, light house work). (ECOG) Physical Examination: Constitutional Alert, oriented, no acute distress. Skin pink, warm and dry. Head Normocephalic; atraumatic. Eyes Conjunctivae and sclerae are clear and without icterus. Pupils are reactive and equal. Neck Supple without masses or thyromegaly. No jugular venous distension. left internal jugular port insertion site has healed well. Hematologic/Lymphatic No petechiae or purpura. No tender or palpable lymph nodes in the cervical, supraclavicular. Respiratory Lungs are clear to auscultation without rhonchi or wheezing. Cardiovascular Regular rate and rhythm of heart without murmurs,clicks, gallops or rubs. Chest Chest is symmetric without chest wall deformities. Right venous access device removal site is unremarkable. Left port insertion site has healed well. Abdomen Non-tender, non-distended, no masses noted .Good bowel sounds noted in all quads. No guarding or rebound tenderness. No pulsatile masses. Back/Spine Non-tender to palpation. Extremities No visible deformities, no cyanosis, clubbing or edema. Musculoskeletal No tenderness or swelling, normal range of motion without obvious weakness. Integumentary No rashes or lesions. Neurologic No sensory or motor deficits, normal cerebellar function, normal gait. Psychiatric Alert and oriented times three. Coherent speech. Verbalizes understanding of our discussions today. Laboratory:Test performed on May 12, 2020 09:03 Glucose 193 mg/dL BUN 21 mg/dL Creatinine 0.8 mg/dL Cr Clearance (Est) 116.75 mL/min Sodium 136 mmol/L Potassium 4.5 mmol/L Chloride 92 mmol/L CO2 28 mmol/L Calcium 9.2 mg/dL Protein, Total 5.9 g/dL Albumin 4.0 g/dL Globulin 1.9 g/dL Bilirubin, Total 0.3 mg/dL Alkaline Phosphatase 56 IU/L AST (SGOT) 9 IU/L ALT (SGPT) 8 IU/L WBC 9.1 10^9/L RBC 4.44 10^12/L HGB 12.4 g/dL HCT 38.5 % MCV 86.7 fl MCH 27.9 pg MCHC 32.1 g/dL RDW 16.5 % Platelet Count 432 10^9/L MPV 8.8 fL Neutrophils (Gran) 6.1 10^9/L Lymphocytes 2.8 10^9/L Monocytes 0.3 10^9/L Manual Lymphocytes 30.6 % Manual Monocytes 2.9 % Test performed on May 05, 2020 08:57 CA 125 82.8 Units/mL Test performed on Apr 15, 2020 08:46 Anion Gap 16.7 eGFR 65.0 mL/min Osmolality - Calculated 283 mOsm/kg Eosinophils 0.3 10 3/uL Basophils 0.1 10 3/uL Neutrophil % 64.8 % Lymphocyte % 23.7 % Monocyte % 7.0 % Eosinophil % 3.0 % Basophils % 1.0 % NRBC % 0.2 % Test performed on Apr 06, 2020 12:49 TSH 3.99 uU/mL Test performed on Feb 24, 2020 09:12 Manual Eosinophils 7.5 % Impression: 1. The patient with high-grade serous carcinoma of the ovary, stage IIIC at initial diagnosis. There was a small amount of residual miliary disease present following her initial surgery in April 2012. Her disease was estimated at greater than 99% resected. She was given postoperative chemotherapy with 6 cycles of carboplatin/Taxol, which she completed in October 2012. 2. In August 2014 she had evidence of recurrence by CA [address] scan, and she then initiated second line treatment with carboplatin and weekly Taxol in combination with Avastin. As of February 2015 she had completed 6 cycles of chemotherapy. 3. Her treatment was changed to maintenance Avastin. 4. As of 08/19/2015 she had 2 successive increases in her CA-125 level, and at that point she restarted chemotherapy with Abraxane in combination with Avastin. She had a very good response by CA-125 level. 5. As of her follow-up visit on 08/22/2017 her neuropathy had worsened significantly, and I opted to stop her treatment. On 09/26/2017 she began further chemotherapy with carboplatin/gemcitabine on a day 1/day 15 schedule. 6. As of July 2018 she had completed 11 cycles of treatment. She appeared stable clinically, and her restaging CT scans from 08/08/2018 had shown no evidence of disease progression. In August 2018 her treatment was changed to maintenance olaparib 300 mg twice daily. Her other medical illnesses include: 7. Hypertension. 8. Type II diabetes. 9. GERD. 10. Anxiety/depression. As of March 2019 there was evidence of disease progression with rising CA-[address] evidence of new circumferential thickening of the stomach antrum and slight increase in size of a gastric lymph node. She then restarted chemotherapy with carboplatin/liposomal doxorubicin. After 3 cycles of treatment, she had developed a significant skin eruption and other side effects. She had only a slight decrease in her CA-125 level. Given the side effects she was experiencing, I recommended that she stop treatment. Her restaging CT scans on 09/09/2019 showed evidence of disease progression with increase in size and number of mesenteric deposits throughout the abdomen and pelvis, including a soft tissue mass at the antrum of the stomach with slight increase in size and luminal narrowing. With limited treatment options available, I opted to have her restart chemotherapy with carboplatin/gemcitabine. She began cycle 1 on 10/08/2019 on a day 1/day 15 schedule. She has now completed 1 cycle of treatment with the carboplatin/gemcitabine. She has tolerated the chemotherapy with acceptable toxicity, and her clinical status appears stable. However, there was a progressive increase in the CA-125 level, so that she clearly was not benefiting with the treatment. As of 12/04/2019 she began a trial of salvage therapy with pembrolizumab in combination with bevacizumab. She initially tolerated the treatment well, but beginning with the fourth cycle the bevacizumab was put on hold due to hypertension. She continued pembrolizumab by 3-week intervals. Following completion of 6 cycles of treatment there was further increase in her CA-125 level as well as evidence of disease progression by restaging CT scans. She has began further treatment with Abraxane a combination with pembrolizumab, cycle 1 on 04/15/2020. She tolerated it well and continued with cycle 2 on 05/06/2020. Her further treatment has been on hold due to Port-A-Cath related right internal jugular vein thrombosis, for which she began anticoagulation with apixaban and subsequently underwent removal of the Port-A-Cath. She did have replacement Port-A-Cath per Dr Larry on 06/15/2020. Plan: 1. resume Abraxane Keytruda. She will proceed with her third cycle today. Her last treatment was May 06, 2020. 2. We will add Emend to cycle 3 as she did have significant nausea with cycle 1 but was improved dramatically by adding Emend with cycle 2. She was encouraged to take her antiemetics at home as needed as well. 3. Labs from June 28, 2020 were reviewed in detail and discussed with Cabrera and a copy was given to her. WBC 10.3, hemoglobin 10.9, platelets 516,000 ANC is 6400. Potassium 4.1 random glucose 125 creatinine 1.1 LFTs are normal. Her CA 125 was 153.4. 4. We will plan to go to weekly interim counts as she was doing the Abraxane. 5. We will plan to see her back in 3 weeks with CBC CMP TSH and follow-up for cycle 4 Abraxane Keytruda. 6. We will send a prescription for EMLA cream for port numbing prior to access. 7. Ms. Roy was encouraged to contact us in interim should questions or problems arise. Signed By: Smiley Ruiz-, [facility] Jeffrey Benavidez MD <<Signature on File>>
[2020-07-20] MEDS: famotidine 20 mg/2 mL INJ IVP (11:35)
[2020-07-20] MEDS: ondansetron 2 mg/ML SDV 2 mL 8 MG IV (11:42)
[2020-07-20 11:45] VITALS: RESP 18; O2SAT 96
[2020-07-20] MEDS: HYDROmorphone 1 mg/mL INJ 1 mL IVP (11:45)
[2020-07-20] MEDS: sodium chloride 0.9% 1,000 ML 999 ML IV (11:50)
--- NOTE | 2020-07-20 13:30 | XR_ITS ---
WS: [id number] ABDOMEN 1 VIEW(S) HISTORY: ABDOMINAL PAIN/CONSTIPATION/OVARIAN CA/NAUSEA VOMITING COMPARISON: 11/12/2017 Mild distention of the colon. There is fecal material and air. Constipation. Numerous calcifications are present in the RIGHT abdomen measuring up to 9.9 mm. These may be associa michael with the kidney. Prior cholecystectomy. No osteoblastic or osteolytic disease. XR/XR KUB [id number] IMPRESSION: Constipation and mild colon distention. Calcifications in the RIGHT abdomen are probably within the kidney.
--- NOTE | 2020-07-25 20:18 | ONC FU_ITS ---
[facility] Patient Note Patient: Bessy Roy Unit #: [id number]: 1965 Dictated By: Smiley RuizDate of Visit: Jul 20, 2020 Onc MED Follow-Up/Prog Note Chief Complaint: Ovarian cancer. History of Present Illness: Ms Roy is a 55 year-old woman with recurrent ovarian cancer. She had presented in March 2012 with stage IIIC ovarian cancer. She was referred to Dr. Edilson Wahl for [employer] oncology. On 05/17/12 showed underwent exploratory laparotomy. The op note indicated a small amount of residual miliary disease present at the end of the procedure. It was estimated to be greater than 99% resected. Pathology showed a high-grade serous carcinoma involving both ovaries, measuring 9 cm on the right and 6 cm on the left. There was involvement in the omentum and multiple serosal surfaces including the appendix, uterus, and colon. There was no diagnostic abnormality in the included portion of rectosigmoid colon and there was no involvement in the skeletal muscle from the abdominal wall. There was involvement in the liver capsule, but not the liver parenchyma. The spleen showed no diagnostic abnormality. There was involvement in 4 of 20 lymph nodes. The ascitic fluid also was positive. Her postoperative course was complicated by development of an abscess in the left lower quadrant, requiring percutaneous drainage and antibiotic therapy. She did have a gradual recovery, and she subsequently was given postoperative chemotherapy with 6 cycles of carboplatin/Taxol, completed on 11/15/2012. There were delays during her chemotherapy related to poor compliance. In August 2013 she had recurrence and she began second line chemotherapy with carboplatin and weekly Taxol in combination with Avastin . As of 02/02/15 she had completed 6 cycles of chemotherapy. She had significant response by CA 125 level and by followup CT scan. Taxol was omitted with cycles 5 and 6 due to neuropathy. Her treatment was changed to maintenance Avastin. By June her CA-125 level began to increase. As of 08/19/2015 it was back up to 43 U/mL. At that point she restarted chemotherapy with Abraxane/Avastin, and her CA-125 level subsequently declined. She then continued treatment with Abraxane/Avastin, though not on a very consistent schedule due in part to toxicities and in part to compliance issues. As of her follow-up visit on 08/22/2017 her neuropathy symptoms had worsened significantly, and it was opted to put her treatment on hold. She returned on 09/26/2017 to begin further chemotherapy with carboplatin/gemcitabine on a day 1/day 15 schedule. Her baseline CA-125 level had increased to 15.1 U/mL. She had some fatigue following that treatment. She otherwise seemed to tolerate it pretty well, and she was able to continue treatment on a day 1/day 15 schedule. As of July 2018 she had completed 11 cycles of carboplatin/gemcitabine. She remained stable clinically with CA-125 level stable at 14.4 U/mL. In August 2018 she began maintenance therapy with olaparib 300 mg twice a day. At her scheduled visit on 04/10/2019 she appeared stable clinically, but there was a significant increase in her CA 125 level to 30.0 U/mL compared to 17.8 U/mL in January. With that change she had restaging CT scans of the chest/abdomen/pelvis on 04/18/2019. It showed new circumferential thickening of the stomach antrum and a small but slightly increase sized gastric lymph node. It was felt to possible represent inflammatory changes from peptic ulcer disease, but very early metastatic disease was not excluded. There was no ascites. There was stable, mild thickening of the right lateral urinary bladder wall. With those findings, Dr Benavidez opted to restart her on chemotherapy with carboplatin in combination with liposomal doxorubicin. She began cycle 1 on 05/08/2019. Her baseline CA 125 level was 58.9 U/mL. She tolerated the treatment with acceptable toxicity. She continued with cycle 2 on 06/05/2019 and with cycle 3 on 07/03/2019. At that point the CA 125 level had decreased just slightly, to 38.9 U/mL. At her followup visit visit on 07/31/2019 she had developed a significant skin eruption as well as other side effects with the chemotherapy. As there has been no further decline in the CA-125 level, I opted to stop that treatment. Restaging CT of the abdomen/pelvis on 09/09/2019 showed mesenteric deposits throughout the abdomen and pelvis, increased in size and number compared to the study from April 2019. Also noted was a soft tissue mass at the antrum of the stomach with slight increase in size and luminal narrowing. With those findings, it was opted to restart chemotherapy with carboplatin/gemcitabine. She began her 1st cycle on 10/08/2019 on a day 1/day 15 schedule. Her other medical illnesses include hypertension, type II diabetes, and anxiety/depression. She underwent repair of an incisional hernia which developed subsequent to her abdominal surgery in 2011. She is a nonsmoker. INTERIM HISTORY: She completed 1 full cycle of treatment with carboplatin/gemcitabine. She tolerated the chemotherapy pretty well, but after 1 cycle there was a significant increase in the CA-125 level. With that finding, she then began a trial of salvage therapy with pembrolizumab in combination with bevacizumab. She began cycle 1 on 12/04/2019. She tolerated it without any adverse effects. She continued with cycle 2 on 12/25/2019 and with cycle 3 on 01/15/2020. As of cycle 4 the bevacizumab was put on hold due to hypertension, but she did continue the pembrolizumab at 3-week intervals. Restaging CT scans of the chest, abdomen, and pelvis on 04/07/2020 showed continued progression of metastatic implants within the abdomen and pelvis compared to the August 2019 CT. There was increase in both size and number of mesenteric metastatic deposits and additional central mesenteric and pelvic mesenteric stranding which was highly suspicious for metastatic deposits involving the small bowel and colon in the right lower quadrant. There is no evidence of GI obstruction. There was suspected omental metastatic involvement. There was no ascites. There was no evidence of pulmonary metastatic disease. With those findings, she was given the option to go back on treatment with Abraxane in combination with pembrolizumab, as she was very motivated to continue with some form of treatment. She began cycle 1 on 04/15/2020. She tolerated it well, she continue with cycle 2 on 05/06/2020. 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 She began anticoagulation with apixaban. On 05/26/2020 she underwent removal of the Port-A-Cath. Her further treatment thus far has remained on hold. Her treatment has been delayed due to poor performance status and she had thrombus with her Port-A-Cath. It was removed. She did have recent replacement of the Port-A-Cath on the other side by Dr. Epstein. Ms. Roy is here today for follow-up. She is complaining of abdominal pain and constipation today. She states she has also noticed some blood from her bowels after straining to go to the bathroom she states there was a little blood clot there . She states has been several days since her last bowel movement. She is states her appetite is diminished because there is just no room . She denies any other new pain. She denies any fever or chills. She states that she had had emesis a few days ago and it was just food that I had ate the had not been processed . Her last emesis was approximately 2 days ago but her last bowel movement has been more than 5 days ago per her report. She denies any mouth sores, sore throat or difficulty swallowing. She denies any lower extremity edema. She denies any bladder concerns. Her ECOG is 2. Past Medical History: Ovarian cancer (Dr. Wahl in [place] performed surgery) in 2011 She has previously been in good health. She has had some depression following the surgery. She has no other medical illnesses. Past Surgical History: Caesarean section Portacatheter placement PORTHACATHER PLACEMENT DR. LARRY Right leg abcess Portacatheter removal in 2019 Flu vaccine in 2019 Flu vacc in 2018 - rt deltoid Flucevax in 2017 - left deltoid Pneumovax in 2017 - right deltoid Exploratory lap in 2011 - MEG-BSO,recto-sigmoid resection,omentectomy,splenectomy,bilateral pelvic and periaortic lymph node dissections,appy,liver biopsy, Hysterectomy in 2011 Port placed in 2011 - dr. dela cruz ([facility]) Prior surgeries limited to section in 2001 and a procedure on her right leg for abscess at age 18. EXploratory lap in 2011 resulted in total abdominal hysterectomy with bilateral salpingo-oophorectomy, and en bloc rectosigmoid resctions, omentectomy with partial resection of the anterior abdominal wall, splenectomy, bilateral pelvic and periaortic lymph node dissections, appendectomy, liver biopsy and debulking of right diaphragm and peritoneal implants. Allergies: Morphine Sulfate Medications: ALPRAZolam 1 Tablet (of 0.5 mg) Oral t.i.d. PRN AmLODIPine Besylate 1 (5 mg) Tablet Oral daily CeleXA 1 (40 mg) Tablet Oral daily Compazine 1 (10 mg) Tablet Oral four times a day PRN Eliquis 1 Tablet (of 5 mg) Oral b.i.d. HumuLIN R Injection t.i.d. PRN Hydrocodone-Acetaminophen 1 - 2 Tablet (of 7.5-325 mg) Oral q 4 hours PRN Lantus 40 Units (of 100 Units/mL) Subcutaneous at bedtime PRN Levothyroxine Sodium 1 Tablet (of 125 mcg) Oral daily Magnesium 1 Tablet (of 400 mg) Oral daily MetFORMIN HCl 2 Tablet (of 500 mg) Oral b.i.d. Metoprolol Tartrate 1 Tablet (of 25 mg) Oral daily oxyCODONE HCl 1 Tablet (of 15 mg) Oral q 4 hours PRN Pantoprazole Sodium 1 Tablet (of 40 mg) Tablet, enteric coated Oral daily Voltaren 2 - 4 G (of 1 %) Gel (jelly) Transdermal PRN Family History: Ms. Roy's mother is alive: cancer history consists of Breast cancer while other medical history includes stroke and Alzheimers's disease at age 79. Ms. Jasons father is : cancer history consists of Thyroid Gland cancer while other medical history includes heart disease at age 62 (cause of ). Ms. Roy has 1 brother with an unknown alive status: medical history includes COPD and alcoholism. She has 1 maternal aunt with an unknown alive status: cancer history consists of Breast cancer. Family history significant for father having with heart disease at age 62. He also had thyroid cancer. Her mother is still living at age 79. She has Alzheimer's dementia and a history of strokes. She also has been treated for breast cancer. A maternal aunt also had breast cancer. She has one brother who is 60 years old and has COPD and alcoholism. Social History: Ms. Roy is single and she is a disabled. Ms. Roy has never smoked. She has no history of drinking. Ms. Roy reports the following support systems: lives with spouse, significant other, family, or friends, lives in own house, supportive family/friends willing to assist with needs, and adequate transportation available for expected visits. Her diet consists of regular meals. She indicates her activity level as: daily activities. She was previously and . She is currently unmarried, but she has a significant other. 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 She has never smoked. Review Of Symptoms: Constitutional Denies fevers, chills, night sweats, excessive fatigue or weight loss. Allergic/Immunologic No reactions. Eyes Denies significant visual changes. ENMT Denies sore throat, mouth sores, difficulty or changes in swallowing ability. Sinus drainage/allergies-chronic. Endocrine Recent increase in metformin to thousand twice daily which is tolerating well and her blood sugars have improved. Hematologic/Lymphatic Denies easy bruising or bleeding. The patient denies any tender or palpable lymph nodes. Breasts no concerns Respiratory Denies dyspnea on exertion, chest pain, cough. Cardiovascular Denies anginal chest pain. Gastrointestinal generalized abdominal pain and constipation. See above. Genitourinary (F) No hesitancy, incontinence, vaginal bleeding, discharge. No recurrent UTI symptoms at this time. Musculoskeletal Denies joint pain or specific bone pain. Integumentary Denies chronic rashes, inflammation. Neurologic Denies headache, blurred vision, and no areas of focal weakness or numbness. Normal gait. No sensory problems. Psychiatric Denies depression, anxiety. Vital Signs: Performed on Jul 20, 2020 10:53 Height - 63.50 in Weight - 197.8 lbs (LOW) BSA - 1.94 sq.m BMI - 34.49 (HIGH) Temperature - 98.2 F (LOW) Pulse - 97 /min Respiration - 16 /min BP - 197/108 mm(hg) (HIGH) O2 Sat - 99 % Pain - 9,2 - Ambulatory/capable of all self-care, unable to perform any work activities. Up and about more than 50% of waking hours. (ECOG) Physical Examination: Constitutional Alert, oriented, no acute distress. Skin pink, warm and dry. Head Normocephalic; atraumatic. Eyes Conjunctivae and sclerae are clear and without icterus. Pupils are reactive and equal. ENMT Sinuses are nontender. No oral exudates, ulcers, masses, thrush or mucositis. Oropharynx clear. Poor dentation noted. Hematologic/Lymphatic No petechiae or purpura. No tender or palpable lymph nodes in the cervical, supraclavicular. Respiratory Lungs are clear to auscultation without rhonchi or wheezing. Cardiovascular Regular rate and rhythm of heart without murmurs,clicks, gallops or rubs. Chest Chest is symmetric without chest wall deformities. Right venous access device removal site is unremarkable. Abdomen Abdomen is soft but tenderness noted in RUQ and RMQ. decreased bowel sounds in all quads. Back/Spine Non-tender to palpation. Extremities No visible deformities, no cyanosis, clubbing or edema. Musculoskeletal No tenderness or swelling, normal range of motion without obvious weakness. Integumentary No rashes or lesions. Neurologic No sensory or motor deficits, normal cerebellar function, normal gait. Psychiatric Alert and oriented times three. Coherent speech. Verbalizes understanding of our discussions today. Laboratory:Test performed on May 12, 2020 09:03 Glucose 193 mg/dL BUN 21 mg/dL Creatinine 0.8 mg/dL Cr Clearance (Est) 116.75 mL/min Sodium 136 mmol/L Potassium 4.5 mmol/L Chloride 92 mmol/L CO2 28 mmol/L Calcium 9.2 mg/dL Protein, Total 5.9 g/dL Albumin 4.0 g/dL Globulin 1.9 g/dL Bilirubin, Total 0.3 mg/dL Alkaline Phosphatase 56 IU/L AST (SGOT) 9 IU/L ALT (SGPT) 8 IU/L WBC 9.1 10^9/L RBC 4.44 10^12/L HGB 12.4 g/dL HCT 38.5 % MCV 86.7 fl MCH 27.9 pg MCHC 32.1 g/dL RDW 16.5 % Platelet Count 432 10^9/L MPV 8.8 fL Neutrophils (Gran) 6.1 10^9/L Lymphocytes 2.8 10^9/L Monocytes 0.3 10^9/L Manual Lymphocytes 30.6 % Manual Monocytes 2.9 % Impression: 1. The patient with high-grade serous carcinoma of the ovary, stage IIIC at initial diagnosis. There was a small amount of residual miliary disease present following her initial surgery in April 2012. Her disease was estimated at greater than 99% resected. She was given postoperative chemotherapy with 6 cycles of carboplatin/Taxol, which she completed in October 2012. 2. In August 2014 she had evidence of recurrence by CA [address] scan, and she then initiated second line treatment with carboplatin and weekly Taxol in combination with Avastin. As of February 2015 she had completed 6 cycles of chemotherapy. 3. Her treatment was changed to maintenance Avastin. 4. As of 08/19/2015 she had 2 successive increases in her CA-125 level, and at that point she restarted chemotherapy with Abraxane in combination with Avastin. She had a very good response by CA-125 level. 5. As of her follow-up visit on 08/22/2017 her neuropathy had worsened significantly, and I opted to stop her treatment. On 09/26/2017 she began further chemotherapy with carboplatin/gemcitabine on a day 1/day 15 schedule. 6. As of July 2018 she had completed 11 cycles of treatment. She appeared stable clinically, and her restaging CT scans from 08/08/2018 had shown no evidence of disease progression. In August 2018 her treatment was changed to maintenance olaparib 300 mg twice daily. Her other medical illnesses include: 7. Hypertension. 8. Type II diabetes. 9. GERD. 10. Anxiety/depression. As of March 2019 there was evidence of disease progression with rising CA-[address] evidence of new circumferential thickening of the stomach antrum and slight increase in size of a gastric lymph node. She then restarted chemotherapy with carboplatin/liposomal doxorubicin. After 3 cycles of treatment, she had developed a significant skin eruption and other side effects. She had only a slight decrease in her CA-125 level. Given the side effects she was experiencing, I recommended that she stop treatment. Her restaging CT scans on 09/09/2019 showed evidence of disease progression with increase in size and number of mesenteric deposits throughout the abdomen and pelvis, including a soft tissue mass at the antrum of the stomach with slight increase in size and luminal narrowing. With limited treatment options available, I opted to have her restart chemotherapy with carboplatin/gemcitabine. She began cycle 1 on 10/08/2019 on a day 1/day 15 schedule. She has now completed 1 cycle of treatment with the carboplatin/gemcitabine. She has tolerated the chemotherapy with acceptable toxicity, and her clinical status appears stable. However, there was a progressive increase in the CA-125 level, so that she clearly was not benefiting with the treatment. As of 12/04/2019 she began a trial of salvage therapy with pembrolizumab in combination with bevacizumab. She initially tolerated the treatment well, but beginning with the fourth cycle the bevacizumab was put on hold due to hypertension. She continued pembrolizumab by 3-week intervals. Following completion of 6 cycles of treatment there was further increase in her CA-125 level as well as evidence of disease progression by restaging CT scans. She has began further treatment with Abraxane a combination with pembrolizumab, cycle 1 on 04/15/2020. She tolerated it well and continued with cycle 2 on 05/06/2020. Her further treatment has been on hold due to Port-A-Cath related right internal jugular vein thrombosis, for which she began anticoagulation with apixaban and subsequently underwent removal of the Port-A-Cath. She did have replacement Port-A-Cath per Dr Larry on 06/15/2020. She was able to continue with cycle 3 on 06/30/2020. Plan: 1. Hold planned treatment today due to abdominal tenderness/constipation and reports of blood in her stool as well as nausea vomiting. 2. She has been referred to radiology for a KUB. If this is positive she will also need admission. 3. Aggressive hydration while we are waiting for her KUB. We have also checked with [facility] to see if they could carry relistor in the event that her KUB is negative. Unfortunately they do not have relistor. 4. Bessy states that she usually has really good luck with mag citrate but is has not tried that recently. She was given instructions on the mag citrate as well as stool softeners. She is advised that that is not working that we can try lactulose prescription with her. She verbalized understanding. 5. Labs from 07/19/2020 were reviewed in detail discussed with Ms. Cabrera and a copy was given to her. WBC 12.8, hemoglobin 11.4 hematocrit 36.2 platelets are 650,000 her ANC is 10,000. Creatinine 1.0 potassium 4.5 random glucose 164 total bilirubin 0.2 ALT is 11 AST is 12 her CA-125 was not available at the time of her visit. 6. Ms. Cabrera's KUB was reported as negative. She was given instructions on laxative use at home and encouraged to proceed with aggressive hydration. She was instructed to present to the emergency room she is having any further pain or any further problems. 7. We will see her back in 1 week. She was instructed to contact us in the interim if questions or problems arise, particularly if her bowels are not moving. Signed By: Smiley Ruiz-, AOCNP Jeffrey Benavidez MD<<Signature on File>>
== END 2020-07-20 19:00 | disposition home or self-care (01) ==
LOC: ONCMED 05:41
PROVIDERS: PCP Family Medicine; Visit Provider Nurse Practitioner
DX: Z51.11 Encounter for antineoplastic chemotherapy (principal); C56.2 Malignant neoplasm of left ovary; C56.1 Malignant neoplasm of right ovary; C78.6 Secondary malignant neoplasm of retroperitoneum and peritoneum; C77.2 Secondary and unspecified malignant neoplasm of intra-abdominal lymph nodes; R10.11 Right upper quadrant pain; K59.00 Constipation, unspecified; R11.2 Nausea with vomiting, unspecified; E11.9 Type 2 diabetes mellitus without complications; F41.8 Other specified anxiety disorders; I10 Essential (primary) hypertension; K92.1 Melena; K21.9 Gastro-esophageal reflux disease without esophagitis; Z86.718 Personal history of other venous thrombosis and embolism; Z79.01 Long term (current) use of anticoagulants; Z79.4 Long term (current) use of insulin
CPT/HCPCS: 74018; 80053; 85025; 86304; 96361; 96367; 96374; 96375; 96413; 96417; 99214; J1100; J1170; J1453; J2405; J2469; J3490; J7030; J7050; J9264; J9271

== ENCOUNTER 2020-07-20 19:29 | Inpatient (IN) | payer MEDICARE, MEDICAID, SELFPAY ==
[2020-07-20 19:45] VITALS: BP 191/88; PULSE 110; RESP 20; TEMP 37.9; O2SAT 99; BMI 34.9
--- NOTE | 2020-07-20 20:18 | CTR_ITS ---
PROCEDURE INFORMATION: Exam: CT Abdomen And Pelvis With Contrast Exam date and time: 07/20/2020 8:40 PM Age: 55 years old Clinical indication: Abdominal pain; Generalized; Prior surgery; Surgery type: Hysterectomy. Hernia. Csection. ; Patient HX: Abd pain with constipation and n/v. TECHNIQUE: Imaging protocol: Computed tomography of the abdomen and pelvis with intravenous contrast. Axial, coronal and sagittal reformatted images were created and reviewed. Radiation optimization: All CT scans at this facility use at least one of these dose optimization techniques: automated exposure control; mA and/or kV adjustment per patient size (includes targeted exams where dose is matched to clinical indication); or iterative reconstruction. Contrast material: OMNI 300; Contrast volume: 95 ml; Contrast route: INTRAVENOUS (IV); COMPARISON: CT abdomen pelvis w con* [id number] 04/21/2020 10:49 AM RADIATION DOSE METRICS: Total DLP (mGy-cm): 1096.09 FINDINGS: Mediastinal space: Small hiatal hernia. Liver: Unremarkable. Gallbladder and bile ducts: No radiodense gallstones. No biliary ductal dilatation. Pancreas: Unremarkable. Spleen: Unremarkable. Adrenal glands: Normal. No mass. Kidneys and ureters: Nonobstructing right renal calculi. No hydronephrosis. Stomach and bowel: Several moderately dilated loops of small bowel the upper abdomen with apparent transition to decompressed small bowel along the undersurface of the anterior abdominal wall, where there is associated bowel wall thickening and mesenteric nodularity, which appears more pronounced since the prior study. Pneumatosis. Appendix: Appendix not identified with certainty. Intraperitoneal space: Small ascites. No definite organized collection. No free air. Vasculature: Mild atherosclerotic disease. No aneurysm or dissection. Lymph nodes: No pathologically enlarged lymph nodes. Urinary bladder: Unremarkable as visualized. Reproductive: Status post hysterectomy. Bones/joints: No acute osseous abnormality. Osteopenia. Mild degenerative changes. Soft tissues: Unremarkable. CT/CT abdomen pelvis w con* [id number] IMPRESSION: 1. Small bowel obstruction, likely secondary to underlying carcinomatosis, as described above. 2. Additional findings, as above. Radiation Dose CTDIVOL = (mGy): DLP = 1096.09 (mGy-cm)
--- NOTE | 2020-07-20 20:21 | ED_ITS ---
HPI - Abdominal Pain General: Chief Complaint: Abdominal Pain Stated Complaint: nausea,vomiting/no bowel movement couple of days Time Seen by Provider: 07/20/20 20:07 Source: patient Mode of arrival: ambulatory Limitations: no limitations History of Present Illness: HPI narrative: 55-year-old female with a history of ovarian cancer with mets to her stomach. Patient is currently on chemo and states that over the last 2 days she has had increasing abdominal pain along with vomiting. She states she is also not had any bowel movements. States pain is sharp in nature and rates it a 6 out of 10. Denies any worsening improving factors. She has had low-grade fevers at home as well. She states she has had a partial small bowel obstruction in the past and this feels similar. She denies any cough or chest pain. MD elicited complaint: abdominal pain Associated Symptoms: Reports constipation, nausea and vomiting; Denies chills, dysuria and fever(s) Review of Systems Const: Denies: fever(s), chills, body aches or change in appetite Eyes: Denies: blurry vision or eye discomfort ENMT: Denies: throat pain or dental pain Card: Denies: chest pain Resp: Denies: dyspnea GI: Reports: abdominal pain, nausea, vomiting and constipation : Denies: dysuria Musc: Denies: neck pain or back pain Skin/Breast: Denies: rash Neuro: Denies: headache(s) Psych: Denies: depression Miguel/Lymph: Denies: easy bruising All/Imm: Denies: urticaria PFSH ED PFSH: Medical History (Updated 07/20/20 @ 21:27 by Cezar Isaac MD) Anxiety Diabetes mellitus Diabetes mellitus type 2, insulin dependent GERD (gastroesophageal reflux disease) History of drainage of abscess history of intra-abdominal abscess requiring drainage Hypertension Ovarian cancer Surgical History History of section, low transverse History of hysterectomy History of incisional hernia repair Hx of exploratory laparotomy Family History Mother Cancer Breast Cancer Father Cancer Thyroid cancer Other CAD (coronary artery disease) Dementia Diabetes Hyperlipidemia Hypertension Stroke Denies family history of Clotting disorder Psychiatric illness Chronic kidney disease (CKD) Suicide Anesthesia complication Bleeding disorder Family history of premature coronary artery disease Lung disease Social History Smoking and tobacco status: never smoked Second hand smoke exposure: No Smoking risk assessment/counseling performed?: Yes Alcohol intake: never Desire information about alcohol rehabilitation?: No Counseling given: No Desire information about substance/drug rehabilitation?: No Counseling given: No Marital status: Single Current occupational status: disabled History of recent travel: No Physical Exam Const: COMMON NORMALS: no acute distress, patient oriented x3 and healthy appearing HENMT: COMMON NORMALS: normocephalic and atraumatic HEAD & SCALP: normocep halic and atraumatic Eye: COMMON NORMALS: Equal, round and reactive pupils present and EOMs intact bilaterally PUPIL: Yes Equal, round and reactive pupils present Neck/C-Spine: COMMON NORMALS: full ROM and supple Chest: COMMONS NORMALS: normal inspection of the chest and normal palpation of entire chest wall Resp: COMMON NORMALS: normal respiratory effort, No retractions, No use of accessory muscles and clear to auscultation bilaterally AUSCULTATION: clear to auscultation bilaterally Cardio: COMMON NORMALS: regular rate, regular rhythm and No murmurs present (Cardio) RATE: regular rate RHYTHM: regular rhythm GI: COMMON NORMALS: no masses OTHER: Diffuse mild tenderness. Patient does have decreased bowel sounds on exam. Extremity: COMMON NORMALS: normal to inspection and full ROM Neuro: COMMON NORMALS: patient oriented x3, moves all extremities and no focal motor deficits Psych: COMMON NORMALS: mental status grossly normal, Normal thought process present and cooperative THOUGHT PROCESS: Normal thought process present Skin: COMMON NORMALS: no rashes or lesions noted and no wounds GENERAL SKIN EXAM: no rashes or lesions noted Course Vital Signs: Vital signs: Vital Signs Temperature 100.2 F H 07/20/20 19:45 Pulse Rate 110 H 07/20/20 19:45 Respiratory Rate 20 H 07/20/20 19:45 Blood Pressure 191/88 07/20/20 19:45 Pulse Oximetry 99 07/20/20 19:45 MDM - Abdominal Pain MDM Narrative: Medical decision making narrative: Bessy presents here with abdominal pain vomiting CT shows a small bowel obstruction. She is feeling improved after Zofran. Will place an NG tube. I spoke to hospitalist and will admit. Patient has been stable while in the ER. Lab Data: Labs: Lab Results 07/20/20 07/20/20 07/20/20 Range/Units 20:21 20:21 20:21 WBC 18.8 H (4.0-10.0) 10^3/ uL RBC 4.53 (4.1-5.3) 10^6/u L Hgb 12.7 (11.5-15.3) g/dL Hct 42.1 (37.0-47.0) % MCV 92.9 (81-99) fL MCH 28.0 (28.0-34.0) pg MCHC 30.2 (30.0-36.0) g/dL RDW 16.1 H (12.1-15.1) % Plt Count 587 H (130-400) 10^3/c mm MPV 9.5 (7.4-10.4) fL Neut % (Auto) 82.8 % Lymph % (Auto) 10.7 % [place] % (Auto) 5.0 % Eos % (Auto) 0.2 % Baso % (Auto) 0.5 % Neut # (Auto) 15.53 H (1.8-7.7) 10^3/u L Lymph # (Auto) 2.0 (0.8-4.8) 10^3/u L Pima # (Auto) 0.9 (0.2-0.9) 10^3/u L Eos # (Auto) 0.0 (0.0-0.8) 10^3/u L Baso # (Auto) 0.1 (0.0-0.1) 10^3/u L Nucleated RBC % (a uto) 0 % Nucleated RBCs # 0.0 /100WBC Sodium 137 (136-145) mmol/L Potassium 4.1 (3.5-5.1) mmol/L Chloride 93 L (98-107) mmol/L Carbon Dioxide 28 (22-29) mmol/L Anion Gap 20.1 H (5-19) BUN 12 (6-20) mg/dL Creatinine 0.9 (0.5-0.9) mg/dL GFR Calculation 65.0 L (90-130) mL/min Glucose 209 H (65-115) mg/dL Calculated Osmolal ity 290 (285-295) mOsm/k g Lactate 2.4 H (0.5-2.2) mmol/L Calcium 9.4 (8.5-10.5) mg/dL Total Bilirubin 0.4 (0.15-1.2) mg/dL AST 15 (0-32) U/L ALT 9 (0-33) U/L Alkaline Phosphata se 84 (35-105) IU/L Total Protein 7.1 (6.6-8.7) g/dL Albumin 4.1 (3.5-5.2) g/dL Globulin 3.0 (1.3-4.6) g/dL Lipase 16 (13-60) U/L Imaging Data ^: CT Abd/Pel: Radiologist's impression: [address] [id number] [address] Scan Report Signed Patient: Bessy Roy Unit #: [id number] : 1965 Age/Sex: 55 / F ADM Date: 07/20/20 Loc: ER Room/Bed: Attending Dr: Ordering Provider/Ordering MD: Cezar Isaac MD Date of Service: 07/20/20 Procedure(s): CT abdomen pelvis w con* [id number] Accession Number(s): [id number] Report Number: [id number] PROCEDURE INFORMATION: Exam: CT Abdomen And Pelvis With Contrast Exam date and time: 07/20/2020 8:40 PM Age: 55 years old Clinical indication: Abdominal pain; Generalized; Prior surgery; Surgery type: Hysterectomy. Hernia. Csection. ; Patient HX: Abd pain with constipation and n/v. TECHNIQUE: Imaging protocol: Computed tomography of the abdomen and pelvis with intravenous contrast. Axial, coronal and sagittal reformatted images were created and reviewed. Radiation optimization: All CT scans at this facility use at least one of these dose optimization techniques: automated exposure control; mA and/or kV adjustment per patient size (includes targeted exams where dose is matched to clinical indication); or iterative reconstruction. Contrast material: OMNI 300; Contrast volume: 95 ml; Contrast route: INTRAVENOUS (IV); COMPARISON: CT abdomen pelvis w con* [id number] 04/21/2020 10:49 AM RADIATION DOSE METRICS: Total DLP (mGy-cm): 1096.09 FINDINGS: Mediastinal space: Small hiatal hernia. Liver: Unremarkable. Gallbladder and bile ducts: No radiodense gallstones. No biliary ductal dilatation. Pancreas: Unremarkable. Spleen: Unremarkable. Adrenal glands: Normal. No mass. Kidneys and ureters: Nonobstructing right renal calculi. No hydronephrosis. Stomach and bowel: Several moderately dilated loops of small bowel the upper abdomen with apparent transition to decompressed small bowel along the undersurface of the anterior abdominal wall, where there is associated bowel wall thickening and mesenteric nodularity, which appears more pronounced since the prior study. Pneumatosis. Appendix: Appendix not identified with certainty. Intraperitoneal space: Small ascites. No definite organized collection. No free air. Vasculature: Mild atherosclerotic disease. No aneurysm or dissection. Lymph nodes: No pathologically enlarged lymph nodes. Urinary bladder: Unremarkable as visualized. Reproductive: Status post hysterectomy. Bones/joints: No acute osseous abnormality. Osteopenia. Mild degenerative changes. Soft tissues: Unremarkable. CT/CT abdomen pelvis w con* [id number] IMPRESSION: 1. Small bowel obstruction, likely secondary to underlying carcinomatosis, as described above. 2. Additional findings, as above. Discharge Plan Discharge Patient Disposition: Admitted As Inpatient Clinical Impression: Small bowel obstruction Condition: Stable Coding Level of Care Code ED Ticket Dispatcher for Chg Fwd Exam Comprehensive
[2020-07-20 20:36] LABS: Basophils # 0.1 10^3/uL (0.0-0.1); Basophils % 0.5 %; Eosinophils % 0.2 %; Hematocrit 42.1 % (37.0-47.0); Hemoglobin 12.7 g/dL (11.5-15.3); Lymphocytes % 10.7 %; Mean Corpuscular HGB Conc 30.2 g/dL (30.0-36.0); Mean Corpuscular Volume 92.9 fL (81-99); Mean Platelet Volume 9.5 fL (7.4-10.4); Monocytes # 0.9 10^3/uL (0.2-0.9); Neutrophils # 15.53 10^3/uL (1.8-7.7); Neutrophils % 82.8 %; Nucleated Red Blood Cells % 0 %; Platelet Count 587 10^3/cmm (130-400); Red Blood Count 4.53 10^6/uL (4.1-5.3); Red Cell Distribution Width 16.1 % (12.1-15.1); White Blood Count 18.8 10^3/uL (4.0-10.0)
[2020-07-20] MEDS: acetaminophen 500 mg Tablet 1000 MG PO (20:40)
[2020-07-20] MEDS: ondansetron 2 mg/ML SDV 2 mL 4 MG IVP (20:40)
[2020-07-20] MEDS: HYDROmorphone 1 mg/mL INJ 1 mL IVP (20:40)
[2020-07-20 20:48] LABS: Lactate (Lactic Acid level) 2.4 mmol/L (0.5-2.2)
[2020-07-20 20:49] LABS: Alanine Aminotransferase 9 U/L (0-33); Albumin Level 4.1 g/dL (3.5-5.2); Alkaline Phosphatase 84 IU/L (35-105); Blood Urea Nitrogen 12 mg/dL (6-20); Calcium 9.4 mg/dL (8.5-10.5); Carbon Dioxide 28 mmol/L (22-29); Chloride 93 mmol/L (98-107); Glucose 209 mg/dL (65-115); Lipase 16 U/L (13-60); Osmolality Calculated 290 mOsm/kg (285-295); Sodium 137 mmol/L (136-145); Total Bilirubin 0.4 mg/dL (0.15-1.2); Total Protein 7.1 g/dL (6.6-8.7)
[2020-07-20 20:51] LABS: Anion Gap 20.1 (5-19); Aspartate Amino Transferase 15 U/L (0-32); Potassium 4.1 mmol/L (3.5-5.1)
[2020-07-20] MEDS: iohexol 300 mg/mL 100 mL Btl IV (20:54)
--- NOTE | 2020-07-20 21:50 | P.HP_ITS ---
Providers/Chief Complaint Primary Care Provider: Mainor Lieberman DO Chief Complaint: nausea,vomiting/no bowel movement couple of days History of Present Illness Bessy Roy is a 55 year old female who has history of stage IIIc ovarian cancer diagnosed in 2012 underwent exploratory laparotomy with debulking surgery, high-grade serous carcinoma of both ovaries, involvement of liver capsule currently on Keytruda and Abraxane, and recent CT abdomen findings are concerning for continued progression of metastatic implants within abdomen and pelvis with increase in both size and number of mesenteric metastatic deposits with mesenteric stranding involving small bowel, colon right lower quadrant with suspected metastatic omental involvement. She also experienced Port-A-Cath related to right internal jugular vein thrombosis for which she was started on anticoagulant Eliquisl, recently Dr. Degroot placed another Port-A-Cath on the other side, presented today with chief complaint of nausea vomiting for last 2 days. Patient is stating that for last 48 hours she has been extremely nauseous, has had multiple bouts of emesis, she has not noticed any bleeding, she is not able to keep anything down even a sip of water would cause vomiting, she feels dehydrated, she was evaluated in the ER in the morning, abdominal x-ray was done which did not reveal cute pathology other than constipation and small bowel dilation she was discharged home however when she went home she started experiencing worse of her symptoms and her emesis got worse she came back to the hospital. This time CT abdomen was done which showed carcinomatosis , mesenteric adenitis, small bowel obstruction, low-grade fever 100.2 tachycardic, leukocytosis 18, she meets sepsis criteria, lactic acid 2.4, I would start her on septic bolus and Zosyn Review of Systems Const: Reports: fever(s), body aches, change in appetite, change in weight, fatigue and malaise Eyes: Denies: change in vision ENMT: Denies: throat pain Card: Reports: chest pain Resp: Denies: dyspnea GI: Reports: abdominal pain, nausea, vomiting and constipation; Denies: diarrhea : Denies: flank pain Musc: Denies: neck pain Skin/Breast: Denies: rash Neuro: Denies: headache(s) Psych: Reports: anxiety Endo: Denies: polyuria Miguel/Lymph: Denies: easy bruising All/Imm: Denies: urticaria Medications/Allergies Home Medications Medication Instructions Recorded Confirmed Last Taken Type insulin lispro 100 unit/mL 5 unit SUBCUT TID PRN 08/14/19 06/24/20 06/12/20 History subcutaneous solution mupirocin 2 % topical ointment 1 applic TOPICAL BID #30 gm 08/14/19 06/24/20 Unknown Rx alprazolam 0.5 mg tablet 0.5 mg PO QID PRN 02/12/20 06/24/20 06/14/20 History citalopram 40 mg tablet 40 mg PO DAILY 02/12/20 06/24/20 06/13/20 History lansoprazole 30 mg capsule,delayed 30 mg PO DAILY 02/12/20 06/24/20 06/13/20 History release metformin 500 mg tablet 500 mg PO BID tab 02/12/20 06/24/20 06/13/20 History metoprolol tartrate 25 mg tablet 25 mg PO BID 02/12/20 06/24/20 06/13/20 History pantoprazole 40 mg tablet,delayed 40 mg PO DAILY 02/12/20 06/24/20 3 Days Ago History release ~05/23/20 prochlorperazine maleate 10 mg 10 mg PO Q4H PRN tab 02/12/20 06/24/20 Unknown History tablet sennosides 8.6 mg-docusate sodium 2 tab-cap PO DAILY tab 02/12/20 06/24/20 04/20/20 History 50 mg tablet trazodone 50 mg tablet 50 mg PO BEDTIME 02/12/20 06/24/20 05/22/20 History hydromorphone [Dilaudid] 2 mg PO Q6H PRN 04/21/20 06/24/20 2 Days Ago History ~05/24/20 levothyroxine 150 mcg PO DAILY 04/21/20 06/24/20 06/13/20 History apixaban 5 mg tablet 5 mg PO BID 05/13/20 06/24/20 06/13/20 History hydrocodone-acetaminophen [Mcintosh] 1 tab PO Q6H PRN #28 tab 05/26/20 06/24/20 Unknown Rx enoxaparin 40 mg/0.4 mL 40 mg SUBCUT DAILY 2 Days #0.4 ml 06/10/20 06/24/20 Unknown Rx subcutaneous syringe Allergies Allergy/AdvReac Type Severity Reaction Status Date / Time morphine Allergy Unknown Verified 06/24/20 09:12 PFSH Acute PFSH: Medical History Anxiety Diabetes mellitus Diabetes mellitus type 2, insulin dependent GERD (gastroesophageal reflux disease) H/O open leg wound with skin graft History of drainage of abscess history of intra-abdominal abscess requiring drainage Hypertension Ovarian cancer 2011 Surgical History History of appendectomy History of section, low transverse History of hysterectomy Exploratory lap in 2011 - MEG-BSO,recto-sigmoid resection,omentectomy,splenectomy,bilateral pelvic and periaortic lymph node dissections,appy,liver biopsy, History of incisional hernia repair History of liver biopsy History of removal of Port-a-Cath 2019 Hx of exploratory laparotomy EXploratory lap in 2011 resulted in total abdominal hysterectomy with bilateral salpingo-oophorectomy, and en bloc rectosigmoid resctions, omentectomy with partial resection of the anterior abdominal wall, splenectomy, bilateral pelvic and periaortic lymph node dissections, appendectomy, liver biopsy and debulking of right diaphragm and peritoneal implants. Family History Mother Cancer Breast Cancer Father Cancer Thyroid cancer Other CAD (coronary artery disease) Dementia Diabetes Hyperlipidemia Hypertension Stroke Denies family history of Clotting disorder Psychiatric illness Chronic kidney disease (CKD) Suicide Anesthesia complication Bleeding disorder Family history of premature coronary artery disease Lung disease Social History Smoking and tobacco status: never smoked Second hand smoke exposure: No Smoking risk assessment/counseling performed?: Yes Alcohol intake: never Desire information about alcohol rehabilitation?: No Counseling given: No Desire information about substance/drug rehabilitation?: No Counseling given: No Marital status: Single Current occupational status: disabled History of recent travel: No Vitals/I&O/Wt Last Vital Signs Temp 100.2 F H 07/20/20 19:45 Pulse 110 H 07/20/20 19:45 Resp 20 H 07/20/20 19:45 BP 191/88 07/20/20 19:45 Pulse Ox 99 07/20/20 19:45 Weight last 48 hrs Weight 89.358 kg Physical Exam Narrative: EXAM NARRATIVE: Very pleasant middle-age female She was getting nasogastric tube placement when I entered the room, she tolerated the procedure very well Nasogastric tube immediately suction 350 cc of green-colored bilious stomach content No active bleeding was noticed Patient was very emotional S1-S2 tachycardia signs of dehydration Abdomen soft bowel sounds hyperactive no signs of peritonitis Lower extremity no edema gangrene ulcer No neurological deficit EOMI, PERRLA Awake alert oriented x3 GCS 15 Skin without any ulcers Left sided Port-A-Cath site without any drainage or sensitization Data : 07/20/20 20:21 07/20/20 20:21 Micro: Microbiology 07/20/20 20:21 Blood Culture - Preliminary Blood SPECIMEN COLLECTED A&P Assessment and plan (1) Small bowel obstruction: Small bowel obstruction most likely secondary to peritoneal carcinomatosis Currently no active signs of peritonitis NG tube drained 350 cc green-colored bilious content on placement of nasogastric tube Dr. Brar consulted I would hold off on her anticoagulant agents which she has been taking for internal jugular vein thrombosis secondary to PICC line placement, as I am not sure whether she will benefit only from conservative surgery versus more aggressive intervention As compared to previous CT abdomen this seems to be a progressive process of carcinomatosis, meta stasis which is contributing to small bowel obstruction, distended bowels with pneumatosis without active signs of perforation Status: Acute (2) Sepsis: Criteria met with fever, tachycardia, leukocytosis, high lactic acid Pneumatosis intestinalis We will start her on septic bolus and Zosyn No active signs of perforation Monitor closely We will follow up with general surgery recommendations, no acute indication for intervention for now, her last Eliquis dose was about 48 hours ago I would hold off on her anticoagulant agent in case she would require surgical intervention Status: Acute Additional A&P Information Secondary to recurrent/intractable nausea vomiting: Currently on D5 normal saline fluid maintenance rate High anion gap acidosis secondary to lactic acidemia Follow-up with lactic acid after fluid resuscitation Type 2 diabetes: Accu-Cheks every 6 hours with low-dose sliding scale Levothyroxine: Medications on hold at home she takes 150 mcg, currently normotensive no need of steroids for now if she goes for any surgical intervention will need stress dose steroids Goals of care: Full code DVT prophylaxis SCDs her last Eliquis dose was 48 hours ago N.p.o. Attestations Medical Necessity Statement*: Anticipating stay in the hospital cross more than 2 midnights currently need management for SBO, carcinomatosis, sepsis Time Spent in Patient Care: (>than 50% of time spent in counselling and/or direct pt care on unit) . 50mins Coding Level of Care Code Acute Fabricating Machine Operator for g Fwd Diagnoses Small bowel obstruction K56.609 Sepsis A41.9
[2020-07-20] MEDS: LORazepam 2 mg/mL INJ 1 mL 1 MG IVP (22:02)
[2020-07-20 22:04] VITALS: PULSE 107; RESP 18; O2SAT 97
[2020-07-20 23:56] VITALS: BP 145/89; PULSE 78; RESP 16; O2SAT 99
--- NOTE | 2020-07-20 23:58 | XRR_ITS ---
PROCEDURE INFORMATION: Exam: XR Chest, 1 View Exam date and time: 07/20/2020 12:10 AM Age: 55 years old Clinical indication: Device placement; Ng tube; Additional info: Ng tube placement TECHNIQUE: Imaging protocol: XR of the chest Views: Frontal portable upright view of the chest. COMPARISON: CR XR chest 1V portable [id number] 06/15/2020 1:58 PM FINDINGS: Tubes, catheters and devices: The feeding tube enters the stomach with the tip in the lower gastric body. The left internal jugular venous portacatheter tip is in the lower SVC. A right subclavian catheter is present with the tip overlying the right brachiocephalic vein. Lungs: Mild left lateral basilar subsegmental atelectasis. The lungs are otherwise peripherally clear bilaterally. The pulmonary vasculature is normal. Pleural space: No definite pleural effusion. No pneumothorax. Heart/Mediastinum: The heart is normal in size and contour. Vasculature: Mild aortic arch atherosclerotic calcification without ectasia. Bones/joints: No acute abnormality identified. Other findings: The gallbladder is likely surgically absent, with metallic clip overlying the gallbladder fossa. XR/XR chest 1V portable [id number] IMPRESSION: 1. Mild left lateral basilar subsegmental atelectasis. 2. Feeding tube placement as above.
[2020-07-21] VITALS (11 sets, daily range): BP systolic 120–164; BP diastolic 64–104; PULSE 78–105; RESP 15–20; TEMP 36.5–37.2; O2SAT 91–96
[2020-07-21] MEDS: piperacillin-tazobactam 3.375 GM in sodium chloride 0.9% (plus) 50 ML IV ×3 (02:22→18:25)
[2020-07-21] MEDS: sodium chloride 0.9% 1,000 ML 999 ML IV (02:22)
[2020-07-21] MEDS: HYDROmorphone 1 mg/mL INJ 1 mL IVP ×3 (02:55→15:14)
[2020-07-21] MEDS: dextrose 5%-sod chloride 0.9% 1,000 ML 75 ML IV ×2 (03:31→15:19)
[2020-07-21 06:32] LABS: Glucose Point of Care 161 mg/dL (70-110)
[2020-07-21 09:38] LABS: Basophils # 0.1 10^3/uL (0.0-0.1); Basophils % 0.6 %; Hematocrit 35.6 % (37.0-47.0); Lymphocytes # 2.4 10^3/uL (0.8-4.8); Mean Corpuscular HGB Conc 30.9 g/dL (30.0-36.0); Mean Corpuscular Volume 90.6 fL (81-99); Mean Platelet Volume 9.8 fL (7.4-10.4); Monocytes # 1.3 10^3/uL (0.2-0.9); Neutrophils # 12.21 10^3/uL (1.8-7.7); Nucleated Red Blood Cells % 0.1 %; Platelet Count 612 10^3/cmm (130-400); Red Blood Count 3.93 10^6/uL (4.1-5.3); Red Cell Distribution Width 15.9 % (12.1-15.1); White Blood Count 16.1 10^3/uL (4.0-10.0)
[2020-07-21 09:48] LABS: Blood Urea Nitrogen 11 mg/dL (6-20); Calcium 8.8 mg/dL (8.5-10.5); Carbon Dioxide 28 mmol/L (22-29); Chloride 99 mmol/L (98-107); Glucose 152 mg/dL (65-115); Osmolality Calculated 290 mOsm/kg (285-295); Sodium 139 mmol/L (136-145)
--- NOTE | 2020-07-21 10:20 | P.CONIM_ITS ---
Providers/Reason For Consult Consulting Physican/Specialty*: General Surgery Paco Brar MD Reason for Consult*: Small bowel obstruction in the presence of ovarian carcinoma/carcinomatosis. Attending Physician: Mimi Turner MD Primary Care Provider: Mainor Lieberman DO History of Present Illness History of Present Illness Bessy Roy is a 55 year old female with a known history of ovarian cancer/carcinomatosis who says that she started having abdominal pain 2 days prior to presentation. This was associated with nausea and vomiting. She describes pain across her upper abdomen. She had a very small bowel movement the day previous to the onset of her other symptoms but had not not passed any flatus or stool since then. She came to the emergency room and a CAT scan showed a small bowel obstruction with evidence of ovarian carcinomatosis. An nasogastric tube was inserted. She actually says she feels better this morning and has actually passed a little bit of flatus. She originally had extensive surgery for her ovarian cancer debulking in 2011 but no longer follows up with any physicians in [place] regularly. Dr. Benavidez is taking care of her from an oncologic standpoint. The patient tells me that she had similar problems around [facility] this year, although it seemed at the time that she may have been more constipated. She took some magnesium citrate and said she ended up starting to pass more stool and has done relatively well until recently. Review of Systems General: Reports: 10 or more systems reviewed and unremarkable except in HPI and below Const: Denies: fever(s) GI: Reports: abdominal pain, nausea and vomiting Psych: Reports: anxiety Meds/Allergies Home Medications and Allergies Home Medications Medication Instructions Recorded Confirmed Last Taken Type insulin lispro 100 unit/mL 5 unit SUBCUT TID PRN 08/14/19 07/21/20 06/12/20 History subcutaneous solution alprazolam 0.5 mg tablet 0.5 mg PO QID PRN 02/12/20 07/21/20 06/14/20 History citalopram 40 mg tablet 40 mg PO DAILY@02/12/20 07/21/20 06/13/20 History lansoprazole 30 mg capsule,delayed 30 mg PO DAILY@18 02/12/20 07/21/20 06/13/20 History release metformin 500 mg tablet 500 mg PO BID@ tab 0707/21/20 06/13/20 History metoprolol tartrate 25 mg tablet 25 mg PO BID 02/12/20 07/21/20 06/13/20 History pantoprazole 40 mg tablet,delayed 40 mg PO DAILY@02/12/20 07/21/20 3 Days Ago History release ~05/23/20 prochlorperazine maleate 10 mg 10 mg PO Q4H PRN tab 02/12/20 07/21/20 Unknown History tablet sennosides 8.6 mg-docusate sodium 2 tab-cap PO DAILY@ tab 02/12/20 07/21/20 04/20/20 History 50 mg tablet trazodone 50 mg tablet 50 mg PO BEDTIME@02/12/20 07/21/20 05/22/20 History levothyroxine 150 mcg PO DAILY@04/21/20 07/21/20 06/13/20 History apixaban 5 mg tablet 5 mg PO BID@05/13/20 07/21/20 06/13/20 History enoxaparin 40 mg/0.4 mL 40 mg SUBCUT DAILY 2 Days #0.4 ml 06/10/20 07/21/20 Unknown Rx subcutaneous syringe lactulose 15 ml PO PRN PRN 07/21/20 07/21/20 Unknown History Allergies Allergy/AdvReac Type Severity Reaction Status Date / Time morphine Allergy Trouble Verified 07/21/20 10:47 breathing Current Medications Current Medications Generic Name Dose Route Start Last Admin Trade Name Freq PRN Reason Stop Dose Admin Hydromorphone HCl 1 mg 07/21/20 01:45 07/21/20 08:33 Hydromorphone 1 Mg/Ml Inj 1 Ml IVP 1 mg Q4H PRN Administration AGITATION Dextrose/Sodium Chloride 1,000 mls @ 75 mls/hr 07/21/20 01:45 07/21/20 03:31 Dextrose 5%-Sod Chloride 0.9% IV 75 mls/hr .[id number] ALISIA Administration Piperacillin Sod/Tazobactam 50 mls @ 12.5 mls/hr 07/21/20 01:45 07/21/20 08:32 Sod 3.375 gm/ Sodium Chloride IV 12.5 mls/hr Q8H ALISIA Administration Protocol Insulin Aspart 0 unit 07/21/20 08:00 07/21/20 08:31 Insulin Aspart 100 Unit/1 Ml SUBCUT 2 unit WM&BEDTIME ALISIA Administration Protocol PFSH Acute PFSH: Medical History (Updated 07/21/20 @ 10:44 by Paco Brar MD) Anxiety Diabetes mellitus Diabetes mellitus type 2, insulin dependent GERD (gastroesophageal reflux disease) H/O open leg wound with skin graft History of drainage of abscess history of intra-abdominal abscess requiring drainage Hypertension Ovarian cancer 2011 Port-A-Cath in place Surgical History (Updated 07/21/20 @ 10:44 by Paco Brar MD) History of appendectomy History of section, low transverse History of hysterectomy Exploratory lap in 2011 - MEG-BSO,recto-sigmoid resection,omentectomy,splenectomy,bilateral pelvic and periaortic lymph node dissections,appy,liver biopsy, History of incisional hernia repair History of liver biopsy History of removal of Port-a-Cath Placed / Removed / Replaced contralateral IJ 2020 Hx of exploratory laparotomy EXploratory lap in 2011 resulted in total abdominal hysterectomy with bilateral salpingo-oophorectomy, and en bloc rectosigmoid resctions, omentectomy with partial resection of the anterior abdominal wall, splenecto my, bilateral pelvic and periaortic lymph node dissections, appendectomy, liver biopsy and debulking of right diaphragm and peritoneal implants. Family History Mother Cancer Breast Cancer Father Cancer Thyroid cancer Other CAD (coronary artery disease) Dementia Diabetes Hyperlipidemia Hypertension Stroke Denies family history of Clotting disorder Psychiatric illness Chronic kidney disease (CKD) Suicide Anesthesia complication Bleeding disorder Family history of premature coronary artery disease Lung disease Social History Smoking and tobacco status: never smoked Second hand smoke exposure: No Smoking risk assessment/counseling performed?: Yes Alcohol intake: never Desire information about alcohol rehabilitation?: No Counseling given: No Desire information about substance/drug rehabilitation?: No Counseling given: No Marital status: Single Current occupational status: disabled History of recent travel: No Vitals/I&O/Wt Last Vital Signs Temp 98.7 F 07/21/20 08:00 Pulse 104 H 07/21/20 08:00 Resp 18 07/21/20 08:33 BP 163/96 07/21/20 08:00 Pulse Ox 94 07/21/20 08:33 07/20/20 07/21/20 07/21/20 22:59 06:59 14:59 Intake Total 50 / 50 Balance 50 / 50 Weight last 48 hrs Weight 197 lb Physical Exam Narrative: EXAM NARRATIVE: The patient was encountered in her hospital room. She does not appear to be in any distress. The patient has a nasogastric tube in place that is draining green material but upon examining the canister the suction tubing was not hooked up correctly. Upon reconnecting and a small amount of fluid was drained from the tube/stomach. The pupils are equal. No carotid bruits are heard. The lungs are clear anteriorly. The heart is regular. The patient has a Port-A-Cath on the left side of the chest entering the left internal jugular vein. It is not being used currently. The abdomen reveals some bowel sounds that are hyperactive at times. She has some very mild scattered tenderness. There is a healed vertical scar in the epigastrium. The extremities do not reveal any edema. Neurologically the patient is grossly int act. Data Micro: Micro: Microbiology 07/20/20 21:00 Blood Culture - Pr eliminary Blood SPECIMEN [facility] SHANI 07/20/20 20:21 Blood Culture - Pr eliminary Blood SPECIMEN [facility] Imaging^: CT Abd/Pel: Radiologist's impression: CT scan abdomen/pelvis 07/20/2020 IMPRESSION: Stomach and bowel: Several moderately dilated loops of small bowel the upper abdomen with apparent transition to decompressed small bowel along the undersurface of the anterior abdominal wall, where there is associated bowel wall thickening and mesenteric nodularity, which appears more pronounced since the prior study. Pneumatosis. 1. Small bowel obstruction, likely secondary to underlying carcinomatosis, as described above. A&P Assessment and plan (1) Small bowel obstruction: CT reviewed. The patient's obstructive process is almost certainly from her carcinomatosis. Unfortunately, this is how ovarian carcinomatosis causes problems in the final stages. Surgery is likely to be more dangerous than helpful. I do not know that I have much to offer surgically, so I am glad that she is at least feeling better currently. Unless a gynecological oncologic surgeon has other thoughts, I do not know that surgery is much of an option. Status: Acute (2) Ovarian cancer: Status: Acute Consult Attestations Medical Necessity Statement: See admitting service's notation. Coding Level of Care Code Acute Automatic Brine Mixer Operator for Chg Fwd Diagnoses Small bowel obstruction K56.609 Ovarian cancer C56.9
[2020-07-21 13:20] LABS: Glucose Point of Care 132 mg/dL (70-110)
[2020-07-21 14:16] LABS: Lactate (Lactic Acid level) 0.9 mmol/L (0.5-2.2)
[2020-07-21] MEDS: ondansetron 2 mg/ML SDV 2 mL 4 MG IVP ×2 (15:13→22:01)
[2020-07-21 16:19] LABS: Glucose Point of Care 129 mg/dL (70-110)
--- NOTE | 2020-07-21 17:41 | PM.PN ---
Subjective Subjective: Interval history: Patient reports that she has improved abdominal pain and distention today. NGT remains to suction, bilious output from the same. She is starting to pass flatus, no bowel movement thus far. States last bowel movement was 4 to 5 days ago. Medications: Reviewed: Yes Vitals/I&O/Wt Last Vital Signs Temp 98.0 F 07/21/20 15:37 Pulse 99 07/21/20 15:37 Resp 16 07/21/20 15:37 BP 143/64 07/21/20 15:37 Pulse Ox 91 07/21/20 15:37 07/21/20 07/21/20 07/21/20 06:59 14:59 22:59 Intake Total 50 / 50 885 / 885 Balance 50 / 50 885 / 885 Weight last 48 hrs Weight 89.358 kg Physical Exam Narrative: EXAM NARRATIVE: GEN: Awake, alert and oriented, no acute distress CVS: S1S2 N RS: CTA B/L Abd: Soft, nt/nd , bs+ PIANO CASE MAKER: no focal neuro deficits Data : 07/21/20 04:45 07/21/20 04:45 Micro: Microbiology 07/20/20 21:00 Blood Culture - Preliminary Blood SPECIMEN COLLECTED 07/20/20 20:21 Blood Culture - Preliminary Blood SPECIMEN COLLECTED A&P Assessment and plan (1) Small bowel obstruction: Small bowel obstruction most likely secondary to peritoneal carcinomatosis Currently no active signs of peritonitis NG tube draining green-colored bilious content Appreciate general surgery recommendations. 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 If continues to improve in the next 24 to 48 hours, will likely resume Status: Acute (2) Sepsis: Criteria met with fever, tachycardia, leukocytosis, high lactic acid Pneumatosis intestinalis Continue Zosyn empirically Status: Acute Additional A&P Information Secondary to recurrent/intractable nausea vomiting: Currently on D5 normal saline fluid maintenance rate High anion gap acidosis secondary to lactic acidemia Follow-up with lactic acid after fluid resuscitation Type 2 diabetes: Accu-Cheks every 6 hours with low-dose sliding scale Levothyroxine: Medications on hold at home she takes 150 mcg, currently normotensive no need of steroids for now if she goes for any surgical intervention will need stress dose steroids Goals of care: Full code DVT prophylaxis SCDs her last Eliquis dose was 48 hours ago N.p.o. Attestations Medical Necessity Statement*: Small bowel obstruction secondary to peritoneal carcinomatosis, continuing conservative management for now. Coding Level of Care Code Acute Funeral Pre Arrangement Specialist for g Fwd Diagnoses Small bowel obstruction K56.609 Sepsis A41.9
[2020-07-21 19:58] LABS: Glucose Point of Care 116 mg/dL (70-110)
[2020-07-22] VITALS (9 sets, daily range): BP systolic 153–192; BP diastolic 60–104; PULSE 91–96; RESP 16–18; TEMP 36.7–37.4; O2SAT 94–98
[2020-07-22] MEDS: hyDRALAzine 20 mg/mL INJ 1 mL 5 MG IVP (01:03)
[2020-07-22] MEDS: piperacillin-tazobactam 3.375 GM in sodium chloride 0.9% (plus) 50 ML IV ×2 (02:39→09:16)
[2020-07-22] MEDS: HYDROmorphone 1 mg/mL INJ 1 mL IVP (03:00)
[2020-07-22] MEDS: dextrose 5%-sod chloride 0.9% 1,000 ML 50 ML IV (06:35)
[2020-07-22 06:40] LABS: Glucose Point of Care 121 mg/dL (70-110)
--- NOTE | 2020-07-22 08:19 | P.PN_ITS ---
Subjective Subjective: Interval history: The patient continues to pass flatus. She is very anxious to see if she can try to go home later today. Vitals/I&O/Wt Last Vital Signs Temp 98.0 F 07/22/20 07:44 Pulse 91 07/22/20 07:44 Resp 16 07/22/20 07:44 BP 153/60 07/22/20 07:44 Pulse Ox 96 07/22/20 07:44 07/21/20 07/22/20 07/22/20 22:59 06:59 14:59 Intake Total 931984. 1000.1984. Balance 1000.1984. Weight last 48 hrs Weight 197 lb Physical Exam Narrative: EXAM NARRATIVE: Abdomen is without appreciable tenderness. Data : 07/21/20 04:45 07/21/20 04:45 Micro: Microbiology 07/20/20 21:00 Blood Culture - Preliminary Blood NEGATIVE TO DATE 07/20/20 20:21 Blood Culture - Preliminary Blood NEGATIVE TO DATE A&P Assessment and plan (1) Small bowel obstruction: CT reviewed. The patient's obstructive process on presentation is almost certainly from her carcinomatosis. Unfortunately, this is how ovarian carcinomatosis causes problems in the final stages. Surgery is likely to be more dangerous than helpful. I do not know that I have much to offer surgically. Unless a gynecological oncologic surgeon has other thoughts, I do not know that surgery is much of an option. The patient continues to pass flatus. I am going to have nursing clamp her nasogastric tube and hope to get it out later today. Status: Acute (2) Ovarian cancer: Status: Acute Attestations Medical Necessity Statement*: See admitting service's notation. Coding Level of Care Code Acute Checkout Operator for [facility] Al Diagnoses Small bowel obstruction K56.609 Ovarian cancer C56.9
[2020-07-22 10:39] LABS: Basophils # 0.1 10^3/uL (0.0-0.1); Basophils % 0.5 %; Eosinophils % 0.1 %; Red Cell Distribution Width 15.7 % (12.1-15.1)
[2020-07-22 10:48] LABS: Alanine Aminotransferase 6 U/L (0-33); Albumin Level 3.4 g/dL (3.5-5.2); Alkaline Phosphatase 64 IU/L (35-105); Aspartate Amino Transferase 13 U/L (0-32); Blood Urea Nitrogen 7 mg/dL (6-20); Carbon Dioxide 27 mmol/L (22-29); Chloride 98 mmol/L (98-107); Globulin 2.8 g/dL (1.3-4.6); Glomerular Filtration Rate 86.9 mL/min (90-130); Glucose 130 mg/dL (65-115); Magnesium 1.3 mg/dL (1.7-2.3); Osmolality Calculated 282 mOsm/kg (285-295); Sodium 136 mmol/L (136-145); Total Bilirubin 0.3 mg/dL (0.15-1.2); Total Protein 6.2 g/dL (6.6-8.7)
[2020-07-22 10:49] LABS: Anion Gap 15.1 (5-19); Potassium 4.1 mmol/L (3.5-5.1)
[2020-07-22 11:02] LABS: Hematocrit 37.1 % (37.0-47.0); Hemoglobin 11.7 g/dL (11.5-15.3); Lymphocytes # 1.9 10^3/uL (0.8-4.8); Mean Corpuscular HGB Conc 31.5 g/dL (30.0-36.0); Mean Corpuscular Hemoglobin 28.4 pg (28.0-34.0); Mean Platelet Volume 9.5 fL (7.4-10.4); Neutrophils # 12.74 10^3/uL (1.8-7.7); Neutrophils % 80.8 %; Nucleated Red Blood Cells % 0.1 %; Platelet Count 506 10^3/cmm (130-400); Red Blood Count 4.12 10^6/uL (4.1-5.3); White Blood Count 15.8 10^3/uL (4.0-10.0)
[2020-07-22 11:03] LABS: Slide Review Slide Review Perform
--- NOTE | 2020-07-22 12:39 | PC.NURSE ---
[address] ENGEL PER PT REQUEST ABOUT D/C, PT CAN BE ADVANCED TO CLEAR LIQUIDS, IF TOLERATED, WE CAN REMOVE HER NG TUBE AND SHE IS GOOD TO GO FROM HIS STAND POINT
--- NOTE | 2020-07-22 13:20 | P.DS_ITS ---
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 Patient was admitted to general medical floors, had NG tube placed, pain control, kept n.p.o., received IV fluids, and clinically monitored. After discussion with general surgery and oncology, it was deemed that patient was a high risk for surgical intervention, especially as her ovarian cancer is e nd-stage. Patient was conservatively managed, she clinically improved, NG tube was removed, tolerating a clear liquid diet well. I spoke to Dr. Benavidez, he advised that likely patient will develop recurrent bowel obstructions secondary to peritoneal carcinomatosis, it is quite a difficult future course without any good interventions. After discussion with Dr. Benavidez, patient's Eliquis dose was decreased to 2.5 mg twice daily with Lovenox 40 mg daily to decrease her risk of recurrent port thrombosis. Patient is to follow-up with Dr. Benavidez in early next week. Physical Exam Const: COMMON NORMALS: patient oriented x3 GENERAL APPEARANCE: cooperative and frail appearing NUTRITIONAL APPEARANCE: obese HENMT: COMMON NORMALS: normocephalic HEAD & SCALP: normocephalic Neck/C-Spine: COMMON NORMALS: no JVD Resp: COMMON NORMALS: normal respiratory effort, No retractions, No use of accessory muscles and clear to auscultation bilaterally AUSCULTATION: clear to auscultation bilaterally Cardio: COMMON NORMALS: no JVD, regular rate, regular rhythm, S1 normal heart sound present and S2 normal heart sound present RATE: regular rate RHYTHM: regular rhythm HEART SOUNDS: S1 normal heart sound present and S2 normal heart sound present GI: COMMON NORMALS: Normal to inspection, nondistended, normoactive bowel sounds present, Soft to palpation, No hepatosplenomegaly present, no masses and no bruits INSPECTION: Yes abdominal distension AUSCULTATION: Yes Hypoactive bowel sounds present PALPATION: Yes Soft to palpation and Yes No hepatosplenomegaly present Extremity: COMMON NORMALS: capillary refill normal, no clubbing, cyanosis or edema, no calf tenderness and no pedal edema Neuro: COMMON NORMALS: patient oriented x3 Psych: COMMON NORMALS: mental status grossly normal Discharge Data Data Completed and Pending: Completed Studies During Hospitalization Category Date Time Status CT abdomen pelvis w con* [id number] Urge nt Cat Scan 07/20/20 20:18 Completed XR chest 1V zohreh ble [id number] Stat Exams 07/20/20 23:58 Completed Pending at discharge Category Date Time Status Blood Culture Sta t Lab 07/20/20 21:00 Results Labs from last 24 hours 07/22/20 07/22/20 07/22/20 10:12 10:04 06:32 WBC 15.8 H RBC 4.12 Hgb 11.7 Hct 37.1 MCV 90.0 MCH 28.4 MCHC 31.5 RDW 15.7 H Plt Count 506 H MPV 9.5 Neut % (Auto) 80.8 Lymph % (Auto) 12.0 Hardeman % (Auto) 6.0 Eos % (Auto) 0.1 Baso % (Auto) 0.5 Neut # (Auto) 12.74 H Lymph # (Auto) 1.9 Hardeman # (Auto) 1.0 H Eos # (Auto) 0.0 Baso # (Auto) 0.1 Nucleated RBC % (a uto) 0.1 Nucleated RBCs # 0.0 Sodium 136 Potassium 4.1 Chloride 98 Carbon Dioxide 27 Anion Gap 15.1 BUN 7 Creatinine 0.7 GFR Calculation 86.9 L Glucose 130 H POC Glucose 121 H Calculated Osmolal ity 282 L Lactate Calcium 9.0 Magnesium 1.3 L Total Bilirubin 0.3 AST 13 ALT 6 Alkaline Phosphata se 64 Total Protein 6.2 L Albumin 3.4 L Globulin 2.8 07/21/20 07/21/20 07/21/20 19:53 16:12 13:34 WBC RBC Hgb Hct MCV MCH MCHC RDW Plt Count MPV Neut % (Auto) Lymph % (Auto) [place]eman % (Auto) Eos % (Auto) Baso % (Auto) Neut # (Auto) Lymph # (Auto) Hardeman # (Auto) Eos # (Auto) Baso # (Auto) Nucleated RBC % (a uto) Nucleated RBCs # Sodium Potassium Chloride Carbon Dioxide Anion Gap BUN Creatinine GFR Calculation Glucose POC Glucose 116 H 129 H Calculated Osmolal ity Lactate 0.9 Calcium Magnesium Total Bilirubin AST ALT Alkaline Phosphata se Total Protein Albumin Globulin 07/21/20 13:17 WBC RBC Hgb Hct MCV MCH MCHC RDW Plt Count MPV Neut % (Auto) Lymph % (Auto) [place]eman % (Auto) Eos % (Auto) Baso % (Auto) Neut # (Auto) Lymph # (Auto) Hardeman # (Auto) Eos # (Auto) Baso # (Auto) Nucleated RBC % (a uto) Nucleated RBCs # Sodium Potassium Chloride Carbon Dioxide Anion Gap BUN Creatinine GFR Calculation Glucose POC Glucose 132 H Calculated Osmolal ity Lactate Calcium Magnesium Total Bilirubin AST ALT Alkaline Phosphata se Total Protein Albumin Globulin Vitals: Last Vital Signs Temp 99.3 F 07/22/20 12:00 Pulse 96 07/22/20 12:00 Resp 16 07/22/20 12:00 BP 192/76 07/22/20 12:00 Pulse Ox 97 07/22/20 12:00 Discharge Plan Discharge Patient Disposition: Home Condition: Stable Prescriptions: New amoxicillin-pot clavulanate [Augmentin] 875-125 mg tablet 1 tab PO Q12H 7 Days Qty: 14 RF: 0 Continued insulin lispro [Humalog U-100 Insulin] 100 unit/mL solution 5 unit SUBCUT TID PRN (Reason: blood sugar) RF: 0 metoprolol tartrate 25 mg tablet 25 mg PO BID RF: 0 citalopram 40 mg tablet 40 mg PO DAILY@18 RF: 0 pantoprazole 40 mg tablet,delayed release (DR/EC) 40 mg PO DAILY@18 RF: 0 prochlorperazine maleate 10 mg tablet 10 mg PO Q4H PRN (Reason: Nausea) RF: 0 alprazolam 0.5 mg tablet 0.5 mg PO QID PRN (Reason: Anxiety) RF: 0 lansoprazole 30 mg capsule,delayed release(DR/EC) 30 mg PO DAILY@18 RF: 0 sennosides-docusate sodium [Senna with Docusate Sodium] 8.6-50 mg tablet 2 tab-cap PO DAILY@07 RF: 0 trazodone 50 mg tablet 50 mg PO BEDTIME@21 RF: 0 metformin 500 mg tablet 500 mg PO BID@ RF: 0 enoxaparin [Lovenox] 40 mg/0.4 mL syringe 40 mg SUBCUT DAILY 2 Days Qty: 0.4 RF: 0 lactulose 10 gram/15 mL solution 15 ml PO PRN PRN (Reason: Constipation) RF: 0 levothyroxine 150 mcg Tablet 150 mcg PO DAILY@07 RF: 0 Changed Eliquis 5 mg tablet 2.5 mg PO BID@ Qty: 0 RF: 0 Discharge Orders: Discharge Order (Routine); Ordered 07/22/20 Ordered By: Yovany Kemp Referrals: Mainor Lieberman DO [Primary Care Provider] - Discharge Diet: Regular Discharge Activity: Resume usual activity Patient Instructions: Bowel Obstruction (DC) Discharge Attestations Time Spent in Discharge Care*: less than 30 min Quality Metrics Clinical Quality Measures During this hospital stay, did patient experience: None Coding Level of Care Code Acute Chemical Production Engineer for Chg Fwd Diagnoses Small bowel obstruction K56.609 Ovarian cancer C56.9
== END 2020-07-22 15:30 | disposition home or self-care (01) | DRG 872 ==
LOC: ER 21:27 → MEDSURG 07-21 00:47
PROVIDERS: Student in an Organized Health Care Education/Training Program; Admitting Provider Internal Medicine; Emergency Provider Emergency Medicine; PCP Family Medicine; Visit Provider Family Medicine
DX: A41.9 Sepsis, unspecified organism (principal); K56.609 Unspecified intestinal obstruction, unspecified as to partial versus complete obstruction; C78.6 Secondary malignant neoplasm of retroperitoneum and peritoneum; C56.9 Malignant neoplasm of unspecified ovary; E87.2 Acidosis; K63.89 Other specified diseases of intestine; E03.9 Hypothyroidism, unspecified; E11.9 Type 2 diabetes mellitus without complications; Z79.01 Long term (current) use of anticoagulants; Z79.4 Long term (current) use of insulin; F41.9 Anxiety disorder, unspecified; K21.9 Gastro-esophageal reflux disease without esophagitis
CPT/HCPCS: 12345; 36415; 36416; 71045; 74018; 74177; 80048; 80053; 82962; 83605; 83690; 83735; 85025; 87040; 96361; 96372; 96374; 96375; 99214; 99282; J0360; J1170; J1815; J2060; J2405; J2543; J3490; J7030; Q9967

== ENCOUNTER → 2020-07-28 09:00 | Outpatient (BNVA) | payer MEDICARE, MEDICAID, SELFPAY | PROVIDERS: PCP Family Medicine; Visit Provider Internal Medicine Medical Oncology | DX: C77.2 Secondary and unspecified malignant neoplasm of intra-abdominal lymph nodes (principal); C56.2 Malignant neoplasm of left ovary | CPT/HCPCS: 80053; 85025; 86304 ==

== ENCOUNTER 2020-07-29 06:13 | Outpatient (RCR) | payer MEDICARE, MEDICAID, SELFPAY ==
[2020-07-29] MEDS: famotidine 20 mg/2 mL INJ IVP (11:55)
[2020-07-29] MEDS: sodium chloride 0.9% 250 ML 75 ML IV (12:00)
[2020-07-29] MEDS: ondansetron 2 mg/ML SDV 2 mL 8 MG IV (12:00)
--- NOTE | 2020-08-03 23:53 | ONC FU_ITS ---
[facility] Patient Note Patient: Bessy Roy Unit #: [id number]: [id number] Dictated By: Smiley RuizDate of Visit: Jul 29, 2020 Onc MED Follow-Up/Prog Note Chief Complaint: Ovarian cancer. History of Present Illness: Ms Roy is a 55 year-old woman with recurrent ovarian cancer. She had presented in March 2012 with stage IIIC ovarian cancer. She was referred to Dr. Edilson Wahl for [employer] oncology. On 05/17/12 showed underwent exploratory laparotomy. The op note indicated a small amount of residual miliary disease present at the end of the procedure. It was estimated to be greater than 99% resected. Pathology showed a high-grade serous carcinoma involving both ovaries, measuring 9 cm on the right and 6 cm on the left. There was involvement in the omentum and multiple serosal surfaces including the appendix, uterus, and colon. There was no diagnostic abnormality in the included portion of rectosigmoid colon and there was no involvement in the skeletal muscle from the abdominal wall. There was involvement in the liver capsule, but not the liver parenchyma. The spleen showed no diagnostic abnormality. There was involvement in 4 of 20 lymph nodes. The ascitic fluid also was positive. Her postoperative course was complicated by development of an abscess in the left lower quadrant, requiring percutaneous drainage and antibiotic therapy. She did have a gradual recovery, and she subsequently was given postoperative chemotherapy with 6 cycles of carboplatin/Taxol, completed on 11/15/2012. There were delays during her chemotherapy related to poor compliance. In August 2013 she had recurrence and she began second line chemotherapy with carboplatin and weekly Taxol in combination with Avastin . As of 02/02/15 she had completed 6 cycles of chemotherapy. She had significant response by CA 125 level and by followup CT scan. Taxol was omitted with cycles 5 and 6 due to neuropathy. Her treatment was changed to maintenance Avastin. By June her CA-125 level began to increase. As of 08/19/2015 it was back up to 43 U/mL. At that point she restarted chemotherapy with Abraxane/Avastin, and her CA-125 level subsequently declined. She then continued treatment with Abraxane/Avastin, though not on a very consistent schedule due in part to toxicities and in part to compliance issues. As of her follow-up visit on 08/22/2017 her neuropathy symptoms had worsened significantly, and it was opted to put her treatment on hold. She returned on 09/26/2017 to begin further chemotherapy with carboplatin/gemcitabine on a day 1/day 15 schedule. Her baseline CA-125 level had increased to 15.1 U/mL. She had some fatigue following that treatment. She otherwise seemed to tolerate it pretty well, and she was able to continue treatment on a day 1/day 15 schedule. As of July 2018 she had completed 11 cycles of carboplatin/gemcitabine. She remained stable clinically with CA-125 level stable at 14.4 U/mL. In August 2018 she began maintenance therapy with olaparib 300 mg twice a day. At her scheduled visit on 04/10/2019 she appeared stable clinically, but there was a significant increase in her CA 125 level to 30.0 U/mL compared to 17.8 U/mL in January. With that change she had restaging CT scans of the chest/abdomen/pelvis on 04/18/2019. It showed new circumferential thickening of the stomach antrum and a small but slightly increase sized gastric lymph node. It was felt to possible represent inflammatory changes from peptic ulcer disease, but very early metastatic disease was not excluded. There was no ascites. There was stable, mild thickening of the right lateral urinary bladder wall. With those findings, Dr Benavidez opted to restart her on chemotherapy with carboplatin in combination with liposomal doxorubicin. She began cycle 1 on 05/08/2019. Her baseline CA 125 level was 58.9 U/mL. She tolerated the treatment with acceptable toxicity. She continued with cycle 2 on 06/05/2019 and with cycle 3 on 07/03/2019. At that point the CA 125 level had decreased just slightly, to 38.9 U/mL. At her followup visit visit on 07/31/2019 she had developed a significant skin eruption as well as other side effects with the chemotherapy. As there has been no further decline in the CA-125 level, I opted to stop that treatment. Restaging CT of the abdomen/pelvis on 09/09/2019 showed mesenteric deposits throughout the abdomen and pelvis, increased in size and number compared to the study from April 2019. Also noted was a soft tissue mass at the antrum of the stomach with slight increase in size and luminal narrowing. With those findings, it was opted to restart chemotherapy with carboplatin/gemcitabine. She began her 1st cycle on 10/08/2019 on a day 1/day 15 schedule. Her other medical illnesses include hypertension, type II diabetes, and anxiety/depression. She underwent repair of an incisional hernia which developed subsequent to her abdominal surgery in 2011. She is a nonsmoker. INTERIM HISTORY: She completed 1 full cycle of treatment with carboplatin/gemcitabine. She tolerated the chemotherapy pretty well, but after 1 cycle there was a significant increase in the CA-125 level. With that finding, she then began a trial of salvage therapy with pembrolizumab in combination with bevacizumab. She began cycle 1 on 12/04/2019. She tolerated it without any adverse effects. She continued with cycle 2 on 12/25/2019 and with cycle 3 on 01/15/2020. As of cycle 4 the bevacizumab was put on hold due to hypertension, but she did continue the pembrolizumab at 3-week intervals. Restaging CT scans of the chest, abdomen, and pelvis on 04/07/2020 showed continued progression of metastatic implants within the abdomen and pelvis compared to the August 2019 CT. There was increase in both size and number of mesenteric metastatic deposits and additional central mesenteric and pelvic mesenteric stranding which was highly suspicious for metastatic deposits involving the small bowel and colon in the right lower quadrant. There is no evidence of GI obstruction. There was suspected omental metastatic involvement. There was no ascites. There was no evidence of pulmonary metastatic disease. With those findings, she was given the option to go back on treatment with Abraxane in combination with pembrolizumab, as she was very motivated to continue with some form of treatment. She began cycle 1 on 04/15/2020. She tolerated it well, she continue with cycle 2 on 05/06/2020. 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 She began anticoagulation with apixaban. On 05/26/2020 she underwent removal of the Port-A-Cath. Her further treatment thus far has remained on hold. Her treatment has been delayed due to poor performance status and she had thrombus with her Port-A-Cath. It was removed. She did have recent replacement of the Port-A-Cath on the other side by Dr. Epstein. Ms. Roy is here today for follow-up. She presented for treatment last week but her treatment was held due to constipation, abdominal pain and nausea vomiting.. She was sent for KUB at [facility] which was reported as nonobstructing. It was reported as constipation at mild colon distention. She was encouraged to push fluids and attempt stool softeners and laxative to move her bowels. However she presented back to the emergency room later on 07/20/2020 and was found to have small bowel obstruction on CT, most likely due to peritoneal carcinomatosis. She had NG tube placement and IV hydration. After discussion with Dr. Brar and Dr. Benavidez it was felt that she was high risk for surgical intervention as her ovarian cancer is considered end-stage. She was managed conservatively and she improved clinically her NG tube was removed and she was tolerating clear liquid diet and was discharged home. Her Eliquis dose was decreased to 2.5 mg twice daily with Lovenox 40 mg daily. She is here today for follow-up and consideration of chemotherapy. She remains highly motivated to pursue chemotherapy. She is very concerned as her last treatment was on 06/29/2020 and prior to that was 05/06/2020. She states she felt like the immunotherapy had been helping her and she wants to proceed as she still has a daughter to graduate high school. She states her bowels are moving and she continues a clear liquid with soft food diet. She states she is slowly increasing her diet to avoid any further problems with the small bowel obstruction. She denies any fever or chills. She denies any new abdominal pain. She denies any urinary complaints. Her ECOG remains at 2. Past Medical History: Small bowel obstruction in 2019 Ovarian cancer (Dr. Wahl in [place] performed surgery) in 2011 She has previously been in good health. She has had some depression following the surgery. She has no other medical illnesses. Past Surgical History: Caesarean section Portacatheter placement PORTHACATHER PLACEMENT DR. LARRY Right leg abcess Portacatheter removal in 2019 Flu vaccine in 2019 Flu vacc in 2018 - rt deltoid Flucevax in 2017 - left deltoid Pneumovax in 2017 - right deltoid Exploratory lap in 2011 - MEG-BSO,recto-sigmoid resection,omentectomy,splenectomy,bilateral pelvic and periaortic lymph node dissections,appy,liver biopsy, Hysterectomy in 2011 Port placed in 2011 - dr. dela cruz ([facility]) Prior surgeries limited to section in 2001 and a procedure on her right leg for abscess at age 18. EXploratory lap in 2011 resulted in total abdominal hysterectomy with bilateral salpingo-oophorectomy, and en bloc rectosigmoid resctions, omentectomy with partial resection of the anterior abdominal wall, splenectomy, bilateral pelvic and periaortic lymph node dissections, appendectomy, liver biopsy and debulking of right diaphragm and peritoneal implants. Allergies: Morphine Sulfate Medications: ALPRAZolam 1 Tablet (of 0.5 mg) Oral t.i.d. PRN AmLODIPine Besylate 1 (5 mg) Tablet Oral daily CeleXA 1 (40 mg) Tablet Oral daily Compazine 1 (10 mg) Tablet Oral four times a day PRN Eliquis 1 Tablet (of 5 mg) Oral b.i.d. HumuLIN R Injection t.i.d. PRN Hydrocodone-Acetaminophen 1 - 2 Tablet (of 7.5-325 mg) Oral q 4 hours PRN Lantus 40 Units (of 100 Units/mL) Subcutaneous at bedtime PRN Levothyroxine Sodium 1 Tablet (of 125 mcg) Oral daily Magnesium 1 Tablet (of 400 mg) Oral daily MetFORMIN HCl 2 Tablet (of 500 mg) Oral b.i.d. Metoprolol Tartrate 1 Tablet (of 25 mg) Oral daily oxyCODONE HCl 1 Tablet (of 15 mg) Oral q 4 hours PRN Pantoprazole Sodium 1 Tablet (of 40 mg) Tablet, enteric coated Oral daily Voltaren 2 - 4 G (of 1 %) Gel (jelly) Transdermal PRN Family History: Ms. Roy's mother is alive: cancer history consists of Breast cancer while other medical history includes stroke and Alzheimers's disease at age 79. Ms. Roy's father is : cancer history consists of Thyroid Gland cancer while other medical history includes heart disease at age 62 (cause of ). Ms. Roy has 1 brother with an unknown alive status: medical history includes COPD and alcoholism. She has 1 maternal aunt with an unknown alive status: cancer history consists of Breast cancer. Family history significant for father having with heart disease at age 62. He also had thyroid cancer. Her mother is still living at age 79. She has Alzheimer's dementia and a history of strokes. She also has been treated for breast cancer. A maternal aunt also had breast cancer. She has one brother who is 60 years old and has COPD and alcoholism. Social History: Ms. Roy is single and she is a disabled. Ms. Roy has never smoked. She has no history of drinking. Ms. Roy reports the following support systems: lives with spouse, significant other, family, or friends, lives in own house, supportive family/friends willing to assist with needs, and adequate transportation available for expected visits. Her diet consists of regular meals. She indicates her activity level as: daily activities. She was previously and . She is currently unmarried, but she has a significant other. 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 She has never smoked. Review Of Symptoms: Constitutional Denies fevers, chills, night sweats, excessive or worsening fatigue or weight loss. Allergic/Immunologic No reactions. Eyes Denies significant visual changes. ENMT Denies sore throat, mouth sores, difficulty or changes in swallowing ability. Hematologic/Lymphatic Denies easy bruising or bleeding. The patient denies any tender or palpable lymph nodes. Respiratory Denies dyspnea on exertion, chest pain, cough. Cardiovascular Denies anginal chest pain. Gastrointestinal She states her bowels are moving and the abdominal pain has subsided. She states the bloating is also better currently. She denies any nausea. Genitourinary (F) No hesitancy, incontinence, vaginal bleeding, discharge. No recurrent UTI symptoms at this time. Musculoskeletal Denies joint pain or specific bone pain. Integumentary Denies chronic rashes, inflammation. Neurologic Denies headache, blurred vision, and no areas of focal weakness or numbness. Normal gait. No sensory problems. Psychiatric Denies depression, anxiety. Vital Signs: Performed on Jul 29, 2020 13:30 Height - 63.50 in Temperature - 98.2 F (LOW) Pulse - 70 /min Respiration - 18 /min BP - 130/81 mm(hg) O2 Sat - 99 % Pain - 0 Fatigue - 0,2 - Ambulatory/capable of all self-care, unable to perform any work activities. Up and about more than 50% of waking hours. (ECOG) Physical Examination: Constitutional Alert, oriented, no acute distress. Skin pink, warm and dry. Head Normocephalic; atraumatic. Eyes Conjunctivae and sclerae are clear and without icterus. Pupils are reactive and equal. Abdomen Non-tender, non-distended, no masses or ascites. Good bowel sounds noted in all quads. No guarding or rebound tenderness. No pulsatile masses. Back/Spine Non-tender to palpation. Extremities No visible deformities, no cyanosis, clubbing or edema. Musculoskeletal No tenderness or swelling, normal range of motion without obvious weakness. Integumentary No rashes or lesions. Neurologic No sensory or motor deficits, normal cerebellar function, normal gait. Psychiatric Alert and oriented times three. Coherent speech. Verbalizes understanding of our discussions today. Laboratory:Test performed on Jul 22, 2020 10:04 Glucose 130 mg/dL BUN 7 mg/dL Creatinine 0.7 mg/dL Cr Clearance (Est) 133.43 mL/min Sodium 136 mmol/L Potassium 4.1 mmol/L Chloride 98 mmol/L CO2 27 mmol/L Calcium 9.0 mg/dL Protein, Total 6.2 g/dL Albumin 3.4 g/dL Globulin 2.8 g/dL Bilirubin, Total 0.3 mg/dL Alkaline Phosphatase 64 IU/L AST (SGOT) 13 IU/L ALT (SGPT) 6 IU/L WBC 15.8 10^9/L RBC 4.12 10^12/L HGB 11.7 g/dL HCT 37.1 % MCV 90.0 fl MCH 28.4 pg MCHC 31.5 g/dL RDW 15.7 % Platelet Count 506 10^9/L MPV 9.5 fL Neutrophils (Gran) 12.74 10^9/L Lymphocytes 1.9 10^9/L Monocytes 1.0 10^9/L Eosinophils 0.0 10^9/L Basophils 0.1 10^9/L Manual Lymphocytes 12.0 % Manual Monocytes 6.0 % Manual Eosinophils 0.1 % Manual Basophils 0.0 % Test performed on May 05, 2020 08:57 CA 125 82.8 Units/mL Test performed on Apr 15, 2020 08:46 Anion Gap 16.7 eGFR 65.0 mL/min Osmolality - Calculated 283 mOsm/kg Neutrophil % 64.8 % Lymphocyte % 23.7 % Monocyte % 7.0 % Eosinophil % 3.0 % Basophils % 1.0 % NRBC % 0.2 % Test performed on Apr 06, 2020 12:49 TSH 3.99 uU/mL Impression: 1. The patient with high-grade serous carcinoma of the ovary, stage IIIC at initial diagnosis. There was a small amount of residual miliary disease present following her initial surgery in April 2012. Her disease was estimated at greater than 99% resected. She was given postoperative chemotherapy with 6 cycles of carboplatin/Taxol, which she completed in October 2012. 2. In August 2014 she had evidence of recurrence by CA [address] scan, and she then initiated second line treatment with carboplatin and weekly Taxol in combination with Avastin. As of February 2015 she had completed 6 cycles of chemotherapy. 3. Her treatment was changed to maintenance Avastin. 4. As of 08/19/2015 she had 2 successive increases in her CA-125 level, and at that point she restarted chemotherapy with Abraxane in combination with Avastin. She had a very good response by CA-125 level. 5. As of her follow-up visit on 08/22/2017 her neuropathy had worsened significantly, and I opted to stop her treatment. On 09/26/2017 she began further chemotherapy with carboplatin/gemcitabine on a day 1/day 15 schedule. 6. As of July 2018 she had completed 11 cycles of treatment. She appeared stable clinically, and her restaging CT scans from 08/08/2018 had shown no evidence of disease progression. In August 2018 her treatment was changed to maintenance olaparib 300 mg twice daily. Her other medical illnesses include: 7. Hypertension. 8. Type II diabetes. 9. GERD. 10. Anxiety/depression. As of March 2019 there was evidence of disease progression with rising CA-[address] evidence of new circumferential thickening of the stomach antrum and slight increase in size of a gastric lymph node. She then restarted chemotherapy with carboplatin/liposomal doxorubicin. After 3 cycles of treatment, she had developed a significant skin eruption and other side effects. She had only a slight decrease in her CA-125 level. Given the side effects she was experiencing, it was recommended that she stop treatment. Her restaging CT scans on 09/09/2019 showed evidence of disease progression with increase in size and number of mesenteric deposits throughout the abdomen and pelvis, including a soft tissue mass at the antrum of the stomach with slight increase in size and luminal narrowing. With limited treatment options available, Dr Benavidez opted to have her restart chemotherapy with carboplatin/gemcitabine. She began cycle 1 on 10/08/2019 on a day 1/day 15 schedule. She has now completed 1 cycle of treatment with the carboplatin/gemcitabine. She has tolerated the chemotherapy with acceptable toxicity, and her clinical status appears stable. However, there was a progressive increase in the CA-125 level, so that she clearly was not benefiting with the treatment. As of 12/04/2019 she began a trial of salvage therapy with pembrolizumab in combination with bevacizumab. She initially tolerated the treatment well, but beginning with the fourth cycle the bevacizumab was put on hold due to hypertension. She continued pembrolizumab by 3-week intervals. Following completion of 6 cycles of treatment there was further increase in her CA-125 level as well as evidence of disease progression by restaging CT scans. She has began further treatment with Abraxane a combination with pembrolizumab, cycle 1 on 04/15/2020. She tolerated it well and continued with cycle 2 on 05/06/2020. Her further treatment has been on hold due to Port-A-Cath related right internal jugular vein thrombosis, for which she began anticoagulation with apixaban and subsequently underwent removal of the Port-A-Cath. She did have replacement Port-A-Cath per Dr Larry on 06/15/2020. She was able to continue with cycle 3 on 06/30/2020. Mrs. Cabrera presented for treatment on 07/20/2020 with complaints of abdominal pain, constipation and nausea vomiting. She did have KUB during her follow-up visit which was reported as nonobstructing, constipation and mild colon distention. She presented later to the emergency room on 07/20/2020 and was found to have small bowel obstruction by CT. This was managed conservatively as she was considered high risk for surgery. Her symptoms have now resolved and she is motivated to continue treatment. She states that she feels the pembrolizumab was helping and she wants to continue treatment as much as possible due to the fact that she still has a daughter to graduate high school. Plan: 1. Proceed with Abraxane and pembrolizumab at normal dosing. 2. I have changed her antiemetics from palonosetron to ondansetron to hopefully decrease the risk of constipation/obstruction. 3. Labs from 07/28/2020 were reviewed in detail discussed with Ms. Roy and a copy was given to her. WBC 10.6, hemoglobin 11.6 platelets 604,000 ANC 6800 potassium 3.9 creatinine 1.0 calcium 9.3 LFTs are normal. Her CA-125 from 07/28/2020 was reported at 160.4 on 06/28/2020 was 153.4 and on 05/28/2020 was 73.8. 4. We will plan to see her back in 3 weeks with CBC CMP and CA-125. 5. She was instructed to contact us in the interim if questions or problems arise, particularly if her bowels are not moving. Signed By: Smiley Ruiz-, AOCNArsalan Benavidez MD <<Signature on File>>
== END 2020-07-29 23:59 | disposition home or self-care (01) ==
LOC: ONCMED 06:13
PROVIDERS: PCP Family Medicine; Visit Provider Nurse Practitioner
DX: Z51.12 Encounter for antineoplastic immunotherapy (principal); C56.2 Malignant neoplasm of left ovary; C56.1 Malignant neoplasm of right ovary; C77.2 Secondary and unspecified malignant neoplasm of intra-abdominal lymph nodes; E11.9 Type 2 diabetes mellitus without complications; Z51.81 Encounter for therapeutic drug level monitoring; Z79.899 Other long term (current) drug therapy; I10 Essential (primary) hypertension; K21.9 Gastro-esophageal reflux disease without esophagitis; F41.8 Other specified anxiety disorders
CPT/HCPCS: 96367; 96375; 96413; 96417; 99214; J1100; J1453; J2405; J3490; J7050; J9264; J9271

== ENCOUNTER → 2020-08-17 09:00 | Outpatient (BNVA) | payer MEDICARE, MEDICAID, SELFPAY | PROVIDERS: PCP Family Medicine; Visit Provider Internal Medicine Medical Oncology | DX: C77.2 Secondary and unspecified malignant neoplasm of intra-abdominal lymph nodes (principal); Z94.2 Lung transplant status; C56.2 Malignant neoplasm of left ovary; C56.1 Malignant neoplasm of right ovary | CPT/HCPCS: 80053; 85025; 86304 ==

== ENCOUNTER 2020-08-19 08:24 | Outpatient (RCR) | payer MEDICARE, MEDICAID, SELFPAY ==
[2020-08-19] MEDS: sodium chloride 0.9% 250 ML 75 ML IV (09:05)
[2020-08-19] MEDS: ondansetron 2 mg/ML SDV 2 mL 8 MG IVP (09:05)
[2020-08-19] MEDS: famotidine 20 mg/2 mL INJ IVP (09:10)
--- NOTE | 2020-08-19 13:24 | ONC FU_ITS ---
Dr. Benavidez Patient Follow-Up Note Patient: Bessy Roy Unit #: [id number]: 1965 Dicatated By: Jeffrey Benavidez M.D.Date of Visit:Aug 19, 2020 Onc Med Follow-up/Prog Note Chief Complaint: Ovarian cancer. History of Present Illness: This is a 55 year-old woman with recurrent ovarian cancer. She had presented in March 2012 with stage IIIC ovarian cancer. She was referred to Dr. Edilson Wahl for EMERGENCY MEDICINE oncology. On 05/17/12 showed underwent exploratory laparotomy. The op note indicated a small amount of residual miliary disease present at the end of the procedure. It was estimated to be greater than 99% resected. Pathology showed a high-grade serous carcinoma involving both ovaries, measuring 9 cm on the right and 6 cm on the left. There was involvement in the omentum and multiple serosal surfaces including the appendix, uterus, and colon. There was no diagnostic abnormality in the included portion of rectosigmoid colon and there was no involvement in the skeletal muscle from the abdominal wall. There was involvement in the liver capsule, but not the liver parenchyma. The spleen showed no diagnostic abnormality. There was involvement in 4 of 20 lymph nodes. The ascitic fluid also was positive. Her postoperative course was complicated by development of an abscess in the left lower quadrant, requiring percutaneous drainage and antibiotic therapy. She did have a gradual recovery, and she subsequently was given postoperative chemotherapy with 6 cycles of carboplatin/Taxol, completed on 11/15/2012. There were delays during her chemotherapy related to poor compliance. In August 2013 she had recurrence and she began second line chemotherapy with carboplatin and weekly Taxol in combination with Avastin . As of 02/02/15 she had completed 6 cycles of chemotherapy. She had significant response by CA 125 level and by followup CT scan. Taxol was omitted with cycles 5 and 6 due to neuropathy. Her treatment was changed to maintenance Avastin. By June her CA-125 level began to increase. As of 08/19/2015 it was back up to 43 U/mL. At that point she restarted chemotherapy with Abraxane/Avastin, and her CA-125 level subsequently declined. She then continued treatment with Abraxane/Avastin, though not on a very consistent schedule due in part to toxicities and in part to compliance issues. As of her follow-up visit on 08/22/2017 her neuropathy symptoms had worsened significantly, and I did opt to put her treatment on hold. She returned on 09/26/2017 to begin further chemotherapy with carboplatin/gemcitabine on a day 1/day 15 schedule. Her baseline CA-125 level had increased to 15.1 U/mL. She had some fatigue following that treatment. She otherwise seemed to tolerate it pretty well, and she was able to continue treatment on a day 1/day 15 schedule. As of July 2018 she had completed 11 cycles of carboplatin/gemcitabine. She remained stable clinically with CA-125 level stable at 14.4 U/mL. In August 2018 she began maintenance therapy with olaparib 300 mg twice a day. At her scheduled visit on 04/10/2019 she appeared stable clinically, but there was a significant increase in her CA 125 level to 30.0 U/mL compared to 17.8 U/mL in January. With that change she had restaging CT scans of the chest/abdomen/pelvis on 04/18/2019. It showed new circumferential thickening of the stomach antrum and a small but slightly increase sized gastric lymph node. It was felt to possible represent inflammatory changes from peptic ulcer disease, but very early metastatic disease was not excluded. There was no ascites. There was stable, mild thickening of the right lateral urinary bladder wall. With those findings, I opted to restart her on chemotherapy with carboplatin in combination with liposomal doxorubicin. She began cycle 1 on 05/08/2019. Her baseline CA 125 level was 58.9 U/mL. She tolerated the treatment with acceptable toxicity. She continued with cycle 2 on 06/05/2019 and with cycle 3 on 07/03/2019. At that point the CA 125 level had decreased just slightly, to 38.9 U/mL. At her followup visit visit on 07/31/2019 she had developed a significant skin eruption as well as other side effects with the chemotherapy. As there has been no further decline in the CA-125 level, I opted to stop that treatment. Restaging CT of the abdomen/pelvis on 09/09/2019 showed mesenteric deposits throughout the abdomen and pelvis, increased in size and number compared to the study from April 2019. Also noted was a soft tissue mass at the antrum of the stomach with slight increase in size and luminal narrowing. With those findings, I opted to restart chemotherapy with carboplatin/gemcitabine. She began her 1st cycle on 10/08/2019 on a day 1/day 15 schedule. Her other medical illnesses include hypertension, type II diabetes, and anxiety/depression. She underwent repair of an incisional hernia which developed subsequent to her abdominal surgery in 2011. She is a nonsmoker. INTERIM HISTORY: She completed 1 full cycle of treatment with carboplatin/gemcitabine. She tolerated the chemotherapy pretty well, but after 1 cycle there was a significant increase in the CA-125 level. With that finding, she then began a trial of salvage therapy with pembrolizumab in combination with bevacizumab. She began cycle 1 on 12/04/2019. She tolerated it without any adverse effects. She continued with cycle 2 on 12/25/2019 and with cycle 3 on 01/15/2020. As of cycle 4 the bevacizumab was put on hold due to hypertension, but she did continue the pembrolizumab at 3-week intervals. Restaging CT scans of the chest, abdomen, and pelvis on 04/07/2020 showed continued progression of metastatic implants within the abdomen and pelvis compared to the August 2019 CT. There was increase in both size and number of mesenteric metastatic deposits and additional central mesenteric and pelvic mesenteric stranding which was highly suspicious for metastatic deposits involving the small bowel and colon in the right lower quadrant. There is no evidence of GI obstruction. There was suspected omental metastatic involvement. There was no ascites. There was no evidence of pulmonary metastatic disease. With those findings, she was given the option to go back on treatment with Abraxane in combination with pembrolizumab, as she was very motivated to continue with some form of treatment. She began cycle 1 on 04/15/2020. She tolerated it well, she continue with cycle 2 on 05/06/2020. 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 She began anticoagulation with apixaban. On 05/26/2020 she underwent removal of the Port-A-Cath, and her treatment was put on hold. She was then able to undergo placement of a left internal jugular vein Port-A-Cath on 06/15/2020. She continued with cycle 3 of Abraxane/pembrolizumab on 06/29/2020. On 07/20/2020 she was admitted to the hospital with small bowel obstruction. Her CT abdomen/pelvis showed some associated bowel wall thickening and mesenteric nodularity which was suspicious for underlying carcinomatosis. It appeared to be a little more pronounced compared to the prior study, but there were no other obvious findings of disease progression. The obstruction resolved with conservative management. She continued with cycle 4 of Abraxane/pembrolizumab on 07/29/2020. She is seen for a follow-up visit. Since her hospitalization she has been watching her diet more carefully and also paying more attention to her bowel regimen. Overall, she has been feeling much better generally, though she still feels somewhat tired and lazy. ECOG score is 1. Her appetite is fairly good. She has not had fever. She does have hot flashes/sweating. She has no shortness of breath, cough, or chest pain. She has not been having nausea or abdominal pain. Her bowels are moving 2-3 times a day, and her stools are getting more solid. She still has some difficulty voiding. She has no significant joint or bone pain. She does not complain of headache or dizziness. Her neuropathy is about the same. Medications: ALPRAZolam 1 Tablet (of 0.5 mg) Oral t.i.d. PRN, AmLODIPine Besylate 1 (5 mg) Tablet Oral daily, CeleXA 1 (40 mg) Tablet Oral daily, Colace 3 (100 mg) Capsule Oral b.i.d., Compazine 1 (10 mg) Tablet Oral four times a day PRN, Eliquis 1 Tablet (of 5 mg) Oral b.i.d., HumuLIN R Injection t.i.d. PRN, Hydrocodone-Acetaminophen 1 - 2 Tablet (of 7.5-325 mg) Oral q 4 hours PRN, Lantus 40 Units (of 100 Units/mL) Subcutaneous at bedtime PRN, Levothyroxine Sodium 1 Tablet (of 125 mcg) Oral daily, Magnesium 1 Tablet (of 400 mg) Oral daily, Melatonin 4 (10 mg) Tablet Oral at bedtime, MetFORMIN HCl 2 Tablet (of 500 mg) Oral b.i.d., Metoprolol Tartrate 1 Tablet (of 25 mg) Oral daily, oxyCODONE HCl 1 Tablet (of 15 mg) Oral q 4 hours PRN, Pantoprazole Sodium 1 Tablet (of 40 mg) Tablet, enteric coated Oral daily, Probiotic & Acidophilus Ex St 1 Capsule Oral b.i.d., Voltaren 2 - 4 G (of 1 %) Gel (jelly) Transdermal PRN Allergies: Morphine Sulfate Vital Signs: Performed on Aug 19, 2020 08:39 Height - 63.50 in Weight - 184.2 lbs (LOW) BSA - 1.88 sq.m BMI - 32.12 (HIGH) Temperature - 97.0 F (LOW) Pulse - 71 /min Respiration - 16 /min BP - 133/81 mm(hg) O2 Sat - 100 % Pain - 0 Physical Examination: Constitutional - She looks pretty good generally, Eyes - Sclerae nonicteric. Conjunctivae clear, ENMT - No lesions noted in the oral cavity, Hematologic/Lymphatic - No cervical, clavicular, or axillary adenopathy, Respiratory - Lungs sound clear, Cardiovascular - Heart rhythm is regular. There is a II/ systolic murmur. There is no gallop or rub noted, Abdomen - Mildly distended but soft. Liver is not enlarged. There is no abdominal mass or noted and there is no obvious ascites. There is no inguinal adenopathy, Extremities - No edema, Neurologic - No focal neurologic deficits noted. Lab/Imaging: Test performed on Aug 17, 2020 08:44 Glucose 118 mg/dL BUN 11 mg/dL Creatinine 0.8 mg/dL Cr Clearance (Est) 116.75 mL/min Sodium 138 mmol/L Potassium 4.1 mmol/L Chloride 98 mmol/L CO2 27 mmol/L Calcium 9.2 mg/dL Protein, Total 6.8 g/dL Albumin 3.9 g/dL Globulin 2.9 g/dL Bilirubin, Total 0.2 mg/dL Alkaline Phosphatase 75 IU/L AST (SGOT) 13 IU/L ALT (SGPT) 12 IU/L WBC 10.3 10^9/L RBC 4.33 10^12/L HGB 11.7 g/dL HCT 37.0 % MCV 85.4 fl MCH 27.1 pg MCHC 31.7 g/dL RDW 17.6 % Platelet Count 485 10^9/L MPV 7.4 fL Neutrophils (Gran) 6.3 10^9/L Lymphocytes 3.4 10^9/L Monocytes 0.6 10^9/L Manual Lymphocytes 33.3 % Manual Monocytes 6.0 % CA 125 130.3 Units/mL Problem List: 1. High-grade serous carcinoma of the ovary, stage IIIC at initial diagnosis. There was a small amount of residual miliary disease present following her initial surgery in April 2012. Her disease was estimated at greater than 99% resected. She was given postoperative chemotherapy with 6 cycles of carboplatin/Taxol, which she completed in October 2012. 2. In August 2014 she had evidence of recurrence by CA [address] scan, and she then initiated second line treatment with carboplatin and weekly Taxol in combination with Avastin. As of February 2015 she had completed 6 cycles of chemotherapy, and she then continued with maintenance Avastin. 3. Her treatment was changed to maintenance Avastin. 4. As of 08/19/2015 she had 2 successive increases in her CA-125 level, and at that point she restarted chemotherapy with Abraxane in combination with Avastin. She had a very good response by CA-125 level. 5. On 09/26/2017 she began further chemotherapy with carboplatin/gemcitabine on a day 1/day 15 schedule. As of July 2018 she had completed 11 cycles of treatment. She appeared stable clinically, and her restaging CT scans from 08/08/2018 had shown no evidence of disease progression. In August 2018 her treatment was changed to maintenance olaparib 300 mg twice daily. 6. As of March 2019 there was evidence of disease progression with rising CA-125 level. Her further treatments included chemotherapy with carboplatin/liposomal doxorubicin, retreatment with carboplatin/gemcitabine, and a trial of therapy with pembrolizumab in combination with bevacizumab. Her other medical illnesses include: 7. Hypertension. 8. Type II diabetes. 9. GERD. 10. Anxiety/depression. Problems Addressed with this Encounter and Plan: Recurrent ovarian cancer. On 04/15/2020 she began further treatment with Abraxane in combination with pembrolizumab. She tolerated it well and continued with cycle 2 on 05/06/2020. 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 She underwent placement of a left internal jugular vein Port-A-Cath on 06/15/2020, and she continued with cycle 3 of Abraxane/pembrolizumab on 06/29/2020. On 07/20/2020 she was admitted to the hospital with small bowel obstruction. Her CT abdomen/pelvis showed some associated bowel wall thickening and mesenteric nodularity which was suspicious for underlying carcinomatosis. It appeared to be a little more pronounced compared to the prior study, but there were no other obvious findings of disease progression. The obstruction resolved with conservative management. She continued with cycle 4 of Abraxane/pembrolizumab on 07/29/2020. She has been feeling better generally since her hospitalization in June. She continues to tolerate her treatment well. At this point she appears stable clinically, and there has been a slight decline in her CA-125 level. In the absence of any conclusive evidence of disease progression, she will continue with cycle 5 of Abraxane/pembrolizumab. The dosages remain the same. She will be scheduled for a follow-up visit in 3 weeks. Signed By: Jeffrey Benavidez M.D. <<Signature on File>>
== END 2020-08-29 23:59 | disposition home or self-care (01) ==
LOC: ONCMED 08:24
PROVIDERS: PCP Family Medicine; Visit Provider Internal Medicine Medical Oncology
DX: Z51.12 Encounter for antineoplastic immunotherapy (principal); Z51.11 Encounter for antineoplastic chemotherapy; C56.1 Malignant neoplasm of right ovary; C56.2 Malignant neoplasm of left ovary; C77.2 Secondary and unspecified malignant neoplasm of intra-abdominal lymph nodes; E11.9 Type 2 diabetes mellitus without complications; I10 Essential (primary) hypertension; K21.9 Gastro-esophageal reflux disease without esophagitis; F41.9 Anxiety disorder, unspecified; F32.9 Major depressive disorder, single episode, unspecified; Z79.899 Other long term (current) drug therapy
CPT/HCPCS: 96367; 96375; 96413; 96417; 99214; J1100; J1453; J2405; J3490; J7050; J9264; J9271

== ENCOUNTER → 2020-09-07 09:03 | Outpatient (BNVA) | payer MEDICARE, MEDICAID, SELFPAY | PROVIDERS: PCP Family Medicine; Visit Provider Nurse Practitioner | DX: C77.2 Secondary and unspecified malignant neoplasm of intra-abdominal lymph nodes (principal); C56.2 Malignant neoplasm of left ovary | CPT/HCPCS: 80053; 85025; 86304 ==

== ENCOUNTER → 2020-09-20 08:51 | Outpatient (BNVA) | payer MEDICARE, MEDICAID, SELFPAY | PROVIDERS: PCP Family Medicine; Visit Provider Internal Medicine Medical Oncology | DX: C77.2 Secondary and unspecified malignant neoplasm of intra-abdominal lymph nodes (principal) | CPT/HCPCS: 80053; 85025 ==

== ENCOUNTER 2020-09-22 08:44 | Outpatient (CLI) | payer MEDICARE, MEDICAID, SELFPAY ==
[2020-09-22] MEDS: sodium chloride 0.9% 250 ML 75 ML IV (10:20)
[2020-09-22] MEDS: famotidine 20 mg/2 mL INJ IVP (10:25)
[2020-09-22] MEDS: ondansetron 2 mg/ML SDV 2 mL 8 MG IV (10:26)
[2020-09-22 10:55] LABS: CA 125 194.8 U/mL (0-35)
[2020-09-22] MEDS: fosaprepitant 150 MG in sodium chloride 0.9% 150 ML 300 MG IV (10:55)
--- NOTE | 2020-09-27 20:47 | ONC FU_ITS ---
[facility] Patient Note Patient: Bessy Roy Unit #: [id number]: 1965 Dictated By: Smiley RuizDate of Visit: Sep 22, 2020 Onc MED Follow-Up/Prog Note Chief Complaint: Ovarian cancer. History of Present Illness: Ms Roy is a 55 year-old woman with recurrent ovarian cancer. She had presented in March 2012 with stage IIIC ovarian cancer. She was referred to Dr. Edilson Wahl for [facility] [employer] oncology. On 05/17/12 showed underwent exploratory laparotomy. The op note indicated a small amount of residual miliary disease present at the end of the procedure. It was estimated to be greater than 99% resected. Pathology showed a high-grade serous carcinoma involving both ovaries, measuring 9 cm on the right and 6 cm on the left. There was involvement in the omentum and multiple serosal surfaces including the appendix, uterus, and colon. There was no diagnostic abnormality in the included portion of rectosigmoid colon and there was no involvement in the skeletal muscle from the abdominal wall. There was involvement in the liver capsule, but not the liver parenchyma. The spleen showed no diagnostic abnormality. There was involvement in 4 of 20 lymph nodes. The ascitic fluid also was positive. Her postoperative course was complicated by development of an abscess in the left lower quadrant, requiring percutaneous drainage and antibiotic therapy. She did have a gradual recovery, and she subsequently was given postoperative chemotherapy with 6 cycles of carboplatin/Taxol, completed on 11/15/2012. There were delays during her chemotherapy related to poor compliance. In August 2013 she had recurrence and she began second line chemotherapy with carboplatin and weekly Taxol in combination with Avastin . As of 02/02/15 she had completed 6 cycles of chemotherapy. She had significant response by CA 125 level and by followup CT scan. Taxol was omitted with cycles 5 and 6 due to neuropathy. Her treatment was changed to maintenance Avastin. By June her CA-125 level began to increase. As of 08/19/2015 it was back up to 43 U/mL. At that point she restarted chemotherapy with Abraxane/Avastin, and her CA-125 level subsequently declined. She then continued treatment with Abraxane/Avastin, though not on a very consistent schedule due in part to toxicities and in part to compliance issues. As of her follow-up visit on 08/22/2017 her neuropathy symptoms had worsened significantly, and it was opted to put her treatment on hold. She returned on 09/26/2017 to begin further chemotherapy with carboplatin/gemcitabine on a day 1/day 15 schedule. Her baseline CA-125 level had increased to 15.1 U/mL. She had some fatigue following that treatment. She otherwise seemed to tolerate it pretty well, and she was able to continue treatment on a day 1/day 15 schedule. As of July 2018 she had completed 11 cycles of carboplatin/gemcitabine. She remained stable clinically with CA-125 level stable at 14.4 U/mL. In August 2018 she began maintenance therapy with olaparib 300 mg twice a day. At her scheduled visit on 04/10/2019 she appeared stable clinically, but there was a significant increase in her CA 125 level to 30.0 U/mL compared to 17.8 U/mL in January. With that change she had restaging CT scans of the chest/abdomen/pelvis on 04/18/2019. It showed new circumferential thickening of the stomach antrum and a small but slightly increase sized gastric lymph node. It was felt to possible represent inflammatory changes from peptic ulcer disease, but very early metastatic disease was not excluded. There was no ascites. There was stable, mild thickening of the right lateral urinary bladder wall. With those findings, it was opted to restart her on chemotherapy with carboplatin in combination with liposomal doxorubicin. She began cycle 1 on 05/08/2019. Her baseline CA 125 level was 58.9 U/mL. She tolerated the treatment with acceptable toxicity. She continued with cycle 2 on 06/05/2019 and with cycle 3 on 07/03/2019. At that point the CA 125 level had decreased just slightly, to 38.9 U/mL. At her followup visit visit on 07/31/2019 she had developed a significant skin eruption as well as other side effects with the chemotherapy. As there has been no further decline in the CA-125 level, Dr Benavidez opted to stop that treatment. Restaging CT of the abdomen/pelvis on 09/09/2019 showed mesenteric deposits throughout the abdomen and pelvis, increased in size and number compared to the study from April 2019. Also noted was a soft tissue mass at the antrum of the stomach with slight increase in size and luminal narrowing. With those findings, Dr Benavidez opted to restart chemotherapy with carboplatin/gemcitabine. She began her 1st cycle on 10/08/2019 on a day 1/day 15 schedule. Her other medical illnesses include hypertension, type II diabetes, and anxiety/depression. She underwent repair of an incisional hernia which developed subsequent to her abdominal surgery in 2011. She is a nonsmoker. INTERIM HISTORY: She completed 1 full cycle of treatment with carboplatin/gemcitabine. She tolerated the chemotherapy pretty well, but after 1 cycle there was a significant increase in the CA-125 level. With that finding, she then began a trial of salvage therapy with pembrolizumab in combination with bevacizumab. She began cycle 1 on 12/04/2019. She tolerated it without any adverse effects. She continued with cycle 2 on 12/25/2019 and with cycle 3 on 01/15/2020. As of cycle 4 the bevacizumab was put on hold due to hypertension, but she did continue the pembrolizumab at 3-week intervals. Restaging CT scans of the chest, abdomen, and pelvis on 04/07/2020 showed continued progression of metastatic implants within the abdomen and pelvis compared to the August 2019 CT. There was increase in both size and number of mesenteric metastatic deposits and additional central mesenteric and pelvic mesenteric stranding which was highly suspicious for metastatic deposits involving the small bowel and colon in the right lower quadrant. There is no evidence of GI obstruction. There was suspected omental metastatic involvement. There was no ascites. There was no evidence of pulmonary metastatic disease. With those findings, she was given the option to go back on treatment with Abraxane in combination with pembrolizumab, as she was very motivated to continue with some form of treatment. She began cycle 1 on 04/15/2020. She tolerated it well, she continue with cycle 2 on 05/06/2020. 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 She began anticoagulation with apixaban. On 05/26/2020 she underwent removal of the Port-A-Cath, and her treatment was put on hold. She was then able to undergo placement of a left internal jugular vein Port-A-Cath on 06/15/2020. She continued with cycle 3 of Abraxane/pembrolizumab on 06/29/2020. On 07/20/2020 she was admitted to the hospital with small bowel obstruction. Her CT abdomen/pelvis showed some associated bowel wall thickening and mesenteric nodularity which was suspicious for underlying carcinomatosis. It appeared to be a little more pronounced compared to the prior study, but there were no other obvious findings of disease progression. The obstruction resolved with conservative management. She continued with cycle 4 of Abraxane/pembrolizumab on 07/29/2020. Ms Roy is here today for followup. She states overall she feels great. She states that she continues to watch her diet very carefully and also is very aggressive and pay more attention with her bowel regimen. She states she is now doing probiotics twice a day and doing 3 stool softeners twice a day and feels that her bowels are moving well. She states her energy is really good. She denies any fever or chills. She denies any nausea or vomiting. She has had no diarrhea and states her bowel movements are soft and normal. She denies any hematochezia. She denies any lower extremity edema. She denies any abdominal pain. She states that she is pretty sure that her last tumor marker was an error as it was reported to her at 2.7 and previously had been 130.3. Unfortunately she was correct in that the 2.7 was reported in error. Her CA 19-9 was rechecked today and reported as 194.8. She is aware of the results. And states although she is a little disappointed in that it had actually gone up she is knows that she is feeling better overall. She states that she has started going to lutheran and has placed all of her arnulfo in God at this point. She states she has a new goal to live 2 years and 1 month. She states she would like to live to see grandchildren but her daughter is still in high school. She denies any new concerns today. She denies any pain. She denies any headache or vision changes. Her ECOG is 1. Past Medical History: Small bowel obstruction in 2019 Ovarian cancer (Dr. Wahl in [place] performed surgery) in 2011 She has previously been in good health. She has had some depression following the surgery. She has no other medical illnesses. Past Surgical History: Caesarean section Portacatheter placement PORTHACATHER PLACEMENT DR. LARRY Right leg abcess Portacatheter removal in 2019 Flu vaccine in 2018 Flu vacc in 2017 - rt deltoid Flucevax in 2016 - left deltoid Pneumovax in 2016 - right deltoid Exploratory lap in 2011 - MEG-BSO,recto-sigmoid resection,omentectomy,splenectomy,bilateral pelvic and periaortic lymph node dissections,appy,liver biopsy, Hysterectomy in 2011 Port placed in 2011 - dr. dela cruz ([facility]) Prior surgeries limited to section in 2001 and a procedure on her right leg for abscess at age 18. EXploratory lap in 2011 resulted in total abdominal hysterectomy with bilateral salpingo-oophorectomy, and en bloc rectosigmoid resctions, omentectomy with partial resection of the anterior abdominal wall, splenectomy, bilateral pelvic and periaortic lymph node dissections, appendectomy, liver biopsy and debulking of right diaphragm and peritoneal implants. Allergies: Morphine Sulfate Medications: ALPRAZolam 1 Tablet (of 0.5 mg) Oral t.i.d. PRN AmLODIPine Besylate 1 (5 mg) Tablet Oral daily CeleXA 1 (40 mg) Tablet Oral daily Colace 3 (100 mg) Capsule Oral b.i.d. Compazine 1 (10 mg) Tablet Oral four times a day PRN Eliquis 1 Tablet (of 5 mg) Oral b.i.d. HumuLIN R Injection t.i.d. PRN Hydrocodone-Acetaminophen 1 - 2 Tablet (of 7.5-325 mg) Oral q 4 hours PRN Lantus 40 Units (of 100 Units/mL) Subcutaneous at bedtime PRN Levothyroxine Sodium 1 Tablet (of 125 mcg) Oral daily Magnesium 1 Tablet (of 400 mg) Oral daily Melatonin 4 (10 mg) Tablet Oral at bedtime MetFORMIN HCl 2 Tablet (of 500 mg) Oral b.i.d. Metoprolol Tartrate 1 Tablet (of 25 mg) Oral daily oxyCODONE HCl 1 Tablet (of 15 mg) Oral q 4 hours PRN Pantoprazole Sodium 1 Tablet (of 40 mg) Tablet, enteric coated Oral daily Probiotic & Acidophilus Ex St 1 Capsule Oral b.i.d. Voltaren 2 - 4 G (of 1 %) Gel (jelly) Transdermal PRN Family History: Ms. Jasons mother is alive: cancer history consists of Breast cancer while other medical history includes stroke and Alzheimers's disease at age 79. Ms. Jasons father is : cancer history consists of Thyroid Gland cancer while other medical history includes heart disease at age 62 (cause of ). Ms. Roy has 1 brother with an unknown alive status: medical history includes COPD and alcoholism. She has 1 maternal aunt with an unknown alive status: cancer history consists of Breast cancer. Family history significant for father having with heart disease at age 62. He also had thyroid cancer. Her mother is still living at age 79. She has Alzheimer's dementia and a history of strokes. She also has been treated for breast cancer. A maternal aunt also had breast cancer. She has one brother who is 60 years old and has COPD and alcoholism. Social History: Ms. Roy is single and she is a disabled. Ms. Roy has never smoked. She has no history of drinking. Ms. Roy reports the following support systems: lives with spouse, significant other, family, or friends, lives in own house, supportive family/friends willing to assist with needs, and adequate transportation available for expected visits. Her diet consists of regular meals. She indicates her activity level as: daily activities. She was previously and . She is currently unmarried, but she has a significant other. She is a [employer] and works in a [employer]. She has never smoked. Review Of Symptoms: Constitutional Denies fevers, chills, night sweats, excessive or worsening fatigue or weight loss. Allergic/Immunologic No reactions. Eyes Denies significant visual changes. ENMT Denies sore throat, mouth sores, difficulty or changes in swallowing ability. Hematologic/Lymphatic Denies easy bruising or bleeding. The patient denies any tender or palpable lymph nodes. Breasts no concerns Respiratory Denies dyspnea on exertion, chest pain, cough. Cardiovascular Denies anginal chest pain. Gastrointestinal Denies nausea, vomiting, diarrhea, GI bleeding, or constipation. Denies change in bowel habits and/or stool color, no heartburn or early satiety. Genitourinary (F) No hesitancy, incontinence, vaginal bleeding, discharge. No recurrent UTI symptoms at this time. Musculoskeletal Denies joint pain or specific bone pain. Integumentary Denies chronic rashes, inflammation. Neurologic Denies headache, blurred vision, and no areas of focal weakness or numbness. Normal gait. No sensory problems. Psychiatric Denies depression, anxiety. Vital Signs: Performed on Sep 22, 2020 09:34 Height - 63.50 in Weight - 188.8 lbs (HIGH) BSA - 1.90 sq.m BMI - 32.92 (HIGH) Temperature - 96.9 F (LOW) Pulse - 86 /min Respiration - 18 /min BP - 154/75 mm(hg) (HIGH) O2 Sat - 97 % Pain - 0,1 - No physically strenuous activity, but ambulatory and able to carry out light or sedentary work (e.g. office work, light house work). (ECOG) Physical Examination: Constitutional Alert, oriented, no acute distress. Skin pink, warm and dry. Head Normocephalic; atraumatic. Eyes Conjunctivae and sclerae are clear and without icterus. Pupils are reactive and equal. Neck Supple without masses or thyromegaly. No jugular venous distension. left internal jugular port insertion site is unremarkable. Hematologic/Lymphatic No petechiae or purpura. No tender or palpable lymph nodes in the cervical, supraclavicular. Respiratory Lungs are clear to auscultation without rhonchi or wheezing. Cardiovascular Regular rate and rhythm of heart without murmurs,clicks, gallops or rubs. Abdomen Non-tender, non-distended, no masses or ascites. Good bowel sounds noted in all quads. No guarding or rebound tenderness. No pulsatile masses. Back/Spine Non-tender to palpation. Extremities No visible deformities, no cyanosis, clubbing or edema. Musculoskeletal No tenderness or swelling, normal range of motion without obvious weakness. Integumentary No rashes or lesions. Neurologic No sensory or motor deficits, normal cerebellar function, normal gait. Psychiatric Alert and oriented times three. Coherent speech. Verbalizes understanding of our discussions today. Laboratory:Test performed on Sep 20, 2020 08:51 Glucose 103 mg/dL BUN 9 mg/dL Creatinine 0.8 mg/dL Cr Clearance (Est) 104.80 mL/min Sodium 138 mmol/L Potassium 3.8 mmol/L Chloride 97 mmol/L CO2 27 mmol/L Calcium 8.8 mg/dL Protein, Total 6.9 g/dL Albumin 3.8 g/dL Globulin 3.1 g/dL Bilirubin, Total 0.2 mg/dL Alkaline Phosphatase 86 IU/L AST (SGOT) 12 IU/L ALT (SGPT) 8 IU/L WBC 14.0 10^9/L RBC 4.31 10^12/L HGB 11.6 g/dL HCT 36.0 % MCV 83.5 fl MCH 26.9 pg MCHC 32.3 g/dL RDW 16.5 % Platelet Count 633 10^9/L MPV 7.3 fL Neutrophils (Gran) 9.7 10^9/L Lymphocytes 3.8 10^9/L Monocytes 0.6 10^9/L Manual Lymphocytes 27.0 % Manual Monocytes 4.0 % Test performed on Sep 07, 2020 09:03 CA 125 2.7 Units/mL Test performed on Jul 22, 2020 10:04 Eosinophils 0.0 10^9/L Basophils 0.1 10^9/L Manual Eosinophils 0.1 % Manual Basophils 0.0 % Test performed on Apr 15, 2020 08:46 Anion Gap 16.7 eGFR 65.0 mL/min Osmolality - Calculated 283 mOsm/kg Neutrophil % 64.8 % Lymphocyte % 23.7 % Monocyte % 7.0 % Eosinophil % 3.0 % Basophils % 1.0 % NRBC % 0.2 % Test performed on Apr 06, 2020 12:49 TSH 3.99 uU/mL Impression: 1. High-grade serous carcinoma of the ovary, stage IIIC at initial diagnosis. There was a small amount of residual miliary disease present following her initial surgery in April 2012. Her disease was estimated at greater than 99% resected. She was given postoperative chemotherapy with 6 cycles of carboplatin/Taxol, which she completed in October 2012. 2. In August 2014 she had evidence of recurrence by CA [address] scan, and she then initiated second line treatment with carboplatin and weekly Taxol in combination with Avastin. As of February 2015 she had completed 6 cycles of chemotherapy, and she then continued with maintenance Avastin. 3. Her treatment was changed to maintenance Avastin. 4. As of 08/19/2015 she had 2 successive increases in her CA-125 level, and at that point she restarted chemotherapy with Abraxane in combination with Avastin. She had a very good response by CA-125 level. 5. On 09/26/2017 she began further chemotherapy with carboplatin/gemcitabine on a day 1/day 15 schedule. As of July 2018 she had completed 11 cycles of treatment. She appeared stable clinically, and her restaging CT scans from 08/08/2018 had shown no evidence of disease progression. In August 2018 her treatment was changed to maintenance olaparib 300 mg twice daily. 6. As of March 2019 there was evidence of disease progression with rising CA-125 level. Her further treatments included chemotherapy with carboplatin/liposomal doxorubicin, retreatment with carboplatin/gemcitabine, and a trial of therapy with pembrolizumab in combination with bevacizumab. Her other medical illnesses include: 7. Hypertension. 8. Type II diabetes. 9. GERD. 10. Anxiety/depression. Plan: PROBLEMS ADDRESSED TODAY 1. Recurrent ovarian cancer. On 04/15/2020 she began further treatment with Abraxane in combination with pembrolizumab. She tolerated it well and continued with cycle 2 on 05/06/2020. 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 She underwent placement of a left internal jugular vein Port-A-Cath on 06/15/2020, and she continued with cycle 3 of Abraxane/pembrolizumab on 06/29/2020. On 07/20/2020 she was admitted to the hospital with small bowel obstruction. Her CT abdomen/pelvis showed some associated bowel wall thickening and mesenteric nodularity which was suspicious for underlying carcinomatosis. It appeared to be a little more pronounced compared to the prior study, but there were no other obvious findings of disease progression. The obstruction resolved with conservative management. She continued with cycle 4 of Abraxane/pembrolizumab on 07/29/2020. A. Proceed with cycle 6 Abraxane Keytruda/pembrolizumab today as scheduled. B. She will continue the same antiemetics as these seem to be working well. C. Labs from September 20, 2020 were reviewed in detail and discussed with Ms. Cabrera and a copy was given to her. WBC 14, hemoglobin 11.6, platelets 633,000, ANC is 9700. Potassium 3.8 creatinine 0.8 random glucose 103 calcium 8.8 and LFTs are normal. CA 19-9 was 194.8. D. We will plan to see her back in 3 weeks with CBC, CMP, CA 19-9 and TSH for immunotherapy monitoring. E. Mrs. Cabrera was encouraged to contact us in interim should questions or problems arise. 2. Type 2 diabetes. A. Her random and stated fasting blood sugars at home have been stable. She will continue her current plan of care with the Metformin and sliding scale. She does use 40 units of Lantus at bedtime as needed depending on what her blood sugar is. Signed By: Smiley Ruiz-, AOCNP Jeffrey Benavidez MD <<Signature on File>>
== END 2020-09-22 08:45 | disposition home or self-care (01) ==
LOC: ONCMED 08:45
PROVIDERS: PCP Family Medicine; Visit Provider Nurse Practitioner
DX: Z51.12 Encounter for antineoplastic immunotherapy (principal); Z51.11 Encounter for antineoplastic chemotherapy; C56.1 Malignant neoplasm of right ovary; C56.2 Malignant neoplasm of left ovary; C77.2 Secondary and unspecified malignant neoplasm of intra-abdominal lymph nodes; E11.9 Type 2 diabetes mellitus without complications; Z79.4 Long term (current) use of insulin; Z51.81 Encounter for therapeutic drug level monitoring; Z79.899 Other long term (current) drug therapy
CPT/HCPCS: 86304; 96367; 96375; 96413; 96417; 99214; J1100; J1453; J2405; J3490; J7050; J9264; J9271

== ENCOUNTER → 2020-10-12 08:45 | Outpatient (BNVA) | payer MEDICARE, MEDICAID, SELFPAY | PROVIDERS: PCP Family Medicine; Visit Provider Internal Medicine Medical Oncology | DX: C77.2 Secondary and unspecified malignant neoplasm of intra-abdominal lymph nodes (principal); E11.9 Type 2 diabetes mellitus without complications; C56.2 Malignant neoplasm of left ovary | CPT/HCPCS: 80053; 84443; 85025; 86304 ==

== ENCOUNTER 2020-10-13 05:56 | Outpatient (CLI) | payer MEDICARE, MEDICAID, SELFPAY ==
[2020-10-13] MEDS: famotidine 20 mg/2 mL INJ IVP (11:25)
[2020-10-13] MEDS: sodium chloride 0.9% 250 ML 125 ML IV (11:25)
[2020-10-13] MEDS: ondansetron 2 mg/ML SDV 2 mL 8 MG IVP (11:26)
[2020-10-13] MEDS: fosaprepitant 150 MG in sodium chloride 0.9% 150 ML 300 MG IV (11:37)
--- NOTE | 2020-10-23 10:38 | ONC FU_ITS ---
[facility] Patient Note Patient: Bessy Roy Unit #: [id number]: 1965 Dictated By: Smiley RuizDate of Visit: Oct 13, 2020 Onc MED Follow-Up/Prog Note Chief Complaint: Ovarian cancer. History of Present Illness: Ms Roy is a 55 year-old woman with recurrent ovarian cancer. She had presented in March 2012 with stage IIIC ovarian cancer. She was referred to Dr. Edilson Wahl for [facility] oncology. On 05/17/12 showed underwent exploratory laparotomy. The op note indicated a small amount of residual miliary disease present at the end of the procedure. It was estimated to be greater than 99% resected. Pathology showed a high-grade serous carcinoma involving both ovaries, measuring 9 cm on the right and 6 cm on the left. There was involvement in the omentum and multiple serosal surfaces including the appendix, uterus, and colon. There was no diagnostic abnormality in the included portion of rectosigmoid colon and there was no involvement in the skeletal muscle from the abdominal wall. There was involvement in the liver capsule, but not the liver parenchyma. The spleen showed no diagnostic abnormality. There was involvement in 4 of 20 lymph nodes. The ascitic fluid also was positive. Her postoperative course was complicated by development of an abscess in the left lower quadrant, requiring percutaneous drainage and antibiotic therapy. She did have a gradual recovery, and she subsequently was given postoperative chemotherapy with 6 cycles of carboplatin/Taxol, completed on 11/15/2012. There were delays during her chemotherapy related to poor compliance. In August 2013 she had recurrence and she began second line chemotherapy with carboplatin and weekly Taxol in combination with Avastin . As of 02/02/15 she had completed 6 cycles of chemotherapy. She had significant response by CA 125 level and by followup CT scan. Taxol was omitted with cycles 5 and 6 due to neuropathy. Her treatment was changed to maintenance Avastin. By June her CA-125 level began to increase. As of 08/19/2015 it was back up to 43 U/mL. At that point she restarted chemotherapy with Abraxane/Avastin, and her CA-125 level subsequently declined. She then continued treatment with Abraxane/Avastin, though not on a very consistent schedule due in part to toxicities and in part to compliance issues. As of her follow-up visit on 08/22/2017 her neuropathy symptoms had worsened significantly, and it was opted to put her treatment on hold. She returned on 09/26/2017 to begin further chemotherapy with carboplatin/gemcitabine on a day 1/day 15 schedule. Her baseline CA-125 level had increased to 15.1 U/mL. She had some fatigue following that treatment. She otherwise seemed to tolerate it pretty well, and she was able to continue treatment on a day 1/day 15 schedule. As of July 2018 she had completed 11 cycles of carboplatin/gemcitabine. She remained stable clinically with CA-125 level stable at 14.4 U/mL. In August 2018 she began maintenance therapy with olaparib 300 mg twice a day. At her scheduled visit on 04/10/2019 she appeared stable clinically, but there was a significant increase in her CA 125 level to 30.0 U/mL compared to 17.8 U/mL in January. With that change she had restaging CT scans of the chest/abdomen/pelvis on 04/18/2019. It showed new circumferential thickening of the stomach antrum and a small but slightly increase sized gastric lymph node. It was felt to possible represent inflammatory changes from peptic ulcer disease, but very early metastatic disease was not excluded. There was no ascites. There was stable, mild thickening of the right lateral urinary bladder wall. With those findings, it was opted to restart her on chemotherapy with carboplatin in combination with liposomal doxorubicin. She began cycle 1 on 05/08/2019. Her baseline CA 125 level was 58.9 U/mL. She tolerated the treatment with acceptable toxicity. She continued with cycle 2 on 06/05/2019 and with cycle 3 on 07/03/2019. At that point the CA 125 level had decreased just slightly, to 38.9 U/mL. At her followup visit visit on 07/31/2019 she had developed a significant skin eruption as well as other side effects with the chemotherapy. As there has been no further decline in the CA-125 level, Dr Benavidez opted to stop that treatment. Restaging CT of the abdomen/pelvis on 09/09/2019 showed mesenteric deposits throughout the abdomen and pelvis, increased in size and number compared to the study from April 2019. Also noted was a soft tissue mass at the antrum of the stomach with slight increase in size and luminal narrowing. With those findings, Dr Benavidez opted to restart chemotherapy with carboplatin/gemcitabine. She began her 1st cycle on 10/08/2019 on a day 1/day 15 schedule. Her other medical illnesses include hypertension, type II diabetes, and anxiety/depression. She underwent repair of an incisional hernia which developed subsequent to her abdominal surgery in 2011. She is a nonsmoker. INTERIM HISTORY: She completed 1 full cycle of treatment with carboplatin/gemcitabine. She tolerated the chemotherapy pretty well, but after 1 cycle there was a significant increase in the CA-125 level. With that finding, she then began a trial of salvage therapy with pembrolizumab in combination with bevacizumab. She began cycle 1 on 12/04/2019. She tolerated it without any adverse effects. She continued with cycle 2 on 12/25/2019 and with cycle 3 on 01/15/2020. As of cycle 4 the bevacizumab was put on hold due to hypertension, but she did continue the pembrolizumab at 3-week intervals. Restaging CT scans of the chest, abdomen, and pelvis on 04/07/2020 showed continued progression of metastatic implants within the abdomen and pelvis compared to the August 2019 CT. There was increase in both size and number of mesenteric metastatic deposits and additional central mesenteric and pelvic mesenteric stranding which was highly suspicious for metastatic deposits involving the small bowel and colon in the right lower quadrant. There is no evidence of GI obstruction. There was suspected omental metastatic involvement. There was no ascites. There was no evidence of pulmonary metastatic disease. With those findings, she was given the option to go back on treatment with Abraxane in combination with pembrolizumab, as she was very motivated to continue with some form of treatment. She began cycle 1 on 04/15/2020. She tolerated it well, she continue with cycle 2 on 05/06/2020. 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 She began anticoagulation with apixaban. On 05/26/2020 she underwent removal of the Port-A-Cath, and her treatment was put on hold. She was then able to undergo placement of a left internal jugular vein Port-A-Cath on 06/15/2020. She continued with cycle 3 of Abraxane/pembrolizumab on 06/29/2020. On 07/20/2020 she was admitted to the hospital with small bowel obstruction. Her CT abdomen/pelvis showed some associated bowel wall thickening and mesenteric nodularity which was suspicious for underlying carcinomatosis. It appeared to be a little more pronounced compared to the prior study, but there were no other obvious findings of disease progression. The obstruction resolved with conservative management. She continued with cycle 4 of Abraxane/pembrolizumab on 07/29/2020. Ms Roy is here today for followup. She states overall she is doing well. She states that she had a little headache that is just annoying and nagging. She thought maybe it could be her tooth or playing on the computer more than normal. She is had no nausea or vomiting. She denies any vision changes. She denies any other symptoms with the headache. We did discuss if it could possibly be tooth due to the ondansetron she is receiving as premed medication but she cannot correlate that particularly. She states she will watch with this treatment and let us know. Overall she states that she is doing good. She has no pain. Her bowels are moving well. She continues to watch her diet very carefully. She has no new concerns today. She states she is planning on a vacation in February. She states that she her significant other and her daughter are planning to fly to [place] and running in a car and driving to [place]. She is very excited about her trip. She reports that she has received her second COVID-19 vaccine on September 24, 2020. She states she had no side effects other than her arm was a little sore for a day or so but that has resolved. Her ECOG is 1. Past Medical History: Small bowel obstruction in 2019 Ovarian cancer (Dr. Wahl in [place] performed surgery) in 2011 She has previously been in good health. She has had some depression following the surgery. She has no other medical illnesses. Past Surgical History: Caesarean section Portacatheter placement PORTHACATHER PLACEMENT DR. LARRY Right leg abcess Portacatheter removal in 2019 Flu vaccine in 2019 Flu vacc in 2018 - rt deltoid Flucevax in 2017 - left deltoid Pneumovax in 2017 - right deltoid Exploratory lap in 2011 - MEG-BSO,recto-sigmoid resection,omentectomy,splenectomy,bilateral pelvic and periaortic lymph node dissections,appy,liver biopsy, Hysterectomy in 2011 Port placed in 2011 - dr. dela cruz ([facility]) Prior surgeries limited to section in 2001 and a procedure on her right leg for abscess at age 18. EXploratory lap in 2011 resulted in total abdominal hysterectomy with bilateral salpingo-oophorectomy, and en bloc rectosigmoid resctions, omentectomy with partial resection of the anterior abdominal wall, splenectomy, bilateral pelvic and periaortic lymph node dissections, appendectomy, liver biopsy and debulking of right diaphragm and peritoneal implants. Allergies: Morphine Sulfate Medications: ALPRAZolam 1 Tablet (of 0.5 mg) Oral t.i.d. PRN AmLODIPine Besylate 1 (5 mg) Tablet Oral daily CeleXA 1 (40 mg) Tablet Oral daily Colace 3 (100 mg) Capsule Oral b.i.d. Compazine 1 (10 mg) Tablet Oral four times a day PRN Eliquis 1 Tablet (of 5 mg) Oral b.i.d. HumuLIN R Injection t.i.d. PRN Hydrocodone-Acetaminophen 1 - 2 Tablet (of 7.5-325 mg) Oral q 4 hours PRN Lantus 40 Units (of 100 Units/mL) Subcutaneous at bedtime PRN Levothyroxine Sodium 1 Tablet (of 125 mcg) Oral daily Magnesium 1 Tablet (of 400 mg) Oral daily Melatonin 4 (10 mg) Tablet Oral at bedtime MetFORMIN HCl 2 Tablet (of 500 mg) Oral b.i.d. Metoprolol Tartrate 1 Tablet (of 25 mg) Oral daily oxyCODONE HCl 1 Tablet (of 15 mg) Oral q 4 hours PRN Pantoprazole Sodium 1 Tablet (of 40 mg) Tablet, enteric coated Oral daily Probiotic & Acidophilus Ex St 1 Capsule Oral b.i.d. Voltaren 2 - 4 G (of 1 %) Gel (jelly) Transdermal PRN Family History: Ms. Roy's mother is alive: cancer history consists of Breast cancer while other medical history includes stroke and Alzheimers's disease at age 79. Ms. Roy's father is : cancer history consists of Thyroid Gland cancer while other medical history includes heart disease at age 62 (cause of ). Ms. Roy has 1 brother with an unknown alive status: medical history includes COPD and alcoholism. She has 1 maternal aunt with an unknown alive status: cancer history consists of Breast cancer. Family history significant for father having with heart disease at age 62. He also had thyroid cancer. Her mother is still living at age 79. She has Alzheimer's dementia and a history of strokes. She also has been treated for breast cancer. A maternal aunt also had breast cancer. She has one brother who is 60 years old and has COPD and alcoholism. Social History: Ms. Roy is single and she is a disabled. Ms. Roy has never smoked. She has no history of drinking. Ms. Roy reports the following support systems: lives with spouse, significant other, family, or friends, lives in own house, supportive family/friends willing to assist with needs, and adequate transportation available for expected visits. Her diet consists of regular meals. She indicates her activity level as: daily activities. She was previously and . She is currently unmarried, but she has a significant other. 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 She has never smoked. Review Of Symptoms: Constitutional Denies fevers, chills, night sweats, excessive or worsening fatigue or weight loss. Slight intermittent headache but not bad . Allergic/Immunologic No reactions. Eyes Denies significant visual changes. ENMT Denies sore throat, mouth sores, difficulty or changes in swallowing ability. Endocrine Recent increase in metformin to thousand twice daily which is tolerating well and her blood sugars have improved. Hematologic/Lymphatic Denies easy bruising or bleeding. The patient denies any tender or palpable lymph nodes. Respiratory Denies dyspnea on exertion, chest pain, cough. Cardiovascular Denies anginal chest pain. Gastrointestinal Denies nausea, vomiting, diarrhea, GI bleeding, or constipation. Denies change in bowel habits and/or stool color, no heartburn or early satiety. Genitourinary (F) No hesitancy, incontinence, vaginal bleeding, discharge. No recurrent UTI symptoms at this time. Musculoskeletal Denies joint pain or specific bone pain. Integumentary Denies chronic rashes, inflammation. Neurologic Denies headache, blurred vision, and no areas of focal weakness or numbness. Normal gait. No sensory problems. Psychiatric Denies depression, anxiety. Vital Signs: Performed on Oct 13, 2020 10:45 Height - 63.50 in Weight - 192.4 lbs (HIGH) BSA - 1.91 sq.m BMI - 33.55 (HIGH) Temperature - 96.9 F (LOW) Pulse - 82 /min Respiration - 17 /min BP - 111/75 mm(hg) O2 Sat - 96 % Pain - 2,1 - No physically strenuous activity, but ambulatory and able to carry out light or sedentary work (e.g. office work, light house work). (ECOG) Physical Examination: Constitutional Alert, oriented, no acute distress. Skin pink, warm and dry. Head Normocephalic; atraumatic. Eyes Conjunctivae and sclerae are clear and without icterus. Pupils are reactive and equal. ENMT Sinuses are nontender. No oral exudates, ulcers, masses, thrush or mucositis. Oropharynx clear. Poor dentation noted. Neck Supple without masses or thyromegaly. No jugular venous distension. Hematologic/Lymphatic No petechiae or purpura. No tender or palpable lymph nodes in the cervical, supraclavicular. Respiratory Lungs are clear to auscultation without rhonchi or wheezing. Cardiovascular Regular rate and rhythm of heart without murmurs,clicks, gallops or rubs. Abdomen Non-tender, non-distended, no masses or ascites. Good bowel sounds noted in all quads. No guarding or rebound tenderness. No pulsatile masses. Back/Spine Non-tender to palpation. Extremities No visible deformities, no cyanosis, clubbing or edema. Right upper arm = 15.5 inches in diameter and left is 12.5 inches (hx right IJ thrombosis). Musculoskeletal No tenderness or swelling, normal range of motion without obvious weakness. Integumentary No rashes or lesions. Neurologic No sensory or motor deficits, normal cerebellar function, normal gait. Psychiatric Alert and oriented times three. Coherent speech. Verbalizes understanding of our discussions today. Laboratory:Test performed on Oct 12, 2020 08:45 TSH 1.98 uU/mL Glucose 150 mg/dL BUN 11 mg/dL Creatinine 0.8 mg/dL Cr Clearance (Est) 104.80 mL/min Sodium 138 mmol/L Potassium 4.6 mmol/L Chloride 98 mmol/L CO2 27 mmol/L Calcium 9.5 mg/dL Protein, Total 6.2 g/dL Albumin 3.7 g/dL Globulin 2.5 g/dL Bilirubin, Total 0.2 mg/dL Alkaline Phosphatase 80 IU/L AST (SGOT) 12 IU/L ALT (SGPT) 7 IU/L WBC 9.5 10^9/L RBC 4.26 10^12/L HGB 11.6 g/dL HCT 36.3 % MCV 85.1 fl MCH 27.1 pg MCHC 31.9 g/dL RDW 18.6 % Platelet Count 614 10^9/L MPV 8.1 fL Neutrophils (Gran) 5.4 10^9/L Lymphocytes 3.4 10^9/L Monocytes 0.7 10^9/L Manual Lymphocytes 35.9 % Manual Monocytes 7.3 % CA 125 191.9 Units/mL Test performed on Jul 22, 2020 10:04 Eosinophils 0.0 10^9/L Basophils 0.1 10^9/L Manual Eosinophils 0.1 % Manual Basophils 0.0 % Impression: 1. High-grade serous carcinoma of the ovary, stage IIIC at initial diagnosis. There was a small amount of residual miliary disease present following her initial surgery in April 2012. Her disease was estimated at greater than 99% resected. She was given postoperative chemotherapy with 6 cycles of carboplatin/Taxol, which she completed in October 2012. 2. In August 2014 she had evidence of recurrence by CA [address] scan, and she then initiated second line treatment with carboplatin and weekly Taxol in combination with Avastin. As of February 2015 she had completed 6 cycles of chemotherapy, and she then continued with maintenance Avastin. 3. Her treatment was changed to maintenance Avastin. 4. As of 08/19/2015 she had 2 successive increases in her CA-125 level, and at that point she restarted chemotherapy with Abraxane in combination with Avastin. She had a very good response by CA-125 level. 5. On 09/26/2017 she began further chemotherapy with carboplatin/gemcitabine on a day 1/day 15 schedule. As of July 2018 she had completed 11 cycles of treatment. She appeared stable clinically, and her restaging CT scans from 08/08/2018 had shown no evidence of disease progression. In August 2018 her treatment was changed to maintenance olaparib 300 mg twice daily. 6. As of March 2019 there was evidence of disease progression with rising CA-125 level. Her further treatments included chemotherapy with carboplatin/liposomal doxorubicin, retreatment with carboplatin/gemcitabine, and a trial of therapy with pembrolizumab in combination with bevacizumab. Her other medical illnesses include: 7. Hypertension. 8. Type II diabetes. 9. GERD. 10. Anxiety/depression. Plan: PROBLEMS ADDRESSED TODAY 1. Recurrent ovarian cancer. On 04/15/2020 she began further treatment with Abraxane in combination with pembrolizumab. She tolerated it well and continued with cycle 2 on 05/06/2020. 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 She underwent placement of a left internal jugular vein Port-A-Cath on 06/15/2020, and she continued with cycle 3 of Abraxane/pembrolizumab on 06/29/2020. On 07/20/2020 she was admitted to the hospital with small bowel obstruction. Her CT abdomen/pelvis showed some associated bowel wall thickening and mesenteric nodularity which was suspicious for underlying carcinomatosis. It appeared to be a little more pronounced compared to the prior study, but there were no other obvious findings of disease progression. The obstruction resolved with conservative management. She continued with cycle 4 of Abraxane/pembrolizumab on 07/29/2020. A. Proceed with cycle 7 Abraxane Keytruda/pembrolizumab today as scheduled. B. She will continue the same antiemetics as these seem to be working well. C. Labs from October 12, 2020 were reviewed in detail and discussed with Ms. Perezangie and a copy was given to her. WBC 9.5, hemoglobin 11.6, platelets 614,000, ANC is 8100. Potassium 4.6 creatinine 0.8 random glucose 150 calcium 9.5 and LFTs are normal. CA 19-9 was 191.9. TSH 1.98. D. We will plan to see her back in 3 weeks with CBC, CMP, CA 19-9 and TSH for immunotherapy monitoring. E. Ms. Roy was encouraged to contact us in interim should questions or problems arise. 2. Type 2 diabetes. A. Her random and stated fasting blood sugars at home have been stable. She will continue her current plan of care with the Metformin and sliding scale. She does use 40 units of Lantus at bedtime as needed depending on what her blood sugar is. 3. 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 She underwent placement of a left internal jugular vein Port-A-Cath on 06/15/2020 A. Continue Eliquis Signed By: Smiley Ruiz-, AOCNP Jeffrey Benavidez MD <<Signature on File>>
== END 2020-10-13 05:57 | disposition home or self-care (01) ==
LOC: ONCMED 05:59
PROVIDERS: PCP Family Medicine; Visit Provider Nurse Practitioner
DX: Z51.11 Encounter for antineoplastic chemotherapy (principal); Z51.12 Encounter for antineoplastic immunotherapy; C56.1 Malignant neoplasm of right ovary; C56.2 Malignant neoplasm of left ovary; C77.2 Secondary and unspecified malignant neoplasm of intra-abdominal lymph nodes; E11.9 Type 2 diabetes mellitus without complications; I10 Essential (primary) hypertension; K21.9 Gastro-esophageal reflux disease without esophagitis; F41.9 Anxiety disorder, unspecified; F32.9 Major depressive disorder, single episode, unspecified; Z79.899 Other long term (current) drug therapy
CPT/HCPCS: 96367; 96375; 96413; 96417; 99214; J1100; J1453; J2405; J3490; J7050; J9264; J9271

== ENCOUNTER → 2020-11-02 08:47 | Outpatient (BNVA) | payer MEDICARE, MEDICAID, SELFPAY | PROVIDERS: PCP Family Medicine; Visit Provider Nurse Practitioner | DX: C56.1 Malignant neoplasm of right ovary (principal); C56.2 Malignant neoplasm of left ovary; C77.2 Secondary and unspecified malignant neoplasm of intra-abdominal lymph nodes; E11.9 Type 2 diabetes mellitus without complications; E03.9 Hypothyroidism, unspecified; Z79.899 Other long term (current) drug therapy | CPT/HCPCS: 80053; 84443; 85025 ==

== ENCOUNTER 2020-11-03 05:44 | Outpatient (CLI) | payer MEDICARE, MEDICAID, SELFPAY ==
[2020-11-03] MEDS: famotidine 20 mg/2 mL INJ IVP (12:38)
[2020-11-03] MEDS: sodium chloride 0.9% 250 ML IV (12:38)
[2020-11-03] MEDS: ondansetron 2 mg/ML SDV 2 mL 8 MG IVP (12:40)
[2020-11-03] MEDS: fosaprepitant 150 MG in sodium chloride 0.9% 150 ML 300 MG IV (13:03)
[2020-11-03 22:05] LABS: CA 125 231.4 U/mL (0-35)
--- NOTE | 2020-11-14 21:26 | ONC FU_ITS ---
[facility] Patient Note Patient: Bessy Roy Unit #: [id number]: 1965 Dictated By: Smiley RuizDate of Visit: Nov 03, 2020 Onc MED Follow-Up/Prog Note Chief Complaint: Ovarian cancer. History of Present Illness: Ms Roy is a 55 year-old woman with recurrent ovarian cancer. She had presented in March 2012 with stage IIIC ovarian cancer. She was referred to Dr. Edilson Wahl for [facility] [facility] oncology. On 05/17/12 showed underwent exploratory laparotomy. The op note indicated a small amount of residual miliary disease present at the end of the procedure. It was estimated to be greater than 99% resected. Pathology showed a high-grade serous carcinoma involving both ovaries, measuring 9 cm on the right and 6 cm on the left. There was involvement in the omentum and multiple serosal surfaces including the appendix, uterus, and colon. There was no diagnostic abnormality in the included portion of rectosigmoid colon and there was no involvement in the skeletal muscle from the abdominal wall. There was involvement in the liver capsule, but not the liver parenchyma. The spleen showed no diagnostic abnormality. There was involvement in 4 of 20 lymph nodes. The ascitic fluid also was positive. Her postoperative course was complicated by development of an abscess in the left lower quadrant, requiring percutaneous drainage and antibiotic therapy. She did have a gradual recovery, and she subsequently was given postoperative chemotherapy with 6 cycles of carboplatin/Taxol, completed on 11/15/2012. There were delays during her chemotherapy related to poor compliance. In August 2013 she had recurrence and she began second line chemotherapy with carboplatin and weekly Taxol in combination with Avastin . As of 02/02/15 she had completed 6 cycles of chemotherapy. She had significant response by CA 125 level and by followup CT scan. Taxol was omitted with cycles 5 and 6 due to neuropathy. Her treatment was changed to maintenance Avastin. By June her CA-125 level began to increase. As of 08/19/2015 it was back up to 43 U/mL. At that point she restarted chemotherapy with Abraxane/Avastin, and her CA-125 level subsequently declined. She then continued treatment with Abraxane/Avastin, though not on a very consistent schedule due in part to toxicities and in part to compliance issues. As of her follow-up visit on 08/22/2017 her neuropathy symptoms had worsened significantly, and it was opted to put her treatment on hold. She returned on 09/26/2017 to begin further chemotherapy with carboplatin/gemcitabine on a day 1/day 15 schedule. Her baseline CA-125 level had increased to 15.1 U/mL. She had some fatigue following that treatment. She otherwise seemed to tolerate it pretty well, and she was able to continue treatment on a day 1/day 15 schedule. As of July 2018 she had completed 11 cycles of carboplatin/gemcitabine. She remained stable clinically with CA-125 level stable at 14.4 U/mL. In August 2018 she began maintenance therapy with olaparib 300 mg twice a day. At her scheduled visit on 04/10/2019 she appeared stable clinically, but there was a significant increase in her CA 125 level to 30.0 U/mL compared to 17.8 U/mL in January. With that change she had restaging CT scans of the chest/abdomen/pelvis on 04/18/2019. It showed new circumferential thickening of the stomach antrum and a small but slightly increase sized gastric lymph node. It was felt to possible represent inflammatory changes from peptic ulcer disease, but very early metastatic disease was not excluded. There was no ascites. There was stable, mild thickening of the right lateral urinary bladder wall. With those findings, it was opted to restart her on chemotherapy with carboplatin in combination with liposomal doxorubicin. She began cycle 1 on 05/08/2019. Her baseline CA 125 level was 58.9 U/mL. She tolerated the treatment with acceptable toxicity. She continued with cycle 2 on 06/05/2019 and with cycle 3 on 07/03/2019. At that point the CA 125 level had decreased just slightly, to 38.9 U/mL. At her followup visit visit on 07/31/2019 she had developed a significant skin eruption as well as other side effects with the chemotherapy. As there has been no further decline in the CA-125 level, Dr Benavidez opted to stop that treatment. Restaging CT of the abdomen/pelvis on 09/09/2019 showed mesenteric deposits throughout the abdomen and pelvis, increased in size and number compared to the study from April 2019. Also noted was a soft tissue mass at the antrum of the stomach with slight increase in size and luminal narrowing. With those findings, Dr Benavidez opted to restart chemotherapy with carboplatin/gemcitabine. She began her 1st cycle on 10/08/2019 on a day 1/day 15 schedule. Her other medical illnesses include hypertension, type II diabetes, and anxiety/depression. She underwent repair of an incisional hernia which developed subsequent to her abdominal surgery in 2011. She is a nonsmoker. INTERIM HISTORY: She completed 1 full cycle of treatment with carboplatin/gemcitabine. She tolerated the chemotherapy pretty well, but after 1 cycle there was a significant increase in the CA-125 level. With that finding, she then began a trial of salvage therapy with pembrolizumab in combination with bevacizumab. She began cycle 1 on 12/04/2019. She tolerated it without any adverse effects. She continued with cycle 2 on 12/25/2019 and with cycle 3 on 01/15/2020. As of cycle 4 the bevacizumab was put on hold due to hypertension, but she did continue the pembrolizumab at 3-week intervals. Restaging CT scans of the chest, abdomen, and pelvis on 04/07/2020 showed continued progression of metastatic implants within the abdomen and pelvis compared to the August 2019 CT. There was increase in both size and number of mesenteric metastatic deposits and additional central mesenteric and pelvic mesenteric stranding which was highly suspicious for metastatic deposits involving the small bowel and colon in the right lower quadrant. There is no evidence of GI obstruction. There was suspected omental metastatic involvement. There was no ascites. There was no evidence of pulmonary metastatic disease. With those findings, she was given the option to go back on treatment with Abraxane in combination with pembrolizumab, as she was very motivated to continue with some form of treatment. She began cycle 1 on 04/15/2020. She tolerated it well, she continue with cycle 2 on 05/06/2020. 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 She began anticoagulation with apixaban. On 05/26/2020 she underwent removal of the Port-A-Cath, and her treatment was put on hold. She was then able to undergo placement of a left internal jugular vein Port-A-Cath on 06/15/2020. She continued with cycle 3 of Abraxane/pembrolizumab on 06/29/2020. On 07/20/2020 she was admitted to the hospital with small bowel obstruction. Her CT abdomen/pelvis showed some associated bowel wall thickening and mesenteric nodularity which was suspicious for underlying carcinomatosis. It appeared to be a little more pronounced compared to the prior study, but there were no other obvious findings of disease progression. The obstruction resolved with conservative management. She continued with cycle 4 of Abraxane/pembrolizumab on 07/29/2020. Ms Roy is here today for followup. She states overall she is doing well. She has no pain. Her bowels are moving well. She continues to watch her diet very carefully. She has no new concerns today. She denies any fever or chills. She denies any mouth sores, sore throat or difficulty swallowing. She denies any cough or hemoptysis. She denies any pleural type pain. She denies any chest pain or palpitations. She has had no evidence of recurrent or near bowel obstruction. She does express concern regarding the elevating CA-125. Thus far she has been asymptomatic. Her ECOG is 1. Past Medical History: Small bowel obstruction in 2019 Ovarian cancer (Dr. Wahl in [place] performed surgery) in 2011 She has previously been in good health. She has had some depression following the surgery. She has no other medical illnesses. Past Surgical History: Caesarean section Portacatheter placement PORTHACATHER PLACEMENT DR. LARRY Right leg abcess Portacatheter removal in 2019 Flu vaccine in 2019 Flu vacc in 2017 - rt deltoid Flucevax in 2016 - left deltoid Pneumovax in 2016 - right deltoid Exploratory lap in 2011 - MEG-BSO,recto-sigmoid resection,omentectomy,splenectomy,bilateral pelvic and periaortic lymph node dissections,appy,liver biopsy, Hysterectomy in 2011 Port placed in 2012 - dr. dela cruz ([facility]) Prior surgeries limited to section in 2001 and a procedure on her right leg for abscess at age 18. EXploratory lap in 2011 resulted in total abdominal hysterectomy with bilateral salpingo-oophorectomy, and en bloc rectosigmoid resctions, omentectomy with partial resection of the anterior abdominal wall, splenectomy, bilateral pelvic and periaortic lymph node dissections, appendectomy, liver biopsy and debulking of right diaphragm and peritoneal implants. Allergies: Morphine Sulfate Medications: ALPRAZolam 1 Tablet (of 0.5 mg) Oral t.i.d. PRN AmLODIPine Besylate 1 (5 mg) Tablet Oral daily CeleXA 1 (40 mg) Tablet Oral daily Colace 3 (100 mg) Capsule Oral b.i.d. Compazine 1 (10 mg) Tablet Oral four times a day PRN Eliquis 1 Tablet (of 5 mg) Oral b.i.d. HumuLIN R Injection t.i.d. PRN Hydrocodone-Acetaminophen 1 - 2 Tablet (of 7.5-325 mg) Oral q 4 hours PRN Lantus 40 Units (of 100 Units/mL) Subcutaneous at bedtime PRN Levothyroxine Sodium 1 Tablet (of 125 mcg) Oral daily Magnesium 1 Tablet (of 400 mg) Oral daily Melatonin 4 (10 mg) Tablet Oral at bedtime MetFORMIN HCl 2 Tablet (of 500 mg) Oral b.i.d. Metoprolol Tartrate 1 Tablet (of 25 mg) Oral daily oxyCODONE HCl 1 Tablet (of 15 mg) Oral q 4 hours PRN Pantoprazole Sodium 1 Tablet (of 40 mg) Tablet, enteric coated Oral daily Probiotic & Acidophilus Ex St 1 Capsule Oral b.i.d. Voltaren 2 - 4 G (of 1 %) Gel (jelly) Transdermal PRN Family History: Ms. Roy's mother is alive: cancer history consists of Breast cancer while other medical history includes stroke and Alzheimers's disease at age 79. Ms. Roy's father is : cancer history consists of Thyroid Gland cancer while other medical history includes heart disease at age 62 (cause of ). Ms. Roy has 1 brother with an unknown alive status: medical history includes COPD and alcoholism. She has 1 maternal aunt with an unknown alive status: cancer history consists of Breast cancer. Family history significant for father having with heart disease at age 62. He also had thyroid cancer. Her mother is still living at age 79. She has Alzheimer's dementia and a history of strokes. She also has been treated for breast cancer. A maternal aunt also had breast cancer. She has one brother who is 60 years old and has COPD and alcoholism. Social History: Ms. Roy is single and she is a disabled. Ms. Roy has never smoked. She has no history of drinking. Ms. Roy reports the following support systems: lives with spouse, significant other, family, or friends, lives in own house, supportive family/friends willing to assist with needs, and adequate transportation available for expected visits. Her diet consists of regular meals. She indicates her activity level as: daily activities. She was previously and . She is currently unmarried, but she has a significant other. She is a [employer] and works in a [employer]. She has never smoked. Review Of Symptoms: Vital Signs: Performed on Nov 03, 2020 11:32 Height - 63.50 in Weight - 193.6 lbs (HIGH) BSA - 1.92 sq.m BMI - 33.76 (HIGH) Temperature - 98.7 F Pulse - 75 /min Respiration - 18 /min BP - 124/78 mm(hg) O2 Sat - 97 % Pain - 3 Fatigue - 2,1 - No physically strenuous activity, but ambulatory and able to carry out light or sedentary work (e.g. office work, light house work). (ECOG) Physical Examination: Constitutional Alert, oriented, no acute distress. Skin pink, warm and dry. Head Normocephalic; atraumatic. Eyes Conjunctivae and sclerae are clear and without icterus. Pupils are reactive and equal. ENMT Sinuses are nontender. No oral exudates, ulcers, masses, thrush or mucositis. Oropharynx clear. Poor dentation noted. Neck Supple without masses or thyromegaly. No jugular venous distension. Hematologic/Lymphatic No petechiae or purpura. No tender or palpable lymph nodes in the cervical, supraclavicular. Respiratory Lungs are clear to auscultation without rhonchi or wheezing. Cardiovascular Regular rate and rhythm of heart without murmurs,clicks, gallops or rubs. Chest Chest is symmetric without chest wall deformities. Right venous access device removal site is unremarkable. Abdomen Non-tender, non-distended, no masses or ascites. Good bowel sounds noted in all quads. No guarding or rebound tenderness. No pulsatile masses. Back/Spine Non-tender to palpation. Extremities No visible deformities, no cyanosis, clubbing or edema. Right upper arm = 15.5 inches in diameter and left is 12.5 inches (hx right IJ thrombosis). Musculoskeletal No tenderness or swelling, normal range of motion without obvious weakness. Integumentary No rashes or lesions. Neurologic No sensory or motor deficits, normal cerebellar function, normal gait. Psychiatric Alert and oriented times three. Coherent speech. Verbalizes understanding of our discussions today. Laboratory:Test performed on Nov 02, 2020 08:47 Sodium 142 mmol/L TSH 5.20 uIU/mL Potassium 3.9 mmol/L Chloride 101 mmol/L CO2 29 mmol/L Anion Gap 15.9 BUN 11 mg/dL Creatinine 0.8 mg/dL Cr Clearance (Est) 104.80 mL/min eGFR 74.5 mL/min Glucose 154 mg/dL Osmolality - Calculated 296 mOsm/kg Calcium 8.5 mg/dL Protein, Total 6.3 g/dL Albumin 3.7 g/dL Globulin 2.6 g/dL Bilirubin, Total 0.3 mg/dL ALT (SGPT) 8 Units/L AST (SGOT) 12 Units/L Alkaline Phosphatase 85 IU/L WBC 10.9 10^3/uL RBC 4.23 10^6/uL HGB 11.1 g/dL HCT 34.8 % MCV 82.1 fl MCH 26.3 pg MCHC 32.1 g/dL RDW 18.0 % Platelet Count 737 10^3/uL MPV 7.6 fl Neutrophils 7.2 10^3/uL Lymphocytes 3.0 10^3/uL Monocytes 0.7 10^3/uL Neutrophil % 66.4 % Lymphocyte % 27.5 % Monocyte % 6.1 % CA-125 231.4 U/mL Impression: 1. High-grade serous carcinoma of the ovary, stage IIIC at initial diagnosis. There was a small amount of residual miliary disease present following her initial surgery in April 2012. Her disease was estimated at greater than 99% resected. She was given postoperative chemotherapy with 6 cycles of carboplatin/Taxol, which she completed in October 2012. 2. In August 2014 she had evidence of recurrence by CA [address] scan, and she then initiated second line treatment with carboplatin and weekly Taxol in combination with Avastin. As of February 2015 she had completed 6 cycles of chemotherapy, and she then continued with maintenance Avastin. 3. Her treatment was changed to maintenance Avastin. 4. As of 08/19/2015 she had 2 successive increases in her CA-125 level, and at that point she restarted chemotherapy with Abraxane in combination with Avastin. She had a very good response by CA-125 level. 5. On 09/26/2017 she began further chemotherapy with carboplatin/gemcitabine on a day 1/day 15 schedule. As of July 2018 she had completed 11 cycles of treatment. She appeared stable clinically, and her restaging CT scans from 08/08/2018 had shown no evidence of disease progression. In August 2018 her treatment was changed to maintenance olaparib 300 mg twice daily. 6. As of March 2019 there was evidence of disease progression with rising CA-125 level. Her further treatments included chemotherapy with carboplatin/liposomal doxorubicin, retreatment with carboplatin/gemcitabine, and a trial of therapy with pembrolizumab in combination with bevacizumab. Her other medical illnesses include: 7. Hypertension. 8. Type II diabetes. 9. GERD. 10. Anxiety/depression. Plan: PROBLEMS ADDRESSED TODAY 1. Recurrent ovarian cancer. On 04/15/2020 she began further treatment with Abraxane in combination with pembrolizumab. She tolerated it well and continued with cycle 2 on 05/06/2020. 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 She underwent placement of a left internal jugular vein Port-A-Cath on 06/15/2020, and she continued with cycle 3 of Abraxane/pembrolizumab on 06/29/2020. On 07/20/2020 she was admitted to the hospital with small bowel obstruction. Her CT abdomen/pelvis showed some associated bowel wall thickening and mesenteric nodularity which was suspicious for underlying carcinomatosis. It appeared to be a little more pronounced compared to the prior study, but there were no other obvious findings of disease progression. The obstruction resolved with conservative management. She continued with cycle 4 of Abraxane/pembrolizumab on 07/29/2020. A. Proceed with cycle 7 Abraxane Keytruda/pembrolizumab today as scheduled. B. She will continue the same antiemetics as these seem to be working well. C. Labs from November 02, 2020 reviewed in detail and discussed with Ms. Roy and a copy was given to her. WBC 10.9, hemoglobin 11.1, platelets 737,000 ANC is 7200. Potassium 3.9, random glucose 154 creatinine 0.8 LFTs are normal. TSH is 5.2. Her CA-125 was pending at time of visit. Her last result was 191.9 on October 12, 2020. It has slowly gradually increased as it was 130.3 in July 2020. 2. Type 2 diabetes. A. Her random and stated fasting blood sugars at home have been stable. She will continue her current plan of care with the Metformin and sliding scale. She does use 40 units of Lantus at bedtime as needed depending on what her blood sugar is. 3. 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 She underwent placement of a left internal jugular vein Port-A-Cath on 06/15/2020 A. Continue Eliquis 5 mg twice daily 4. Follow-up plan A. We will plan to see her back in 3 weeks with CBC, CMP, CA 19-9 and TSH for immunotherapy monitoring. B. We will call her with the results of the CA -125 as it was pending at the time of her visit today. C. Ms. Roy was encouraged to contact us in interim should questions or problems arise. Signed By: Smiley Ruiz-, [facility] Jeffrey Benavidez MD <<Signature on File>>
== END 2020-11-03 05:45 | disposition home or self-care (01) ==
LOC: ONCMED 05:46
PROVIDERS: PCP Family Medicine; Visit Provider Nurse Practitioner
DX: Z51.11 Encounter for antineoplastic chemotherapy (principal); C56.2 Malignant neoplasm of left ovary; C56.1 Malignant neoplasm of right ovary; C77.2 Secondary and unspecified malignant neoplasm of intra-abdominal lymph nodes; E11.9 Type 2 diabetes mellitus without complications; Z79.4 Long term (current) use of insulin; Z79.899 Other long term (current) drug therapy; Z86.718 Personal history of other venous thrombosis and embolism; Z79.01 Long term (current) use of anticoagulants
CPT/HCPCS: 86304; 96367; 96375; 96413; 96417; 99214; J1100; J1453; J2405; J3490; J7050; J9264; J9271

== ENCOUNTER → 2020-11-22 08:44 | Outpatient (BNVA) | payer MEDICARE, MEDICAID, SELFPAY | PROVIDERS: PCP Family Medicine; Visit Provider Nurse Practitioner | DX: C77.2 Secondary and unspecified malignant neoplasm of intra-abdominal lymph nodes (principal); C56.1 Malignant neoplasm of right ovary | CPT/HCPCS: 80053; 85025; 86304 ==

== ENCOUNTER 2020-11-25 09:41 | Outpatient (CLI) | payer MEDICARE, MEDICAID, SELFPAY ==
[2020-11-25 11:13] LABS: Iron 23 ug/dL (37-145); Percent Saturation 8.6 % (20-50); Total Iron Binding Capacity 265 mcg/dl; Unsaturated Iron Binding 242 ug/dL (112-347)
--- NOTE | 2020-11-26 17:27 | ONC FU_ITS ---
Dr. Benavidez Patient Follow-Up Note Patient: Bessy Roy Unit #: [id number]: 1965 Dicatated By: Jeffrey Benavidez M.D.Date of Visit:Nov 25, 2020 Onc Med Follow-up/Prog Note Chief Complaint: Ovarian cancer. History of Present Illness: This is a 55 year-old woman with recurrent ovarian cancer. She had presented in March 2012 with stage IIIC ovarian cancer. She was referred to Dr. Edilson Wahl for [facility] oncology. On 05/17/12 showed underwent exploratory laparotomy. The op note indicated a small amount of residual miliary disease present at the end of the procedure. It was estimated to be greater than 99% resected. Pathology showed a high-grade serous carcinoma involving both ovaries, measuring 9 cm on the right and 6 cm on the left. There was involvement in the omentum and multiple serosal surfaces including the appendix, uterus, and colon. There was no diagnostic abnormality in the included portion of rectosigmoid colon and there was no involvement in the skeletal muscle from the abdominal wall. There was involvement in the liver capsule, but not the liver parenchyma. The spleen showed no diagnostic abnormality. There was involvement in 4 of 20 lymph nodes. The ascitic fluid also was positive. Her postoperative course was complicated by development of an abscess in the left lower quadrant, requiring percutaneous drainage and antibiotic therapy. She did have a gradual recovery, and she subsequently was given postoperative chemotherapy with 6 cycles of carboplatin/Taxol, completed on 11/15/2012. There were delays during her chemotherapy related to poor compliance. In August 2013 she had recurrence and she began second line chemotherapy with carboplatin and weekly Taxol in combination with Avastin . As of 02/02/15 she had completed 6 cycles of chemotherapy. She had significant response by CA 125 level and by followup CT scan. Taxol was omitted with cycles 5 and 6 due to neuropathy. Her treatment was changed to maintenance Avastin. By June her CA-125 level began to increase. As of 08/19/2015 it was back up to 43 U/mL. At that point she restarted chemotherapy with Abraxane/Avastin, and her CA-125 level subsequently declined. She then continued treatment with Abraxane/Avastin, though not on a very consistent schedule due in part to toxicities and in part to compliance issues. As of her follow-up visit on 08/22/2017 her neuropathy symptoms had worsened significantly, and I did opt to put her treatment on hold. She returned on 09/26/2017 to begin further chemotherapy with carboplatin/gemcitabine on a day 1/day 15 schedule. Her baseline CA-125 level had increased to 15.1 U/mL. She had some fatigue following that treatment. She otherwise seemed to tolerate it pretty well, and she was able to continue treatment on a day 1/day 15 schedule. As of July 2018 she had completed 11 cycles of carboplatin/gemcitabine. She remained stable clinically with CA-125 level stable at 14.4 U/mL. In August 2018 she began maintenance therapy with olaparib 300 mg twice a day. At her scheduled visit on 04/10/2019 she appeared stable clinically, but there was a significant increase in her CA 125 level to 30.0 U/mL compared to 17.8 U/mL in January. With that change she had restaging CT scans of the chest/abdomen/pelvis on 04/18/2019. It showed new circumferential thickening of the stomach antrum and a small but slightly increase sized gastric lymph node. It was felt to possible represent inflammatory changes from peptic ulcer disease, but very early metastatic disease was not excluded. There was no ascites. There was stable, mild thickening of the right lateral urinary bladder wall. With those findings, I opted to restart her on chemotherapy with carboplatin in combination with liposomal doxorubicin. She began cycle 1 on 05/08/2019. Her baseline CA 125 level was 58.9 U/mL. She tolerated the treatment with acceptable toxicity. She continued with cycle 2 on 06/05/2019 and with cycle 3 on 07/03/2019. At that point the CA 125 level had decreased just slightly, to 38.9 U/mL. At her followup visit visit on 07/31/2019 she had developed a significant skin eruption as well as other side effects with the chemotherapy. As there has been no further decline in the CA-125 level, I opted to stop that treatment. Restaging CT of the abdomen/pelvis on 09/09/2019 showed mesenteric deposits throughout the abdomen and pelvis, increased in size and number compared to the study from April 2019. Also noted was a soft tissue mass at the antrum of the stomach with slight increase in size and luminal narrowing. With those findings, I opted to restart chemotherapy with carboplatin/gemcitabine. She began her 1st cycle on 10/08/2019 on a day 1/day 15 schedule. Her other medical illnesses include hypertension, type II diabetes, and anxiety/depression. She underwent repair of an incisional hernia which developed subsequent to her abdominal surgery in 2011. She is a nonsmoker. INTERIM HISTORY: She completed 1 full cycle of treatment with carboplatin/gemcitabine. She tolerated the chemotherapy pretty well, but after 1 cycle there was a significant increase in the CA-125 level. With that finding, she then began a trial of salvage therapy with pembrolizumab in combination with bevacizumab. She began cycle 1 on 12/04/2019. She tolerated it without any adverse effects. She continued with cycle 2 on 12/25/2019 and with cycle 3 on 01/15/2020. As of cycle 4 the bevacizumab was put on hold due to hypertension, but she did continue the pembrolizumab at 3-week intervals. Restaging CT scans of the chest, abdomen, and pelvis on 04/07/2020 showed continued progression of metastatic implants within the abdomen and pelvis compared to the August 2019 CT. There was increase in both size and number of mesenteric metastatic deposits and additional central mesenteric and pelvic mesenteric stranding which was highly suspicious for metastatic deposits involving the small bowel and colon in the right lower quadrant. There is no evidence of GI obstruction. There was suspected omental metastatic involvement. There was no ascites. There was no evidence of pulmonary metastatic disease. With those findings, she was given the option to go back on treatment with Abraxane in combination with pembrolizumab, as she was very motivated to continue with some form of treatment. She began cycle 1 on 04/15/2020. She tolerated it well, she continue with cycle 2 on 05/06/2020. 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 She began anticoagulation with apixaban. On 05/26/2020 she underwent removal of the Port-A-Cath, and her treatment was put on hold. She was then able to undergo placement of a left internal jugular vein Port-A-Cath on 06/15/2020. She continued with cycle 3 of Abraxane/pembrolizumab on 06/29/2020. On 07/20/2020 she was admitted to the hospital with small bowel obstruction. Her CT abdomen/pelvis showed some associated bowel wall thickening and mesenteric nodularity which was suspicious for underlying carcinomatosis. It appeared to be a little more pronounced compared to the prior study, but there were no other obvious findings of disease progression. The obstruction resolved with conservative management. She continued with cycle 4 of Abraxane/pembrolizumab on 07/29/2020, and she then continued treatment 3-week intervals. As of 11/03/2020 she received her 8th cycle. She is seen for a follow-up visit. She has not been feeling as good lately. She indicates that she had been able to stop her pain medication following her hospitalization in June, but recently she has had to start taking it again as she has had recurrence of pain in the upper abdominal area as well as pain in her lower abdomen and lower back. She recently had hematuria that lasted for couple of days. Her energy is not been good. She says she stays tired. ECOG score is 2. Her appetite is not good. She occasionally runs low-grade fever. She sometimes has hot flashes, but not as often now. She does not complain of cough. She occasionally cannot get her breath and she occasionally has chest pain. She has nausea and vomiting on a daily basis and she has ongoing problems with constipation. She currently has no complaints. She also has some joint pain, mainly in her knees. She does not complain of headache. She sometimes has dizziness. She is not having numbness/paresthesia or other neuropathy symptoms. She has ongoing problems with anxiety/depression, and she says she has a lot going on . Medications: ALPRAZolam 1 Tablet (of 0.5 mg) Oral t.i.d. PRN, AmLODIPine Besylate 1 (5 mg) Tablet Oral daily, CeleXA 1 (40 mg) Tablet Oral daily, Colace 3 (100 mg) Capsule Oral b.i.d., Compazine 1 (10 mg) Tablet Oral four times a day PRN, Eliquis 1 Tablet (of 5 mg) Oral b.i.d., HumuLIN R Injection t.i.d. PRN, Hydrocodone-Acetaminophen 1 - 2 Tablet (of 7.5-325 mg) Oral q 4 hours PRN, Lantus 40 Units (of 100 Units/mL) Subcutaneous at bedtime PRN, Levothyroxine Sodium 1 Tablet (of 125 mcg) Oral daily, Magnesium 1 Tablet (of 400 mg) Oral daily, Melatonin 4 (10 mg) Tablet Oral at bedtime, MetFORMIN HCl 2 Tablet (of 500 mg) Oral b.i.d., Metoprolol Tartrate 1 Tablet (of 25 mg) Oral daily, oxyCODONE HCl 1 Tablet (of 15 mg) Oral q 4 hours PRN, Pantoprazole Sodium 1 Tablet (of 40 mg) Tablet, enteric coated Oral daily, Probiotic & Acidophilus Ex St 1 Capsule Oral b.i.d., Voltaren 2 - 4 G (of 1 %) Gel (jelly) Transdermal PRN Allergies: Morphine Sulfate Vital Signs: Performed on Nov 25, 2020 10:04 Height - 63.50 in Weight - 193.2 lbs (LOW) BSA - 1.92 sq.m BMI - 33.69 (HIGH) Temperature - 96.9 F (LOW) Pulse - 86 /min Respiration - 18 /min BP - 140/83 mm(hg) O2 Sat - 97 % Pain - 2 Fatigue - 9 Physical Examination: Constitutional - She still looks pretty good generally, Eyes - Sclerae nonicteric. Conjunctivae clear, ENMT - No lesions noted in the oral cavity, Hematologic/Lymphatic - No cervical, clavicular, or axillary adenopathy, Respiratory - Lungs sound clear, Cardiovascular - Heart rhythm is regular. There is a II/ systolic murmur. There is no gallop or rub noted, Abdomen - Moderately distended and firm. Liver is not enlarged. There is no abdominal mass noted. There may be ascites. There is no inguinal adenopathy, Extremities - No edema, Neurologic - No focal neurologic deficits noted. Lab/Imaging: Test performed on Nov 22, 2020 08:44 Glucose 102 mg/dL BUN 13 mg/dL Creatinine 0.9 mg/dL Cr Clearance (Est) 93.16 mL/min Sodium 139 mmol/L Potassium 4.4 mmol/L Chloride 99 mmol/L CO2 26 mmol/L Calcium 8.6 mg/dL Protein, Total 5.8 g/dL Albumin 3.6 g/dL Globulin 2.2 g/dL Bilirubin, Total 0.2 mg/dL Alkaline Phosphatase 96 IU/L AST (SGOT) 15 IU/L ALT (SGPT) 9 IU/L WBC 11.7 10^9/L RBC 4.07 10^12/L HGB 10.3 g/dL HCT 32.6 % MCV 80.2 fl MCH 25.4 pg MCHC 31.7 g/dL RDW 17.3 % Platelet Count 687 10^9/L MPV 7.4 fL Neutrophils (Gran) 7.8 10^9/L Lymphocytes 3.4 10^9/L Monocytes 0.5 10^9/L Manual Lymphocytes 28.9 % Manual Monocytes 4.3 % CA 125 215.7 Units/mL Problem List: 1. High-grade serous carcinoma of the ovary, stage IIIC at initial diagnosis. There was a small amount of residual miliary disease present following her initial surgery in April 2012. Her disease was estimated at greater than 99% resected. She was given postoperative chemotherapy with 6 cycles of carboplatin/Taxol, which she completed in October 2012. 2. Hypertension. 3. Type II diabetes. 4. GERD. 5. Anxiety/depression. Problems Addressed with this Encounter and Plan: 1. Patient with recurrent ovarian cancer. She has been given postoperative adjuvant chemotherapy with 6 cycles of carboplatin/Taxol following initial surgery in April 2012. She first had evidence of recurrence by CA-125 level in August 2014. Her subsequent treatment included: 1. Carboplatin and weekly Taxol in combination with Avastin for 6 cycles, completed in February 2015. 2. Maintenance Avastin. 3. Abraxane in combination with Avastin beginning July 2015. 4. Carboplatin/gemcitabine on a day 1/day 15 schedule beginning from August 2017 thru July 2018. 5. Maintenance olaparib 300 mg twice daily beginning August 2018. 6. As of March 2019 there was evidence of disease progression with rising CA-125 level. Her further treatments included chemotherapy with carboplatin/liposomal doxorubicin, retreatment with carboplatin/gemcitabine, and a trial of therapy with pembrolizumab in combination with bevacizumab. On 04/15/2020 she began further treatment with Abraxane in combination with pembrolizumab. She tolerated it well and she continued with cycle 2 on 05/06/2020. 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 She underwent placement of a left internal jugular vein Port-A-Cath on 06/15/2020, and she continued with cycle 3 of Abraxane/pembrolizumab on 06/29/2020. On 07/20/2020 she was admitted to the hospital with small bowel obstruction. Her CT abdomen/pelvis showed some associated bowel wall thickening and mesenteric nodularity which was suspicious for underlying carcinomatosis. It appeared to be a little more pronounced compared to the prior study, but there were no other obvious findings of disease progression. The obstruction resolved with conservative management. She restarted treatment with cycle 4 of Abraxane/pembrolizumab on 07/29/2020, and she then continue treatment at 3-week intervals. As of 11/03/2020 she completed cycle 8 of Abraxane a combination with pembrolizumab. Between July and October 2020 there was a significant further increase in the CA-125 level, though it now appears to have stabilized. Recently, though, there has been some decline in her clinical status. As such, I am going to put her treatment on hold pending outcome of restaging CT scan of the abdomen/pelvis, as I suspect that her disease is progressing. In the meantime, she will restart her pain medication. 2. She has become mildly anemic. I will check serum iron studies and she will have further evaluation as indicated. Signed By: Jeffrey Benavidez M.D. <<Signature on File>>
== END 2020-11-25 09:42 | disposition home or self-care (01) ==
LOC: ONCMED 09:43
PROVIDERS: PCP Family Medicine; Visit Provider Internal Medicine Medical Oncology
DX: C56.1 Malignant neoplasm of right ovary (principal); C56.2 Malignant neoplasm of left ovary; C77.2 Secondary and unspecified malignant neoplasm of intra-abdominal lymph nodes; E11.9 Type 2 diabetes mellitus without complications; I10 Essential (primary) hypertension; K21.9 Gastro-esophageal reflux disease without esophagitis; F41.9 Anxiety disorder, unspecified; F32.9 Major depressive disorder, single episode, unspecified; Z79.899 Other long term (current) drug therapy
CPT/HCPCS: 83540; 83550; 99215

== ENCOUNTER 2020-11-30 10:04 | Outpatient (CLI) | payer MEDICARE, MEDICAID, SELFPAY ==
--- NOTE | 2020-11-30 10:11 | CT_ITS ---
WS: [id number] CTA CHEST ABDOMEN AND PELVIS TECHNIQUE: Noncontrast plus contrast enhanced CTA of the chest, abdomen, and pelvis with coronal and sagittal reformatted images and additional MIP Images. CLINICAL INFORMATION: SHORTNESS OF BREATH/ OVARIAN CANCER COMPARISON: CT July 20, 2020 10 April 21, 2020. CT chest abdomen pelvis April 07, 2020 DLP: 1648.[address] scans at [facility] use at least one of these dose optimization techniques: automat ed exposure control; mA and/or kV adjustment per patient size (includes targeted exams where dose is matched to clinical indication); or iterative reconstruction. FINDINGS: Both lungs are well aerated. No focal consolidation. Calcified granuloma right upper lobe. Small left pleural effusion with slight left basilar atelectasis. No mediastinal or hilar lymphadenop athy. No axillary lymphadenopathy. Normal caliber thoracic aorta. Proximal main pulmonary arteries ar e normal. Mixing artifact in the left proximal main pulmonary artery. Segmental and subsegmental pulm onary arteries are normal. No evidence of pulmonary embolus.Moderate esophageal hiatal hernia is prog ressed from previous with low-attenuation fluid/mucin along the GE junction. Associated mass effect o n the GE junction with narrowing Diffuse fatty infiltration of the liver. Normal portal vein and splenic vein. Enlarging low-attenuati on lesion along the falciform ligament suspicious for metastatic disease. This measures approximately 1.7 x 2.7 cm. 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 Associated scalloping of the liver with loculated areas of fluid/ mucin along the left anterior abdominal wall. Evidence of progressed peritoneal carcinomatosis with a nterior omental caking and adjacent bowel tethering. Diffuse mesenteric edema. Dilated loops of small bowel in the midabdomen. Small bowel obstruction appears improved since July 20, 2020 Low-attenuation markedly enlarged lymph node right groin measuring 4.8 x 4.8 cm is progressed from pr evious. Fatty atrophy of the pancreas. Normal caliber abdominal aorta. Adrenal glands are normal. No hydronephrosis in either kidney.Prior hysterectomy and splenectomy. Rectosigmoid anastomosis. CT/CT angio chest w abd pel w con IMPRESSION: 1. No evidence of pulmonary embolus. 2. Small left pleural effusion with slight left basilar atelectasis. Right jonathan g is well aerated. 3. No mediastinal or hilar lymphadenopathy. 4. Moderate esophageal hiatal hernia is progressed from previous with low-atte nuation fluid/mucin along the GE junction. Associated mass effect on the GE pradeep ction with narrowing. 5. 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 6. Omental caking with tethering of bowel loops along the ventral abdominal wa ll. 7. Mild small bowel dilatation consistent with small bowel obstruction althoug h improved from July 20, 2020. 8. Markedly enlarged lymph node in the right groin progressed from previous me asuring 4.8 x 4.8 cm. 9. Low-attenuation lesion along the falciform ligament is slightly enlarged da silva spicious for metastatic disease.
[2020-11-30] MEDS: iohexol 300 mg/mL 50 mL Btl PO (12:07)
[2020-11-30] MEDS: iohexol 350 mg/mL 100 mL Btl IV (12:08)
== END 2020-11-30 10:05 | disposition home or self-care (01) ==
LOC: RAD 10:08
PROVIDERS: PCP Family Medicine; Visit Provider Internal Medicine Medical Oncology
DX: C56.2 Malignant neoplasm of left ovary (principal); C56.1 Malignant neoplasm of right ovary; R06.02 Shortness of breath; K44.9 Diaphragmatic hernia without obstruction or gangrene; J90 Pleural effusion, not elsewhere classified; J98.11 Atelectasis
CPT/HCPCS: 71275; 74177

== ENCOUNTER 2020-12-01 13:10 | Emergency (ER) | payer MEDICARE, MEDICAID, SELFPAY ==
[2020-12-01 13:22] VITALS: BP 133/90; PULSE 99; RESP 18; TEMP 36.8; O2SAT 93; BMI 34.2
[2020-12-01 15:27] LABS: Basophils # 0.1 10^3/uL (0.0-0.1); Basophils % 0.8 %; Eosinophils # 0.1 10^3/uL (0.0-0.8); Eosinophils % 0.6 %; Hematocrit 36.9 % (37.0-47.0); Hemoglobin 11.4 g/dL (11.5-15.3); Lymphocytes % 16.4 %; Mean Corpuscular HGB Conc 30.9 g/dL (30.0-36.0); Mean Corpuscular Hemoglobin 26.1 pg (28.0-34.0); Mean Corpuscular Volume 84.4 fL (81-99); Mean Platelet Volume 9.6 fL (7.4-10.4); Monocytes % 8.5 %; Neutrophils # 8.75 10^3/uL (1.8-7.7); Neutrophils % 73.3 %; Nucleated Red Blood Cells % 0 %; Platelet Count 759 10^3/cmm (130-400); Red Blood Count 4.37 10^6/uL (4.1-5.3); White Blood Count 11.9 10^3/uL (4.0-10.0)
[2020-12-01 15:56] LABS: Alanine Aminotransferase 8 U/L (0-33); Albumin Level 3.9 g/dL (3.5-5.2); Alkaline Phosphatase 98 IU/L (35-105); Blood Urea Nitrogen 12 mg/dL (6-20); Calcium 8.8 mg/dL (8.5-10.5); Carbon Dioxide 28 mmol/L (22-29); Chloride 94 mmol/L (98-107); Globulin 2.9 g/dL (1.3-4.6); Glomerular Filtration Rate 46.6 mL/min (90-130); Glucose 116 mg/dL (65-115); Lipase 19 U/L (13-60); Osmolality Calculated 275 mOsm/kg (285-295); Sodium 132 mmol/L (136-145); Total Bilirubin 0.3 mg/dL (0.15-1.2); Total Protein 6.8 g/dL (6.6-8.7)
[2020-12-01 15:59] LABS: Aspartate Amino Transferase 16 U/L (0-32)
--- NOTE | 2020-12-01 17:11 | W.ED.NAVMDI ---
HPI - Nausea/Vomiting/Diarrhea General: Chief complaint: Nausea/Vomiting/Diarrhea Stated complaint: N/V X 2 WKS, SOME BLOOD IN URINE, UNDERGOING CHEMO Time Seen by Provider: 12/01/20 15:14 Source: patient, family, old records reviewed and other (Oncologist) Mode of arrival: ambulatory Limitations: no limitations History of Present Illness: HPI Narrative: 55-year-old female presents with her for 2 and half weeks of progressive early satiety, regurgitation episodes of vomiting, upper abdominal pain and progressive abdominal distention since June. Patient has had ovarian cancer and has battled with it since 2011. She has undergone chemotherapy and radiation and is currently taking immunotherapy although it was recently held at the end of October. Patient had a CAT scan done on Sunday and does not know the results of it yet. She was told it was abnormal. Since she had a history of bowel obstruction she was sent to the emergency department. After reviewing the CT scan I called Dr. Benavidez and discussed it with him first and then talked with the patient. Dr. Benavidez reports that she has had progression of her disease and is now at the end stages of ovarian cancer. The patient has not had any vomiting in the last 4 hours and her pain level is tolerable now. She is passing gas today and last BM 2 days ago. She has a mild acute kidney injury on labs here. After discussing her cancer, its progression, and the perceived course I came to find that the patient has been expecting this and has already gone through several of the stages of grief in preparation for an incurable disease and inevitable . She was being good spirits given the condition and was offered admission however she would simply like a liter of fluid and to follow-up with Dr. Benavidez tomorrow to discuss her goals of care and palliation. Associated nausea: Yes Associated symtoms: Reports anxiety, fatigue and nausea; Denies altered mental status or chest pain Review of Systems General: Reports: 10 or more systems reviewed and unremarkable except in HPI and below Const: Reports: chills, change in appetite and fatigue ENMT: Denies: throat pain or odynophagia Card: Denies: chest pain Resp: Reports: dyspnea (hard to breath bc of swollen abd) GI: Reports: abdominal pain, nausea, vomiting and other (last bm 2 days ago, passing gas today) : Reports: other (dark urine, ? blood) Skin/Breast: Reports: changes in skin color (getting more pale) Psych: Reports: anxiety; Denies: hopelessness PFSH ED PFSH: Medical History (Updated 12/01/20 @ 17:44 by Josef Rios MD) Anxiety Diabetes mellitus Diabetes mellitus type 2, insulin dependent GERD (gastroesophageal reflux disease) H/O open leg wound with skin graft History of drainage of abscess history of intra-abdominal abscess requiring drainage Hypertension Ovarian cancer 2011 Port-A-Cath in place Surgical History (Updated 07/21/20 @ 10:44 by Paco Brar MD) History of appendectomy History of section, low transverse History of hysterectomy Exploratory lap in 2012 - MEG-BSO,recto-sigmoid resection,omentectomy,splenectomy,bilateral pelvic and periaortic lymph node dissections,appy,liver biopsy, History of incisional hernia repair History of liver biopsy History of removal of Port-a-Cath Placed / Removed / Replaced contralateral IJ 2020 Hx of exploratory laparotomy EXploratory lap in 2011 resulted in total abdominal hysterectomy with bilateral salpingo-oophorectomy, and en bloc rectosigmoid resctions, omentectomy with partial resection of the anterior abdominal wall, splenectomy, bilateral pelvic and periaortic lymph node dissections, appendectomy, liver biopsy and debulking of right diaphragm and peritoneal implants. Family History Mother Cancer Breast Cancer Father Cancer Thyroid cancer Other CAD (coronary artery disease) Dementia Diabetes Hyperlipidemia Hypertension Stroke Denies family history of Clotting disorder Psychiatric illness Chronic kidney disease (CKD) Suicide Anesthesia complication Bleeding disorder Family history of premature coronary artery disease Lung disease Social History Smoking and tobacco status: never smoked Second hand smoke exposure: No Smoking risk assessment/counseling performed?: Yes Alcohol intake: never Desire information about alcohol rehabilitation?: No Counseling given: No Desire information about substance/drug rehabilitation?: No Counseling given: No Marital status: Single Current occupational status: disabled History of recent travel: No Physical Exam Const: COMMON NORMALS: no limitations, alert and well nourished EXAM LIMITATIONS: no altered mental status GENERAL APPEARANCE: cooperative and well developed ORIENTATION/CONSCIOUSNESS: Yes awake; not confused HENMT: COMMON NORMALS: normocephalic, atraumatic, external ears normal and Normal external nose present HEAD & SCALP: normal to inspection, normocephalic and atraumatic FACE & SINUS: face symmetric NOSE: Normal external nose present EXTERNAL EAR: Yes external ears normal MOUTH: lip normal; no muffled voice Eye: COMMON NORMALS: EOMs intact bilaterally and conjunctivae normal GENERAL EYE: appearance normal, both eyes and all related structures CONJUNCTIVA: Yes conjunctivae normal Neck/C-Spine: COMMON NORMALS: no JVD GENERAL: Yes normal visual inspection and Yes trachea midline Resp: COMMON NORMALS: normal respiratory effort, No use of accessory muscles and clear to auscultation bilaterally EFFORT & INSPECTION: Yes able to speak in complete sentences and Yes symmetric chest movement AUSCULTATION: clear to auscultation bilaterally Cardio: COMMON NORMALS: no JVD, regular rate and regular rhythm RATE: regular rate RHYTHM: regular rhythm PERIPHERAL PULSES: radial pulses present GI: INSPECTION: Yes abdominal distension PALPATION: Yes Firmness to palpation present (GI), No Tenderness to palpation present (GI), No Guarding due to palpation present (GI) and Yes Palpable mass present PERCUSSION: dullness to percussion RECTAL EXAM: deferred Back/Pelvis: COMMON NORMALS: thoraco-lumbar ROM normal Extremity: COMMON NORMALS: normal to inspection GENERAL: Yes normal exam except as noted Neuro: COMMON NORMALS: moves all extremities, no focal motor deficits and no sensory deficits noted SENSORIUM/ORIENTATION: Yes alert Psych: COMMON NORMALS: mental status grossly normal, Normal thought process present, cooperative, normal affect and speech normal SPEECH: Yes normal speech THOUGHT PROCESS: Normal thought process present Skin: COMMON NORMALS: no rashes or lesions noted, turgor normal and no jaundice GENERAL SKIN EXAM: no rashes or lesions noted and turgor normal Course Vital Signs: Vital signs: Vital Signs Temperature 98.3 F 12/01/20 13:22 Pulse Rate 99 12/01/20 13:22 Respiratory Rate 18 12/01/20 13:22 Blood Pressure 133/90 12/01/20 13:22 Pulse Oximetry 93 12/01/20 13:22 MDM - Nausea/Vomiting/Diarrhea MDM Narrative: Medical decision making narrative: 55-year-old female presents with her for 2 and half weeks of progressive early satiety, regurgitation episodes of vomiting, upper abdominal pain and progressive abdominal distention since June. Patient has had ovarian cancer and has battled with it since 2011. She has undergone chemotherapy and radiation and is currently taking immunotherapy although it was recently held at the end of October. Patient had a CAT scan done on Sunday and does not know the results of it yet. She was told it was abnormal. Since she had a history of bowel obstruction she was sent to the emergency department. After reviewing the CT scan I called Dr. Benavidez and discussed it with him first and then talked with the patient. Dr. Benavidez reports that she has had progression of her disease and is now at the end stages of ovarian cancer. The patient has not had any vomiting in the last 4 hours and her pain level is tolerable now. She has a mild acute kidney injury on labs here. After discussing her cancer, its progression, and the perceived course I came to find that the patient has been expecting this and has already gone through several of the stages of grief in preparation for an incurable disease and inevitable . She was being good spirits given the condition and was offered admission however she would simply like a liter of fluid and to follow-up with Dr. Benavidez tomorrow to discuss her goals of care and palliation. Lab Data: Labs: Lab Results 12/01/20 12/01/20 12/01/20 Range/Units 15:19 15:19 16:48 WBC 11.9 H (4.0-10.0) 10^3/ uL RBC 4.37 (4.1-5.3) 10^6/u L Hgb 11.4 L (11.5-15.3) g/dL Hct 36.9 L (37.0-47.0) % MCV 84.4 (81-99) fL MCH 26.1 L (28.0-34.0) pg MCHC 30.9 (30.0-36.0) g/dL RDW 17.0 H (12.1-15.1) % Plt Count 759 H (130-400) 10^3/c mm MPV 9.6 (7.4-10.4) fL Neut % (Auto) 73.3 % Lymph % (Auto) 16.4 % Barron % (Auto) 8.5 % Eos % (Auto) 0.6 % Baso % (Auto) 0.8 % Neut # (Auto) 8.75 H (1.8-7.7) 10^3/u L Lymph # (Auto) 2.0 (0.8-4.8) 10^3/u L Barron # (Auto) 1.0 H (0.2-0.9) 10^3/u L Eos # (Auto) 0.1 (0.0-0.8) 10^3/u L Baso # (Auto) 0.1 (0.0-0.1) 10^3/u L Nucleated RBC % (a uto) 0 % Nucleated RBCs # 0.0 /100WBC Sodium 132 L (136-145) mmol/L Potassium 5.0 (3.5-5.1) mmol/L Chloride 94 L (98-107) mmol/L Carbon Dioxide 28 (22-29) mmol/L Anion Gap 15.0 (5-19) BUN 12 (6-20) mg/dL Creatinine 1.2 H (0.5-0.9) mg/dL GFR Calculation 46.6 L (90-130) mL/min Glucose 116 H (65-115) mg/dL Calculated Osmolal ity 275 L (285-295) mOsm/k g Calcium 8.8 (8.5-10.5) mg/dL Total Bilirubin 0.3 (0.15-1.2) mg/dL AST 16 (0-32) U/L ALT 8 (0-33) U/L Alkaline Phosphata se 98 (35-105) IU/L Total Protein 6.8 (6.6-8.7) g/dL Albumin 3.9 (3.5-5.2) g/dL Globulin 2.9 (1.3-4.6) g/dL Lipase 19 (13-60) U/L Urine Color Dark yellow (Yellow) Urine Appearance Cloudy (CLEAR) Urine pH 5 (5-7) Ur Specific Gravit y 1.020 (1.005-1.030) Urine Protein Neg (Negative) Urine Glucose (UA) Norm (Normal) Urine Ketones Negative (Negative) Urine Blood 2+ H (Negative) Urine Nitrate Negative (Negative) Urine Bilirubin 1+ H (Negative) Urine Urobilinogen 1 H (Negative) mg/dL Ur Leukocyte Itzel ase 2+ H (Negative) Urine RBC 0-4 H (0-2) /hpf Urine WBC Too numerous to c nt H (0-5) /hpf Ur Squamous Epith Cells 5-10 H (0-5) /hpf Amorphous Sediment 1+ /hpf Urine Bacteria 3+ H (NONE) /hpf Fine Granular Cast s 40-55 H /lpf Imaging Data^: CT Abd/Pel: Attestation: I personally reviewed and interpreted this imaging study as follows: Radiologist's impression: See radiology report. Discharge Plan Discharge Patient Disposition: Home Clinical Impression: Cancer associated pain Ovarian cancer Qualifiers: Laterality: unspecified laterality Qualified Code(s): C56.9 - Malignant neoplasm of unspecified ovary Partial intestinal obstruction Qualifiers: Intestinal obstruction type: other intestinal obstruction Qualified Code(s): K56.690 - Other partial intestinal obstruction Condition: Stable Prescriptions: New hydrocodone-acetaminophen 7.5-325 mg/15 mL solution 10 ml PO Q8H PRN (Reason: pain) 7 Days Qty: 120 RF: 0 No Action insulin lispro [Humalog U-100 Insulin] 100 unit/mL solution 5 unit SUBCUT TID PRN (Reason: blood sugar) RF: 0 metoprolol tartrate 25 mg tablet 25 mg PO BID RF: 0 citalopram 40 mg tablet 40 mg PO DAILY@18 RF: 0 pantoprazole 40 mg tablet,delayed release (DR/EC) 40 mg PO DAILY@18 RF: 0 prochlorperazine maleate 10 mg tablet 10 mg PO Q4H PRN (Reason: Nausea) RF: 0 alprazolam 0.5 mg tablet 0.5 mg PO QID PRN (Reason: Anxiety) RF: 0 lansoprazole 30 mg capsule,delayed release(DR/EC) 30 mg PO DAILY@18 RF: 0 sennosides-docusate sodium [Senna with Docusate Sodium] 8.6-50 mg tablet 2 tab-cap PO DAILY@07 RF: 0 trazodone 50 mg tablet 50 mg PO BEDTIME@21 RF: 0 metformin 500 mg tablet 500 mg PO BID@ RF: 0 enoxaparin [Lovenox] 40 mg/0.4 mL syringe 40 mg SUBCUT DAILY 2 Days Qty: 0.4 RF: 0 lactulose 10 gram/15 mL solution 15 ml PO PRN PRN (Reason: Constipation) RF: 0 Eliquis 5 mg tablet 2.5 mg PO BID@07,18 Qty: 0 RF: 0 levothyroxine 150 mcg Tablet 150 mcg PO DAILY@07 RF: 0 Discharge Orders: Discharge ED (Routine); Ordered 12/01/20 Ordered By: Josef Rios Referrals: Jeffrey Benavidez MD [Hospitalist] - 12/02/20 8:30 am Discharge Diet: Advance as tolerated Discharge Activity: Resume usual activity Patient Instructions: Opioid Safety Coding Level of Care Code ED [employer] for Sharyn Melendez
[2020-12-01 17:12] LABS: Bilirubin Urine 1+ (Negative); Blood Urine 2+ (Negative); Glucose Urine UA Norm (Normal); Ketones Urine Negative (Negative); Leukocyte Esterase Urine 2+ (Negative); Nitrate Urine Negative (Negative); Protein Urine Neg (Negative); Urine Appearance Cloudy (CLEAR); Urine Color Dark Yellow (Yellow); Urobilinogen Urine 1 mg/dL (Negative); pH Urine 5 (5-7)
[2020-12-01 17:13] LABS: Add Urine Culture? Yes; Add Urine Microscopic? YES; Amorphous Sediment Urine 1+ /hpf; Bacteria Urine 3+ /hpf; Fine Granular Casts Urine 40-55 /lpf; RBC Urine 0-4 /hpf (0-2); WBC Urine TOO NUMEROUS TO CNT /hpf (0-5)
[2020-12-01] MEDS: sodium chloride 0.9% 1,000 ML 999 ML IV (17:49)
== END 2020-12-01 18:46 | disposition home or self-care (01) ==
PROVIDERS: Physician Assistant; Emergency Provider Emergency Medicine; PCP Family Medicine
DX: G89.3 Neoplasm related pain (acute) (chronic) (principal); C56.9 Malignant neoplasm of unspecified ovary; K56.690 Other partial intestinal obstruction; Z79.4 Long term (current) use of insulin; Z79.01 Long term (current) use of anticoagulants; Z92.21 Personal history of antineoplastic chemotherapy; Z79.899 Other long term (current) drug therapy; E11.9 Type 2 diabetes mellitus without complications; I10 Essential (primary) hypertension
CPT/HCPCS: 80053; 81001; 83690; 85025; 87086; 96360; 99283; J7030

== ENCOUNTER 2020-12-02 10:04 | Outpatient (CLI) | payer MEDICARE, MEDICAID, SELFPAY ==
[2020-12-02] MEDS: ondansetron 2 mg/ML SDV 2 mL 8 MG IV (10:49)
[2020-12-02] MEDS: sodium chloride 0.9% 1,000 ML 999 ML IV (10:49)
[2020-12-02] MEDS: famotidine 20 mg/2 mL INJ IVP (10:51)
--- NOTE | 2020-12-02 17:09 | ONC FU_ITS ---
Dr. Benavidez Patient Follow-Up Note Patient: Bessy Roy Unit #: [id number]: 1965 Dicatated By: Jeffrey Benavidez M.D.Date of Visit:December 02, 2020 Onc Med Follow-up/Prog Note Chief Complaint: Ovarian cancer. History of Present Illness: This is a 55 year-old woman with recurrent ovarian cancer. She had presented in March 2012 with stage IIIC ovarian cancer. She was referred to Dr. Edilson Wahl for [employer] oncology. On 05/17/12 showed underwent exploratory laparotomy. The op note indicated a small amount of residual miliary disease present at the end of the procedure. It was estimated to be greater than 99% resected. Pathology showed a high-grade serous carcinoma involving both ovaries, measuring 9 cm on the right and 6 cm on the left. There was involvement in the omentum and multiple serosal surfaces including the appendix, uterus, and colon. There was no diagnostic abnormality in the included portion of rectosigmoid colon and there was no involvement in the skeletal muscle from the abdominal wall. There was involvement in the liver capsule, but not the liver parenchyma. The spleen showed no diagnostic abnormality. There was involvement in 4 of 20 lymph nodes. The ascitic fluid also was positive. Her postoperative course was complicated by development of an abscess in the left lower quadrant, requiring percutaneous drainage and antibiotic therapy. She did have a gradual recovery, and she subsequently was given postoperative chemotherapy with 6 cycles of carboplatin/Taxol, completed on 11/15/2012. There were delays during her chemotherapy related to poor compliance. In August 2013 she had recurrence and she began second line chemotherapy with carboplatin and weekly Taxol in combination with Avastin . As of 02/02/15 she had completed 6 cycles of chemotherapy. She had significant response by CA 125 level and by followup CT scan. Taxol was omitted with cycles 5 and 6 due to neuropathy. Her treatment was changed to maintenance Avastin. By June her CA-125 level began to increase. As of 08/19/2015 it was back up to 43 U/mL. At that point she restarted chemotherapy with Abraxane/Avastin, and her CA-125 level subsequently declined. She then continued treatment with Abraxane/Avastin, though not on a very consistent schedule due in part to toxicities and in part to compliance issues. As of her follow-up visit on 08/22/2017 her neuropathy symptoms had worsened significantly, and I did opt to put her treatment on hold. She returned on 09/26/2017 to begin further chemotherapy with carboplatin/gemcitabine on a day 1/day 15 schedule. Her baseline CA-125 level had increased to 15.1 U/mL. She had some fatigue following that treatment. She otherwise seemed to tolerate it pretty well, and she was able to continue treatment on a day 1/day 15 schedule. As of July 2018 she had completed 11 cycles of carboplatin/gemcitabine. She remained stable clinically with CA-125 level stable at 14.4 U/mL. In August 2018 she began maintenance therapy with olaparib 300 mg twice a day. At her scheduled visit on 04/10/2019 she appeared stable clinically, but there was a significant increase in her CA 125 level to 30.0 U/mL compared to 17.8 U/mL in January. With that change she had restaging CT scans of the chest/abdomen/pelvis on 04/18/2019. It showed new circumferential thickening of the stomach antrum and a small but slightly increase sized gastric lymph node. It was felt to possible represent inflammatory changes from peptic ulcer disease, but very early metastatic disease was not excluded. There was no ascites. There was stable, mild thickening of the right lateral urinary bladder wall. With those findings, I opted to restart her on chemotherapy with carboplatin in combination with liposomal doxorubicin. She began cycle 1 on 05/08/2019. Her baseline CA 125 level was 58.9 U/mL. She tolerated the treatment with acceptable toxicity. She continued with cycle 2 on 06/05/2019 and with cycle 3 on 07/03/2019. At that point the CA 125 level had decreased just slightly, to 38.9 U/mL. At her followup visit visit on 07/31/2019 she had developed a significant skin eruption as well as other side effects with the chemotherapy. As there has been no further decline in the CA-125 level, I opted to stop that treatment. Restaging CT of the abdomen/pelvis on 09/09/2019 showed mesenteric deposits throughout the abdomen and pelvis, increased in size and number compared to the study from April 2019. Also noted was a soft tissue mass at the antrum of the stomach with slight increase in size and luminal narrowing. With those findings, I opted to restart chemotherapy with carboplatin/gemcitabine. She began her 1st cycle on 10/08/2019 on a day 1/day 15 schedule. Her other medical illnesses include hypertension, type II diabetes, and anxiety/depression. She underwent repair of an incisional hernia which developed subsequent to her abdominal surgery in 2011. She is a nonsmoker. INTERIM HISTORY: She completed 1 full cycle of treatment with carboplatin/gemcitabine. She tolerated the chemotherapy pretty well, but after 1 cycle there was a significant increase in the CA-125 level. With that finding, she then began a trial of salvage therapy with pembrolizumab in combination with bevacizumab. She began cycle 1 on 12/04/2019. She tolerated it without any adverse effects. She continued with cycle 2 on 12/25/2019 and with cycle 3 on 01/15/2020. As of cycle 4 the bevacizumab was put on hold due to hypertension, but she did continue the pembrolizumab at 3-week intervals. Restaging CT scans of the chest, abdomen, and pelvis on 04/07/2020 showed continued progression of metastatic implants within the abdomen and pelvis compared to the August 2019 CT. There was increase in both size and number of mesenteric metastatic deposits and additional central mesenteric and pelvic mesenteric stranding which was highly suspicious for metastatic deposits involving the small bowel and colon in the right lower quadrant. There is no evidence of GI obstruction. There was suspected omental metastatic involvement. There was no ascites. There was no evidence of pulmonary metastatic disease. With those findings, she was given the option to go back on treatment with Abraxane in combination with pembrolizumab, as she was very motivated to continue with some form of treatment. She began cycle 1 on 04/15/2020. She tolerated it well, she continue with cycle 2 on 05/06/2020. 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 She began anticoagulation with apixaban. On 05/26/2020 she underwent removal of the Port-A-Cath, and her treatment was put on hold. She was then able to undergo placement of a left internal jugular vein Port-A-Cath on 06/15/2020. She continued with cycle 3 of Abraxane/pembrolizumab on 06/29/2020. On 07/20/2020 she was admitted to the hospital with small bowel obstruction. Her CT abdomen/pelvis showed some associated bowel wall thickening and mesenteric nodularity which was suspicious for underlying carcinomatosis. It appeared to be a little more pronounced compared to the prior study, but there were no other obvious findings of disease progression. The obstruction resolved with conservative management. She continued with cycle 4 of Abraxane/pembrolizumab on 07/29/2020, and she then continued treatment 3-week intervals. As of 11/03/2020 she received her 8th cycle. At her follow-up visit on 11/25/2020 she reported increasing abdominal pain and her performance status had declined. Her treatment was put on hold. She had restaging CT scans on 11/30/2020. The chest showed a small left pleural effusion with slight basilar atelectasis. There was no mediastinal or hilar lymphadenopathy. A moderate esophageal hiatal hernia had progressed from previous studies. There was associated mass-effect on the GE junction with narrowing. 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 Also noted was omental caking with tethering of small bowel loops along the ventral abdominal wall. There was mild small bowel dilatation consistent with small bowel obstruction, though with improvement compared to the June 2020 study. As of yesterday her abdominal pain had worsened significantly, and she was then seen in the emergency room for evaluation. After discussion with the treating physician, she opted to go home and follow-up with us here today. During the past 2 weeks she has been having more abdominal pain and nausea. Up until yesterday she had been able to control the pain adequately with oxycodone. She has been having a lot of nausea, though, and she has been vomiting up most of what she eats. At best she can keep down about 25%. She has not had a bowel movement in the last 3 to 4 days. She is getting weaker, and her activity now is very limited. Medications: ALPRAZolam 1 Tablet (of 0.5 mg) Oral t.i.d. PRN, AmLODIPine Besylate 1 (5 mg) Tablet Oral daily, CeleXA 1 (40 mg) Tablet Oral daily, Colace 3 (100 mg) Capsule Oral b.i.d., Compazine 1 (10 mg) Tablet Oral four times a day PRN, Eliquis 1 Tablet (of 5 mg) Oral b.i.d., HumuLIN R Injection t.i.d. PRN, Hydrocodone-Acetaminophen 1 - 2 Tablet (of 7.5-325 mg) Oral q 4 hours PRN, Lantus 40 Units (of 100 Units/mL) Subcutaneous at bedtime PRN, Levothyroxine Sodium 1 Tablet (of 125 mcg) Oral daily, Magnesium 1 Tablet (of 400 mg) Oral daily, Melatonin 4 (10 mg) Tablet Oral at bedtime, MetFORMIN HCl 2 Tablet (of 500 mg) Oral b.i.d., Metoprolol Tartrate 1 Tablet (of 25 mg) Oral daily, oxyCODONE HCl 1 Tablet (of 15 mg) Oral q 4 hours PRN, Pantoprazole Sodium 1 Tablet (of 40 mg) Tablet, enteric coated Oral daily, Probiotic & Acidophilus Ex St 1 Capsule Oral b.i.d., Voltaren 2 - 4 G (of 1 %) Gel (jelly) Transdermal PRN Allergies: Morphine Sulfate Vital Signs: Performed on December 02, 2020 11:10 Height - 63.50 in Weight - 195.4 lbs (HIGH) BSA - 1.93 sq.m BMI - 34.07 (HIGH) Temperature - 98.3 F (LOW) Pulse - 127 /min (HIGH) Respiration - 16 /min BP - 120/81 mm(hg) O2 Sat - 93 % (LOW) Pain - 8 Fatigue - 10 Physical Examination: Constitutional - She appears generally weak and somewhat pale, Abdomen - Her abdomen is distended and firm. Lab/Imaging: Test performed on Nov 22, 2020 08:44 Glucose 102 mg/dL BUN 13 mg/dL Creatinine 0.9 mg/dL Cr Clearance (Est) 93.16 mL/min Sodium 139 mmol/L Potassium 4.4 mmol/L Chloride 99 mmol/L CO2 26 mmol/L Calcium 8.6 mg/dL Protein, Total 5.8 g/dL Albumin 3.6 g/dL Globulin 2.2 g/dL Bilirubin, Total 0.2 mg/dL Alkaline Phosphatase 96 IU/L AST (SGOT) 15 IU/L ALT (SGPT) 9 IU/L WBC 11.7 10^9/L RBC 4.07 10^12/L HGB 10.3 g/dL HCT 32.6 % MCV 80.2 fl MCH 25.4 pg MCHC 31.7 g/dL RDW 17.3 % Platelet Count 687 10^9/L MPV 7.4 fL Neutrophils (Gran) 7.8 10^9/L Lymphocytes 3.4 10^9/L Monocytes 0.5 10^9/L Manual Lymphocytes 28.9 % Manual Monocytes 4.3 % CA 125 215.7 Units/mL Problem List: 1. High-grade serous carcinoma of the ovary, stage IIIC at initial diagnosis. There was a small amount of residual miliary disease present following her initial surgery in April 2012. Her disease was estimated at greater than 99% resected. She was given postoperative chemotherapy with 6 cycles of carboplatin/Taxol, which she completed in October 2012. 2. Hypertension. 3. Type II diabetes. 4. GERD. 5. Anxiety/depression. Problems Addressed with this Encounter and Plan: Patient with recurrent ovarian cancer. She has been given postoperative adjuvant chemotherapy with 6 cycles of carboplatin/Taxol following initial surgery in April 2012. She first had evidence of recurrence by CA-125 level in August 2014. Her subsequent treatment included: 1. Carboplatin and weekly Taxol in combination with Avastin for 6 cycles, completed in February 2015. 2. Maintenance Avastin. 3. Abraxane in combination with Avastin beginning July 2015. 4. Carboplatin/gemcitabine on a day 1/day 15 schedule beginning from August 2017 thru July 2018. 5. Maintenance olaparib 300 mg twice daily beginning August 2018. 6. As of March 2019 there was evidence of disease progression with rising CA-125 level. Her further treatments included chemotherapy with carboplatin/liposomal doxorubicin, retreatment with carboplatin/gemcitabine, and a trial of therapy with pembrolizumab in combination with bevacizumab. On 04/15/2020 she began further treatment with Abraxane in combination with pembrolizumab. She tolerated it well and she continued with cycle 2 on 05/06/2020. 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 She underwent placement of a left internal jugular vein Port-A-Cath on 06/15/2020, and she continued with cycle 3 of Abraxane/pembrolizumab on 06/29/2020. On 07/20/2020 she was admitted to the hospital with small bowel obstruction. Her CT abdomen/pelvis showed some associated bowel wall thickening and mesenteric nodularity which was suspicious for underlying carcinomatosis. It appeared to be a little more pronounced compared to the prior study, but there were no other obvious findings of disease progression. The obstruction resolved with conservative management. She restarted treatment with cycle 4 of Abraxane/pembrolizumab on 07/29/2020, and she then continue treatment at 3-week intervals. As of 11/03/2020 she completed cycle 8 of Abraxane a combination with pembrolizumab. Between July and October 2020 there was a significant further increase in the CA-125 level. As of her follow-up visit on 11/25/2020 the level had stabilized. However, her symptoms had worsened significantly, and I did opt to put her treatment on hold. Her restaging CT scans on 11/30/2020 are showing further disease progression compared to the June [address] findings were reviewed with the patient and we discussed the clinical implications. Her disease has progressed on multiple salvage therapies. She is having worsening abdominal pain and she has symptoms of at least partial bowel obstruction. At this point we really have no effective treatment to offer for the ovarian cancer, and it is best now to transition to symptomatic/supportive care, as this type of obstruction is not going to be amenable to any type of surgical procedure or other intervention. She indicates that she is agreeable to hospice, I will make arrangements for that referral. I will have her start fentanyl at 25 mcg/h and she will be given a prescription for oxycodone 20 mg/mL to take as needed for breakthrough pain. She also was given a prescription for Zofran ODT to take 8 mg as needed for nausea. If that is not effective, she can then try Zyprexa Zydis. She also can be given some home hydration as needed. Her prognosis obviously is very poor. I will see her on an as needed basis. Signed By: Jeffrey Benavidez M.D. <<Signature on File>>
== END 2020-12-02 10:05 | disposition home or self-care (01) ==
PROVIDERS: PCP Family Medicine; Visit Provider Internal Medicine Medical Oncology
DX: C56.1 Malignant neoplasm of right ovary (principal); C56.2 Malignant neoplasm of left ovary; C77.2 Secondary and unspecified malignant neoplasm of intra-abdominal lymph nodes; E11.9 Type 2 diabetes mellitus without complications; I10 Essential (primary) hypertension; K21.9 Gastro-esophageal reflux disease without esophagitis; F41.9 Anxiety disorder, unspecified; F32.9 Major depressive disorder, single episode, unspecified; Z79.899 Other long term (current) drug therapy; Z92.21 Personal history of antineoplastic chemotherapy
CPT/HCPCS: 96361; 96365; 96375; 99215; J1100; J2405; J3490; J7030